=== PATIENT | male | born 1945 | race Caucasian/White ===

== ENCOUNTER 2016-07-08 10:54 | Emergency (ER) | payer OTHER ==
[~2016-07-08] VITALS: Ht 188 cm; Wt 87.7 kg
[~2016-07-08 10:54] MED LIST: ASPCH81X PO; CLS1 PO; COLE1TAB5 PO; CYAN250T PO; EZET10TA63 PO; FURO20TA PO; GEMF600T3 PO; GLC850 PO; GLIP5TAB11 PO; LEVO25TA5 PO; LISI-461 PO; METO50TA16 PO; NTRGSL/4 UT; PANT1TAB48 PO
[2016-07-08 10:58] VITALS: TEMP 36.3; Ht 188 cm; Wt 87.7 kg
[2016-07-08] MEDS ORDERED: HYDR25TA5 PO (11:12)
[2016-07-08] MEDS ORDERED: AZITTAB PO (11:13)
--- NOTE | 2016-07-08 11:54 | EMERGENCY ROOM VISIT NOTE ---
History Report prepared by Amber: Reena Hernandez Under the Supervision of: Dr. You Valderrama M.D. First contact with patient: 11:25 Chief Complaint: HEAD PAIN Stated Complaint: RIGHT SIDE OF HEAD History of Present Illness The patient is a 70 year old male who presents to the Emergency Room with complaints of constant right sided head pain beginning 4 days ago. The patient states that he has had a recent sinus infection and has taken 2 days of Zithromax. He complains of some facial pain. He denies any fever and chills. Review of Systems All systems have been listed, reviewed, and are negative other than those previously mentioned. Please see Additional Medical History Sheet. Past Medical & Surgical Medical Problems: (1) Hypertension (2) Pelvis fracture Family History No pertinent family history stated. Social History Smoking Status: Never Smoker Alcohol Use: none Marital Status: Housing Status: lives with significant other Current/Historical Medications Scheduled Amoxicillin & Pot Clavulanate (Augmentin 500MG), 1 TAB PO BID Aspirin (Aspirin Chewable), 1 TAB PO BID Azithromycin (Zithromax Z-Salvatore), 1 PKT PO UD Colestipol Hcl (Colestid *), 2 GM PO QAM Colestipol Hcl (Colestipol Hcl), 1 GM PO QPM Cyanocobalamin (Vitamin B-12 250 Mcg), 2 TABLETS PO QPM Docusate Sodium (Colace), 100 MG PO BID Ezetimibe (Zetia), 5 MG PO QAM Gemfibrozil (Lopid), 600 MG PO BID Glipizide (Glucotrol), 5 MG PO BID Hydrochlorothiazide (Hydrochlorothiazide), 12.5 MG PO QAM Levothyroxine Sodium (Levothyroxine Sodium), 1 TAB PO QAM Lisinopril (Zestril), 5 MG PO QAM Metformin Hcl (Glucophage *), 850 MG PO BID Metoprolol Tartrate (Lopressor) (Lopressor), 50 MG PO BID Nitroglycerin (Nitrostat), 0.4 MG UT PRN Pantoprazole (Protonix), 40 MG PO QAM Scheduled PRN Furosemide (Lasix), 20 MG PO for swelling Oxycodone/Acetaminophen 5MG/325MG (Percocet 5MG/325MG), 1-2 TABLETS PO Q4H PRN for Pain Allergies Coded Allergies: Atorvastatin (Verified Allergy, Unknown, Hives swelling of legs, 07/08/16 ) Physical Exam Vital Signs Date Time Temp Pulse Resp B/P Pulse Ox O2 Delivery O2 Flow Rate FiO2 07/08/16 14:20 75 20 123/67 94 07/08/16 13:24 70 20 133/73 94 Room Air 07/08/16 10:58 36.3 84 18 151/101 97 Room Air Physical Exam GENERAL: Patient awake, alert, oriented x 3. Patient follows commands. Patient does not appear toxic. Patient is adequately hydrated and well- nourished. SKIN: No erythema, pallor, cyanosis or rash HEENT: Normal head, pupils equal, reactive to light and accommodation. Ears normal. Oral cavity and posterior pharynx appear normal. Neck: Without adenopathy, no neck vein distention. Minimal tenderness over the right maxillary sinus, minimal pain LUNGS: Clear to auscultation. No wheezes, no rales, no rhonchi. HEART: No murmurs. No gallops. No rubs EXTREMITIES: No signs of trauma. No pedal or pretibial edema. No calf or thigh tenderness. No signs of trauma or infection. NEUROLOGIC: Cranial nerves II-XII within normal limits. No gross motor sensory function deficits. Medical Decision & Procedures ER Provider Diagnostic Interpretation: CT results are interpretations by the radiologist and per my review. HEAD CT NONCONTRAST Findings: Moderate mucosal thickening within the paranasal sinuses with multiple fluid levels. There is near-complete opacification of the right sphenoid sinus. There appears be a 1.7 cm polyp within the left nasal cavity on image 1. The mastoid air cells are clear. The calvarium and skull base are intact. The ventricles and sulci are within normal limits. There is no mass, hematoma, midline shift, or acute infarct. Impression: 1. No acute intracranial abnormality. 2. Acute paranasal sinusitis as described above. 3. A 1.7 cm polyp within the left nasal cavity. Direct visualization is recommended. Electronically signed by: Hector Valenzuela M.D. 07/08/2016 12:20 PM Dictated Date/Time: 07/08/2016 12:18 PM Laboratory Results 07/08/16 12:00 Red Blood Count 3.91, Mean Corpuscular Volume 84.1, Mean Corpuscular Hemoglobin 28.6, Mean Corpuscular Hemoglobin Concent 34.0, Mean Platelet Volume 9.4, Neutrophils (%) (Auto) 54.4, Lymphocytes (%) (Auto) 34.9, Monocytes (%) (Auto) 8.6, Eosinophils (%) (Auto) 1.2, Basophils (%) (Auto) 0.3, Neutrophils # (Auto) 3.75, Lymphocytes # (Auto) 2.40, Monocytes # (Auto) 0.59, Eosinophils # (Auto) 0.08, Basophils # (Auto) 0.02 07/08/16 12:00 Test 07/08/16 12:00 White Blood Count 6.88 K/uL (4.8-10.8) Red Blood Count 3.91 M/uL (4.7-6.1) Hemoglobin 11.2 g/dL (14.0-18.0) Hematocrit 32.9 % (42-52) Mean Corpuscular Volume 84.1 fL (80-100) Mean Corpuscular Hemoglobin 28.6 pg (25-34) Mean Corpuscular Hemoglobin Concent 34.0 g/dl (32-36) Platelet Count 257 K/uL (130-400) Mean Platelet Volume 9.4 fL (7.4-10.4) Neutrophils (%) (Auto) 54.4 % Lymphocytes (%) (Auto) 34.9 % Monocytes (%) (Auto) 8.6 % Eosinophils (%) (Auto) 1.2 % Basophils (%) (Auto) 0.3 % Neutrophils # (Auto) 3.75 K/uL (1.4-6.5) Lymphocytes # (Auto) 2.40 K/uL (1.2-3.4) Monocytes # (Auto) 0.59 K/uL (0.11-0.59) Eosinophils # (Auto) 0.08 K/uL (0-0.5) Basophils # (Auto) 0.02 K/uL (0-0.2) RDW Standard Deviation 44.8 fL (36.4-46.3) RDW Coefficient of Variation 14.6 % (11.5-14.5) Immature Granulocyte % (Auto) 0.6 % Immature Granulocyte # (Auto) 0.04 K/uL (0.00-0.02) Anion Gap 8.0 mmol/L (3-11) Est Creatinine Clear Calc Drug Dose 57.9 ml/min Estimated GFR () 59.0 Estimated GFR (Non- 50.9 BUN/Creatinine Ratio 19.9 (10-20) Calcium Level 9.1 mg/dl (8.5-10.1) Laboratory results as stated above per my review. Medications Administered Medications (Trade) Dose Ordered Sig/Blayne Route Start Time Stop Time Status Last Admin Dose Admin Oxycodone/ Acetaminophen (Percocet 5-325mg Tab) 1 tab NOW ONCE PO 07/08/16 12:30 07/08/16 12:31 DC 07/08/16 12:26 1 TAB ED Course 1125: Past medical records reviewed. The patient was evaluated in room C2. A complete history and physical examination was performed. 1230: Oxycodone/Acetaminophen 1 tab PO. 1337: I reevaluated the patient. He will go on Augmentin get pain medicine and he will go home. 1403: Upon reevaluation, the patient appeared to have improvement of his symptoms. I discussed today's findings with the patient. He verbalized agreement of the treatment plan. The patient was discharged home. Medical Decision Differential diagnosis includes sinusitis, migraine/tension/sinus/cluster headache. Multiple labs and CT were obtained. Please see above. The patient is an obvious sinusitis. He also has a nasal polyp which I believe is unrelated to his current problem. The patient has been on azithromycin without benefit. The patient will be switched to Augmentin although I do not have evidence that this is a bacterial infection. The patient was encouraged to use steam. The patient is not a good candidate for pseudoephedrine because of his prior cardiac history. The patient is to follow-up with his family physician in 10- 14 days. The patient was also given a prescription for pain medication. [place] Drug Monitoring Program Search Results: patient reviewed within database, no issues identified Impression Primary Impression: Acute sinusitis Additional Impression: Sinus headache Scribe Attestation The scribe's documentation has been prepared under my direction and personally reviewed by me in its entirety. I confirm that the note above accurately reflects all work, treatment, procedures, and medical decision making performed by me. Departure Information Dispostion Home / Self-Care Prescriptions Docusate Sodium (COLACE) 100 Mg Cap 100 MG PO BID, #20 CAP Prov: You Valderrama M.D. 07/08/16 Oxycodone/Acetaminophen 5MG/325MG (PERCOCET 5MG/325MG) Tab 1-2 TABLETS PO Q4H Y for Pain, #20 TAB Prov: You Valderrama M.D. 07/08/16 Amoxicillin & Pot Clavulanate (AUGMENTIN 500MG) 1 Tab Tab 1 TAB PO BID for 10 Days, #20 TAB Prov: You Valderrama M.D. 07/08/16 Referrals No Doctor, Assigned (PCP) Forms HOME CARE DOCUMENTATION FORM, IMPORTANT VISIT INFORMATION, WORK / SCHOOL INSTRUCTIONS Patient Instructions My [facility] Additional Instructions Stop azithromycin. 1 Augmentin twice a day for 10 days. Start today. 1 Percocet every 4 hours as needed for moderate to severe pain. Do not drive or operate machinery while taking Percocet. 1 Colace twice a day while on Percocet. Drink extra fluids. Follow-up with your family physician within the next 2 weeks. Problem Qualifiers
[2016-07-08 12:09] LABS: BASO % 0.3 %; BASO ABS # 0.02 K/uL (0-0.2); COMPLETE YES; EOS % 1.2 %; HEMATOCRIT 32.9 % (42-52); IG% 0.6 %; LYMPH % 34.9 %; MEAN CELL VOLUME 84.1 fL (80-100); MEAN CORPUSCULAR HEMOGLOBIN 28.6 pg (25-34); MEAN PLATELET VOLUME 9.4 fL (7.4-10.4); MONO % 8.6 %; NEUT % 54.4 %; PLATELET COUNT 257 K/uL (130-400); RED BLOOD COUNT 3.91 M/uL (4.7-6.1); WHITE BLOOD COUNT 6.88 K/uL (4.8-10.8)
--- NOTE | 2016-07-08 12:23 | DIAGNOSTIC IMAGING REPORT ---
HEAD CT NONCONTRAST CT DOSE: 537.48 mGy.cm HISTORY: right sided head pain sinusitis? TECHNIQUE: Multiaxial CT images of the head were performed without the use of intravenous contrast. Automated exposure control was utilized for this study. Comparison: Head CT 09/21/2008. Findings: Moderate mucosal thickening within the paranasal sinuses with multiple fluid levels. There is near-complete opacification of the right sphenoid sinus. There appears be a 1.7 cm polyp within the left nasal cavity on image 1. The mastoid air cells are clear. The calvarium and skull base are intact. The ventricles and sulci are within normal limits. There is no mass, hematoma, midline shift, or acute infarct. Impression: 1. No acute intracranial abnormality. 2. Acute paranasal sinusitis as described above. 3. A 1.7 cm polyp within the left nasal cavity. Direct visualization is recommended. Electronically signed by: Hector Valenzuela M.D. 07/08/2016 12:20 PM Dictated Date/Time: 07/08/2016 12:18 PM
[2016-07-08 12:28] LABS: BUN/CREATININE RATIO 19.9 (10-20); CALCIUM 9.1 mg/dl (8.5-10.1); CREATININE 1.4 mg/dl (0.60-1.40); POTASSIUM 4.4 mmol/L (3.5-5.1)
[2016-07-08] MEDS ORDERED: OXYCODONE/ACETAMINOPHEN 5-325 TAB PO ONE (12:30)
[2016-07-08] MEDS ORDERED: OXYC-57 PO (14:00)
[2016-07-08] MEDS ORDERED: AMOX500T PO (14:00)
[2016-07-08] MEDS ORDERED: DOCU-94 PO (14:05)
[2016-07-08 14:20] VITALS: BP 123/67; PULSE 75; O2SAT 94
== END 2016-07-08 14:21 | disposition home or self-care (01) ==
LOC: C.EDB 10:55 → C.EDC 14:21
DX: J01.90 Acute sinusitis, unspecified (principal); R51 Headache; I10 Essential (primary) hypertension; Z79.84 Long term (current) use of oral hypoglycemic drugs; Z79.899 Other long term (current) drug therapy; Z87.828 Personal history of other (healed) physical injury and trauma

== ENCOUNTER → 2016-10-25 | Day surgery (SDC) | payer OTHER ==
[2016-10-18 09:10] VITALS: Ht 188 cm; Wt 86.4 kg
[~2016-10-25] VITALS: Ht 188 cm; Wt 86.4 kg
[~2016-10-25] MED LIST changes: +EpHEDrine SULFATE 50MG/5ML SYR ONE; +HYDR25TA5 PO; +LIDOCAINE HCL 2% 2 ML VIAL (20MG/ML) ONE; +ONDANSETRON INJ 2 MG/ML 2 ML VIAL IV PRN; +PROPOFOL IV EMULSION 10 MG/ML 20 ML VIAL IV ONE; +SODIUM CHLORIDE 0.9% 500ML 500 ML IV ONE
--- NOTE | 2016-10-25 08:22 | Endo History and Physical ---
History & Physical Date of Service: Oct 25, 2016. Chief Complaint: none Referring Physician: Dr. 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 He presents for endoscopic follow-up today. Past Medical History Diabetes, Angioplasty/Stent, Arthritis, Fractures, Pacemaker, Reflux, High Cholesterol, CABG, Heart Disease, Hypertension, Thrombophlebitis, Thyroid Disease, Valve Replacement Past Surgical History Hx Cardiac Surgery: Yes (MULTIPLE HEART CATHS, STENT X2; BALLOON IN AORTIC VALVE) Hx Internal Defibrillator: Yes (-2013) Hx Pacemaker: No Hx Abdominal Surgery: No Hx of Implantable Prosthesis: No Hx Post-Op Nausea and Vomiting: No Hx Cancer Surgery: Yes (SKIN CANCER REMOVALS) Hx Thoracic Surgery: No Hx Orthopedic: Yes (LT VIVIENNE, RT SHOULDER SURGERY, RT HAND SURGERY, RT COLLAR BONE) Hx Urinary Tract Surgery: No Family History None Social History Smoking Status: Never Smoker Hx Substance Use: No Hx Alcohol Use: No Allergies Coded Allergies: Atorvastatin (Verified Allergy, Unknown, Hives swelling of legs, 10/25/16) Current Medications Reported Home Medications Medications Dose Route/Sig Max Daily Dose Days Date Category Dose Instructions Hydrochlorothiazide 25 Mg Tab 12.5 Mg PO QAM 07/08/16 Reported Protonix (Pantoprazole) 40 Mg Tab 40 Mg PO QAM 01/20/15 Reported Zestril (Lisinopril) 10 Mg Tab 5 Mg PO QAM 01/20/15 Reported Levothyroxine Sodium 25 Mcg Tab 1 Tab PO QAM 12/10/14 Reported Aspirin Chewable (Aspirin) 81 Mg Chew 1 Tab PO BID 12/10/14 Reported Glucotrol (Glipizide) 5 Mg Tab 5 Mg PO BID 06/29/13 Reported Colestipol Hcl 1 Gm Tab 1 Gm PO QPM 06/29/13 Reported Lasix (Furosemide) 20 Mg Tab 0.5 Tab PO QPM 05/28/11 Reported Vitamin B-12 250 Mcg (Cyanocobalamin) 250 Mcg Tab 2 Tablets PO QPM 05/28/11 Reported Nitrostat (Nitroglycerin) 0.4 Mg Tab 0.4 Mg UT PRN 09/18/08 Reported [id number] x3. Glucophage * (Metformin HCl) 850 Mg Tab 850 Mg PO BID 09/18/08 Reported Zetia (Ezetimibe) 10 Mg Tab 5 Mg PO QAM 09/18/08 Reported Colestid * (Colestipol HCl) 1 Gm Tab 2 Gm PO QAM 09/21/08 Reported Lopressor (Metoprolol Tartrate) 50 Mg Tab 50 Mg PO BID 09/21/08 Reported Lopid (Gemfibrozil) 600 Mg Tab 600 Mg PO BID 09/18/08 Reported Vital Signs Weight (Kilograms): 86.36 Height (Feet): 6 Height (Inches): 2 Physical Exam General Appearance: no apparent distress Respiratory/Chest: Auscultation: breath sounds normal Cardiovascular: Heart Auscultation: RRR Abdomen: Inspection & Palpation: soft Assessment and Plan EGD for surveillance of a duodenal carcinoid tumor. We have discussed the risks and benefits to include bleeding, infection, perforation, pain and cardiovascular problems
--- NOTE | 2016-10-25 08:49 | Discharge Instructions ---
Endoscopy Patient Instructions Date / Procedure(s) Performed Oct 25, 2016. EGD Allergy Information Coded Allergies: Atorvastatin (Verified Allergy, Unknown, Hives swelling of legs, 10/25/16) Discharge Date / Findings Oct 25, 2016. Mild gastritis Medication Instructions Stopped Medication(s): ASPIRIN Reported Home Medications Medications Dose Route/Sig Max Daily Dose Days Date Category Dose Instructions Hydrochlorothiazide 25 Mg Tab 12.5 Mg PO QAM 07/08/16 Reported Protonix (Pantoprazole) 40 Mg Tab 40 Mg PO QAM 01/20/15 Reported Zestril (Lisinopril) 10 Mg Tab 5 Mg PO QAM 01/20/15 Reported Levothyroxine Sodium 25 Mcg Tab 1 Tab PO QAM 12/10/14 Reported Aspirin Chewable (Aspirin) 81 Mg Chew 1 Tab PO BID 12/10/14 Reported Glucotrol (Glipizide) 5 Mg Tab 5 Mg PO BID 06/29/13 Reported Colestipol Hcl 1 Gm Tab 1 Gm PO QPM 06/29/13 Reported Lasix (Furosemide) 20 Mg Tab 0.5 Tab PO QPM 05/28/11 Reported Vitamin B-12 250 Mcg (Cyanocobalamin) 250 Mcg Tab 2 Tablets PO QPM 05/28/11 Reported Nitrostat (Nitroglycerin) 0.4 Mg Tab 0.4 Mg UT PRN 09/18/08 Reported [id number] x3. Glucophage * (Metformin HCl) 850 Mg Tab 850 Mg PO BID 09/18/08 Reported Zetia (Ezetimibe) 10 Mg Tab 5 Mg PO QAM 09/18/08 Reported Colestid * (Colestipol HCl) 1 Gm Tab 2 Gm PO QAM 09/21/08 Reported Lopressor (Metoprolol Tartrate) 50 Mg Tab 50 Mg PO BID 09/21/08 Reported Lopid (Gemfibrozil) 600 Mg Tab 600 Mg PO BID 09/18/08 Reported Provider Instructions Activity Restrictions - No exercising or heavy lifting for 24 hours. - Do not drink alcohol the day of the procedure. - Do not drive a car or operate machinery until the day after the procedure. - Do not make any important decisions or sign important papers in 24 hours after the procedure. Following Day: - Return to full activity which may include returning to work/school. Diet Start your diet with liquids and light foods (jello, soup, juice, toast). Then eat your usual diet if not nauseated. Treatment For Common After Affects For mild abdominal pain, bloating, or excessive gas: - Rest - Eat lightly - Lie on right side Follow-Up Information Follow-up with JULIET SHIRLEY as scheduled Await pathology results from today Repeat upper endoscopy in 6 months Discomfort may be related to use of metformin Right upper quadrant ultrasound to screen for evidence of gallstones Anesthesia Information What You Should Know You have had a procedure that required some medicine to reduce anxiety and discomfort. This treatment is called moderate sedation. After receiving the treatment, you may be sleepy, but you will be able to breathe on your own. The effects of the treatment may last for several hours. Follow these instructions along with Activity/Diet recommendations noted above: * Do NOT do anything where dizziness or clumsiness would be dangerous. * Rest quietly at home today, then you can be up and about tomorrow. * Have a responsible person stay with you the rest of today. * You may have had an I.V. today. If so, you may take the dressing off later today. Recommendations Call your doctor if: * Trouble breathing * Continuous vomiting for more than 24 hours * Temperature above 101 degrees * Severe abdominal pain or bloating * Pain not relieved by pain medicine ordered * There is increased drainage or redness from any incision * A large amount of rectal bleeding greater than 2-3 tablespoons. (If you had a polyp/s removed or have hemorrhoids, a small amount of blood - from the rectum is to be expected.) * You have any unanswered questions or concerns. IN THE EVENT OF A SERIOUS EMERGENCY, GO TO THE NEAREST EMERGENCY ROOM Your discharge instructions were prepared by provider Ottoniel Liu. Patient Instructions Signature Page Dakota Alvarez Patient (or Guardian) Signature/Date: I have read and understand the instructions given to me by my caregivers. Caregiver/RN/Doctor Signature/Date: The above-named patient and/or guardian has received patient instructions on this date. + Original Patient Signature Page (only) stays with chart. Please make copy for patient.
--- NOTE | 2016-10-25 08:52 | GI REPORT ---
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 Estimated blood loss: Minimal. Estimated Blood Loss: Estimated blood loss was minimal. Procedure: Pre-Anesthesia Assessment: - Prior to the procedure, a History and Physical was performed, and patient medications, allergies and sensitivities were reviewed. The patient's tolerance of previous anesthesia was reviewed. - The risks and benefits of the procedure and the sedation options and risks were discussed with the patient. All questions were answered and informed consent was obtained. - Patient identification and proposed procedure were verified prior to the procedure by the physician, the nurse and the shuffle board operator. The procedure was verified in the procedure room. - Pre-procedure physical examination revealed no contraindications to sedation. - ASA Grade Assessment: III - A patient with severe systemic disease. - After reviewing the risks and benefits, the patient was deemed in satisfactory condition to undergo the procedure. - The anesthesia plan was to use monitored anesthesia care (MAC). - Immediately prior to administration of medications, the patient was re-assessed for adequacy to receive sedatives. - The heart rate, respiratory rate, oxygen saturations, blood pressure, adequacy of pulmonary ventilation, and response to care were monitored throughout the procedure. - The physical status of the patient was re-assessed after the procedure. After obtaining informed consent, the endoscope was passed under direct vision. Throughout the procedure, the patient's blood pressure, pulse, and oxygen saturations were monitored continuously. The On-site loaner was introduced through the mouth, and advanced to the third part of duodenum. The upper GI endoscopy was accomplished without difficulty. The patient tolerated the procedure well. Findings: The examined esophagus was normal. Diffuse mild inflammation characterized by congestion (edema), erythema and granularity was found in the entire examined stomach. Biopsies were taken with a cold forceps for histology. Estimated blood loss was minimal. The examined duodenum was normal. Impression: - Normal esophagus. - Chronic gastritis. Biopsied. - Normal examined duodenum. Recommendation: - Discharge patient to home (ambulatory). - Advance diet as tolerated today. - Await pathology results. - Repeat the upper endoscopy in 6 months for surveillance. Ottoniel Liu D.O. Ottoniel Liu, 10/25/2016 8:52:14 AM This report has been signed electronically. Note Initiated On: 10/25/2016 8:31 AM I attest to the content of the Intraoperative Record and orders documented therein, exceptions below
[2016-10-25 09:25] VITALS: BP 136/83; PULSE 67; O2SAT 99
--- NOTE | 2016-10-25 09:55 | Anesthesiology Progress Note ---
Anesthesia Post Op Note Date & Time Oct 25, 2016 at 09:55 Vital Signs Pain Intensity: 0 Vital Signs Past 12 Hours Date Time Temp Pulse Resp B/P (MAP) Pulse Ox O2 Delivery O2 Flow Rate FiO2 10/25/16 09:25 67 20 136/83 (100) 99 Room Air 10/25/16 09:10 68 20 135/74 (94) 98 Room Air 10/25/16 08:55 58 20 96/62 (73) 96 Room Air 10/25/16 08:28 36.1 54 16 137/88 (104) 98 Room Air Notes Mental Status: alert / awake / arousable, participated in evaluation Pt Amnestic to Procedure: Yes Nausea / Vomiting: adequately controlled Pain: adequately controlled Airway Patency, RR, SpO2: stable & adequate BP & HR: stable & adequate Hydration State: stable & adequate Anesthetic Complications: no major complications apparent
== END | disposition home or self-care (01) ==
LOC: C.GI 07:52
PROVIDERS: ATTEND Internal Medicine Gastroenterology
DX: K29.50 Unspecified chronic gastritis without bleeding (principal); D3A.010 Benign carcinoid tumor of the duodenum; E11.9 Type 2 diabetes mellitus without complications; I10 Essential (primary) hypertension; K21.9 Gastro-esophageal reflux disease without esophagitis; E78.00 Pure hypercholesterolemia, unspecified; Z95.2 Presence of prosthetic heart valve; Z95.1 Presence of aortocoronary bypass graft; Z95.5 Presence of coronary angioplasty implant and graft; Z79.82 Long term (current) use of aspirin; Z79.899 Other long term (current) drug therapy; Z85.020 Personal history of malignant carcinoid tumor of stomach; Z79.84 Long term (current) use of oral hypoglycemic drugs

== ENCOUNTER → 2017-06-04 | Day surgery (SDC) | payer OTHER ==
[2017-05-25 15:41] VITALS: BMI 24.0
[~2017-06-04] VITALS: Ht 188 cm; Wt 86.4 kg
[~2017-06-04] MED LIST changes: +ATROPINE SULFATE 0.1 MG/ML 5ML SYR IV PRN; -CLS1 PO; +COLE1TAB PO; -EpHEDrine SULFATE 50MG/5ML SYR ONE; +EpHEDrine SULFATE INJ 50 MG/ML AMP IV PRN; +FENTANYL CITRATE INJ 50 MCG/1 ML 2 ML VIAL ONE; -GLC850 PO; +GLIP-197 PO; -GLIP5TAB11 PO; +METF-383 PO; -ONDANSETRON INJ 2 MG/ML 2 ML VIAL IV PRN; +PANT1TAB3 PO; -PANT1TAB48 PO; -SODIUM CHLORIDE 0.9% 500ML 500 ML IV ONE
[2017-06-04 08:04] VITALS: Ht 188 cm; Wt 86.4 kg
[2017-06-04 08:11] VITALS: TEMP 36.6
--- NOTE | 2017-06-04 08:29 | Endo History and Physical ---
History & Physical Date of Service: Jun 04, 2017. Chief Complaint: 6 MONTH FOLLOW UP FOR STOMACH TUMOR Referring Physician: MS History of Present Illness History of a duodenal carcinoid tumor for post EMR follow-up today. Past Medical History Diabetes, Angioplasty/Stent, Arthritis, Fractures, Pacemaker, Reflux, High Cholesterol, CABG, Heart Disease, Hypertension, Thrombophlebitis, Thyroid Disease, Valve Replacement Past Surgical History Hx Cardiac Surgery: Yes (MULTIPLE HEART CATHS, STENT X2; BALLOON IN AORTIC VALVE) Hx Internal Defibrillator: Yes (2-2013) Hx Pacemaker: No Hx Abdominal Surgery: No Hx of Implantable Prosthesis: No Hx Post-Op Nausea and Vomiting: No Hx Cancer Surgery: Yes (SKIN CANCER REMOVALS) Hx Thoracic Surgery: No Hx Orthopedic: Yes (LT VIVIENNE, RT SHOULDER SURGERY, RT HAND SURGERY, RT COLLAR BONE) Hx Urinary Tract Surgery: No Family History None Social History Smoking Status: Never Smoker Hx Substance Use: No Hx Alcohol Use: No Allergies Coded Allergies: Atorvastatin (Verified Allergy, Unknown, Hives swelling of legs, 06/04/17 ) Current Medications Reported Home Medications Medications Dose Route/Sig Max Daily Dose Days Date Category Dose Instructions Glucophage (Metformin Hcl) 850 Mg Tab 850 Mg PO BID 05/25/17 Reported Glipizide Er (Glipizide) 5 Mg Tab 1 Tab PO DIRECTED 05/25/17 Reported TAKES 1 TAB IN AM AND 1 TAB EVERY OTHER EVENING. Colestid (Colestipol Hcl) 1 Gm Tab 2 Gm PO QAM 05/25/17 Reported Hydrochlorothiazide 25 Mg Tab 12.5 Mg PO QAM 07/08/16 Reported Protonix (Pantoprazole) 40 Mg Tab 40 Mg PO QAM 01/20/15 Reported Zestril (Lisinopril) 10 Mg Tab 5 Mg PO QAM 01/20/15 Reported Levothyroxine Sodium 25 Mcg Tab 1 Tab PO QAM 12/10/14 Reported Aspirin Chewable (Aspirin) 81 Mg Chew 1 Tab PO BID 12/10/14 Reported Colestipol Hcl 1 Gm Tab 1 Gm PO QPM 06/29/13 Reported Lasix (Furosemide) 20 Mg Tab 0.5 Tab PO DAILY AFTERNOON 05/28/11 Reported Vitamin B-12 250 Mcg (Cyanocobalamin) 250 Mcg Tab 2 Tablets PO QPM 05/28/11 Reported Nitrostat (Nitroglycerin) 0.4 Mg Tab 0.4 Mg UT PRN 09/18/08 Reported [id number] x3. Zetia (Ezetimibe) 10 Mg Tab 5 Mg PO QAM 09/18/08 Reported Lopressor (Metoprolol Tartrate) 50 Mg Tab 50 Mg PO BID 09/21/08 Reported Lopid (Gemfibrozil) 600 Mg Tab 600 Mg PO BID 09/18/08 Reported Vital Signs Weight (Kilograms): 86.36 Height (Feet): 6 Height (Inches): 2 Date Time Temp Pulse Resp B/P (MAP) Pulse Ox O2 Delivery O2 Flow Rate FiO2 06/04/17 08:11 36.6 62 18 177/87 (117) 95 Room Air Physical Exam General Appearance: no apparent distress Respiratory/Chest: Auscultation: breath sounds normal Abdomen: Inspection & Palpation: soft Assessment and Plan EGD for f/u of a duodenal carncinoid tumor. We have discussed the risks to include bleeding, infection, perforation, pain, and need for follow-up studies.
--- NOTE | 2017-06-04 08:57 | Discharge Instructions ---
Endoscopy Patient Instructions Date / Procedure(s) Performed Jun 04, 2017. EGD Allergy Information Coded Allergies: Atorvastatin (Verified Allergy, Unknown, Hives swelling of legs, 06/04/17 ) Discharge Date / Findings Jun 04, 2017. Mild gastritis No evidence of a recurrent Carcinoid Medication Instructions Stopped Medication(s): GLIPAZIDE METFORMIN Reported Home Medications Medications Dose Route/Sig Max Daily Dose Days Date Category Dose Instructions Glucophage (Metformin Hcl) 850 Mg Tab 850 Mg PO BID 05/25/17 Reported Glipizide Er (Glipizide) 5 Mg Tab 1 Tab PO DIRECTED 05/25/17 Reported TAKES 1 TAB IN AM AND 1 TAB EVERY OTHER EVENING. Colestid (Colestipol Hcl) 1 Gm Tab 2 Gm PO QAM 05/25/17 Reported Hydrochlorothiazide 25 Mg Tab 12.5 Mg PO QAM 07/08/16 Reported Protonix (Pantoprazole) 40 Mg Tab 40 Mg PO QAM 01/20/15 Reported Zestril (Lisinopril) 10 Mg Tab 5 Mg PO QAM 01/20/15 Reported Levothyroxine Sodium 25 Mcg Tab 1 Tab PO QAM 12/10/14 Reported Aspirin Chewable (Aspirin) 81 Mg Chew 1 Tab PO BID 12/10/14 Reported Colestipol Hcl 1 Gm Tab 1 Gm PO QPM 06/29/13 Reported Lasix (Furosemide) 20 Mg Tab 0.5 Tab PO DAILY AFTERNOON 05/28/11 Reported Vitamin B-12 250 Mcg (Cyanocobalamin) 250 Mcg Tab 2 Tablets PO QPM 05/28/11 Reported Nitrostat (Nitroglycerin) 0.4 Mg Tab 0.4 Mg UT PRN 09/18/08 Reported [id number] x3. Zetia (Ezetimibe) 10 Mg Tab 5 Mg PO QAM 09/18/08 Reported Lopressor (Metoprolol Tartrate) 50 Mg Tab 50 Mg PO BID 09/21/08 Reported Lopid (Gemfibrozil) 600 Mg Tab 600 Mg PO BID 09/18/08 Reported Provider Instructions Activity Restrictions - No exercising or heavy lifting for 24 hours. - Do not drink alcohol the day of the procedure. - Do not drive a car or operate machinery until the day after the procedure. - Do not make any important decisions or sign important papers in 24 hours after the procedure. Following Day: - Return to full activity which may include returning to work/school. Diet Start your diet with liquids and light foods (jello, soup, juice, toast). Then eat your usual diet if not nauseated. Treatment For Common After Affects For mild abdominal pain, bloating, or excessive gas: - Rest - Eat lightly - Lie on right side Follow-Up Information Repeat upper endoscopy in 6 months then annually for a total of 5 years after EMR Continue Protonix 40 mg 1 time daily. Anesthesia Information What You Should Know You have had a procedure that required some medicine to reduce anxiety and discomfort. This treatment is called moderate sedation. After receiving the treatment, you may be sleepy, but you will be able to breathe on your own. The effects of the treatment may last for several hours. Follow these instructions along with Activity/Diet recommendations noted above: * Do NOT do anything where dizziness or clumsiness would be dangerous. * Rest quietly at home today, then you can be up and about tomorrow. * Have a responsible person stay with you the rest of today. * You may have had an I.V. today. If so, you may take the dressing off later today. Recommendations Call your doctor if: * Trouble breathing * Continuous vomiting for more than 24 hours * Temperature above 101 degrees * Severe abdominal pain or bloating * Pain not relieved by pain medicine ordered * There is increased drainage or redness from any incision * A large amount of rectal bleeding greater than 2-3 tablespoons. (If you had a polyp/s removed or have hemorrhoids, a small amount of blood - from the rectum is to be expected.) * You have any unanswered questions or concerns. IN THE EVENT OF A SERIOUS EMERGENCY, GO TO THE NEAREST EMERGENCY ROOM Your discharge instructions were prepared by provider Ottoniel Liu. Patient Instructions Signature Page Dakota Alvarez Patient (or Guardian) Signature/Date: I have read and understand the instructions given to me by my caregivers. Caregiver/RN/Doctor Signature/Date: The above-named patient and/or guardian has received patient instructions on this date. + Original Patient Signature Page (only) stays with chart. Please make copy for patient.
--- NOTE | 2017-06-04 09:02 | GI REPORT ---
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 Estimated blood loss: Minimal. Estimated Blood Loss: Estimated blood loss was minimal. Procedure: Pre-Anesthesia Assessment: - Prior to the procedure, a History and Physical was performed, and patient medications, allergies and sensitivities were reviewed. The patient's tolerance of previous anesthesia was reviewed. - The risks and benefits of the procedure and the sedation options and risks were discussed with the patient. All questions were answered and informed consent was obtained. - Patient identification and proposed procedure were verified prior to the procedure by the physician, the nurse and the tower crane operator. The procedure was verified in the procedure room. - Pre-procedure physical examination revealed no contraindications to sedation. - ASA Grade Assessment: IV - A patient with severe systemic disease that is a constant threat to life. - After reviewing the risks and benefits, the patient was deemed in satisfactory condition to undergo the procedure. - The anesthesia plan was to use monitored anesthesia care (MAC). - Immediately prior to administration of medications, the patient was re-assessed for adequacy to receive sedatives. - The heart rate, respiratory rate, oxygen saturations, blood pressure, adequacy of pulmonary ventilation, and response to care were monitored throughout the procedure. - The physical status of the patient was re-assessed after the procedure. After obtaining informed consent, the endoscope was passed under direct vision. Throughout the procedure, the patient's blood pressure, pulse, and oxygen saturations were monitored continuously. The scope was introduced through the mouth, and advanced to the third part of duodenum. The upper GI endoscopy was accomplished without difficulty. The patient tolerated the procedure well. Findings: The examined esophagus was normal. Diffuse mild inflammation characterized by erythema and granularity was found in the entire examined stomach. The examined duodenum was normal. Impression: - Normal esophagus. - Diffuse gastritis (previously biopsied). - Normal examined duodenum. Recommendation: - Discharge patient to home (ambulatory). - Advance diet as tolerated today. - Repeat upper endoscopy in 6 months for surveillance. Ottoniel Liu D.O. Ottoniel Liu, 06/04/2017 9:01:32 AM This report has been signed electronically. Note Initiated On: 06/04/2017 8:37 AM I attest to the content of the Intraoperative Record and orders documented therein, exceptions below
--- NOTE | 2017-06-04 09:05 | Anesthesiology Progress Note ---
Anesthesia Post Op Note Date & Time Jun 04, 2017 at 09:04 Vital Signs Pain Intensity: 0 Vital Signs Past 12 Hours Date Time Temp Pulse Resp B/P (MAP) Pulse Ox O2 Delivery O2 Flow Rate FiO2 06/04/17 08:11 36.6 62 18 177/87 (117) 95 Room Air Notes Mental Status: alert / awake / arousable, participated in evaluation Pt Amnestic to Procedure: Yes Nausea / Vomiting: adequately controlled Pain: adequately controlled Airway Patency, RR, SpO2: stable & adequate BP & HR: stable & adequate Hydration State: stable & adequate Anesthetic Complications: no major complications apparent
[2017-06-04 09:21] VITALS: BP 159/88; PULSE 68; O2SAT 97
== END | disposition home or self-care (01) ==
LOC: C.GI 07:44
PROVIDERS: ATTEND Internal Medicine Gastroenterology
DX: Z08 Encounter for follow-up examination after completed treatment for malignant neoplasm (principal); I10 Essential (primary) hypertension; E11.9 Type 2 diabetes mellitus without complications; E78.00 Pure hypercholesterolemia, unspecified; K21.9 Gastro-esophageal reflux disease without esophagitis; M19.90 Unspecified osteoarthritis, unspecified site; Z95.2 Presence of prosthetic heart valve; Z79.82 Long term (current) use of aspirin; Z79.899 Other long term (current) drug therapy; Z79.84 Long term (current) use of oral hypoglycemic drugs; Z95.5 Presence of coronary angioplasty implant and graft; Z85.060 Personal history of malignant carcinoid tumor of small intestine

== ENCOUNTER 2017-08-05 22:32 | Emergency (ER) | payer OTHER ==
[~2017-08-05] VITALS: Ht 188 cm; Wt 87.1 kg
[~2017-08-05 22:32] MED LIST changes: -ATROPINE SULFATE 0.1 MG/ML 5ML SYR IV PRN; -EpHEDrine SULFATE INJ 50 MG/ML AMP IV PRN; -FENTANYL CITRATE INJ 50 MCG/1 ML 2 ML VIAL ONE; -LIDOCAINE HCL 2% 2 ML VIAL (20MG/ML) ONE; -PROPOFOL IV EMULSION 10 MG/ML 20 ML VIAL IV ONE
[2017-08-05 22:37] VITALS: TEMP 36.8
--- NOTE | 2017-08-05 22:59 | EMERGENCY ROOM VISIT NOTE ---
History Report prepared by Amber: Loreto Bliss Under the Supervision of: Dr. Richard Taylor M.D. 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 Positive headache, sore throat, SOB, weakness, cough with green phlegm. Negative chest pain. He describes his headache like "his head is going to blow off" and that lying down worsens his SOB. The patient has a defibrillator in his chest and received his flu shot this year. 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 A total of ten systems were reviewed and were otherwise negative. Past Medical & Surgical Medical Problems: (1) Diabetes (2) Heart disease (3) Hypertension (4) Pelvis fracture Family History Cancer FHx: gallbladder disease FHx: kidney disease Heart disease High blood pressure Social History Smoking Status: Former Smoker Smokeless Tobacco Use: No Alcohol Use: none Marital Status: Housing Status: lives with significant other Current/Historical Medications Scheduled Amoxicillin (Amoxil), 2,000 MG PO DIRECTED Aspirin (Aspirin Chewable), 1 TAB PO BID Benzonatate (Tessalon Perles), 100 MG PO TID Colestipol Hcl (Colestipol Hcl), 1 GM PO QPM Colestipol Hcl (Colestid), 2 GM PO QAM Cyanocobalamin (Vitamin B-12 250 Mcg), 2,000 MCG PO DAILY Ezetimibe (Zetia), 5 MG PO DAILY Fluorouracil (Topical) (Efudex), 1 APPLN TOP BID Gemfibrozil (Lopid), 600 MG PO BID Glipizide (Glipizide Er), 1 TAB PO DAILY Hydrochlorothiazide (Hydrochlorothiazide), 12.5 MG PO QAM Levothyroxine Sodium (Levothyroxine Sodium), 1 TAB PO QAM Metformin Hcl (Glucophage), 850 MG PO BID Metoprolol Tartrate (Lopressor) (Lopressor), 50 MG PO BID Nitroglycerin (Nitrostat), 0.4 MG UT PRN Pantoprazole (Protonix), 40 MG PO QAM Allergies Coded Allergies: Atorvastatin (Verified Allergy, Unknown, Hives swelling of legs, 08/05/17 ) Physical Exam Vital Signs Date Time Temp Pulse Resp B/P (MAP) Pulse Ox O2 Delivery O2 Flow Rate FiO2 08/06/17 01:05 79 18 132/71 96 08/06/17 00:15 80 18 147/68 97 Room Air 08/06/17 00:00 82 18 138/70 96 Room Air 08/05/17 23:28 84 08/05/17 23:21 98 Room Air 08/05/17 22:37 36.8 95 18 118/72 93 Room Air Physical Exam GENERAL: Awake, alert, well-appearing, NAD HENT: Normocephalic, atraumatic. No maxillary or frontal sinus pain. EYES: Normal conjunctiva. Sclera non-icteric. PERRL. No anisocoria. NECK: Supple. No nuchal rigidity. FROM. RESPIRATORY: CTAB, no rhonchi, wheezing, crackles CARDIAC: RRR, no MRG. Device in the left chest. ABDOMEN: Soft, NTND, BS+. Negative Homans's sign MSK: No chest wall TTP, no LE swelling NEURO: GCS 15, CN 2-12 intact, moves all 4s on command SKIN: No rash or jaundice noted. Medical Decision & Procedures ER Provider Diagnostic Interpretation: Radiology results as stated below per my review and interpretation: CHEST XRAY Laboratory Results 08/05/17 23:15 Red Blood Count 3.45, Mean Corpuscular Volume 85.5, Mean Corpuscular Hemoglobin 29.0, Mean Corpuscular Hemoglobin Concent 33.9, Mean Platelet Volume 9.9, Neutrophils (%) (Auto) 63.0, Lymphocytes (%) (Auto) 21.0, Monocytes (%) (Auto) 12.3, Eosinophils (%) (Auto) 2.7, Basophils (%) (Auto) 0.6, Neutrophils # (Auto ) 4.36, Lymphocytes # (Auto) 1.45, Monocytes # (Auto) 0.85, Eosinophils # (Auto ) 0.19, Basophils # (Auto) 0.04 08/05/17 23:15 Test 08/05/17 23:15 08/05/17 23:20 White Blood Count 6.92 K/uL (4.8-10.8) Red Blood Count 3.45 M/uL (4.7-6.1) Hemoglobin 10.0 g/dL (14.0-18.0) Hematocrit 29.5 % (42-52) Mean Corpuscular Volume 85.5 fL (80-100) Mean Corpuscular Hemoglobin 29.0 pg (25-34) Mean Corpuscular Hemoglobin Concent 33.9 g/dl (32-36) Platelet Count 269 K/uL (130-400) Mean Platelet Volume 9.9 fL (7.4-10.4) Neutrophils (%) (Auto) 63.0 % Lymphocytes (%) (Auto) 21.0 % Monocytes (%) (Auto) 12.3 % Eosinophils (%) (Auto) 2.7 % Basophils (%) (Auto) 0.6 % Neutrophils # (Auto) 4.36 K/uL (1.4-6.5) Lymphocytes # (Auto) 1.45 K/uL (1.2-3.4) Monocytes # (Auto) 0.85 K/uL (0.11-0.59) Eosinophils # (Auto) 0.19 K/uL (0-0.5) Basophils # (Auto) 0.04 K/uL (0-0.2) RDW Standard Deviation 47.9 fL (36.4-46.3) RDW Coefficient of Variation 15.2 % (11.5-14.5) Immature Granulocyte % (Auto) 0.4 % Immature Granulocyte # (Auto) 0.03 K/uL (0.00-0.02) Prothrombin Time 10.0 SECONDS (9.0-12.0) Prothromb Time International Ratio 1.0 (0.9-1.1) Activated Partial Thromboplast Time 28.9 SECONDS (21.0-31.0) Partial Thromboplastin Ratio 1.1 Anion Gap 13.0 mmol/L (3-11) Est Creatinine Clear Calc Drug Dose 50.5 ml/min Estimated GFR () 51.0 Estimated GFR (Non- 44.0 BUN/Creatinine Ratio 14.5 (10-20) Calcium Level 8.8 mg/dl (8.5-10.1) Total Bilirubin 0.3 mg/dl (0.2-1) Aspartate Amino Transf (AST/SGOT) 13 U/L (15-37) Alanine Aminotransferase (ALT/SGPT) 16 U/L (12-78) Alkaline Phosphatase 82 U/L (45-117) Troponin I 0.022 ng/ml (0-0.045) Pro-B-Type Natriuretic Peptide 1307 pg/ml (0-900) Total Protein 7.8 gm/dl (6.4-8.2) Albumin 3.4 gm/dl (3.4-5.0) Globulin 4.4 gm/dl (2.5-4.0) Albumin/Globulin Ratio 0.8 (0.9-2) Urine Color YELLOW Urine Appearance CLEAR (CLEAR) Urine pH 5.5 (4.5-7.5) Urine Specific Hematite 1.022 (1.000-1.030) Urine Protein NEG (NEG) Urine Glucose (UA) NEG (NEG) Urine Ketones NEG (NEG) Urine Occult Blood NEG (NEG) Urine Nitrite NEG (NEG) Urine Bilirubin NEG (NEG) Urine Urobilinogen NEG (NEG) Urine Leukocyte Esterase NEG (NEG) Laboratory results reviewed by me Medications Administered Medications (Trade) Dose Ordered Sig/Blayne Route Start Time Stop Time Status Last Admin Dose Admin Acetaminophen (Tylenol Tab) 1,000 mg NOW STAT PO 08/05/17 23:01 08/05/17 23:03 DC 08/05/17 23:10 1,000 MG Albuterol/ Ipratropium (Duoneb) 3 ml NOW STAT INH 08/05/17 23:01 08/05/17 23:03 DC 08/05/17 23:10 3 ML Menthol (Nice Lissa) 1 lissa NOW STAT LISSA 08/05/17 23:01 08/05/17 23:03 DC 08/05/17 23:10 1 LISSA Benzonatate (Tessalon Perles Cap) 100 mg NOW ONCE PO 08/05/17 23:15 08/05/17 23:16 DC 08/05/17 23:10 100 MG Oxymetazoline HCl (Afrin 0.05% Nasal [place]) 1 sprays NOW ONCE NA 08/05/17 23:15 08/05/17 23:16 DC 08/05/17 23:10 1 SPRAYS Sodium Chloride 250 ml @ 999 mls/hr Q16M STAT IV 08/05/17 23:54 08/06/17 00:09 DC 08/05/17 23:56 999 MLS/HR ECG Per My Interpretation Indication: SOB/dyspnea Rate (beats per minute): 80 Rhythm: normal sinus Findings: LAFB, RBBB, T-wave inversion (Anterior, Lateral), other (wide QRS) Comparison ECG Date: 09/02/16 Change: The rate is different but the TWI and LAFB are old compared to prior ED Course 2250: The patient was evaluated in room C11. A complete history and physical exam was performed. 2300: Ordered Menthol 1 lissa LISSA, Duoneb 3 ml INH, Tylenol Tab 1000 mg PO 2315: Ordered Oxymetazoline HCl 1 sprays NA, Benzoate 100 mg PO 2354: Ordered Sodium Chloride 250 ml @ 999 mls/hr IV 0055: I reevaluated the patient. Discussed results and discharge instructions: He verbalized understanding and agreement. The patient is ready for discharge. 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 Positive headache, sore throat, SOB, weakness, cough with green phlegm. Negative chest pain. Differential diagnosis: Etiologies such as infections, reactive airway disease, pneumonia, pneumothorax , COPD, CHF, cardiac ischemia, pulmonary embolism, musculoskeletal, gastrointestinal, as well as others were entertained. Patient was seen and evaluated the bedside. Patient had been complaining some flulike symptoms ongoing 2-3 days. Patient did have some sore throat shortness of breath and generalized weakness. Patient did have a cough that was productive. Patient denies any chest pains. Of note with regard to this shortness of breath is related after laying down and feeling the urge to cough and having a coughing fit. Patient denies any exertional shortness of breath. Patient denies any hemoptysis or prior history of DVT or PE. Patient has not had any notable unexplained weight gain, fluid retention, lower extremity edema , calf pain, recent prolonged car or plane travel. Patient did have blood work completed, EKG, troponin, chest x-ray, BNP. Patient 's EKG was fairly unchanged from prior. Troponin was 0.02. In the past patient 's troponin is always been detectable but typically not greatly elevated. Patient's BNP is slightly elevated. Patient's chest x-ray by my read does not appear overly congested. I do not notice evidence of overt consolidation, pleural effusion, or pneumothorax. Patient did have a mildly low bicarb this may be related to some dehydration as the patient's creatinine was also mildly changed from prior from 1.2-1.4. The patient was not tachycardic, tachypneic, nor hypoxic. Wells of 0, less likely PE. Less likely ACS given unchanged EKG, troponin WNL and given the patient's history as it sounds more infectious in nature. Patient was feeling mildly improved. I did have the patient complete an ambulatory trial which he passed successfully. He was not hypoxic, tachypneic nor tachycardic. The patient stated that he felt well as he completed it. Patient was given application counselor on over- the-counter type treatments to help with his symptoms. [facility] and to return if he had any worsening symptoms. Patient was given strict follow-up, discharge, and return precautions. All questions were answered. Patient was deemed suitable for outpatient follow-up at this time. Patient agreed with the plan of care and was safely discharged home. Medication Reconcilliation Current Medication List: was personally reviewed by me Blood Pressure Screening Patient's blood pressure: Normal blood pressure Impression Primary Impression: Rhinosinusitis Additional Impressions: Cough SOB (shortness of breath) Anemia Scribe Attestation The scribe's documentation has been prepared under my direction and personally reviewed by me in its entirety. I confirm that the note above accurately reflects all work, treatment, procedures, and medical decision making performed by me. Departure Information Dispostion Home / Self-Care Prescriptions Benzonatate (TESSALON PERLES) 100 Mg Cap 100 MG PO TID for Cough for 7 Days, #21 CAP Prov: Richard Taylor M.D. 08/06/17 Referrals No Doctor, Assigned (PCP) Forms HOME CARE DOCUMENTATION FORM, IMPORTANT VISIT INFORMATION Patient Instructions ED Dyspnea Shortness of Breath, My [facility] Additional Instructions Please return to the emergency department if you have worsening or recurrent symptoms not amenable to at-home treatment. Please call for a follow-up appointment with her primary care physician. Please take your medications as prescribed. If you have other concerns and/or complaints please feel free to also call your primary care physician's office or return the ED for further evaluation, management, and treatment. You may take tylenol 650 mg every 6 hours as needed for pain/fever unless told by your physician to not take it or have liver problems. Take your medications as prescribed. You may consider Afrin or saline nasal sprays. Use the Afrin for no more than 1 days at a time as prolonged use may cause worsening congestion and/or raise your blood pressure. You may also consider Vicks VapoRub, hot showers, or a humidifier. You may also try Zyrtec daily and Benadryl as needed per box instructions. If you were seen between 11pm and 7AM all radiology reads will be re-read by our in house staff. If any major discrepancies are discovered, you will be notified. You have been examined and treated today on an emergency basis only. This is not a substitute for, or an effort to provide, complete comprehensive medical care. It is impossible to recognize and treat all injuries or illnesses in a single emergency department visit. It is therefore important that you follow up closely with [facility], your PCP, and/or your specialist(s). Call as soon as possible for an appointment. Thank you for your time and consideration. I look forward to speaking with you again soon. Please don't hesitate to call us if you have any questions. Problem Qualifiers Additional Impressions: Anemia Anemia type: unspecified type Qualified Codes: D64.9 - Anemia, unspecified
[2017-08-05] MEDS ORDERED: ACETAMINOPHEN 500 MG TAB PO STA (23:01)
[2017-08-05] MEDS ORDERED: ALBUT/IPRATROP 3MG/0.5MG NEB 3 ML VIAL INH STA (23:01)
[2017-08-05] MEDS ORDERED: COUGH DROP (SUGAR FREE) LOZ 24 LOZ/1 BOX LOZ STA (23:01)
[2017-08-05] MEDS ORDERED: OXYMETAZOLINE HCL 0.05% NA SPR 15 ML BTL ONE (23:15)
[2017-08-05] MEDS ORDERED: BENZONATATE 100MG CAP PO ONE (23:15)
[2017-08-05 23:21] VITALS: O2SAT 98; Ht 188 cm; Wt 87.1 kg
[2017-08-05 23:26] LABS: BASO % 0.6 %; BASO ABS # 0.04 K/uL (0-0.2); EOS % 2.7 %; EOS ABS # 0.19 K/uL (0-0.5); HEMATOCRIT 29.5 % (42-52); IG# 0.03 K/uL (0.00-0.02); LYMPH ABS # 1.45 K/uL (1.2-3.4); MEAN CELL VOLUME 85.5 fL (80-100); MEAN CORPUSCULAR HGB CONC 33.9 g/dl (32-36); MEAN PLATELET VOLUME 9.9 fL (7.4-10.4); MONO % 12.3 %; MONO ABS # 0.85 K/uL (0.11-0.59); NEUT ABS # 4.36 K/uL (1.4-6.5); PLATELET COUNT 269 K/uL (130-400); RED CELL DISTRIBUTION WIDTH CV 15.2 % (11.5-14.5); RED CELL DISTRIBUTION WIDTH SD 47.9 fL (36.4-46.3); WHITE BLOOD COUNT 6.92 K/uL (4.8-10.8)
[2017-08-05 23:38] LABS: PTT PATIENT 28.9 SECONDS (21.0-31.0)
[2017-08-05] MEDS ORDERED: AMOX500C3 PO (23:40)
[2017-08-05] MEDS ORDERED: FLUO5CRE TOP (23:43)
[2017-08-05 23:46] LABS: ALBUMIN 3.4 gm/dl (3.4-5.0); CALCIUM 8.8 mg/dl (8.5-10.1); CREATININE 1.56 mg/dl (0.60-1.40); POTASSIUM 4.3 mmol/L (3.5-5.1)
[2017-08-05] MEDS ORDERED: EZET10TA63 PO (23:48)
[2017-08-05 23:51] LABS: TOTAL PROTEIN 7.8 gm/dl (6.4-8.2)
[2017-08-05] MEDS ORDERED: SODIUM CHLORIDE 0.9% 250ML 250 ML IV STA (23:54)
[2017-08-06] MEDS ORDERED: BENZ100C18 PO (00:51)
[2017-08-06 01:05] VITALS: BP 132/71; PULSE 79; O2SAT 96
--- NOTE | 2017-08-06 06:42 | DIAGNOSTIC IMAGING REPORT ---
CHEST ONE VIEW PORTABLE CLINICAL HISTORY: cough, sob COMPARISON STUDY: 06/29/2013 FINDINGS: Postsurgical changes are evident. A coronary artery stent is visualized. There is a left-sided pacer/defibrillator. The heart is at the upper limits of normal in size. There is no failure. There is no lobar consolidation. There are no pleural effusions. There are linear subsegmental atelectatic changes at the left lung base.[ IMPRESSION: Linear subsegmental atelectatic changes at the left lung base. No evidence of failure. No evidence of focal pulmonary consolidation. Electronically signed by: Luis Horn M.D. 08/06/2017 6:40 AM Dictated Date/Time: 08/06/2017 6:39 AM
== END 2017-08-06 01:05 | disposition home or self-care (01) ==
LOC: C.EDB 22:33 → C.EDC 08-06 01:05
DX: J01.80 Other acute sinusitis (principal); R05 Cough; R06.02 Shortness of breath; D64.9 Anemia, unspecified; E11.9 Type 2 diabetes mellitus without complications; I10 Essential (primary) hypertension; I44.4 Left anterior fascicular block; I45.10 Unspecified right bundle-branch block; Z95.810 Presence of automatic (implantable) cardiac defibrillator; Z87.891 Personal history of nicotine dependence; Z79.82 Long term (current) use of aspirin; Z79.84 Long term (current) use of oral hypoglycemic drugs; Z79.899 Other long term (current) drug therapy; Z88.8 Allergy status to other drugs, medicaments and biological substances

== ENCOUNTER 2019-02-17 15:04 | Observation (INO) ==
[2019-02-17] MEDS ORDERED: SODIUM CHLORIDE 0.9% 1000ML 1,000 ML IV SCH (15:30)
[2019-02-17 16:13] LABS: Basophils # (auto) 0.04 K/uL (0-0.2); Basophils % (auto) 0.7 %; Eosinophils # (auto) 0.11 K/uL (0-0.5); Hematocrit (blood only) 33.9 % (42-52); Hemoglobin 11.3 g/dL (14.0-18.0); Immature Granulocytes # (auto) 0.02 K/uL (0.00-0.02); Immature Granulocytes % (auto) 0.4 %; Lymphocytes # (auto) 2.39 K/uL (1.2-3.4); Lymphocytes % (auto) 43.3 %; Mean Corpuscular Hemoglobin 29.7 pg (25-34); Mean Corpuscular Hgb Conc 33.3 g/dL (32-36); Mean Platelet Volume 10.2 fL (7.4-10.4); Monocytes % (auto) 7.2 %; Neutrophils # (auto) 2.56 K/uL (1.4-6.5); Neutrophils % (auto) 46.4 %; Platelet Count 217 K/uL (130-400); RDW Coefficient of Variation 14.6 % (11.5-14.5); RDW Standard Deviation 47.2 fL (36.4-46.3); Red Blood Count 3.81 M/uL (4.7-6.1); White Blood Count 5.52 K/uL (4.8-10.8)
--- NOTE | 2019-02-17 16:13 | XRay Report ---
XR chest 1V portable CLINICAL HISTORY: weakness mental status change COMPARISON STUDY: 08/05/2017 FINDINGS: Chronic platelike atelectasis left base. Lungs otherwise appear clear. Mild cardiomegaly un changed. Pulmonary apices are clear. There is an old healed fracture mid right clavicular shaft. IMPRESSION: Chronic change. No acute process. The above report was generated using voice recognition software. It may contain grammatical, syntax or spelling errors. Electronically signed by: Darwin Lorenzo M.D. 02/17/2019 4:11 PM
[2019-02-17] MEDS ORDERED: DEXTROSE 50% 50 ML SYRINGE IV ONE (16:29)
[2019-02-17 16:30] LABS: Albumin Level 3.9 gm/dl (3.4-5.0); BUN Creatinine Ratio 16.3 (10-20); Calcium 9.4 mg/dl (8.5-10.1); Est GFR (African American) 35.4; Est GFR (Non-African American) 30.5; Magnesium 1.7 mg/dl (1.8-2.4); Potassium 4.7 mmol/L (3.5-5.1)
[2019-02-17 16:41] LABS: Albumin Globulin Ratio 1.1 (0.9-2); Bilirubin,Total 0.3 mg/dl (0.2-1); Globulin 3.6 gm/dl (2.5-4.0); Thyroid Stimulating Hormone 3.53 uIu/ml (0.300-4.500); Total Protein 7.5 gm/dl (6.4-8.2)
[2019-02-17 16:44] LABS: Appearance Urine Clear (Clear); Bacteria Urine Automated Negative (Negative); Bilirubin Urine Negative (Negative); Blood Urine Negative (Negative); Color Urine Yellow; Epithelial Cell Urine Auto >30 /lpf (0-5); Glucose Urine UA Negative (Negative); Ketones Urine Trace (Negative); Leukocyte Esterase Urine Negative (Negative); Nitrite Urine Negative (Negative); Protein Urine Trace (Negative); RBC Urine Automated 0-4 /hpf (0-4); Specific Gravity Urine 1.018 (1.000-1.030); Urobilinogen Urine Negative (Negative)
[2019-02-17] MEDS ORDERED: SODIUM CHLORIDE 0.9% 1000ML 500 ML IV ONE (17:54)
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
[2019-02-17] MEDS ORDERED: NITROGLYCERIN SL 0.4 MG/TAB TAB SL PRN (21:42)
[2019-02-17] MEDS ORDERED: ACETAMINOPHEN 325 MG TAB PO PRN (21:42)
[2019-02-17] MEDS ORDERED: DEXTROSE 50% 50 ML SYRINGE IV PRN (21:42)
[2019-02-17] MEDS ORDERED: PROMETHAZINE HCL 12.5 MG in SODIUM CHLORIDE 0.9% 50 ML IV PRN (21:42)
[2019-02-17] MEDS ORDERED: COLESTIPOL HCL 1 GM TAB PO SCH ×2 (21:42→22:45)
[2019-02-17] MEDS ORDERED: SODIUM CHLORIDE 0.9% 500 ML IV ONE (21:42)
[2019-02-17] MEDS ORDERED: CARBOHYDRATES FOR HYPOGLYCEMIA PO PRN (21:42)
[2019-02-17] MEDS ORDERED: TRAMADOL HCL 50 MG TABLET PO PRN (21:42)
[2019-02-17] MEDS ORDERED: GLUCOSE 40% GEL 15 GM TUBE PO PRN (21:42)
[2019-02-17] MEDS ORDERED: GLUCAGON FOR INJ 1 MG VIAL SQ PRN (21:42)
[2019-02-17] MEDS ORDERED: GLUCOSE 10 TABS/TUBE PO PRN (21:42)
[2019-02-17] MEDS ORDERED: CYANOCOBALAMIN 500 MCG TABLET (VITAMIN B-12) PO SCH (22:00)
[2019-02-17] MEDS ORDERED: METOPROLOL SUCC 50MG EXT REL TAB PO SCH (22:00)
[2019-02-17] MEDS ORDERED: FERROUS SULFATE 325 MG TAB PO SCH (22:00)
[2019-02-17] MEDS: MAGNESIUM SULFATE / D5W 1 GM/100 ML BAG IV SCH ×2 (22:05→23:12)
[2019-02-17] MEDS: INSULIN ASPART 100 UNITS/ML 3 ML PEN SC SCH (22:21)
[2019-02-17] MEDS: ASPIRIN 81 MG ECTAB PO SCH (22:24)
[2019-02-17] MEDS: GEMFIBROZIL 600 MG TAB PO SCH (22:24)
[2019-02-17] MEDS: HEPARIN SOD 5,000 UNIT/0.5 ML VIAL SQ SCH (22:29)
[2019-02-18] MEDS: HEPARIN SOD 5,000 UNIT/0.5 ML VIAL SQ SCH ×2 (05:46→14:17)
[2019-02-18 06:15] LABS: Estimated Average Glucose 160 mg/dl; Hemoglobin A1C 7.2 % (4.5-5.6)
[2019-02-18] MEDS ORDERED: LEVOTHYROXINE SODIUM 25 MCG TABLET PO SCH (06:30)
[2019-02-18] MEDS: ASPIRIN 81 MG ECTAB PO SCH (08:26)
[2019-02-18] MEDS: GEMFIBROZIL 600 MG TAB PO SCH (08:26)
[2019-02-18] MEDS: INSULIN ASPART 100 UNITS/ML 3 ML PEN SC SCH ×2 (08:29→12:28)
[2019-02-18 08:43] LABS: Basophils # (auto) 0.03 K/uL (0-0.2); Basophils % (auto) 0.7 %; Eosinophils % (auto) 2.2 %; Hematocrit (blood only) 34.1 % (42-52); Hemoglobin 11.1 g/dL (14.0-18.0); Immature Granulocytes # (auto) 0.01 K/uL (0.00-0.02); Immature Granulocytes % (auto) 0.2 %; Lymphocytes # (auto) 2.15 K/uL (1.2-3.4); Lymphocytes % (auto) 47.5 %; Mean Corpuscular Hemoglobin 29.3 pg (25-34); Mean Corpuscular Hgb Conc 32.6 g/dL (32-36); Mean Platelet Volume 9.7 fL (7.4-10.4); Monocytes # (auto) 0.42 K/uL (0.11-0.59); Monocytes % (auto) 9.3 %; Neutrophils # (auto) 1.82 K/uL (1.4-6.5); Neutrophils % (auto) 40.1 %; Platelet Count 190 K/uL (130-400); RDW Coefficient of Variation 14.3 % (11.5-14.5); RDW Standard Deviation 47.1 fL (36.4-46.3); Red Blood Count 3.79 M/uL (4.7-6.1); White Blood Count 4.53 K/uL (4.8-10.8)
[2019-02-18] MEDS ORDERED: EZETIMIBE 10 MG TABLET PO SCH (09:00)
[2019-02-18] MEDS ORDERED: METOPROLOL SUCC 50MG EXT REL TAB PO SCH (09:00)
[2019-02-18] MEDS ORDERED: FERROUS SULFATE 325 MG TAB PO SCH (09:00)
[2019-02-18] MEDS ORDERED: PANTOprazole 40 MG TAB PO SCH (09:00)
[2019-02-18] MEDS ORDERED: COLESTIPOL HCL 1 GM TAB PO SCH (09:00)
[2019-02-18 09:20] LABS: BUN Creatinine Ratio 21.9 (10-20); Calcium 9.4 mg/dl (8.5-10.1); Creatinine Clr Calc Pharmacy 56.3 ml/min; Est GFR (African American) 58.8; Est GFR (Non-African American) 50.7; Magnesium 2.2 mg/dl (1.8-2.4); Potassium 4.7 mmol/L (3.5-5.1)
[2019-02-18] MEDS ORDERED: DOXYCYCLINE HYCLATE 100 MG CAP PO SCH (13:00)
[2019-02-18] MEDS ORDERED: DOXYCYCLINE HYCLATE 100 MG CAP PO STA (14:01)
--- NOTE | 2019-02-18 14:13 | Hospitalist Progress Note ---
Date of Service February 18, 2019 Assessment & Plan (1) Dizziness: Acute Kidney Injury Dizziness Likely secondary to Dehydration, hypoglycemic episode Cr: Cr:2.10 >>>1.38 Glipizide discontinued Renal function improved to baseline with IV fluids Denies any dizziness currently hospital monitor--sinus rhythm with no issues [facility] Monitor BGs Tick Bite Given Doxycycline 200mg X1 Lyme screen:pending Advised to follow up with his PCP for results--as may need complete treatment if lyme screen is positive DM II A1C:7.2 Glipizide discontinued secondary to hypoglycemic episodes Metformin held for now Advised to check blood glucose levels regularly Continue insulin therapy while hospitalized Chronic systolic heart failure H/O ischemic cardiomyopathy Last EF: 30 to 35% S/P ICD No signs of CHF exacerbation ICD device due for pulse generator replacement when device switches to CAUSE ANALYST/PRISCA mode as per outpatient defibrillator Advised to follow-up with his radio frequency design engineer for further management of his ICD CAD S/P CABG, stent PVD as per records Denies angina symptoms Continue home medication Cerebellar aneurysm S/P Coil embolization (2017) Follow-up with neurosurgery as outpatient Hypertension Stable Continue home meds H/O Carcinoid lesion S/P surgery DVT Px: Heparin SQ Code Status Full code Disposition: Plan to discharge home today Subjective Patient seen and examined at bedside Renal function back to baseline Reports of having tick exposure Dizziness resolved Denies any chest pain, shortness of breath, nausea, vomiting, abdominal pain hospital monitor--sinus rhythm with no issues Review of Systems Review of Systems: All systems reviewed & are unremarkable except as noted in HPI & below Physical Exam Physical Exam: Physical Exam: Vitals signs as noted above General Appearance:Moderately built and nourished, no apparent distress Head: normocephalic, Atraumatic Eyes: normal inspection, EOMI Neck: supple, Trachea midline Respiratory/Chest: Normal breath sounds, CTA Cardiovascular: S1, S2, No murmur Abdomen/GI:Soft, Non tender, Bowel sounds present Extremities/Musculoskelatal:normal inspection, no edema, Tick bite on left thigh Neurologic/Psych:AAOX3, grossly no focal neurological deficits Skin: normal color, warm Results & Data Vital Signs (Past 12 Hours) Vital Signs Temp Pulse Pulse Resp BP BP Pulse Ox 02/18/19 12:11 36.3 C L 67 18 134/65 95 02/18/19 10:06 36.5 C 61 20 154/78 H 95 02/18/19 07:53 36.3 C L 65 18 163/84 H 168/78 H 96 02/18/19 07:28 62 02/18/19 05:13 36.8 C 62 15 146/77 H 96 Laboratory Results Short CBC 02/17/19 02/18/19 Range/Units 15:57 08:30 WBC 5.52 4.53 L (4.8-10.8) K/uL Hgb 11.3 L 11.1 L (14.0-18.0) g/dL Hct 33.9 L 34.1 L (42-52) % Plt Count 217 190 (130-400) K/uL BMP 02/17/19 02/18/19 15:57 08:30 Sodium 140 138 Potassium 4.7 4.7 Chloride 112 H 111 H Carbon Dioxide 19 L 19 L BUN 34 H 30 H Creatinine 2.10 H 1.38 D Glucose 83 164 H Calcium 9.4 9.4 Liver Function 02/17/19 Range/Units 15:57 Total Bilirubin 0.3 (0.2-1) mg/dl AST 12 L (15-37) U/L ALT 19 (12-78) U/L Alkaline Phosphatase 60 (45-117) U/L Albumin 3.9 (3.4-5.0) gm/dl Urine 02/17/19 Range/Units 16:25 Urine Color Yellow Urine Appearance Clear (Clear) Urine pH 5.0 (4.5-7.5) Ur Specific [place] 1.018 (1.000-1.030) Urine Protein Trace H (Negative) Urine Glucose (UA) Negative (Negative)
--- NOTE | 2019-02-18 14:30 | Discharge Summary ---
Date of Service February 18, 2019 Admission HPI Per Admitting Provider History obtained from patient, family, and records. Medical history significant for chronic systolic heart failure secondary to ischemic cardiomyopathy (EF 30 to 35%, DSE 2018) status post ICD, CAD status post CABG, stent, PVD as per records, cerebellar aneurysm status post coil embolization (2018), hypertension, hyperlipidemia, History duodenal carcinoid lesion status post surgery, DM 2 on oral meds, chronic anemia baseline hemoglobin of 11, past tobacco abuse. Recent confinement June 2013 under orthopedic service for left hip fracture status post surgery. This morning, patient noted lightheadedness and dizziness symptoms. SBP 100s. BSG 70s which is unusual for him. Patient denies chest pain, S OB, headache. Appetite okay as per patient. No recent changes in home medication regimen. Initial BSG at the ER was noted to be 69. Admission Exam Per Admitting Provider Physical Exam Physical Exam: GENERAL: Comfortable, no respiratory distress SKIN: Pallor, warm HEENT: Pale palpebral conjunctivae, no ptosis, dry buccal mucosa NECK : Supple, no tenderness CHEST : CTA, no tenderness HEART : RRR, no obvious murmurs ABDOMEN: Some distention, nontender EXTREMITIES : No LE swelling/tenderness, no other conspicuous deformities noted NEUROLOGIC : Coherent, no facial asymmetry, no other gross focality Principal Diagnosis Acute kidney injury Hypoglycemia Dizziness Tick exposure Discharge Data Allergies Allergy/AdvReac Type Severity Reaction Status Date / Time atorvastatin Allergy Unknown Hives Verified 02/17/19 16:43 swelling of legs Consultations 02/17/19 18:46 ED Decision to Admit Stat Hospital Course (1) Dizziness: Acute Kidney Injury Dizziness Likely secondary to Dehydration, hypoglycemic episode Cr: Cr:2.10 >>>1.38 Glipizide discontinued Renal function improved to baseline with IV fluids Denies any dizziness currently telemetry monitor--sinus rhythm with no issues Advised [facility] Monitor BGs Tick Bite Given Doxycycline 200mg X1 Lyme screen:pending Advised to follow up with his PCP for results--as may need complete treatment if lyme screen is positive DM II A1C:7.2 Glipizide discontinued secondary to hypoglycemic episodes Metformin held for now Advised to check blood glucose levels regularly Continue insulin therapy while hospitalized Chronic systolic heart failure H/O ischemic cardiomyopathy Last EF: 30 to 35% S/P ICD No signs of CHF exacerbation ICD device due for pulse generator replacement when device switches to COAL PULVERIZING OPERATOR/PRISCA mode as per outpatient defibrillator Advised to follow-up with his truck operator for further management of his ICD CAD S/P CABG, stent PVD as per records Denies angina symptoms Continue home medication Cerebellar aneurysm S/P Coil embolization (2018) Follow-up with neurosurgery as outpatient Hypertension Stable Continue home meds H/O Carcinoid lesion S/P surgery DVT Px: Heparin SQ Code Status Full code Disposition: Plan to discharge home today Total Time Total Time Spent Total Time Spent (In Minutes): 25 Total Time Includes: Examination of the Patient, Discharge Planning, Medication Reconciliation, Communication With Other Providers and Other Discharge Plan Discharge Items Patient Disposition: Home - Self-Care Reason For Visit: DIZZINESS,ARF Discharge Diagnosis: Acute kidney injury Hypoglycemia Dizziness Tick exposure Activity: Resume your previous activity Exercise/Sports: Gradually increase as tolerated Non-emergency contact: Primary Care Provider and Cut Roll Machine Offbearer Call non-emergency contact if: you have any medication questions, your symptoms worsen, your pain is not controlled, your pain is worsening, your pain is unusual for you, your pain is concerning for you and you have a fever Follow-up/Referrals: Josseline Allen PA-C [Primary Care Provider] - Diet: Carb Consistent or DM2 and Heart Healthy Addtl Attending Provider Instructions: Follow up with your primary care physician in 1 week as advised Follow up with your Cut Roll Machine Offbearer for management of your ICD device check as advised Your Lyme screen test result is currently pending. Follow-up with your primary care physician for results. If Lyme screen is positive, you will need to complete a course of antibiotic--Doxycycline Your glipizide is discontinued secondary to hypoglycemia episodes. Further management of your diabetes as per your primary care physician. Check your blood glucose levels regularly as advised Seek immediate medical attention if your symptoms reoccur or worsen Pending Studies at Discharge: Yes Studies:: Lyme Screen Stand-Alone Forms: My [employer], Smoking Cessation Medications and DC Order Prescriptions: Continued metformin 850 mg Tablet 850 mg PO BIDM RF: 0 cyanocobalamin (vitamin B-12) [Vitamin B-12] 1,000 mcg Tablet 1,000 mcg PO HS RF: 0 aspirin 81 mg Tablet,Delayed Release (Dr/Ec) 81 mg PO BID RF: 0 levothyroxine 25 mcg Tablet 25 mcg PO QAM RF: 0 gemfibrozil 600 mg Tablet 600 mg PO BID RF: 0 pantoprazole 40 mg Tablet,Delayed Release (Dr/Ec) 40 mg PO QAM RF: 0 ferrous sulfate [iron] 325 mg (65 mg iron) Tablet 325 mg PO BID RF: 0 nitroglycerin 0.4 mg Tablet, Sublingual 0.4 mg sublingual UD PRN (Reason: Chest Pain) RF: 0 lisinopril 5 mg Tablet 5 mg PO QAM RF: 0 hydrochlorothiazide 25 mg Tablet 12.5 mg PO QAM PRN (Reason: Fluid Retention) RF: 0 colestipol 1 gram Tablet 1 - 2 g PO BID RF: 0 ezetimibe [Zetia] 10 mg Tablet 10 mg PO QAM RF: 0 metoprolol succinate 50 mg Capsule,Sprinkle,Er 24hr 50 mg PO BID RF: 0 sildenafil 100 mg Tablet 100 mg PO DAILY PRN (Reason: Sexual Activity) RF: 0 ranitidine HCl 150 mg Tablet 300 mg PO HS RF: 0 omeprazole 20 mg Tablet,Delayed Release (Dr/Ec) 40 mg PO QAM RF: 0 Discontinued glipizide 5 mg Tablet 5 mg PO QDB RF: 0 Discharge Orders: Discharge Order (Routine); Ordered 02/18/19 Ordered By: Cl Mendiola/Other Patient Handouts: Hypoglycemia, Diabetes Type 2 Coping Admission Data Admit Date/Time: 02/17/19 20:44 Attending Provider: Cl Barnes Admit Provider: Cory Terry Primary Care Provider: Josseline Allen Other Providers: Cory Terry Other Interventions: Discharge Summary Assessment (RN) Last Done: 02/18/19 14:34 DC Date/Time DO NOT enter until pt leaves facility: 02/18/19 14:54
[2019-02-18 15:41] LABS: Lyme Ab IgG w/WB Rflx Negative (Negative); Lyme Ab IgM w/WB Rflx Negative (Negative)
[2019-02-18] MEDS ORDERED: CYANOCOBALAMIN 500 MCG TABLET (VITAMIN B-12) PO SCH (21:00)
== END 2019-02-18 14:54 | disposition home or self-care (01) ==
LOC: ED 15:04 → 2N 15:04

== ENCOUNTER 2020-08-22 23:42 | Inpatient (IN) ==
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
[2020-08-23] MEDS ORDERED: NITROGLYCERIN 2% OINTMENT 30GM TUBE EXT STA (00:13)
[2020-08-23] MEDS ORDERED: ASPIRIN CHEW 324 MG PO STA (00:13)
[2020-08-23] MEDS ORDERED: ACETAMINOPHEN 1,000 MG/100 ML VIAL IV STA (00:13)
[2020-08-23] MEDS ORDERED: NITROGLYCERIN SL 0.4 MG/TAB TAB ONE (00:14)
[2020-08-23 00:39] LABS: Hematocrit (blood only) 36.6 % (42-52); Hemoglobin 12.3 g/dL (14.0-18.0); Mean Corpuscular Hemoglobin 30.2 pg (25-34); Mean Corpuscular Hgb Conc 33.6 g/dL (32-36); Mean Corpuscular Volume 89.9 fL (80-100); Mean Platelet Volume 10.5 fL (7.4-10.4); Platelet Count 280 K/uL (130-400); RDW Coefficient of Variation 15.9 % (11.5-14.5); RDW Standard Deviation 52.1 fL (36.4-46.3); Red Blood Count 4.07 M/uL (4.7-6.1); White Blood Count 6.31 K/uL (4.8-10.8)
[2020-08-23 01:10] LABS: Potassium 4.3 mmol/L (3.5-5.1)
[2020-08-23] MEDS ORDERED: Heparin IV Adult Wt-Based Standard *NO* Bolus Protocol ONE (01:10)
[2020-08-23 01:11] LABS: Albumin Globulin Ratio 0.9 (0.9-2); Albumin Level 3.8 gm/dl (3.4-5.0); BUN Creatinine Ratio 22.5 (10-20); Bilirubin,Total 0.3 mg/dl (0.2-1); Calcium 9.3 mg/dl (8.5-10.1); Creatine Kinase MB 2.8 ng/ml (0.5-3.6); Creatinine Clr Calc Pharmacy 50.9 ml/min; Est GFR (African American) 53.3 ml/min; Globulin 4.1 gm/dl (2.5-4.0); Total Protein 7.9 gm/dl (6.4-8.2); Troponin I 0.226 ng/ml (0-0.045)
[2020-08-23 01:23] LABS: Partial Thromboplastin Ratio 0.9; Partial Thromboplastin Time 23.1 Seconds (21.0-31.0)
[2020-08-23 01:24] LABS: ALC (manual) 3.19 K/uL (1.2-3.4); ANC (manual) 2.33 K/uL (1.4-6.5); Basophils # (manual) 0.11 K/uL (0-0.2); Basophils % (manual) 1.8 %; Echinocytes 1+; Eosinophils # (manual) 0.17 K/uL (0-0.5); Eosinophils % (manual) 2.7 %; Large Granular Lymph # (manua 2.35 K/uL; Large Granular Lymph % (manual) 37.2 %; Lymphocytes # (manual) 0.84 K/uL (1.2-3.4); Lymphocytes % (manual) 13.3 %; Neutrophils # (manual) 2.33 K/uL (1.4-6.5); Ovalocytes 1+
[2020-08-23 01:33] LABS: D Dimer 720 ug/L FEU (0-500)
[2020-08-23] MEDS ORDERED: SODIUM CHLORIDE 0.9% 500 ML IV ONE (01:34)
[2020-08-23] MEDS ORDERED: OPTIRAY 350 500ml IV ONE (02:17)
[2020-08-23] MEDS: HEPARIN SODIUM/DEXTROSE 25,000 UNITS/500 ML BAG IV SCH ×2 (02:19→17:13)
[2020-08-23] MEDS ORDERED: MoRPHine SULFATE 2 MG/ML CARP IV PRN (04:46)
[2020-08-23] MEDS ORDERED: SODIUM CHLORIDE 0.9% 1000ML 1,000 ML IV SCH (04:46)
[2020-08-23] MEDS ORDERED: FLUTICASONE PROPIONATE NA SPR 16 GM BTL PRN (04:46)
[2020-08-23] MEDS ORDERED: ONDANSETRON INJ 2 MG/ML 2 ML VIAL IV PRN (04:46)
[2020-08-23] MEDS ORDERED: NITROGLYCERIN SL 0.4 MG/TAB TAB SL PRN (04:46)
[2020-08-23] MEDS ORDERED: INSULIN ASPART 100 UNITS/ML 3 ML PEN SC SCH (06:00)
[2020-08-23] MEDS ORDERED: NITROGLYCERIN 2% OINTMENT 30GM TUBE EXT SCH (06:00)
[2020-08-23] MEDS: LEVOTHYROXINE SODIUM 25 MCG TABLET PO SCH (06:14)
--- NOTE | 2020-08-23 06:51 | History and Physical Report ---
DATE OF ADMISSION: 08/23/2020 CHIEF COMPLAINT: Chest pain. HISTORY OF PRESENT ILLNESS: A 75-year-old male with past medical history significant for CAD status post stent, status post CABG; CHF, status post AICD; history of cerebral aneurysm; history of type 2 diabetes; history of hyperlipidemia, who presents with chest pain. The patient around 11:00 p.m. last night, was watching TV when he noticed left sided chest pain radiating to left arm, at that time feeling sweating. It was not going away, so he came to the ER,. In the ER he was placed on nitro paste. Currently, pain is much improved, resting comfortably and hemodynamically stable. Denies any dizziness. No nausea, no shortness of breath, no cough, no fever, no chills, no headache, no blurred vision, no earache, no runny nose, no sore throat, no abdominal pain, no diarrhea, no constipation. Otherwise, ambulates okay. About a month ago, he had a COVID shot but felt sick after that and he thinks he probably had covid at that time. But today s COVID test is negative.He doesnot want to take second covid shot. ALLERGIES: ATORVASTATIN. PAST MEDICAL HISTORY: As mentioned above. PAST SURGICAL HISTORY: Left total hip replacement, carotid artery catheter placement, colonoscopy, EGD, jugular vein repair, insertion of defibrillator, intracranial aneurysm, embolization, shoulder surgery, vertebral artery catheter placement. MEDICATIONS: The patient is on alogliptin 12.5mg p.o. a.m., aspirin 81 mg p.o. b.i.d., vitamin D 25 mcg p.o. daily, colestipol 2 grams p.o. q.a.m., colestipol 1 g p.o. at bedtime, vitamin B12 500 mg p.o. p.m., empagliflozin 12.5 mg p.o. q.a.m., Zetia 10 mg p.o. a.m., ferrous sulfate 325 mg p.o. b.i.d., Flonase 2 sprays intranasal daily p.r.n., gemfibrozil 600 mg p.o. b.i.d., hydrochlorothiazide 12.5 mg as needed, levothyroxine 25 mcg p.o. a.m., metformin 850mg p.o. b.i.d., metoprolol tartrate 50 mg p.o. b.i.d., nitroglycerin 0.4 mg sublingual p.r.n., omeprazole 20 mg p.o. b.i.d. FAMILY HISTORY: Significant for mother has arthritis and breast cancer. Father has diabetes, hypertension. Aunt has cancer. SOCIAL HISTORY: . Former smoker, smoked cigars. No alcohol use, no drug use. REVIEW OF SYMPTOMS: As per HPI. Rest of review of systems negative. PHYSICAL EXAMINATION: GENERAL: The patient is of moderate build, not in acute distress. VITAL SIGNS: Temperature 36.4, pulse 83, respiratory rate 19, blood pressure 151/82, oxygen 91% on room air. HEENT: Pupils equal, round, and reactive to light. Oral mucosa moist. NECK: Supple. No JVD. No neck masses. CARDIOVASCULAR: S1, S2 heard, regular rate and rhythm, no murmur, no gallop. RESPIRATORY SYSTEM: Normal AP diameter. No accessory muscle use. No wheezing, no crackles. ABDOMEN: Soft, bowel sounds present, nontender. No distention. CENTRAL NERVOUS SYSTEM: Cranial nerves II-XII grossly intact. Nonfocal. EXTREMITIES: No edema, no erythema. LABORATORY DATA: WBC 6.3, hemoglobin 12.3, hematocrit 36.6, platelets 280. APTT 23.1, PTT 1.5. D-dimer 720. Sodium 141, potassium 4.3, chloride 111, bicarbonate 18, BUN 33, creatinine 1.4, serum glucose 200, calcium 9.3, total bilirubin 0.3, AST 12, ALT 16, alkaline phosphatase 76, total creatine kinase 79, CK-MB 2.8. Troponin 10.22, lipase 272. SARS-CoV-2 PCR negative. CTA chest, preliminary report, no PE, interstitial thickening favored to represent edema, subpleural ground-glass opacities, differential of atelectasis, alveolar edema or atypical infection, coronary artery calcification. Chest x-ray, no acute findings. EKG: Normal sinus rhythm, rate of 96, right bundle branch block seen, T-wave inversion more leads I and aVL. ASSESSMENT AND PLAN: This is a 75-year-old male who presents with chest pain. 1. Non-ST elevated myocardial infarction, chest pain and mild elevation of troponin. ekg changes. started on iv heparin and nitro paste, serial CE and echo. npo. cardio consult. close monitor in tele. 2History of coronary artery disease, status post coronary artery bypass graft, history of stent. Continue home metoprolol; home aspirin, Zetia, and gemfibrozil. ALLERGIES TO STATINS. 3. history of diabetes. Hold his home medication. ISS. Monitor the blood sugar. Follow hba1c. 4. Hyperlipidemia. Continue Zetia and gemfibrozil. 5. History of chronic systolic congestive heart failure with ejection fraction 30%-35%, status post automatic implantable cardioverter defibrillator, on beta albaro, hydrochlorothiazide as needed. Monitor for any volume overload. 6. Gastroesophageal reflux disease, on omeprazole. 7. Deep venous thrombosis prophylaxis, on IV heparin. DISPOSITION: Closely monitor in tele floor. Level 1 full code. Expect to discharge home and follow with family doctor. INNA
--- NOTE | 2020-08-23 07:21 | CT Scan Report ---
CT ANGIOGRAM OF THE CHEST CLINICAL HISTORY: Shortness of breath. Possible pulmonary embolism. COMPARISON STUDY: May 2007. Chest x-ray dated 08/23/2020 TECHNIQUE: Following the IV administration of 118 mL of Optiray, CT angiogram of the thorax was perfo rmed from the thoracic inlet to the lung bases utilizing the pulmonary embolus protocol. Images are r eviewed in the axial, sagittal, and coronal planes. IV contrast was administered without complication . MIP imaging was performed. A dose lowering technique was utilized adhering to the principles of AL KAVEH. CT DOSE: 534.22 mGy.cm FINDINGS: There are are tiny upper pole right renal calculi. There are mildly enlarged hilar lymph nodes. Mediastinal lymph nodes are the upper limits of normal i n size. There is no evidence of thoracic aortic aneurysm There were no pulmonary artery filling defects to indicate acute pulmonary embolism. There is a trace right pleural effusion There is pulmonary emphysema. There is interlobular septal edema. There is fluid within the right bharat or fissure. There is dependent atelectasis. There is a mixed solid and groundglass 9 mm subpleural ri ght apical pulmonary nodule. There are subcentimeter right middle lobe pulmonary nodules. An infectio us/inflammatory process is favored over neoplasm. There is a pacer/defibrillator present. There are coronary artery calcifications present. IMPRESSION: 1. No evidence of acute pulmonary embolism 2. Mild hilar adenopathy 3. Trace right pleural effusion and interlobular septal edema 4. Underlying pulmonary emphysema 5. Subcentimeter right middle lobe pulmonary nodules. An infectious/inflammatory process is favored o julio neoplasm 6. 9 mm mixed solid and groundglass right apical pulmonary nodule. 7. Right-sided nephrolithiasis Please refer to below summary of Fleischner criteria recommendations for follow-up of incidental CT n odules (Michelle Celis, Guidelines for management of small pulmonary nodules detected on CT scans: A sta tement from the Fleischner Society, Radiology 237: [phone].) SOLID NODULES Solitary nodule size: <6 mm * low risk patients: no follow-up needed * high risk patients: optional CT at 12 months Solitary nodule size: 6-8 mm * low risk patients: follow-up at 6-12 months, then consider further follow-up at 18-24 months * high risk patients: initial follow-up CT at 6-12 months and then at 18-24 months if no change Solitary nodule size: >8 mm * either low or high risk patients - consider follow-up CT at 3 months, and/or CT-PET, and/or biopsy Multiple nodules size: <6 mm * low risk patients: no routine follow-up * high risk patients: optional CT at 12 months Multiple nodules size: 6-8 mm * low risk patients: follow-up at 3-6 months, then consider further follow-up at 18-24 months * high risk patients: follow-up at 3-6 months, then at 18-24 months if no change Multiple nodules size: >8 mm * low risk patients: follow-up at 3-6 months, then consider further follow-up at 18-24 months * high risk patients: follow-up at 3-6 months, then at 18-24 months if no change Note: newly detected indeterminate nodule in persons 35 years of age or older. * low risk patients: minimal or absent history of smoking and/or other known risk factors * high risk patients: history of smoking or of other known risk factors (e.g. first degree relative with lung cancer, or exposure to asbestos, radon, uranium) * if a nodule up to 8 mm is partly solid or is ground glass further follow-up is required after 24 m onths to exclude possible slow growing adenocarcinoma (CARLOS) SUBSOLID NODULES Solitary pure ground-glass nodule * nodule size <6 mm - no CT follow-up required * nodule size >=6 mm - follow-up CT at 6-12 months, then every 2 years until 5 years Solitary part-solid nodule * nodule size <6 mm - no CT follow-up required * nodule size >=6 mm - follow-up CT at 3-6 months. If unchanged, and solid component remains <6 mm, then annual follow-up for 5 years Multiple subsolid nodules * nodule size <6 mm - follow-up CT at 3-6 months, consider further follow-up at 2 and 4 years if sta ble * nodule size >=6 mm - follow-up CT at 3-6 months, subsequent management based on the most suspiciou s nodule(s) ACT 112: Negative or not required by law. Electronically signed by: Luis Horn M.D. 08/23/2020 7:20 AM
--- NOTE | 2020-08-23 08:12 | XRay Report ---
XR chest 1V portable CLINICAL HISTORY: Atypical chest pain COMPARISON STUDY: 04/19/2018 FINDINGS: The heart is mildly enlarged. There is interlobular septal edema. The heart is mildly enlar ged. There is no lobar consolidation. There is a left subclavian pacer/defibrillator present.[ IMPRESSION: Mild cardiomegaly and mild interlobular septal edema. No evidence of lobar consolidation ACT 112: Negative or not required by law. Electronically signed by: Luis Horn M.D. 08/23/2020 8:10 AM
[2020-08-23] MEDS: gemfibroziL 600 MG TAB PO SCH ×2 (08:34→20:58)
[2020-08-23] MEDS: METOPROLOL TARTRATE 50 MG TAB PO SCH ×2 (08:34→20:58)
[2020-08-23] MEDS: FERROUS SULFATE 325 MG TAB PO SCH ×2 (08:34→17:11)
[2020-08-23] MEDS: PANTOprazole 40 MG TAB PO SCH ×2 (08:34→21:00)
[2020-08-23] MEDS: ASPIRIN 81 MG ECTAB PO SCH ×2 (08:34→20:55)
[2020-08-23] MEDS: EZETIMIBE 10 MG TABLET PO SCH (08:34)
[2020-08-23] MEDS: CHOLECALCIFEROL 1,000 UNITS 25 MCG TAB PO SCH (08:34)
[2020-08-23] MEDS: COLESTIPOL HCL 1 GM TAB PO SCH ×2 (08:35→20:57)
[2020-08-23] MEDS: INSULIN GLARGINE SOLOSTAR 100 UNITS/ML 3 ML PEN SC SCH (08:49)
[2020-08-23 08:56] LABS: Basophils # (auto) 0.04 K/uL (0-0.2); Basophils % (auto) 0.8 %; Eosinophils # (auto) 0.09 K/uL (0-0.5); Eosinophils % (auto) 1.9 %; Hematocrit (blood only) 32.9 % (42-52); Hemoglobin 10.9 g/dL (14.0-18.0); Immature Granulocytes # (auto) 0.02 K/uL (0.00-0.02); Immature Granulocytes % (auto) 0.4 %; Lymphocytes # (auto) 1.91 K/uL (1.2-3.4); Lymphocytes % (auto) 39.8 %; Mean Corpuscular Hemoglobin 28.7 pg (25-34); Mean Corpuscular Hgb Conc 33.1 g/dL (32-36); Mean Corpuscular Volume 86.6 fL (80-100); Mean Platelet Volume 9.8 fL (7.4-10.4); Monocytes # (auto) 0.48 K/uL (0.11-0.59); Neutrophils # (auto) 2.26 K/uL (1.4-6.5); Neutrophils % (auto) 47.1 %; Platelet Count 229 K/uL (130-400); RDW Coefficient of Variation 15.9 % (11.5-14.5); RDW Standard Deviation 50.3 fL (36.4-46.3)
[2020-08-23 09:06] LABS: Partial Thromboplastin Ratio 1.5; Partial Thromboplastin Time 40.2 Seconds (21.0-31.0)
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
[2020-08-23 09:27] LABS: Estimated Average Glucose 166 mg/dl; Hemoglobin A1C 7.4 % (4.5-5.6)
[2020-08-23 09:28] LABS: BUN Creatinine Ratio 24.5 (10-20); Calcium 9.2 mg/dl (8.5-10.1); Est GFR (African American) 71.5 ml/min; Est GFR (Non-African American) 61.7 ml/min; Potassium 3.9 mmol/L (3.5-5.1)
[2020-08-23 09:37] LABS: Troponin I 13.8 ng/ml (0-0.045)
--- NOTE | 2020-08-23 10:12 | Electrocardiogram Report ---
Test Reason : Blood Pressure : / mmHG Vent. Rate : 096 BPM Atrial Rate : 096 BPM P-R Int : 178 ms QRS Dur : 130 ms QT Int : 352 ms P-R-T Axes : 070 -66 098 degrees QTc Int : 444 ms Normal sinus rhythm Left atrial enlargement Left anterior fascicular block Right bundle branch block Left ventricular hypertrophy with repolarization abnormality with secondary ST/T changes Abnormal ECG When compared with ECG of 17-FEB-2019 15:41, Right bundle branch block is now Present Nonspecific T wave abnormality no longer evident in Inferior leads ST changes and T wave inversion more evident in Lateral leads Confirmed by Fermín Sahu ([id number]) on 08/23/2020 10:12:00 AM Referred By: Zeyad Rodriguez Confirmed By:Fermín Sahu
--- NOTE | 2020-08-23 10:19 | Electrocardiogram Report ---
Test Reason : Blood Pressure : / mmHG Vent. Rate : 078 BPM Atrial Rate : 078 BPM P-R Int : 176 ms QRS Dur : 126 ms QT Int : 390 ms P-R-T Axes : 049 -62 083 degrees QTc Int : 444 ms Normal sinus rhythm Possible Left atrial enlargement Left axis deviation Left ventricular hypertrophy with QRS widening and repolarization abnormality Cannot rule out Anterior infarct , age undetermined Abnormal ECG When compared with ECG of 23-AUG-2020 00:00, (unconfirmed) Right bundle branch block is no longer Present Minimal criteria for Anterior infarct are now Present Confirmed by Fermín Sahu ([id number]) on 08/23/2020 10:18:44 AM Referred By: Zeyad Rodriguez Confirmed By:Fermín Sahu
[2020-08-23] MEDS: ACETAMINOPHEN 325 MG TAB PO PRN ×3 (10:28→21:07)
--- NOTE | 2020-08-23 10:34 | Communication Note ---
Date of Service: August 23, 2020 pt admitted earlier today with angina symptoms hx of complex cardiac disease chest pain free now NSTEMI : troponin elevation 13 noted , pt remains symptom free no chest heaviness /SOB or orthopnea on IV heparin gtt appreciate input from cardiology , plan for cardiac cath in AM diet ordered , NPO past midnight ordered to dc IV fluid Lasix 20 mg IV X1 ( crackles noted on lung auscultation ) ordered to check BNP /ECHO done already , report pending Incidental finding lung nodule : noted in CT chest remote hx of smoking > [address] chest in 6 months as per protocol Veronica Dawn MD
--- NOTE | 2020-08-23 10:59 | Communication Note ---
Date of Service: August 23, 2020 I called and updated patient's spouse, by phone and updated her.
[2020-08-23] MEDS ORDERED: FUROSEMIDE 20 MG in SYRINGE 0 ML IV ONE (11:00)
[2020-08-23] MEDS: SPIRONOLACTONE 12.5 MG TAB PO SCH (11:49)
[2020-08-23] MEDS: INSULIN ASPART 100 UNITS/ML 3 ML PEN SC SCH ×3 (11:51→21:14)
[2020-08-23 15:56] LABS: Partial Thromboplastin Time 53.1 Seconds (21.0-31.0)
--- NOTE | 2020-08-23 17:32 | Communication Note ---
Date of Service: August 23, 2020 troponin elevation from 13-> 33 noted on Iv heparin , remains asymptomatic scheduled for cardiac cath in am /NPO past midnight cardiology updated if pt develops angina symptoms or hemodynamic instability ( tachycardia/hypotension /hypoxia ) -CODE HEART alert /emergent cardiac cath needed . Veronica Dawn MD
[2020-08-23] MEDS: CYANOCOBALAMIN 500 MCG TABLET (VITAMIN B-12) PO SCH (21:00)
[2020-08-24 05:34] LABS: Hemoglobin 11.6 g/dL (14.0-18.0); Mean Corpuscular Hemoglobin 29.3 pg (25-34); Mean Corpuscular Hgb Conc 33.1 g/dL (32-36); Mean Corpuscular Volume 88.4 fL (80-100); Mean Platelet Volume 10.1 fL (7.4-10.4); Platelet Count 238 K/uL (130-400); RDW Coefficient of Variation 15.7 % (11.5-14.5); RDW Standard Deviation 50.9 fL (36.4-46.3); Red Blood Count 3.96 M/uL (4.7-6.1); White Blood Count 4.47 K/uL (4.8-10.8)
[2020-08-24 06:09] LABS: BUN Creatinine Ratio 21.7 (10-20); Creatinine Clr Calc Pharmacy 62.3 ml/min; Est GFR (African American) 71.5 ml/min; Est GFR (Non-African American) 61.7 ml/min; Potassium 3.9 mmol/L (3.5-5.1)
[2020-08-24 06:10] LABS: Partial Thromboplastin Ratio 2.9
[2020-08-24 06:24] LABS: Partial Thromboplastin Time 75.2 Seconds (21.0-31.0)
[2020-08-24] MEDS: LEVOTHYROXINE SODIUM 25 MCG TABLET PO SCH ×2 (07:14→08:06)
[2020-08-24] MEDS: INSULIN ASPART 100 UNITS/ML 3 ML PEN SC SCH ×4 (08:01→20:45)
[2020-08-24] MEDS: COLESTIPOL HCL 1 GM TAB PO SCH ×2 (08:06→20:25)
[2020-08-24] MEDS: PANTOprazole 40 MG TAB PO SCH ×2 (08:06→20:24)
[2020-08-24] MEDS: EZETIMIBE 10 MG TABLET PO SCH (08:06)
[2020-08-24] MEDS: gemfibroziL 600 MG TAB PO SCH ×2 (08:07→20:24)
[2020-08-24] MEDS: FERROUS SULFATE 325 MG TAB PO SCH ×2 (08:07→17:37)
[2020-08-24] MEDS: SPIRONOLACTONE 12.5 MG TAB PO SCH (08:07)
[2020-08-24] MEDS: ASPIRIN 81 MG ECTAB PO SCH ×2 (08:07→20:24)
[2020-08-24] MEDS: METOPROLOL TARTRATE 50 MG TAB PO SCH ×2 (08:07→20:25)
[2020-08-24] MEDS: CHOLECALCIFEROL 1,000 UNITS 25 MCG TAB PO SCH (08:07)
[2020-08-24] MEDS: INSULIN GLARGINE SOLOSTAR 100 UNITS/ML 3 ML PEN SC SCH (08:08)
[2020-08-24] MEDS: HEPARIN SODIUM/DEXTROSE 25,000 UNITS/500 ML BAG IV SCH (09:38)
--- NOTE | 2020-08-24 10:29 | Electrocardiogram Report ---
Test Reason : Blood Pressure : / mmHG Vent. Rate : 074 BPM Atrial Rate : 074 BPM P-R Int : 182 ms QRS Dur : 128 ms QT Int : 422 ms P-R-T Axes : 047 -60 076 degrees QTc Int : 468 ms Sinus rhythm with Premature supraventricular complexes Left axis deviation Left ventricular hypertrophy with QRS widening and repolarization abnormality Abnormal ECG When compared with ECG of 23-AUG-2020 06:02, Premature supraventricular complexes are now Present Minimal criteria for Anterior infarct are no longer Present Confirmed by Timbo Davies ([id number]) on 08/24/2020 10:29:02 AM Referred By: Zeyad Rodriguez Confirmed By:Timbo Davies
[2020-08-24] MEDS ORDERED: niCARdipine HCL INJ 2.5 MG/ML 10 ML AMP ONE (10:34)
[2020-08-24] MEDS ORDERED: MIDAZOLAM HCL 1 MG/ML 2ML VIAL ONE ×2 (10:34→12:21)
[2020-08-24] MEDS ORDERED: HEPARIN (PORCINE) 1000 UNIT/ML 10 ML (CATH LAB USE ONLY) ONE ×2 (10:34→11:54)
[2020-08-24] MEDS ORDERED: fentaNYL citrate 100 MCG/2 ML VIAL ONE (10:34)
[2020-08-24] MEDS ORDERED: NITROGLYCERIN/D5W 100MCG/ML 20ML SYR ONE (10:35)
--- NOTE | 2020-08-24 10:44 | Electrocardiogram Report ---
Test Reason : Blood Pressure : / mmHG Vent. Rate : 070 BPM Atrial Rate : 070 BPM P-R Int : 170 ms QRS Dur : 128 ms QT Int : 440 ms P-R-T Axes : 059 -63 091 degrees QTc Int : 475 ms Sinus rhythm with frequent Premature ventricular complexes Left atrial enlargement Left axis deviation Left ventricular hypertrophy with QRS widening and repolarization abnormality Abnormal ECG When compared with ECG of 23-AUG-2020 09:13, (unconfirmed) Premature ventricular complexes are now Present Premature supraventricular complexes are no longer Present Confirmed by Timbo Davies ([id number]) on 08/24/2020 10:43:35 AM Referred By: Zeyad Rodriguez Confirmed By:Timbo Davies
--- NOTE | 2020-08-24 11:26 | Cardiac Catheterization ---
Date of Service August 24, 2020 Cardiac Cath Report Cardiac Cath Report Procedure: 1. Left heart catheterization 2. Coronary angiography 3. Left ventriculogram History: This is a 75-year-old male patient who had coronary artery bypass with a BARBER to diagonal branch in 2003. He had a staged procedure and received stents in the LAD at the time of the BARBER graft. The patient been approximately 10 days later presented with an anterior wall myocardial infarction with thrombosis of the stents in the LAD requiring additional intervention. He had evidence of a large anterior wall myocardial infarction ischemic cardiomyopathy and severe LV dysfunction. He received a primary prevention ICD. He has been doing well but presented over the weekend with chest pain and a non-STEMI. He is now to have a cardiac catheterization. Procedure summary: The patient was brought to the cardiac catheterization lab. Access was obtained using a retrograde Salinger technique from the right femoral artery. Preformed 5 Togolese diagnostic catheters were utilized for the coronary angiograms. A 5 Togolese pigtail catheter was utilized for the left ventriculogram and left heart pressures. Following the procedure the patient underwent coronary intervention. ACC data: Start time 10:50 AM End time 11:18 AM Opening aortic pressure 135/65 Closing aortic pressure 138/64 LV pressure 136/24 Sedation 1 mg intravenous Versed IV fluid 46 cc normal saline Contrast 135 cc Optiray Fluoroscopy time 5 minutes Radiation 1198 mGy DAP 111.64 Saavedra per centimeter squared. Left dominant system AUC score 9 Coronary angiography: Selective injections of the left coronary artery reveal the left main trunk to b e patent. The left circumflex artery is dominant. The left circumflex artery consists of a small first marginal a large second marginal and then several marginal branches that supply the posterior septum. The left circumflex artery has luminal irregularities but is widely patent. There is evidence of stents in the proximal and mid LAD. In the proximal portion of the LAD and ostium of the left main trunk there is a high-grade stenoses. In the mid portion of the LAD but still in the stented segment there is a second high-grade stenoses of the LAD. I believe the ostial or proximal portion of the LAD stenosis is before any of the stents. The remainder the LAD has nonobstructive disease. The LAD extends all the way to the apex of the heart. Selective injections into the nondominant right coronary artery reveals a branch of the artery after the takeoff of the marginal to be subtotaled. This portion of the artery is small and probably clinically insignificant. Injections into the NELSON graft to the diagonal reveal it to be widely patent. With the diagonal branch also to be widely patent. Left ventriculogram: Injections into the left ventricle revealed to be dilated. There is severe hypokinesis of all the myocardial segments with with akinesis of the distal anterior apical and distal inferior myocardium. The estimated left ventricular ejection fraction is between 20 and 30%. The mitral valve is competent. Summary: The patient has an ischemic cardiomyopathy with severe LV dysfunction. The right coronary artery is nondominant and has a small branch artery that has a high-grade stenosis which is most likely clinically insignificant. I believe the index artery is the LAD which has a high-grade stenosis in the proximal or ostial portion of the LAD off the left main trunk. I believe this is before the coronary stents which are long and include the proximal and mid LAD. In the distal portion of the stent there is a second high-grade stenosis with the remainder the LAD having nonobstructive disease. Recommendations: The patient will undergo coronary intervention on the proximal and mid LAD.
[2020-08-24] MEDS ORDERED: TICAGRELOR 90 MG TAB PO ONE (13:14)
--- NOTE | 2020-08-24 13:27 | Post Anesthesia Assessment ---
Date of Service August 24, 2020 Post Sedation Assessment Vital Signs Temp Pulse Pulse Resp BP Pulse Ox 08/24/20 13:20 72 18 159/88 H 95 08/24/20 10:17 69 20 150/98 H 97 08/24/20 08:00 72 08/24/20 07:51 97.7 F 68 18 124/62 96 08/24/20 03:43 97.5 F L 59 L 19 115/65 95 08/23/20 22:59 97.7 F 62 18 118/63 96 08/23/20 22:20 66 08/23/20 19:34 98.4 F 78 18 135/75 93 08/23/20 15:15 98.4 F 75 20 126/70 93 Recovery Score Activity: Moves 4 extremities Respiration: Deep Breath/Cough Circulation: +/-20% PreAnes Value Consciousness: Fully Awake Oxygen Saturation: > 92% On Room Air Post Anesthesia Score: 10 Discharge Sedation Level of Care: Fast Track Phase II Post Sedation Plan On clinical assessment, the patient appears to have tolerated the sedation without complications. Patient is recovering as anticipated. Patient will continue to be monitored by nursing and may be discharged when sedation discharge criteria are met per below protocol. Upon Completions of procedure up to 15 minutes continue every 5 minute vital signs and the P.A.R. score; then discharge to a Phase I or Fast Track to Phase II per the following guidelines: * Discharge Patient to appropriate Phase II area if PAR is 8 or greater or return to pre- procedure baseline. The post - procedure orders will be as directed. * If PAR score is less than 8 or not return to pre-procedure baseline then patient will follow Phase I monitoring till PAR is reached for Phase II. The Phase I may be done in procedure room or may call to secure a Phase I area. * If naloxone or flumazenil are used for reversal, hold in Phase I for continued monitoring from when last reversal dose was given for a minimum of 60 minutes or longer pending the nurse and/or physician discretion of patient condition before discharge to Phase II. Please call the Sedation Physician to re-evaluate and complete post-note for discharge to Phase II area. Do NOT discharge from procedure sedation or Phase 1 until post- sedation evaluation note is complete by procedure /sedation MD Sedation Discharge Instructions to be given to the patient at discharge to home.
--- NOTE | 2020-08-24 13:31 | Cardiac Catheterization ---
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 Cardiac Status Clinical evaluation leading to the procedure CAD Presenation: Non STEMI Anginal Classification: CCS IV Heart Failure: No Cardiogenic Shock within 24 Hours: No Cardiac Arrest within 24 Hours: No Imaging Studies Past 6 Months: Yes Stress Studies Past 6 Months: No Diagnostic Physicians Name: Bruce Romero MD Status: Elective Closure Device Percutaneous Entry Location: Femoral Closure Device: Angio-Seal Recommendations: PCI without planned CABG PCI Indication: PCI for high risk Non-SANNA Lesion Segment Name: ostial LAD Culprit Artery: Yes Chronic Total Occlusion: No IVUS: Yes FFR: No Pre-Procedure RICK Flow: 3 Previously Treated Lesion: No Lesion Complexity: High/C Lesion Length (mm): 15 Thrombus Present: No Bifurcation Lesion: Yes Guidewire Across Lesion: Stenosis Post-Procedure (%): 0 Post-Procedure RICK Flow: 3 Devices(s) Deployed: Yes Yes Lesion #2 Segment Name: ostial circumflex Culprit Artery: No Stenosis Prior to Rx (%): 80 Chronic Total Occlusion: No IVUS: Yes FFR: No Pre-Procedure RICK Flow: 3 Previously Treated Lesion: Yes Lesion Complexity: High/C Lesion Length (mm): 12 Thrombus Present: No Bifurcation Lesion: Yes Guidewire Across Lesion: Yes Stenosis Post-Procedure (%): 0 Post-Procedure RICK Flow: 3 Devices(s) Deployed: Yes Intraprocedure Events Significant Disection: No Perforation: No Cardiac Cath Procedure Full Procedure Date August 24, 2020 Pre-Procedure Diagnosis Pre-Procedure Diagnosis: Positive Stress Test AUC Score AUC Score: 8 Post-Procedure Diagnosis Post-Procedure Diagnosis: Severe CAD and Successful PCI Procedure(s) Performed Procedure(s) Performed: Coronary Angiography, Left Heart Cath, Drug Eluting Stent and IVUS Coupon Clerk Bruce Romero MD Records Technician(s) Bakari Lopez Estimated Blood Loss Estimated Blood Loss: 15 Medication(s) Medication(s): Fentanyl, Heparin, Lidocaine 1%, Nicardipine, Nitroglycerin and Versed Medication(s): Ticagrelor Summary of Findings Indication: NSTEMI Access: 6Fr right common femoral artery Catheters: EBU 3.75 guide Findings: For full details of patient's coronary angiography please see cath report dictated by Dr. Ramirez. Briefly, patient found to have severe ostial LAD and LAD in-stent restenosis. Also noted to have moderate to severe proximal circumflex disease. Decision to proceed with PCI. -- PCI -- Antithrombotic therapy: Heparin, ticagrelor Procedure: Left main cannulated with EBU 3.75 guide BMW wire passed across lesion into distal LAD Mid LAD lesion predilated with 2.5 compliant balloon Calcified ostial LAD lesion dilated with 2.5 and 3.0 NC balloon to high atmospheres Prowater wire placed into distal circumflex IVUS pullback revealed moderate ISR in mid LAD, severe ostial stenosis with circumferential calcium. Left main with minimal disease. Mid LAD ISR stented with 3.5 x 18 mm Xience Ostial LAD stented with 3.0 x 18 mm Xience overlapping proximal aspect of prior stents Stents postdilated with 4.0 NC balloon Noted to have new severe ostial stenosis of circumflex post ostial LAD stent placement Ostium of LAD dilated with 2.5 balloon [place] IVUS revealed severe proximal disease (80% stenosis) as well calcified ostial stenosis with impingement from ostial LAD stent 3.0 x 18 mm Xience drug-eluting stent placed to ostial circumflex Repeat IVUS in LAD stent showed underexpansion ostially Kissing balloon inflation with 3.0 balloon in LAD, circumflex IC vasodilators administered for spasm Post procedure RICK 3 flow, stents well expanded with minimal residual stenosis and no apparent cardiac complications. Arterial Closure: TR band Summary: 1. Successful PCI of ostial LAD, and mid LAD in-stent restenosis with 2 drug- eluting stents (3.0 x 18, 3.5 x 18 mm Xience; postdilated with 4.0 NC). 2. Successful PCI of ostial circumflex with single drug-eluting stent (3.0 x 18 mm Xience). 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 Recommend extended DAPT in the setting of kissing ostial LAD/circumflex stents. Consult cardiac Rehab Hemodynamics Rest Ao:: 139/71/100 Final Ao: 140/74/102 LV: -- Recommendations Recommendations: PCI without planned CABG Specimens Specimens: None Radiation Exposure (mGy) 4962 Contrast (mls) 255 Fluids (cc crystalloids) Fluids (cc crystalloids): 267 Drains Drains: none Anesthesia moderate 11:28-13:08 Procedural Complication(s) None Disposition PCU I attest to the content of the Intraoperative Record and any orders documented therein. Any exceptions are noted below. [facility] Card Cath Procedure Codes Therapeutic Services & Ancillary Proc Procedure 1: Cardiovascular Tx and Anc Procedures: 68759 IV Ultrasound (Coronary or Graft) Procedure 2: Cardiovascular Tx and Anc Procedures: 16566 IV Ultrasound (Coronary or Graft) Moderate Sedation Procedure 1: Sedation/Anesthesia: 85704 Mod Sedation by the same physician; Ea [id number] Minutes Stenting Procedure 1: Cardiovascular Stent Procedures: 91960 Perc transcatheter placement of intracoronary stent(s), with ang Procedure 2: Cardiovascular Stent Procedures: 57358 Ea addl branch of a major coronary artery PG Care Time/CCT Total # of Minutes Spent Total Time Spent with Patient: Total time spent is greater than 50% in coordination of care (as documented) at patient's floor/unit and/or counseling patient:
[2020-08-24] MEDS: SODIUM CHLORIDE 0.9% 1000ML 1,000 ML IV SCH (13:58)
--- NOTE | 2020-08-24 14:59 | Cardiology Progress Note ---
Date of Service August 24, 2020 Assessment & Plan (1) Non-ST elevation NE (NSTEMI): (2) Hypertension: (3) Dyslipidemia: (4) Pulmonary nodules: (1) Non-ST elevation NE (NSTEMI) in the setting of chronic ischemic cardiomyopathy: -Patient presented with symptoms consistent with angina (chest pain, left arm discomfort, diaphoresis) and his second troponin I has trended up to 13.8 ng/ml. -SARS-CoV-2 PCR negative this admission. -EKG with chronic lateral repolarization changes, chronic anterior NE pattern with Q waves in the anterior precordial leads. -Echocardiogram reveals severe hypokinesis to akinesis that spares the lateral wall, LVEF 20- 25%, compared to 30-35% in 2018 -The patient's cardiac history is notable for onset of crescendo angina in March, undergoing cardiac catheterization which demonstrated a complex LAD and diagonal lesion. He was referred for surgical intervention and underwent minimally invasive surgery with BARBER to diagonal with the LAD having been submyocardial and could not be visualized. He subsequently underwent PTCA and stenting of the LAD a day post surgery with initial excellent result however had an acute thrombotic closure on 04/10/2003 prompting medical evacuation to [facility] where he underwent restenting of the LAD for thrombotic occlusion. Pt seen and examined s/p cath. Greatly appreciate input from interventional cardiology. 1. Successful PCI of ostial LAD, and mid LAD in-stent restenosis with 2 drug-eluting stents (3.0 x 18, 3.5 x 18 mm Xience; postdilated with 4.0 NC). 2. Successful PCI of ostial circumflex with single drug-eluting stent (3.0 x 18 mm Xience). will require Brillinta given complex stent placements ideally for 1 year uninterrupted and then transition to Plavix we will ask case management for their aid in obtaining script, [facility], I will also reach out to [facility] pharmacists cont aspirin, metoprolol, zetia and gemfibrizide. Also on Repatha as an outpatient (2) Hypertension: -History of difficult to control hypertension with intolerance of multiple medication therapies. -Hydrochlorothiazide on hold. ideally would add losartan if BP elevates cont with spironolactone (3) Dyslipidemia: -Patient with history of statin intolerance. -He is on Repatha 140 mg subcutaneously every 2 weeks. -Continue prior to hospital Colestipol and ezetimibe. (4) Pulmonary nodules: -9 mm mixed solid/groundglass right apical pulmonary nodule -We will need follow-up CT scan at 3 months. Admission and Anticipated Discharge Date Admission Date: August 23, 2020 Subjective Patient seen and examined with at bedside status post catheterization. Case discussed with Dr. Romero and results reviewed. Patient states he is currently feeling well. Denies any chest pain, shortness of breath, palpitations, lightheadedness, dizziness or syncope. His is voiced concerns in regards to [facility] the [facility] despite a lengthy conversation. Telemetry reviewed: Normal sinus rhythm without arrhythmia. Review of Systems Review of Systems: All systems reviewed & are unremarkable except as noted in HPI & below Physical Exam Physical Exam: General: Awake, alert and oriented x 3. No acute distress. HEENT: Normocephalic, atraumatic. Pupils equal, round and reactive to light and accommodation. Extraocular muscles are intact. Anicteric sclera. Moist mucous membranes. Neck: No JVD. No bruit. Cardiovascular: Regular. Positive S-4. Normal S-1 and S-2. No S-3. No mur murs or rubs. Pulmonary: Clear to auscultation B/L. No rales, rhonchi or wheezing Abdomen: Bowel sounds x 4, soft. No rebound, guarding or tenderness. No organomegaly. Extremities: No clubbing, cyanosis or edema. +2 pedal pulses bilaterally. Skin: Warm and dry. Results & Data ([facility]) Vital Signs (Past 12 Hours) Vital Signs Temp Pulse Pulse Resp BP Pulse Ox 08/24/20 14:39 83 16 144/89 H 95 08/24/20 14:09 79 18 153/93 H 97 08/24/20 13:54 73 16 156/90 H 08/24/20 13:35 74 18 151/95 H 94 08/24/20 13:20 72 18 159/88 H 95 08/24/20 10:17 69 20 150/98 H 97 08/24/20 08:00 72 08/24/20 07:51 36.5 C 68 18 124/62 96 08/24/20 03:43 36.4 C L 59 L 19 115/65 95
--- NOTE | 2020-08-24 16:36 | Electrocardiogram Report ---
Test Reason : Blood Pressure : / mmHG Vent. Rate : 075 BPM Atrial Rate : 075 BPM P-R Int : 168 ms QRS Dur : 126 ms QT Int : 410 ms P-R-T Axes : 051 -63 081 degrees QTc Int : 457 ms Normal sinus rhythm Left atrial enlargement Left axis deviation Left ventricular hypertrophy with QRS widening and repolarization abnormality Abnormal ECG When compared with ECG of 24-AUG-2020 06:25, Premature ventricular complexes are no longer Present Confirmed by Timbo Davies ([id number]) on 08/24/2020 4:36:42 PM Referred By: Zeyad Rodriguez Confirmed By:Timbo Davies
--- NOTE | 2020-08-24 17:04 | Hospitalist Progress Note ---
Date of Service August 24, 2020 Assessment & Plan (1) Non-ST elevation [place] (NSTEMI): History of extensive cardiac disease, presented with anginal symptoms, Is been chest pain-free since admission Troponin elevation noted from point0. 05/08/1931, Was treated with IV heparin overnight Status post cardiac cath, severe coronary artery disease status post multiple stent placement Patient tolerated the procedure well No anginal symptoms pre or post procedure Patient will need to be on dual antiplatelets aspirin and Brilinta for at least 12 months-uninterrupted For Brilinta given to case management for insurance approval, patient receives all his medication via [facility] [place] Continue to monitor in telemetry Appreciate input from cardiology CODE STATUS: Full code Disposition, expected to be discharged home when medically stable Will need close follow-up with cardiology Plan of care discussed with patient's present at bedside, all questions answered (2) Pulmonary nodules: Admission and Anticipated Discharge Date Admission Date: August 23, 2020 Subjective Patient seen after returning from cardiac Administrative Associate Status post multiple PTCA No complaint of chest pain or discomfort no shortness of breath present at bedside, Prescription for Brilinta given to case management to be faxed to the [facility] for insurance approval Patient will need continued PCU /cardiac monitoring post cardiac intervention Review of Systems Review of Systems: All systems reviewed & are unremarkable except as noted in Subjective Physical Exam Physical Exam: Physical exam: General: No acute distress, alert awake oriented x3 HEENT: PERRLA, EOMI, Heart: Regular S1-S2, no carotid bruit, no JVD, no lower extremity edema Lungs: Clear to auscultate, no wheeze or rales Abdomen: Soft nontender, no organomegaly Extremity: No cyanosis, no deformity, normal strength 5 out of 5 with upper and lower Neuro: No focal neurological deficit normal speech, normal visual field, Motor strength : normal both upper and lower extremity, sensation intact Psych: Alert awake oriented x3, normal affect Results & Data Results & Data ([facility]) Vital Signs (Past 12 Hours) Vital Signs Temp Pulse Pulse Resp BP Pulse Ox 08/24/20 16:15 82 08/24/20 16:09 76 18 129/68 08/24/20 15:09 77 18 134/70 96 08/24/20 14:39 83 16 144/89 H 95 08/24/20 14:09 79 18 153/93 H 97 08/24/20 13:54 73 16 156/90 H 08/24/20 13:35 74 18 151/95 H 94 08/24/20 13:20 72 18 159/88 H 95 08/24/20 10:17 69 20 150/98 H 97 08/24/20 08:00 72 08/24/20 07:51 36.5 C 68 18 124/62 96
[2020-08-24] MEDS: CYANOCOBALAMIN 500 MCG TABLET (VITAMIN B-12) PO SCH (20:25)
[2020-08-24] MEDS: TICAGRELOR 90 MG TAB PO SCH (23:30)
[2020-08-25] MEDS: ACETAMINOPHEN 325 MG TAB PO PRN (05:54)
[2020-08-25 06:22] LABS: BUN Creatinine Ratio 20.5 (10-20); Est GFR (African American) 68.6 ml/min; Est GFR (Non-African American) 59.2 ml/min; Potassium 4.1 mmol/L (3.5-5.1)
[2020-08-25] MEDS: SODIUM CHLORIDE 0.9% 1000ML 1,000 ML IV SCH ×2 (07:12→07:57)
[2020-08-25] MEDS: ASPIRIN 81 MG ECTAB PO SCH (07:42)
[2020-08-25] MEDS: gemfibroziL 600 MG TAB PO SCH (07:42)
[2020-08-25] MEDS: TICAGRELOR 90 MG TAB PO SCH (07:42)
[2020-08-25] MEDS: EZETIMIBE 10 MG TABLET PO SCH (07:42)
[2020-08-25] MEDS: COLESTIPOL HCL 1 GM TAB PO SCH (07:42)
[2020-08-25] MEDS: CHOLECALCIFEROL 1,000 UNITS 25 MCG TAB PO SCH (07:43)
[2020-08-25] MEDS: FERROUS SULFATE 325 MG TAB PO SCH (07:43)
[2020-08-25] MEDS: METOPROLOL TARTRATE 50 MG TAB PO SCH (07:43)
[2020-08-25] MEDS: PANTOprazole 40 MG TAB PO SCH (07:43)
[2020-08-25] MEDS: SPIRONOLACTONE 12.5 MG TAB PO SCH (07:43)
[2020-08-25] MEDS: INSULIN ASPART 100 UNITS/ML 3 ML PEN SC SCH ×2 (07:54→11:36)
[2020-08-25] MEDS: INSULIN GLARGINE SOLOSTAR 100 UNITS/ML 3 ML PEN SC SCH (07:54)
--- NOTE | 2020-08-25 08:57 | Electrocardiogram Report ---
Test Reason : Blood Pressure : / mmHG Vent. Rate : 077 BPM Atrial Rate : 077 BPM P-R Int : 164 ms QRS Dur : 126 ms QT Int : 410 ms P-R-T Axes : 049 -64 099 degrees QTc Int : 463 ms Sinus rhythm with frequent , and consecutive Premature ventricular complexes Left atrial enlargement Left anterior fascicular block Left ventricular hypertrophy with QRS widening and repolarization abnormality Abnormal ECG When compared with ECG of 24-AUG-2020 13:59, Premature ventricular complexes are now Present Confirmed by Timbo Davies ([id number]) on 08/25/2020 8:56:25 AM Referred By: Zeyad Rodriguez Confirmed By:Timbo Davies
--- NOTE | 2020-08-25 15:32 | Discharge Summary ---
Date of Service August 25, 2020 Admission HPI Per Admitting Provider A 75-year-old male with past medical history significant for CAD status post stent, status post CABG; CHF, status post AICD; history of cerebral aneurysm; history of type 2 diabetes; history of hyperlipidemia, who presents with chest pain. The patient around 11:00 p.m. last night, was watching TV when he noticed left sided chest pain radiating to left arm, at that time feeling sweating. It was not going away, so he came to the ER,. In the ER he was placed on nitro paste. Currently, pain is much improved, resting comfortably and hemodynamically stable. Denies any dizziness. No nausea, no shortness of breath, no cough, no fever, no chills, no headache, no blurred vision, no earache, no runny nose, no sore throat, no abdominal pain, no diarrhea, no constipation. Otherwise, ambulates okay. About a month ago, he had a COVID shot but felt sick after that and he thinks he probably had covid at that time. But today s COVID test is negative.He doesnot want to take second covid shot. Admission Exam Per Admitting Provider GENERAL: The patient is of moderate build, not in acute distress. VITAL SIGNS: Temperature 36.4, pulse 83, respiratory rate 19, blood pressure 151/82, oxygen 91% on room air. HEENT: Pupils equal, round, and reactive to light. Oral mucosa moist. NECK: Supple. No JVD. No neck masses. CARDIOVASCULAR: S1, S2 heard, regular rate and rhythm, no murmur, no gallop. RESPIRATORY SYSTEM: Normal AP diameter. No accessory muscle use. No wheezing, no crackles. ABDOMEN: Soft, bowel sounds present, nontender. No distention. CENTRAL NERVOUS SYSTEM: Cranial nerves II-XII grossly intact. Nonfocal. EXTREMITIES: No edema, no erythema. Principal Diagnosis NSEMI Discharge Exam General: A&Ox3. HENT: NCAT, MMM, EOMI Eyes: PERRLA Neck: Supple, normal range of motion CVS: normal rate and rhythm Resp: b/l good breath sounds Abdomen: Soft, ND/NT, +BS Extremities: No c/c/e Neuro: face symmetric, no focal deficit Skin: warm and dry, no rashes/lesions/errythema MSK: normal ROM, no joint swelling/erythema Discharge Data Allergies Allergy/AdvReac Type Severity Reaction Status Date / Time atorvastatin Allergy Unknown Hives Verified 08/23/20 00:27 swelling of legs Consultations 08/23/20 01:11 ED Decision to Admit Stat 08/23/20 08:00 Consult Cardiology Routine 08/24/20 13:25 Consult Cardiac Rehabilitation Routine Procedures Performed Operation Date: 08/24/20 11:00 Actual Procedures p Cath, Left w/Cors Vent Grafts - Roberto Ramirez, DO p Drug Eluting Stent SGl Vessel - Wood Romero MD s Drug Eluting Stent each ADDTL Vessel - Wood Romero MD s IVUS Coronary Single Vessel - Wood Romero MD s IVUS Coronary each ADDL Vessel - Wood Romero MD s Cineradiography w/Routine Exam - Wood Romero MD Ordered Studies 08/23/20 01:34 CT angio chest PE protocol Urgent 08/24/20 10:33 CL Cath Imgs for PACS use only Routine 08/24/20 13:25 CL IVUS Coronary Single Vessel Routine Hospital Course (1) Non-ST elevation CO (NSTEMI): (1) Non-ST elevation CO (NSTEMI): (2) Hypertension: (3) Dyslipidemia: (4) Pulmonary nodules: Patient underwent cardiac catheterization. 1. Successful PCI of ostial LAD, and mid LAD in-stent restenosis with 2 drug- eluting stents (3.0 x 18, 3.5 x 18 mm Xience; postdilated with 4.0 NC). 2. Successful PCI of ostial circumflex with single drug-eluting stent (3.0 x 18 mm Xience). On the day of discharge patient was stable. Medically he was doing fine. Denies any chest pain, shortness of breath, palpitations or any dizziness. He was discharged on aspirin and Brilinta for 1 year. Hydrochlorothiazide was stopped at discharge and patient was discharged on spironolactone'' Pulmonary nodules: -9 mm mixed solid/groundglass right apical pulmonary nodule -We will need follow-up CT scan at 3 months. (2) Pulmonary nodules: Total Time Total Time Spent Total Time Spent (In Minutes): 35 Discharge Plan Discharge Items Patient Disposition: Home - Self-Care Reason For Visit: CHEST PAIN Discharge Diagnosis: NSTEMI Activity: Resume your previous activity Non-emergency contact: Primary Care Provider Call non-emergency contact if: your symptoms worsen Follow-up/Referrals: Zeyad Rodriguez MD [Physician] - (Date & Time 09/08/2020 10:45 AM Provider Pacer Clinic [facility] Department Cardiology, [facility] ) Josseline Allen PA-C [Primary Care Provider] - Diet: Heart Healthy Addtl Attending Provider Instructions: Follow-up with your primary care physician and cardiology as an outpatient. You had 9 mm mixed solid/groundglass right apical pulmonary nodule. Please follow-up with CT chest in 3 months. Pending Studies at Discharge: No Stand-Alone Forms: My [employer], Smoking Cessation Medications and DC Order Prescriptions: New spironolactone 25 mg Tablet 12.5 mg PO DAILY Qty: 30 RF: 0 Brilinta 90 mg Tablet 90 mg PO BID Qty: 60 RF: 2 Continued alogliptin 12.5 mg tablet 12.5 mg PO QAM RF: 0 cholecalciferol (vitamin D3) 25 mcg (1,000 unit) capsule 25 mcg PO QAM RF: 0 aspirin 81 mg Tablet,Delayed Release (Dr/Ec) 81 mg PO BID RF: 0 levothyroxine 25 mcg Tablet 25 mcg PO QAM RF: 0 gemfibrozil 600 mg Tablet 600 mg PO BID RF: 0 ferrous sulfate [iron] 325 mg (65 mg iron) Tablet 325 mg PO BID RF: 0 nitroglycerin 0.4 mg Tablet, Sublingual 0.4 mg sublingual UD PRN (Reason: Chest Pain) RF: 0 colestipol 1 gram Tablet 2 g PO QAM RF: 0 ezetimibe [Zetia] 10 mg Tablet 10 mg PO QAM RF: 0 metformin 850 mg Tablet 850 mg PO BID RF: 0 cyanocobalamin (vitamin B-12) [Vitamin B-12] 500 mcg Tablet 500 mcg PO PM RF: 0 fluticasone propionate 50 mcg/actuation [place],Suspension 2 spray INTRANASAL DAILY PRN (Reason: Allergy Symptoms) RF: 0 colestipol 1 gram Tablet 1 g PO HS RF: 0 omeprazole 20 mg Tablet,Delayed Release (Dr/Ec) 20 mg PO BID RF: 0 empagliflozin 25 mg Tablet 12.5 mg PO QAM RF: 0 metoprolol tartrate 50 mg Tablet 50 mg PO BID RF: 0 Discontinued hydrochlorothiazide 25 mg Tablet 12.5 mg PO UD PRN (Reason: Fluid Retention) RF: 0 Discharge Orders: Discharge Order (Routine); Ordered 08/25/20 Ordered By: Laxmi Mendiola/Other Patient Handouts: High Blood Sugar (Hyperglycemia), Managing Type 2 Diabetes, A1C Admission Data Admit Date/Time: 08/23/20 03:16 Attending Provider: Laxmi Myers Admit Provider: Sean Tolliver Primary Care Provider: Josseline Allen Other Providers: Sean Tolliver ; Michael Diaz ; Diogo Del Angel ; Zeyad Rodriguez ; Jake Villanueva ; Roberto Ramirez ; Darwin Oseguera ; Susie Harris ; Marycarmen Shin ; Kathrine Nichole ; Robinson Burris ; [facility] Other Interventions: Discharge Summary Assessment (RN) Last Done: 08/25/20 15:39
--- NOTE | 2020-08-25 15:48 | Cardiology Progress Note ---
Date of Service August 25, 2020 Assessment & Plan (1) Non-ST elevation NJ (NSTEMI): (2) Hypertension: (3) Dyslipidemia: (4) Pulmonary nodules: (1) Non-ST elevation NJ (NSTEMI) in the setting of chronic ischemic cardiomyopathy: -Patient presented with symptoms consistent with angina (chest pain, left arm discomfort, diaphoresis) and his second troponin I has trended up to 13.8 ng/ml. -SARS-CoV-2 PCR negative this admission. -EKG with chronic lateral repolarization changes, chronic anterior NJ pattern with Q waves in the anterior precordial leads. -Echocardiogram reveals severe hypokinesis to akinesis that spares the lateral wall, LVEF 20- 25%, compared to 30-35% in 2018 -The patient's cardiac history is notable for onset of crescendo angina in March, undergoing cardiac catheterization which demonstrated a complex LAD and diagonal lesion. He was referred for surgical intervention and underwent minimally invasive surgery with BARBER to diagonal with the LAD having been submyocardial and could not be visualized. He subsequently underwent PTCA and stenting of the LAD a day post surgery with initial excellent result however had an acute thrombotic closure on 04/10/2003 prompting medical evacuation to [facility] [place] [place] where he underwent restenting of the LAD for thrombotic occlusion. Pt seen and examined s/p cath. Greatly appreciate input from interventional cardiology. 1. Successful PCI of ostial LAD, and mid LAD in-stent restenosis with 2 drug-eluting stents (3.0 x 18, 3.5 x 18 mm Xience; postdilated with 4.0 NC). 2. Successful PCI of ostial circumflex with single drug-eluting stent (3.0 x 18 mm Xience). will require Brillinta given complex stent placements ideally for 1 year uninterrupted and then transition to Plavix we will ask case management for their aid in obtaining script, [facility] I will also reach out to [facility] pharmacists cont aspirin, metoprolol, zetia and gemfibrizide. Also on Repatha as an outpatient Okay to OR home from a cardiac standpoint. We will need cardiac follow-up in 2 weeks. (2) Hypertension: -History of difficult to control hypertension with intolerance of multiple medication therapies. -Hydrochlorothiazide on hold. ideally would add losartan if BP elevates cont with spironolactone (3) Dyslipidemia: -Patient with history of statin intolerance. -He is on Repatha 140 mg subcutaneously every 2 weeks. -Continue prior to hospital Colestipol and ezetimibe. (4) Pulmonary nodules: -9 mm mixed solid/groundglass right apical pulmonary nodule -We will need follow-up CT scan at 3 months. Admission and Anticipated Discharge Date Admission Date: August 23, 2020 Subjective Patient unavailable at the time of rounding. Case discussed with primary team and nursing. No complaints overnight. Telemetry reviewed: Normal sinus rhythm without arrhythmia or significant ectopy . Results & Data ([facility]) Vital Signs (Past 12 Hours) Vital Signs Temp Pulse Pulse Resp BP Pulse Ox 08/25/20 15:43 36.5 C 75 16 129/81 93 08/25/20 15:39 36.5 C 64 18 133/75 96 08/25/20 14:54 77 08/25/20 12:10 36.5 C 64 18 133/75 96 08/25/20 08:01 36.6 C 60 19 127/73 92 08/25/20 08:00 75 08/25/20 04:00 36.6 C 52 L 16 139/76 99
== END 2020-08-25 16:46 | disposition home or self-care (01) | DRG 247 ==
LOC: ED 23:42 → SUATTDRO 08-23 03:16 → 2S 08-23 03:16

== ENCOUNTER 2023-04-06 13:11 | Inpatient (IN) ==
--- NOTE | 2023-04-06 13:22 | ED Triage Note ---
Date of Service April 06, 2023 Provider in Triage Author: Driss Wade History of Present Illness This patient was briefly evaluated while in triage. An abbreviated physical exam was performed. This patient is a 77-year-old Male who presents to the ED for evaluation of elevated BP and chest pain began around 10:30-11am. Pain on right side of chest. At [facility] earlier and sent here. Has a defibrillator and hx of open heart surgery. Physical Exam GENERAL: 77 year old male. In no acute distress. SKIN: No lesions or rashes. HEART: Regular rate and rhythm. LUNGS: Clear to auscultation. ABDOMEN: Bowel sounds normoactive. No guarding or rigidity. No tenderness of palpation. NEURO: Alert and oriented. No deficits. MUSCULOSKELETAL: No deformities to inspection of the extremities. PSYCH: Patient is pleasant and answers all questions appropriately. Initial orders for labs and / or imaging were placed pending further assessment
[2023-04-06] MEDS ORDERED: ASPIRIN CHEW 324 MG PO STA (13:45)
[2023-04-06 13:52] LABS: Basophils # (auto) 0.02 K/uL (0.00-0.20); Basophils % (auto) 0.3 %; Eosinophils # (auto) 0.02 K/uL (0.00-0.50); Eosinophils % (auto) 0.3 %; Hematocrit (blood only) 35.5 % (42.0-52.0); Hemoglobin 12.2 g/dl (14.0-18.0); Immature Granulocytes # (auto) 0.02 K/uL (0.01-0.20); Immature Granulocytes % (auto) 0.3 %; Lymphocytes # (auto) 0.72 K/uL (1.20-3.40); Lymphocytes % (auto) 9.6 %; Mean Corpuscular Hemoglobin 30.7 pg (25.0-34.0); Mean Corpuscular Hgb Conc 34.4 g/dL (32.0-36.0); Mean Corpuscular Volume 89.4 fL (80.0-100.0); Mean Platelet Volume 10.1 fL (9.4-12.4); Monocytes # (auto) 0.64 K/uL (0.11-0.59); Monocytes % (auto) 8.5 %; Neutrophils # (auto) 6.11 K/uL (1.40-6.50); Platelet Count 217 K/uL (130-400); RDW Coefficient of Variation 13.4 % (11.5-14.5); RDW Standard Deviation 43.8 fL (36.4-46.3); Red Blood Count 3.97 M/uL (4.70-6.10); White Blood Count 7.53 K/ul (4.8-10.8)
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
[2023-04-06 14:08] LABS: Albumin Globulin Ratio 1.5 (0.9-2); Albumin Level 4.5 gm/dl (3.4-5.0); BUN Creatinine Ratio 20.5 (10-20); Calcium 9.5 mg/dl (8.6-10.3); Creatinine Clr Calc Pharmacy 58.7 ml/min; Est GFR (African American) 66.3 ml/min; Est GFR (Non-African American) 57.2 ml/min; Potassium 4.6 mmol/L (3.5-5.1); Total Protein 7.5 gm/dl (6.0-8.3)
[2023-04-06 14:16] LABS: INR 0.9 (0.9-1.1); Partial Thromboplastin Ratio 0.8; Partial Thromboplastin Time 22 Seconds (21-31); Prothrombin Time 10.3 Seconds (9.0-12.0)
[2023-04-06 14:17] LABS: Troponin I High Sensitivity 58.4 pg/ml (0-20)
[2023-04-06 14:22] LABS: Thyroid Stimulating Hormone 1.926 uIu/ml (0.300-4.500)
--- NOTE | 2023-04-06 14:45 | XRay Report ---
XR chest 1V portable HISTORY: Weakness. Chest pain COMPARISON: Chest 08/23/2020. FINDINGS: No pneumothorax. No pleural effusions. The cardiac silhouette remains mildly enlarged. Is l eft-sided pacemaker/defibrillator. Old, healed right clavicle fracture again noted. No new focal lung consolidations to suggest a pneumonia. There is mild interstitial thickening suggestive of moderate congestive change. This has improved in the interval. IMPRESSION: Cardiomegaly and mild congestive change. This has improved in the interval. ACT 112: Negative or not required by law. Electronically signed by: Hector Valenzuela M.D. 04/06/2023 2:43 PM
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
[2023-04-06 17:04] LABS: Troponin I High Sensitivity 55.9 pg/ml (0-20)
[2023-04-06 17:07] LABS: Magnesium 1.6 mg/dl (1.7-2.4)
[2023-04-06] MEDS ORDERED: GLUCAGON FOR INJ 1 MG VIAL SQ PRN (17:13)
[2023-04-06] MEDS ORDERED: traMADol HCL 50 MG TABLET PO PRN (17:13)
[2023-04-06] MEDS ORDERED: ACETAMINOPHEN 325 MG TAB PO PRN (17:13)
[2023-04-06] MEDS ORDERED: CARBOHYDRATES FOR HYPOGLYCEMIA PO PRN (17:13)
[2023-04-06] MEDS ORDERED: ONDANSETRON INJ 2 MG/ML 2 ML VIAL IV PRN (17:13)
[2023-04-06] MEDS ORDERED: POLYETHYLENE (MIRALAX) 17 GM PACK PO PRN (17:13)
[2023-04-06] MEDS ORDERED: GLUCOSE 10 TAB/TUBE PO PRN (17:13)
[2023-04-06] MEDS ORDERED: FLUTICASONE PROPIONATE NA SPR 16 GM BTL NAE PRN (17:13)
[2023-04-06] MEDS ORDERED: DEXTROSE 50% 50 ML SYRINGE IV PRN (17:13)
[2023-04-06] MEDS ORDERED: GLUCOSE 40% GEL 15 GM TUBE PO PRN (17:13)
[2023-04-06] MEDS: INSULIN ASPART PER UNIT CHARGE SC SCH ×2 (17:20→20:53)
[2023-04-06] MEDS: MAGNESIUM SULFATE / D5W 1 GM/100 ML BAG IV SCH ×3 (19:17→22:56)
[2023-04-06] MEDS: gemfibroziL 600 MG TAB PO SCH (20:47)
[2023-04-06] MEDS: TICAGRELOR 90 MG TAB PO SCH (20:47)
[2023-04-06] MEDS: PANTOprazole 40 MG TAB PO SCH (20:47)
[2023-04-06] MEDS: FERROUS SULFATE 325 MG TAB PO SCH (20:47)
[2023-04-06] MEDS: METOPROLOL TARTRATE 25 MG TAB PO SCH (20:47)
[2023-04-06] MEDS: ASPIRIN 81 MG ECTAB PO SCH (20:47)
[2023-04-06] MEDS: HEPARIN SOD 5,000 UNIT/0.5 ML VIAL SQ SCH (20:48)
[2023-04-06] MEDS: COLESTIPOL HCL 1 GM TAB PO SCH (20:48)
--- OUTSIDE RECORDS SUMMARY | 2023-04-06 21:39 | External Medical Summary | Summary of Care ---
Author Name Unknown Organization [facility] Address [address] [facility] [place] [address] Phone [phone] Care Team Providers Care Narrow Fabrics Weaver Name Role Phone Nicolas Real Primary Care Provide r Reason for Visit * Reason Onset Date Comments Advice 01/25/2023 Encounter Details Date Type Department Care Team (Late st Contact Info) Description 01/25/2023 Telephone Cardiology, [facility] [address] [place] [address] Zeyad Rodriguez MD [address] [place] [address] Advice Allergies Active Allergy Reactions Criticality Noted Date Comments Atorvastatin Calcium Other (Please comment) 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 documented as of this encounter (statuses as of 02/26/2023) Medications Medication Sig Dispensed Refills Start Date End Date Status NITROGLYCERIN 0.4 MG SL SUBLIndications:Aort ocoronary bypass status,Chronic ischemic heart disease,Mixed dyslipidemia 1 Q 5 min as needed with chest pain up to 3 doses in 15 minutes 25 3 02/02/2006 Active ONETOUCH ULTRA TEST STRPIndications:DM type 2, goal A1c below 7 use as directed QID 1 box 9 01/31/2008 Active ONETOUCH ULTRASOFT LANCETS MISCIndications:DM type 2, goal A1c below 7 use as directed QID 1 box 9 01/31/2008 Active GEMFIBROZIL 600 MG PO TABSIndications:Mixe d dyslipidemia,Chronic ischemic heart disease,Aortocoronar y bypass status take one tablet two times daily 180 3 08/07/2008 Active METOPROLOL TARTRATE 50 MG PO TABS 1 tablet in am and half in afternoon, 75 total MG 0 Active Vitamin B-12 500 MCG Oral Tablet Take 2 Tablets by mouth in the morning. 0 Active METFORMIN HCL 850 MG PO TABS one tab by mouth twice a day 0 11/24/2010 Active COLESTIPOL HCL 1 G PO TABS Take by mouth. 2g in the AM & 1g in the PM 0 Active ZETIA 10 MG PO TABS Take 1 Tablet by mouth in the morning. 0 Active fluorouracil (EFUDEX) 5 % cream Apply topically to affected area 2 times a day. Apply to skin twice daily 40 g 0 07/13/2014 Active levothyroxine (LEVOXYL) 25 MCG Tablet Take 1 Tablet by mouth in the morning. 34 Tab 11 07/13/2014 Active Ferrous Sulfate 325 (65 Fe) MG Oral Tablet Delayed Release Take 1 Tablet by mouth daily. 0 Active Ticagrelor 90 MG Oral Tablet (Brilinta) Take 1 Tab by mouth 2 times a day. 180 Tab 3 11/18/2020 Active Praluent 75 MG/ML Subcutaneous Solution Auto-injector (Alirocumab) Inject 75 mg under the skin every 14 days. 2 mL 11 12/15/2020 Active Omeprazole 20 MG Oral Capsule Delayed Release (PriLOSEC) Take 2 Capsules by mouth in the morning. 0 Active Amoxicillin 500 MG Oral Capsule (Amoxil)Indications: 4 tabs by mouth one hour before dental procedures Take 1 Capsule by mouth. 0 Active Spironolactone 25 MG Oral Tablet Take 0.5 Tablets by mouth in the morning. 0 Active Tamsulosin HCl 0.4 MG Oral Capsule (Flomax) Take 1 Capsule by mouth in the morning. 0 Active Aspirin EC 81 MG Oral Tablet Delayed Release Take 1 Tablet by mouth in the morning. 60 Tablet 11 12/07/2021 Active Ascorbic Acid 500 MG Oral Tablet Take 0.5 Tablets by mouth daily. 0 Active Empagliflozin 25 MG Oral Tablet (Jardiance) Take 1 Tablet by mouth in the morning. 0 Active Fluticasone Propionate 50 MCG/ACT Nasal Suspension (Flonase) Administer 2 Sprays into nostril in the morning. 0 Active Vitamin D (Cholecalciferol) 25 MCG (1000 UT) Oral Capsule Take 1 Capsule by mouth in the morning. 0 Active Carboxymethylcellulo se Sod PF 1 % Ophthalmic Gel Instill into the left eye 4 times a day. 0 Active Alogliptin Benzoate 12.5 MG Oral Tablet Take by mouth daily. 0 Active documented as of this encounter (statuses as of 02/26/2023) Active Problems Problem Noted Date Diagnosed Date AICD at end of battery life 04/02/2019 Overview: Added automatically from request for surgery [id number] Cerebral aneurysm, nonruptured 01/21/2018 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 Increased risk for prostate and male breast cancer. Recommended: (1) Annual PSA / LIONEL. (2) Annual clinical breast exam. Ischemic cardiomyopathy 10/23/2012 Automatic implantable cardioverter-defibrillator in situ 04/14/2009 DYSLIPIDEMIA, GOAL LDL BELOW 70 03/08/2009 Overview: Per Lipid Taxonomy. Type 2 diabetes mellitus wit h hemoglobin A1c goal of less than 7.0% 01/21/2009 Overview: Per Diabetes Taxonomy. ICD-10 update of inactive term ADVANCE DIRECTIVE INFORMATION 11/30/2004 Overview: No, Advance Directive brochure offered , patient declined. Aortocoronary bypass status 07/09/2003 CHR ISCHEMIC HRT DIS NOS 05/05/2003 S/P primary angioplasty with coronary stent 03/27 documented as of this encounter (statuses as of 02/26/2023) Resolved Problems Problem Noted Date Diagnosed Date Resolved Date Type 2 diabetes mellitus wit h hemoglobin A1c goal of less than 7.0% 01/21/2009 Overview: Per Diabetes Taxonomy. ICD-10 update of inactive term Mixed dyslipidemia 9 Overview: Per Lipid Taxonomy. documented as of this encounter (statuses as of 02/26/2023) Immunizations Name Administration Dates Next Due COVID-19 mRNA, LNP-s, No Pre serve, 2-Dose Series (Glownet) 07/07/2020 Pneumococcal Polysaccharide PPV23 (Pneumovax) Seasonal Influenza Virus Vac cine, Unspecified Formulation 02/02/2006 Seasonal Influenza, Split, IIV3, With Preserve, Inj 12/24/2009,12/08/2008 documented as of this encounter Social History Tobacco Use Types Packs/Day Years Used Date Smoking Tobacco: Former Cigars Smokeless Tobacco: Never Comments:RARE CIGAR Alcohol Use Standard Drinks/Week Comments No 0 (1 standard drink = 0.6 oz pur e alcohol) Sex and Gender Information Value Date Recorded Sex Assigned at Not on file Gender Identity Not on file Sexual Orientation Not on file Job Start Date Occupation Industry Not on file Not on file Not on file documented as of this encounter Miscellaneous Notes * Telephone Encounter - Aleah Marrero OSA - 01/25/2023 1:51 PM EDT Spoke with Pt/. Both became extremely upset and became verbally abusive and accusing me of lying about not having an appointment with Dr. Rodriguez Pt's stated "he refuses to see anyone but Dr. Rodriguez so don't even try to pull that because we will not show up". Both the Pt and his demandedto know why Pt's March appointment was cancelled. Upon trying to explain, they both would interrupt saying this is unacceptable and that the patient should be able to see Dr. Rodriguez anytime he needsto. Pt/ would not stop yelling over each other,so I disconnected the call. * Telephone Encounter - Kathie Shaffer OSA - 01/25/2023 1:17 PM EDT Pt spouse Ros returned our call to reschedule 04/09/23 appt w/Dr Rodriguez due to schedule templates. There are no open appts. Pt will not see a PA or SECURITY SALES CONSULTANT. Only Dr Rodriguez. Pt is a and [facility]date. Please advise pt at your earliest convenience. Thank you documented in this encounter Plan of Treatment Upcoming Encounters Date Type Department Care Team (Late st Contact Info) Description 04/02/2023 2:30 PM EST Office Visit Gastroenterology, [facility] [address] [facility] [place] [address] Beti Garrison CRNP [address] [facility] [place] [address] 11/06/2023 12:00 PM EDT Appointment Vascular Lab [facility] [address] [place] [address] 11/06/2023 12:30 PM EDT Office Visit Vascular Surg [facility] [address] [place] [address] Austen Hazel MD [address], [place] [address] 11/13/2023 10:00 AM EDT Cardiac Studies Cardiology, [facility] [address] [facility] [place] [address] [facility] [address] [facility] [place] [address] Scheduled Procedures Name Priority Associated Diagnoses Date/Ti me COLONOSCOPY FLEXIBLE PROXIMAL DIAGNOSTIC Recall History of colon polyps ESOPHAGOGASTRODUODENOSCOPY ( EGD), FLEXIBLE, TRANSORAL, DIAGNOSTIC Recall Hx of malignant carcinoid tumor Health Maintenance Due Date Last Done Comments Depression Screening 1957 Hepatitis C Screening 1963 DTaP,Tdap,and Td Vaccines (1 - Tdap) 09/16/1996 09/15/1996 Hepatitis B (1 of 3 - Risk 3-dose series) 2006 Diabetic Foot Exam 08/26/2010 08/26/2009, 1 (Course Completed) Albumin/Creatinine Ratio 09/15/2020 020, 08/07/2017, 03/22/2016, Additional history exists COVID-19 Vaccine (2 - season) 2022 07/07/2020 Influenza Vaccine (FLU shot) (#1) 2022 02/14/2019, 02/08/2018, 02/06/2017, Additional history exists HbA1c 04/25/2023 10/23/2022, 0807/2021, 09/16/2019, Additional history exists Diabetic Eye Exam 08/02/2023 08/01/2022, , 02/08/2008 (Done elsewhere), Additional history exists TSH 10/24/2023 10/23/2022, 12/24, 09/09/2020 GFR 11/10/2023 11/09/2022, 09/25, 02/07/2022, Additional history exists COLONOSCOPY-EVERY 5 YRS AGES 18-100 03/29/2027 03/29/2022, 03/29/2022, 09/13/2017, Additional history exists Pneumococcal Vaccine: 65+ Years Completed 05/17/2017, 06/13/2016, 09/01/2005, Additional history exists Zoster Vaccines Completed 12/02/2018, 06/10/2018 GARDASIL-HPV IMMUNIZATION SERIES Aged Out No longer eligible based on patient's age to complete this topic MENINGOCOCCAL (MENACTRA/MENVEO) Aged Out No longer eligible based on patient's age to complete this topic documented as of this encounter Medical Devices Implanted Type Area Measurement Supervisor Device Identifier Shelf Expiration Date Model / Serial / Lot Visia Af Mri-05/23/2019 Implanted:2019 (Quantity not on file) Pacemaker Chest [employer] : CARDIAC SURGERY 11/14/2024 [id number] / / . Microvention Terumo, [id number], Endovascular Embolization Coil, Hydrosoft 3d, [id number] Implanted:Qty: 1 on 02/19/2018 by Lenny Davies MD at OR [facility] Right: Head [employer] 01/23/2022 [id number] / [id number] / [id number] Description:Right Superior C erebellar Artery Aneurysm documented as of this encounter Advance Directives Latest Code Status on File Code Status Date Activated Date Inactivated Comments Full Code 03/29/2022 9:49 AM 03/29/2022 2:45 PM This or wilbert reflects the patients wishes and were consensually agreed upon. Question Answer Comments Discussion of Advance Directives occurred with: Not Discussed due to patient's condition Code Status History Code Status Date Activated Date Inactivated Comments Full Code 03/29/2022 8:50 AM 03/29/2022 9:48 AM This or wilbert reflects the patients wishes and were consensually agreed upon. Question Answer Comments Discussion of Advance Directives occurred with: Not Discussed due to patient's condition Full Code 02/19/2018 3:49 PM 02/20/2018 4:19 PM Thi s order reflects the patients wishes and were consensually agreed upon. Full Code 02/19/2018 6:26 AM 02/19/2018 3:49 PM Thi s order reflects the patients wishes and were consensually agreed upon. Full Code 04/05/2009 2:09 PM 04/06/2009 1:40 PM This order reflects the patients wishes and were consensually agreed upon. Question Answer Comments Discussion of Advance Directives occurred with: Not Discussed Does the patient have a Living Will? No Does the patient have Health Care Power of Blister Rust Eradicator? No Care Teams Narrow Fabrics Weaver Relationship Specialty Start Date End Date Nicolas Real CRNP [address] [place] [address] PCP - General Nurse Practitioner 01/13/21 documented as of this encounter
--- OUTSIDE RECORDS SUMMARY | 2023-04-06 21:39 | External Medical Summary | Summary of Care ---
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 documented as of this encounter (statuses as of 02/02/2023) Medications Medication Sig Dispensed Refills Start Date [...] as of this encounter (statuses as of 02/02/2023) Active Problems Problem Noted Date Diagnosed Date AICD at end of battery life 04/02/2019 Overview: Added automatically from request for surgery [id number] Cerebral aneurysm, nonruptured 01/21/2018 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 ICD-10 update of inactive term Mixed dyslipidemia 9 Overview: Per Lipid Taxonomy. documented as of this encounter (statuses as of 02/02/2023) Immunizations Name Administration Dates Next Due COVID-19 mRNA, LNP-s, No Pre serve, 2-Dose Series (Pfizer) 07/07/2020 Pneumococcal Polysaccharide PPV23 (Pneumovax) Seasonal Influenza [...] on file documented as of this encounter Plan of Treatment Upcoming Encounters Date Type Department Care Team (Late st Contact Info) Description 04/02/2023 2:30 PM EST Office Visit Gastroenterology, [facility] [address] [place] [address] Beti Garrison CRNP [address] [place] [address] 11/06/2023 12:00 PM EDT Appointment Vascular Lab [facility] [address] [place] [address] 11/06/2023 12:30 PM EDT Office Visit Vascular Surg [facility] [address] [place] [address] Austen Hazel MD [address] [place] [address] 11/13/2023 10:00 AM EDT Cardiac Studies Cardiology, [facility] [address] [facility] [place] [address] [place] [address] [facility] [place] [address] Scheduled Procedures Name Priority Associated Diagnoses Date/Ti me COLONOSCOPY FLEXIBLE PROXIMAL DIAGNOSTIC Recall History of colon polyps ESOPHAGOGASTRODUODENOSCOPY ( EGD), FLEXIBLE, TRANSORAL, DIAGNOSTIC Recall Hx of malignant carcinoid tumor Health Maintenance Due Date Last Done Comments Depression Screening 1957 Hepatitis C Screening 1964 DTaP,Tdap,and Td Vaccines (1 - Tdap) 09/16/1996 09/15/1996 Pneumococcal Vaccine: 65+ Years (2 - PCV) 08/01/2006 08/01/2005 Hepatitis B (1 of 3 - Risk 3-dose series) 2006 Diabetic Foot Exam 08/26/2010 08/26/2009, 1 (Course Completed) Albumin/Creatinine Ratio 09/15/2020 020, 08/07/2017, 03/22/2016, Additional history exists COVID-19 Vaccine (2 - 2022- season) 2022 07/07/2020 Influenza Vaccine (FLU shot) (#1) 2022 02/14/2019, 02/08/2018, 02/06/2017, Additional history exists HbA1c 04/25/2023 10/23/2022, 0807/2021, 09/16/2019, Additional history exists Diabetic Eye Exam 08/02/2023 08/01/2022, , 02/08/2008 (Done elsewhere), Additional history exists TSH 10/24/2023 10/23/2022, 12/24, 09/09/2020 GFR 11/10/2023 11/09/2022, 09/25, 02/07/2022, Additional history exists COLONOSCOPY-EVERY 5 YRS AGES 18-100 03/29/2027 03/29/2022, 03/29/2022, 09/13/2017, Additional history exists Zoster Vaccines Completed 12/02/2018, 06/10/2018 GARDASIL-HPV IMMUNIZATION SERIES Aged Out No longer eligible based on patient's age to complete this topic MENINGOCOCCAL (MENACTRA/MENVEO) Aged Out No longer eligible based on patient's age to complete this topic documented as of this encounter Medical Devices Implanted Type Area Cork Wirer Device Identifier Shelf Expiration Date Model / Serial / Lot Visia Af Mri-05/23/2019 Implanted:2019 (Quantity not on file) Pacemaker Chest [employer] : CARDIAC SURGERY 11/14/2024 [id number] / / . Microvention Terumo, [id number], Endovascular Embolization Coil, Hydrosoft 3d, [id number] Implanted:Qty: 1 on 02/19/2018 by Lenny Davies MD at OR [facility] Right: Head [employer] 01/23/2022 [id number] / [id number] / [id number] Description:Right Superior C erebellar Artery Aneurysm documented as of this encounter Procedures Procedure Name Priority Date/Time Associated Diagnosis Comments CARDIOLOGY SCANNED RESULT 02/02/2023 documented in this encounter Results * CARDIOLOGY SCANNED RESULT (02/02/2023) 02/02/2023 Zeyad Rodriguez MD OTHER documented in this encounter Advance Directives Latest Code Status [...] the patient have Health Care Power of Director Of Front Office? No Care Teams Chemical Processor Relationship Specialty Start Date End Date Nciolas Real CRNP [address] [place] [address] PCP - General Nurse Practitioner 01/13/21 documented as of this encounter
--- OUTSIDE RECORDS SUMMARY | 2023-04-06 21:39 | External Medical Summary | Summary of Care ---
Author Name Unknown Organization [facility] Address [address] [place] [address] Phone [phone] Care Team Providers Care Porcelain Waxer Name Role Phone Nicolas Real Primary Care Provide r Reason for Visit * Reason Onset Date Comments Appointment 10/30/2022 Encounter Details Date Type Department Care Team Description 10/30/2022 Telephone Hepatology, [facility] [address] [facility] [place] [address] Specified, [facility] [address] [place] [address] Appointment Allergies Active Allergy Reactions Severity Noted Date Comments Atorvastatin Calcium Other (Please comment) 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 Increased risk for prostate and male breast cancer. Recommended: (1) Annual PSA / LIONEL. (2) Annual clinical breast exam. Ischemic cardiomyopathy 10/23/2012 Automatic implantable cardioverter-defib rillator in situ 04/14/2009 DYSLIPIDEMIA, GOAL LDL BELOW 70 03/08/20 Overview: Per Lipid Taxonomy. Type 2 diabetes mellitus with hemoglobin A1c goal of less than 7.0% 01/21/2009 Overview: Per Diabetes Taxonomy. ICD-10 update of inactive term ADVANCE DIRECTIVE INFORMATION 11/30/2004 Overview: No, Advance Directive brochure offered , patient declined. Aortocoronary bypass status 07/09/2003 CHR ISCHEMIC HRT DIS NOS 05/05/2003 S/P primary angioplasty with coronary st ent 04/21/2003 documented as of this encounter (statuses as of 11/29/2022) Resolved Problems Problem Noted Date Resolved Date Type 2 diabetes mellitus wit h hemoglobin A1c goal of less than 7.0% 01/21/2009 Overview: Per Diabetes Taxonomy. ICD-10 update of inactive term Mixed dyslipidemia 03/08/2009 Overview: Per Lipid Taxonomy. documented as of this encounter (statuses as of 11/29/2022) Immunizations Name Administration Dates Next Due COVID-19 mRNA, LNP-s, No Pre serve, 2-Dose Series (Robodrom) 07/07/2020 Diptheria/Tetanus (Adult) 09/15/1996 Pneumococcal Polysaccharide PPV23 (Pneumovax) Seasonal Influenza Virus Vac cine, Unspecified Formulation 02/02/2006 Seasonal Influenza, Split, IIV3, With Preserve, Inj 12/24/2009,12/08/2008 documented as of this encounter Social History Tobacco Use Types Packs/Day Years Used Date Smoking Tobacco: Former Cigars Smokeless Tobacco: Never Comments:RARE CIGAR Alcohol Use Standard Drinks/Week Comments No 0 (1 standard drink = 0.6 oz pur e alcohol) Sex Assigned at Date Recorded Not on file Job Start Date Occupation Industry Not on file Not on file Not on file documented as of this encounter Miscellaneous Notes * Telephone Encounter - RADHA Manuel - 11/29/2022 2:09 PM EDT LMOM for pt to call back to schedule * Telephone Encounter - RADHA Manuel - 11/09/2022 12:56 PM EDT Letter sent * Telephone Encounter - RADHA Manuel - 11/06/2022 1:43 PM EDT LMOM for pt to call back to schedule * Telephone Encounter - RADHA Chong - 10/31/2022 7:55 AM EDT Records scanned. * Telephone Encounter - Leslie King - 10/30/2022 4:30 PM EDT Referral received from the [facility] to get patient scheduled with our Hepatology department, Referring provider: Farhan Valenzuela DX: Liver Disease Records were placed into scans on 10/30/22 LMOM 10/30/22 documented in this encounter Plan of Treatment Upcoming Encounters Date Type Specialty Care Team Description 04/02/2023 Office Visit Gastroenterology Beti Garrison CRNP [address] [place] [address] 04/09/2023 Office Visit Cardiology Zeyad Rodriguez MD [address] [place] [address] 11/06/2023 Appointment Radiology 11/06/2023 Office Visit Vascular Surgery Austen Hazel MD [address] [place] [facility] [place] [address] 11/13/2023 Cardiac Studies Cardiology [facility] [address] [place] [place] [address] Scheduled Procedures Name Priority Associated Diagnoses Date/Ti me COLONOSCOPY FLEXIBLE PROXIMAL DIAGNOSTIC Recall History of colon polyps ESOPHAGOGASTRODUODENOSCOPY ( EGD), FLEXIBLE, TRANSORAL, DIAGNOSTIC Recall Hx of malignant carcinoid tumor Health Maintenance Due Date Last Done Comments Depression Screening, Annual for Pts 12 and Over 1957 Hepatitis C Screening 1963 DTaP,Tdap,and Td Vaccines (1 - Tdap) 09/16/1996 09/15/1996 Pneumococcal Vaccine: 65+ Years (2 - PCV) 08/01/2006 08/01/2005 DIABETES-EYE EXAM 02/07/2009 02/08/2008 (Do ne elsewhere), 12/03/2006 (Course Completed) Diabetic Foot Exam 08/26/2010 08/26/2009, 1 (Course Completed) COVID-19 Vaccine (2 - Pfizer series) 09/01/2020 07/07/2020 Albumin/Creatinine Ratio 09/15/2020 020, 08/07/2017, 03/22/2016, Additional history exists Influenza Vaccine (FLU shot) (#1) 2022 02/14/2019, 02/08/2018, 02/06/2017, Additional history exists HbA1c 04/25/2023 10/23/2022, 0807/2021, 09/16/2019, Additional history exists TSH 10/24/2023 10/23/2022, 12/24, 09/09/2020 GFR 11/10/2023 11/09/2022, 09/25, 02/07/2022, Additional history exists COLONOSCOPY-EVERY 5 YRS AGES 18-100 03/29/2027 03/29/2022, 03/29/2022, 09/13/2017, Additional history exists Zoster Vaccines Completed 12/02/2018, 06/10/2018 GARDASIL-HPV IMMUNIZATION SERIES Aged Out No longer eligible based on patient's age to complete this topic Hepatitis B Aged Out No longer eligi ble based on patient's age to complete this topic MENINGOCOCCAL (MENACTRA/MENVEO) Aged Out No longer eligible based on patient's age to complete this topic documented as of this encounter Medical Devices Implanted Type Area Manager Country Device Identifier Shelf Expiration Date Model / Serial / Lot Visia Af Mri-05/23/2019 Implanted:2019 (Quantity not on file) Pacemaker Chest [employer] : CARDIAC SURGERY 11/14/2024 [id number] / / . Microvention Terumo, [id number], Endovascular Embolization Coil, Hydrosoft 3d, [id number] Implanted:Qty: 1 on 02/19/2018 by Lenny Davies MD at OR [facility] Right: Head [employer] 01/23/2022 [id number] / [id number] / [id number] Description:Right Superior C erebellar Artery Aneurysm documented [...] 03/29/2022 8:50 AM 03/29/2022 9:48 AM This o rder reflects the patients wishes and were consensually [...] the patient have Health Care Power of Seasonal Driver? No Care Teams Porcelain Waxer Relationship Specialty Start Date End Date Nicolas Real CRNP [address] [facility] [place] [address] PCP - General Nurse Practitioner 01/13/21 documented as of this encounter
--- OUTSIDE RECORDS SUMMARY | 2023-04-06 21:39 | External Medical Summary | Summary of Care ---
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 ICD-10 update of inactive term Mixed dyslipidemia 9 Overview: Per Lipid Taxonomy. documented as of this encounter (statuses as of 04/03/2023) Immunizations Name Administration Dates Next Due COVID-19 [...] encounter Miscellaneous Notes * Telephone Encounter - Tre Boyle RT - 04/03/2023 12:25 PM EST This patient was done 11/14/22 for his prior MRI and his states he cannot be done for a f/u until 1 yr which will be October. I am not able to schedule out that far in advance due to needing the schedules for STAFF involved with a pacer/defib MRI. states [facility] not [facility] f[facility] until 1 yr. We will call her to schedule in October 16 Routing to provider for their knowledge. Any questions, please call documented in this encounter Plan of Treatment Upcoming Encounters Date Type Department Care Team (Late st Contact Info) Description 05/03/2023 2:30 PM EST Office Visit Cardiology, [facility] [address] [place] [address] Zeyad Rodriguez MD [address] [facility] [place] [address] 11/06/2023 12:00 PM EDT Appointment Vascular Lab [address] [address] 11/06/2023 12:30 PM EDT Office Visit Vascular Surg [place] [address] [place] [address] Austen Hazel MD [facility] [place] [address] 11/13/2023 10:00 AM EDT Cardiac Studies Cardiology, [facility] [address] [place] [address] [place], [facility] [address] [place] [address] Scheduled Procedures Name Priority Associated Diagnoses Date/Ti [...] 08/07/2017, 03/22/2016, Additional history exists COVID-19 Vaccine ( - 2022- season) 2022 07/07/2020 Influenza Vaccine [...] this encounter Medical Devices Implanted Type Area Loom Changer Device Identifier Shelf Expiration Date Model / Serial / Lot Visia Af Mri-05/23/2019 Implanted:2019 (Quantity not on file) Pacemaker Chest [employer] : CARDIAC SURGERY 11/14/2024 [id number] / / . Microvention Terumo, [id number], Endovascular Embolization Coil, Hydrosoft 3d, [id number] Implanted:Qty: 1 on 02/19/2018 [place]enny Davies [place] [facility] [place]: Head [employer] 01/23/2022 [id number] / [id number] / [id number] Description:Right Superior C erebellar Artery Aneurysm documented [...] the patient have Health Care Power of Student Career Development Specialist? No Care Teams Liability Analyst Relationship Specialty Start Date End Date Nicolas Real CRNP [address] [place] [address] PCP - General Nurse Practitioner 01/13/21 documented as of this encounter
--- OUTSIDE RECORDS SUMMARY | 2023-04-06 21:39 | External Medical Summary | Summary of Care ---
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 documented as of this encounter (statuses as of 01/29/2023) Medications Medication Sig Dispensed Refills Start Date [...] as of this encounter (statuses as of 01/29/2023) Active Problems Problem Noted Date Diagnosed Date 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 ICD-10 update of inactive term Mixed dyslipidemia Overview: Per Lipid Taxonomy. documented as of this encounter (statuses as of 01/29/2023) Immunizations Name Administration Dates Next Due COVID-19 [...] 04/02/2023 2:30 PM EST Office Visit Gastroenterology, [facility] [address] [facility] [place] [address] Beti Garrison CRNP [address] [facility] [place] [address] 11/06/2023 12:00 PM EDT Appointment Vascular Lab [place] [address] [place] [address] 11/06/2023 12:30 PM EDT Office Visit Vascular Surg [facility] [address] [place] [address] Austen Hazel MD [address] [place] [address] 11/13/2023 10:00 AM EDT Cardiac Studies Cardiology, [facility] [address] [facility] [place] [address] [facility] [address] [facility] [place] [address] Scheduled Procedures Name Priority Associated Diagnoses Date/Ti [...] this encounter Medical Devices Implanted Type Area Pmo Lead Device Identifier Shelf Expiration Date Model / Serial / Lot Visia Af Mri-05/23/2019 Implanted:2019 (Quantity not on file) Pacemaker Chest [employer] : CARDIAC SURGERY 11/14/2024 [id number] / / . Microvention Terumo, [id number], Endovascular Embolization Coil, Hydrosoft 3d, [id number] Implanted:Qty: 1 on 02/19/2018 by Lenny Davies MD at [place] [facility] [place] Right: Head [employer] 01/23/2022 [id number] / [id number] / [id number] Description:Right Superior C erebellar Artery Aneurysm documented [...] the patient have Health Care Power of Appliance Adjuster? No Care Teams Heel Attacher Relationship Specialty Start Date End Date Nicolas Real CRNP [address] [place] [address] PCP - General Nurse Practitioner 01/13/21 documented as of this encounter
--- OUTSIDE RECORDS SUMMARY | 2023-04-06 21:39 | External Medical Summary | Summary of Care ---
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 ICD-10 update of inactive term Mixed dyslipidemia 03/08/2009 Overview: Per Lipid Taxonomy. documented as of this encounter (statuses as of 12/14/2022) Immunizations Name Administration Dates Next Due COVID-19 [...] encounter Miscellaneous Notes * Telephone Encounter - FERN Grewal - 12/14/2022 10:12 AM EDT Please let patient know I have reviewed his lab work completed at the [facility]. Nothing of concern was noted with the additional labs and his Hemoglobin remains stable at 11.6. Please continue with our plan of routine lab monitoring through the [facility] and he can return to hematology as needed. Thank you. documented in this encounter Plan of Treatment Upcoming Encounters Date Type Specialty Care Team Description 04/02/2023 Office Visit Gastroenterology Beti Garrison CRNP [address] [place] [address] 04/09/2023 Office Visit Cardiology Zeyad Rodriguez MD [address] [place] [address] 11/06/2023 Appointment Radiology 11/06/2023 Office Visit Vascular Surgery Austen Hazel MD [address] [place] [address] 11/13/2023 Cardiac Studies Cardiology [facility] [address] [place] [address] Scheduled Procedures Name Priority Associated Diagnoses Date/Ti [...] 02/06/2017, Additional history exists HbA1c 04/25/2023 10/23/2022, 10/25, 09/16/2019, Additional history exists TSH 10/24/2023 10/23/2022, [...] encounter Medical Devices Implanted Type Area Manager Programs Device Identifier Shelf Expiration Date Model / Serial / Lot Visia Af Mri-05/23/2019 Implanted:2019 (Quantity not on file) Pacemaker Chest [employer] : CARDIAC SURGERY 11/14/2024 [id number] / / . [employer]vention Terumo, [id number], Endovascular Embolization Coil, Hydrosoft 3d, [id number] Implanted:Qty: 1 on 02/19/2018 by Lenny Davies MD [place] [facility] [place]: Head [employer] 01/23/2022 [id number] / [id number] / [id number] Description:Right Superior C erebellar Artery Aneurysm documented [...] the patient have Health Care Power of Elementary School Director? No Care Teams Paint Preparer Relationship Specialty Start Date End Date Nicolas Real CRNP [address] [place] [address] PCP - General Nurse Practitioner 01/13/21 documented as of this encounter
--- OUTSIDE RECORDS SUMMARY | 2023-04-06 21:39 | External Medical Summary | Summary of Care ---
Author Name Unknown Organization [facility] Address [address] [place] [address] Phone [phone] Care Team Providers Care Treatment Coordinator Name Role Phone Nicolas Real Primary Care Provide r Reason for Visit * Reason Comments Follow Up 9 month follow up * Evaluate & Treat - Unlimited Visits (Within 30 days (routine)) - Authorized Specialty Diagnoses / Procedures Referred By Kemal erazo Referred To Contact Gastroenterology Diagnoses Dysphagia Nicolas Real CRNP [address] [place] [address] [facility] [address] [facility] [address] Referral ID Status Reason Start Date Expiration Date Visits Requested Visits Authorized [id number] Authorized Specialty Services Required 04/02/2023 09/29/[phone] Encounter Details Date Type Department Care Team (Late st Contact Info) Description 04/02/2023 2:30 PM EST Office Visit Gastroenterology, [facility] [address] [place] [address] Beti Garrison CRNP [address] [place] [address] Focal nodular hyperplasia of liver*; Liver lesion Allergies Active Allergy Reactions Criticality Noted Date Comments Atorvastatin Calcium Other (Please comment) 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 documented as of this encounter (statuses as of 04/02/2023) Medications Medication Sig Dispensed Refills Start Date [...] as of this encounter (statuses as of 04/02/2023) Active Problems Problem Noted Date Diagnosed Date AICD at end of battery life 04/02/2019 Overview: Added automatically from request for surgery [id number] Cerebral aneurysm, nonruptured 01/21/2018 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 ICD-10 update of inactive term Mixed dyslipidemia Overview: Per Lipid Taxonomy. documented as of this encounter (statuses as of 04/02/2023) Immunizations Name Administration Dates Next Due COVID-19 mRNA, LNP-s, No Pre serve, 2-Dose Series (Pfizer) 07/07/2020 Pneumococcal Polysaccharide PPV23 (Pneumovax) Seasonal Influenza Virus Vac cine, Unspecified Formulation 02/02/2006 Seasonal Influenza, Split, IIV3, With Preserve, Inj 12/24/2009,12/08/2008 documented as of this encounter Social History Tobacco Use Types Packs/Day Years Used Date Smoking Tobacco: Former Cigars Smokeless Tobacco: Never Tobacco Cessation:Counseling Given: Not Answered Comments:RARE CIGAR Alcohol Use Standard Drinks/Week Comments No 0 (1 standard drink = 0.6 oz pur e alcohol) Sex and Gender Information Value Date Recorded Sex Assigned at Not on file Gender Identity Not on file Sexual Orientation Not on file Job Start Date Occupation Industry Not on file Not on file Not on file documented as of this encounter Last Filed Vital Signs Vital Sign Reading Time Taken Comments Blood Pressure 142/78 04/02/2023 2:35 PM EST Pulse 76 04/02/2023 2:35 PM EST Temperature 36.7 C (98.1 F) 04/02/2023 2:35 PM ES T Respiratory Rate - - Oxygen Saturation 98% 04/02/2023 2:35 PM EST Inhaled Oxygen Concentration - - Weight 80 kg (176 lb 4.8 oz) 04/02/2023 2:35 PM EST Height 188.6 cm (6' 2.25") 04/02/2023 2:35 PM ES T Body Mass Index 22.48 04/02/2023 2:35 PM EST documented in this encounter Progress Notes * Beti Garrison CRNP - 04/02/2023 2:30 PM EST DATE OF SERVICE: 04/02/2023 REFERRING PHYSICIAN: FERN Gregg CC: follow up Office Visit 04/02/2023 : Feeling well. No abd pain. No nausea, vomiting. He sometimes get nighttime discomfort after PO intake. Some reflux/regurgitation can occur. Is on PPI BID. No dysphagia. Bowelsare moving well. No diarrhea/constipation. No black or bloody stools. No fever, chills, CP, SOB. MRI liver 2022: No change in 2 small arterial phase hyperenhancing lesions in the right hepatic lobe since 01/10/2022 favoring benign etiology. Differential diagnosis includes FNH and adenoma. A follow-up MRI with Eovist contrast could be obtained in 1 year. MRI Liver 2021: 1. 0.5 x 0.8 cm lesion in segment 5 of the liver is most likely focal nodular hyperplasia. No additional lesions are seen on MRI. Comparison with previous outside imaging is recommended. CTAP 2021: . Bilateral nephrolithiasis. No ureteral stones. No hydronephrosis.The bladder is not well visualized due to the metallic artifact from the left hip prosthesis. However, there is no definite bladder wall thickening.Mild bilateral perinephric edema. This is likely chronic. A superimposed infection would be difficult to exclude by imaging. Therefore, recommend follow-up urinalysis for further evaluation.Scattered ill-defined hypodense lesions within the liver measuring up to 2 cm. These were not clearly present on the 2020 chest CTA. Therefore, follow-up nonemergent contrast-enhancedliver MRI is recommended to exclude the possibility of metastatic disease.No bowel wall thickening or obstruction.. Normal appendix. Additional findings as described above. Colon 2022: The examined portion of the ileum was normal. - Mild diverticulosis in the sigmoid colon and in the descending colon. - Internal hemorrhoids. - The examination was otherwise normal. - No specimens collected. EGD 2022: Normal esophagus. - Z-line regular, 44 cm from the incisors. - Normal stomach. - Normal examined duodenum. - No specimens collected EGD 2020: No endoscopic esophageal abnormality to explain patient's dysphagia. Esophagus dilated to54 Fr today. - Z-line regular, 44 cm from the incisors. - Gastritis. Biopsied. - Normal examined duodenum Colonoscopy 2018: The examined portion of the ileum was normal. - One 6 mm polyp in the transverse colon, removed with a cold snare. Resected and retrieved. - Mild diverticulosis in the sigmoid colon. - Internal hemorrhoids. - The examination was otherwise normal EUS 2016: duodenal bulb lesion Family history of GI malignancy: liver cancer and pancreatic cancer Family history of liver disease: two brothers had liver cancers but they are unsure about specificsif this originated in liver or elsewhere 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 Calculus of kidney Cerebral aneurysm Chronic ischemic heart disease 04/02/2003 [place] with one vessel CABG 04/02/2003, Chronic kidney disease Closed fracture of pelvis (HCC) Fractured Pelvis Closed ill-defined fractures of upper limb Fractured Arm Corns and callosities Diabetes mellitus (HCC) DIABETES, UNCOMPLICATED, TYPE II Encounter for ophthalmic examination and evaluation 08/24/2009 vision Fracture of clavicle, closed Fractured Clavicle GERD (gastroesophageal reflux disease) Hyperlipidemia Hypertension Hypothyroidism Ingrowing nail Iron deficiency anemia Male erectile dysfunction, unspecified Mixed dyslipidemia Occlusion and stenosis of right carotid artery Olecranon bursitis of left elbow Personal history of colonic polyps Presbyopia Presence of intraocular lens S/P primary angioplasty with coronary stent 04/21/2003 Sjogren syndrome with keratoconjunctivitis (HCC) Tinnitus, unspecified ear bilateral Urinary retention due to benign prostatic hyperplasia Family History Problem Relation Age of Onset Cancer Mother BREAST Arthritis Mother Diabetes Father Hypertension Father Cancer Aunt (Unspecified) Past Surgical History: Procedure Laterality Date ANESTHESIA, TOTAL HIP REPLACEMENT Left 2013 CAROTID (INTERNAL) ARTERY CATHETHER PLACEMENT Bilateral 01/04/2018 CATHETER PLACEMENT INTERNAL CAROTID ARTERY performed by Lenny Davies MD at [facility] CAROTID (INTERNAL) ARTERY CATHETHER PLACEMENT Right 02/19/2018 CATHETER PLACEMENT INTERNAL CAROTID ARTERY performed by Lenny Davies MD at [facility] CAROTID (INTERNAL) ARTERY CATHETHER PLACEMENT Bilateral 10/23/2018 CATHETER PLACEMENT INTERNAL CAROTID ARTERY performed by Lenny Davies MD at [facility] COLONOSCOPY 09/17/2000 [facility] told normal COLONOSCOPY, DIAGNOSTIC (RECTUM) 12/10/2014 normal, repeat 3 yrs/[facility] COLONOSCOPY, DIAGNOSTIC (RECTUM) 09/13/2017 adenomatous polyp, diverticulosis, repeat 5 yrs/[facility] COLONOSCOPY, DIAGNOSTIC (RECTUM) N/A 03/29/2022 mild diverticulosis sigmoid and descending colon/internal hemorrhoids/recall 5 years/COLONOSCOPY FLEXIBLE PROXIMAL DIAGNOSTIC performed by Ottoniel Liu DO at [facility] CORONARY ARTERY BYPASS, SINGLE 04/02/2002 BARBER to mid LAD Dr Booker [facility] CXR 2 VIEWS AP/PA & LATERAL 04/21/2002 normal EGD, FLEXIBLE, DIAGNOSTIC 12/10/2014 inflammatory changes on bx, repeat 3 mo/[facility] EGD, FLEXIBLE, DIAGNOSTIC 03/05/2015 normal tissue on bx, repeat 3 mo/[facility] EGD, FLEXIBLE, DIAGNOSTIC 09/03/2015 carcinoid tumor, repeat 3 mo/[facility] EGD, FLEXIBLE, DIAGNOSTIC 12/14/2015 gastritis, repeat 6 mo/[facility] EGD, FLEXIBLE, DIAGNOSTIC 10/25/2016 mild inflammatory changes, repeat 6 mo/[facility] EGD, FLEXIBLE, DIAGNOSTIC 06/04/2017 gastritis, repeat 6 mo/[facility] EGD, FLEXIBLE, DIAGNOSTIC 09/13/2017 normal, repeat 1 yr/[facility] EGD, FLEXIBLE, DIAGNOSTIC 12/10/2018 gastritis/[facility] EGD, FLEXIBLE, DIAGNOSTIC 03/09/2021 gastritis, repeat 2 yrs / [facility] EGD, FLEXIBLE, DIAGNOSTIC N/A 03/29/2022 normal/recall 2 years/ESOPHAGOGASTRODUODENOSCOPY (EGD), FLEXIBLE, TRANSORAL, DIAGNOSTIC performed by Ottoniel Liu DO at [facility] EGD, W/ENDOSCOPIC US 09/03/2015 subepithelial duodenal lesion/[facility] HAND/FINGER SURGERY NEC INFORMATION 1961 JUGULAR VEIN REPAIR INSERT/REPLACE DEFIBRILLATOR W/TRANSVERSE LEAD(S) 04/05/2009 NON-THOR ICD LEADS AND GENERATOR IMPLANT performed by VIRIDIANA BARCLAY IV at [facility] REMOVE AND REPLACE PULSE GENERATOR SINGLE LEAD Left 05/23/2019 REMOVE AND REPLACE INTERNAL CARDIAC DEFIBRILLATOR, SINGLE LEAD performed by Viridiana Barclay IV, MD at [facility] REVISION OF CIRCULATION TO HEAD Right 02/19/2018 INTRACRANIAL ANEURYSM INTRA ARTERIAL EMBOLIZATION OR BALLOON CATHETER performed by Lenny Davies MD at [facility] SHOULDER SURGERY PROCEDURE NEC 1984 SHOULDER FRACTURE STRESS ECHO (EXERCISE) 07/14/2005 stable, no new ischemia STRESS ECHO (EXERCISE) 07/30/2006 anteroseptal akinetic, inferior and apical wall hypokensis STRESS ECHO (EXERCISE) 12/15/2008 unchanged from previous, EF 35-40% VERTEBRAL ARTERY CATHETER PLACEMENT Bilateral 01/04/2018 CATHETER PLACEMENT VERTEBRAL ARTERY, performed by Lenny Davies MD at [facility] VERTEBRAL ARTERY CATHETER PLACEMENT Right 02/19/2018 CATHETER PLACEMENT VERTEBRAL ARTERY, performed by Lenny Davies MD at [facility] VERTEBRAL ARTERY CATHETER PLACEMENT Bilateral 10/23/2018 CATHETER PLACEMENT VERTEBRAL ARTERY, performed by Lenny Davies MD at [facility] Social History Tobacco Use Smoking status: Former Types: Cigars Smokeless tobacco: Never Tobacco comments: RARE CIGAR Vaping Use Vaping Use: Never used Substance Use Topics Alcohol use: No Drug use: No Review of patient's allergies indicates: Allergen Reactions Lipitor [Atorvastatin Calcium] Other (Please comment) vasculitis Current Outpatient Medications Medication Sig Dispense Refill ONETOUCH ULTRA TEST STRP use as directed QID 1 box 9 ONETOUCH ULTRASOFT LANCETS MISC use as directed QID 1 box 9 GEMFIBROZIL 600 MG PO TABS take one tablet two times daily 180 3 METOPROLOL TARTRATE 50 MG PO TABS 1.5 Tablets. 1/2 tablet in am and half in afternoon, 75 total MG Vitamin B-12 500 MCG Oral Tablet Take 2 Tablets by mouth in the morning. METFORMIN HCL 850 MG PO TABS one tab by mouth twice a day COLESTIPOL HCL 1 G PO TABS Take by mouth. 2g in the AM & 1g in the PM ZETIA 10 MG PO TABS Take 1 Tablet by mouth in the morning. fluorouracil (EFUDEX) 5 % cream Apply topically to affected area 2 times a day. Apply to skin twicedaily 40 g 0 levothyroxine (LEVOXYL) 25 MCG Tablet Take 1 Tablet by mouth in the morning. 34 Tab 11 Ferrous Sulfate 325 (65 Fe) MG Oral Tablet Delayed Release Take 1 Tablet by mouth daily. Ticagrelor 90 MG Oral Tablet (Brilinta) Take 1 Tab by mouth 2 times a day. 180 Tab 3 Praluent 75 MG/ML Subcutaneous Solution Auto-injector (Alirocumab) Inject 75 mg under the skin every 14 days. 2 mL 11 Omeprazole 20 MG Oral Capsule Delayed Release (PriLOSEC) Take 2 Capsules by mouth in the morning. Spironolactone 25 MG Oral Tablet Take 0.5 Tablets by mouth in the morning. Tamsulosin HCl 0.4 MG Oral Capsule (Flomax) Take 1 Capsule by mouth in the morning. Aspirin EC 81 MG Oral Tablet Delayed Release Take 1 Tablet by mouth in the morning. 60 Tablet 11 Ascorbic Acid 500 MG Oral Tablet Take 0.5 Tablets by mouth daily. Empagliflozin 25 MG Oral Tablet (Jardiance) Take 1 Tablet by mouth in the morning. Fluticasone Propionate 50 MCG/ACT Nasal Suspension (Flonase) Administer 2 Sprays into nostril in the morning. Vitamin D (Cholecalciferol) 25 MCG (1000 UT) Oral Capsule Take 1 Capsule by mouth in the morning. Carboxymethylcellulose Sod PF 1 % Ophthalmic Gel Instill into the left eye 4 times a day. Alogliptin Benzoate 12.5 MG Oral Tablet Take by mouth daily. NITROGLYCERIN 0.4 MG SL SUBL 1 Q 5 min as needed with chest pain up to 3 doses in 15 minutes 25 3 Amoxicillin 500 MG Oral Capsule (Amoxil) Take 1 Capsule by mouth. No current facility-administered medications for this visit. REVIEW OF SYSTEMS: All other findings negative except as noted in HPI. EXAM: BP 142/78 (BP Site: Left Arm, BP Position: Sitting, BP Cuff Size: Regular) | Pulse 76 | Temp 36.7 C (98.1 F) (Tympanic) | Ht 1.886 m (6' 2.25") | Wt 80 kg (176 lb 4.8 oz) | SpO2 98% | BMI 22.48 kg/m | BSA 2.05 m GENERAL: Well developed and well nourished in no acute distress. SKIN: No rashes, ulcers, jaundice or spider angiomata. HEENT: Normocephalic, sclera clear, pharynx normal. NECK: Supple, no lymphadenopathy. LUNGS: Clear to auscultation bilaterally, no respiratory distress or accessory muscles used. HEART: Regular rate & rhythm, no murmurs and no gallops. ABDOMEN: Normal bowel sounds, soft and nontender, no masses or hepatosplenomegaly. EXTREMITIES: No palmar erythema, no ankle edema, no skin discoloration, no clubbing, no cyanosis. NEURO: No lateralizing findings. Sensory/Motor grossly normal. DIAGNOSTIC TEST: not indicated ASSESSMENT AND PLAN: 77 year old male with history of BRCA gene carrier, CAD s/p cardiac stenting, s/p pacer/defib, T2DM, dyslipidemia, duodenal carcinoid s/p endoscopic mucosal resection several years ago abnormal imaging, scattered ill- defined hypodense lesions within the liver measuring up to [address] in October, , recommending contrast-enhanced liver MR as these lesions were not present on scan the year previous. To the best of my knowledge, this was not arranged yet. 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, will plan for 6 month follow up to ensure stability - Continue Omeprazole twice daily - Start Pepcid 20 mg Hs - Offered prescription - They want to discuss this with [facility] first - Repeat MRI - EGD 2024 - Colonoscopy 2027 - ED for emergencies - Please call with any questions or concerns RETURN TO CLINIC: yearly I spent a total of 30 minutes on the date of service in review of patient's record, and previously obtained information in person and appropriate medical visit, discussion and education of plan, withpatient and/or caregiver, placing orders for tests/referral/procedures as medically necessary and documentation of pertinent clinical information in patient's medical records for their visit today. FERN Dove 04/02/2023 2:45 PM documented in this encounter Nursing Notes * Preet Minor CMA - 04/02/2023 2:36 PM EST Chief Complaint Patient presents with Follow Up 9 month follow up Dakota Alvarez is a 77 year old male who presents today for a 9 month follow up. He has no symptoms at this time. documented in this encounter Plan of Treatment Upcoming Encounters Date Type Department Care Team (Late st Contact Info) Description 05/03/2023 2:30 PM EST Office Visit Cardiology, [facility] [address] [address] Zeyad Rodriguez MD [address] [address] 11/06/2023 12:00 PM EDT Appointment Vascular Lab [facility] [address] [place] [address] 11/06/2023 12:30 PM EDT Office Visit Vascular Surg [facility] [address] [place] [address] Austen Hazel MD [address] [place] [address] 11/13/2023 10:00 AM EDT Cardiac Studies Cardiology, [facility] [address] [facility] [address] [place] [address] [place] [address] [facility] [place] [address] Scheduled Procedures Name Priority Associated Diagnoses Date/Ti [...] Additional history exists COVID-19 Vaccine ( - season) 2022 07/07/2020 Influenza Vaccine (FLU shot) (#1) 2022 02/14/2019, 02/08/2018, 02/06/2017, Additional history exists HbA1c 04/25/2023 10/23/2022, 08/2 07/2021, 09/16/2019, Additional history exists Diabetic Eye Exam [...] this encounter Medical Devices Implanted Type Area Imaging Administrator Device Identifier Shelf Expiration Date Model / Serial / Lot Visia Af Mri-05/23/2019 Implanted:2019 (Quantity not on file) Pacemaker Chest [employer] : CARDIAC SURGERY 11/14/2024 [id number] / / . Microvention Terumo, [id number], Endovascular Embolization Coil, Hydrosoft 3d, [id number] Implanted:Qty: 1 on 02/19/2018 by Lenny Davies MD at [facility] Right: [employer] 01/23/2022 [id number] / [id number] / [id number] Description:Right Superior C erebellar Artery Aneurysm documented as of this encounter Visit Diagnoses Diagnosis Focal nodular hyperplasia of liver- Primary Other specified disorders of liver Liver lesion Other specified disorders of liver documented in this encounter Advance Directives Latest [...] the patient have Health Care Power of Assembler Trim? No Care Teams Treatment Coordinator Relationship Specialty Start Date End Date Nicolas Rael CRNP [address] [place] [address] PCP - General Nurse Practitioner 01/13/21 documented as of this encounter
--- OUTSIDE RECORDS SUMMARY | 2023-04-06 21:39 | External Medical Summary | Summary of Care ---
Author Name Unknown Organization [facility] Address [address] [place] [address] Phone [phone] Care Team Providers Care Computer Forensics Analyst Name Role Phone Nicolas Real Primary Care Provide r Reason for Visit * Reason Comments Consultation Anemia * Evaluate & Treat - Unlimited Visits (Within 10 days (routine)) - Authorized Specialty Diagnoses / Procedures Referred By Kemal t Referred To Contact Hematology/Oncology / Hematology Oncology Diagnoses Anemia Nicolas Real CRNP [address] [place] [address] Referral ID Status Reason Start Date Expiration Date Visits Requested Visits Authorized [id number] Authorized Specialty Services Required 11/03/2022 11/14/[phone] Encounter Details Date Type Department Care Team Description 11/20/2022 Office Visit Hematology/Oncology [facility] [address] [place] [address] Leonora Joseph CRNP [address] [facility] [address] Normocytic anemia*; Stage 3 chronic kidney disease, unspecified whether stage 3a or 3b CKD (HCC) Allergies Active Allergy Reactions Severity Noted Date [...] Overview: Added automatically from request for surgery [id number] Cerebral aneurysm, nonruptured 8 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 Increased risk for prostate and male breast cancer. Recommended: (1) Annual PSA / LIONEL. (2) Annual clinical breast exam. Ischemic cardiomyopathy 10/23/2012 Automatic implantable cardioverter-defib rillator in situ 04/14/2009 DYSLIPIDEMIA, GOAL LDL BELOW 70 03/08/20 09 Overview: Per Lipid Taxonomy. Type 2 diabetes [...] Sign Reading Time Taken Comments Blood Pressure 148/77 11/20/2022 10:01 AM EDT Pulse 66 11/20/2022 10:01 AM EDT Temperature 36.9 C (98.5 F) 11/20/2022 1 0:01 AM EDT Respiratory Rate 16 11/20/2022 10:0 1 AM EDT Oxygen Saturation 96% 11/20/2022 10: 01 AM EDT Inhaled Oxygen Concentration - - Weight 79.3 kg (174 lb 12.8 oz) 023 10:01 AM EDT Height - - Body Mass Index 22.29 03/29/2022 8:15 AM EST documented in this encounter Progress Notes * FERN Grewal - 11/20/2022 10:11 AM EDT Hematology/Oncology Outpatient Clinic note [facility] [address] [place] [address] Name: Dakota Alvarez Date: 11/20/2022 REFERRED BY: FERN Gregg CHIEF COMPLAINT: Dakota Alvarez is a 77 year old male here today for new consultation for anemia. 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 Currently taking vitamin B12 1,000 mcg daily, ferrous sulfate one tablet daily with vitamin c. Patient with a mild normocytic anemia for at least the last five years. Baseline Hgb 11-12 range. No abnormalities in other cell lines. Chart review reveals normal iron studies, vitamin b12 and folic acid in October. Follows with GI. Has been undergoing serial abdominal MRIs d/t lesions in the liver suspected to be of benign etiology. Next due in one year. Next EGD due in 2024 for carcinoid follow up, next colonoscopy 2027. Patient has been noticing more dizziness lately. Hot days are worse. Been going on about six months. Comes and goes. Becoming more regular. Has appointment with cardiology as blood pressure has been fluctuating a lot recently. Denies SOB or CP. Does feel more tired and less stamina but this is not new and attributed this to his age. Denies drenching night sweats or unexplained weight loss. Did lose a lot of weight when he started Jardiance but this has now stabilized. Denies any changes in bowel habits. Denies blood in his stool or urine. Denies abdominal pain or bloating. Appetite is not what it used to be. Denies nausea or vomiting. Patient is a nonsmoker. Denies drinking alcohol. Sister from breast cancer. Brother with liver cancer who passed. Brother with pancreatic cancer who passed. Denies any family history of blood disorders. Patient's past medical history, social history, and family history were reviewed and updated. 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 Calculus of kidney Cerebral aneurysm Chronic ischemic heart disease 04/02/2003 [place] with one vessel CABG 04/02/2003, Chronic kidney [...] Diabetes Father Hypertension Father Cancer Aunt (Unspecified) Social History Socioeconomic History Marital status: Spouse name: ROS Number of children: 3 Years of education: 12 Highest education level: Not on file Occupational History 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: [employer] Employer: [employer] Tobacco Use Smoking status: Former Types: Cigars Smokeless tobacco: Never Tobacco comments: RARE CIGAR Vaping Use Vaping Use: Never used Substance and Sexual Activity Alcohol use: No Drug use: No Sexual activity: Yes Partners: Female Other Topics Concern Service Yes Blood Transfusions Yes Comment: 196 POST INJURY Caffeine Concern No Occupational Exposure Not Asked Hobby Hazards No Sleep Concern No Stress Concern No Weight Concern No Special Diet Yes Comment: WATCHING SUGAR Back Care No Exercise Yes Bike Helmet Not Asked Comment: DOES NOT RIDE Seat Belt Yes Self-Exams Yes Social History Narrative Born in [facility] life long resident Social Determinants of Health Financial Resource Strain: Not on file Food Insecurity: Not on file Transportation Needs: Not on file Physical Activity: Not on file Stress: Not on file Social Connections: Not on file Intimate Partner Violence: Not on file Housing Stability: Not on file Review of patient's allergies indicates: Allergen Reactions Lipitor [Atorvastatin Calcium] Other (Please comment) vasculitis Current Outpatient Medications Medication Sig Dispense Refill NITROGLYCERIN 0.4 MG SL SUBL 1 Q 5 min as needed with chest pain up to 3 doses in 15 minutes 25 3 ONETOUCH ULTRA TEST STRP use as directed QID 1 box 9 ONETOUCH ULTRASOFT LANCETS MISC use as directed QID 1 box 9 GEMFIBROZIL 600 MG PO TABS take one tablet two times daily 180 3 METOPROLOL TARTRATE 50 MG PO TABS 1 [...] 2 Capsules by mouth in the morning. Amoxicillin 500 MG Oral Capsule (Amoxil) Take 1 Capsule by mouth. Spironolactone 25 MG Oral Tablet Take 0.5 [...] MG Oral Tablet Take by mouth daily. No current facility-administered medications for this visit. REVIEW OF SYSTEMS: SEE HPI - otherwise negative OBJECTIVE: Filed Vitals: 11/20/22 1001 BP: 148/77 Pulse: 66 Resp: 16 Temp: 36.9 C (98.5 F) TempSrc: Tympanic SpO2: 96% Weight: 79.3 kg (174 lb 12.8 oz) Wt Readings from Last 5 Encounters: 11/20/22 79.3 kg (174 lb 12.8 oz) 10/25/22 79.2 kg (174 lb 11.2 oz) 06/22/22 80.6 kg (177 lb 9.6 oz) 05/09/22 81 kg (178 lb 9.6 oz) 04/26/22 81 kg (178 lb 9.6 oz) PHYSICAL EXAM: Constitutional: no acute distress Neuro: alert, oriented to person, place, and time, gait normal HEENT: normal: normocephalic, atraumatic; no oral or pharyngeal erythema or exudate; neck with no masses or tenderness; no cervical/supraclavicular lymphadenopathy CV: normal rate and rhythm, no murmur, gallops or rub Chest: normal respiratory effort, lungs clear to auscultation and percussion Abdomen: normal: soft, bowel sounds normal, no masses, tenderness or organomegaly Extremities: no clubbing, cyanosis, or edema Skin: warm, dry, intact LABS per [facility]: 10/26/22: WBC 5 Hgb 11.8 Hct 36.1 MCV 92.6 Platelets 216 TSAT 21% Folate 10.8 Vitamin B12 655 Ferritin 206.6 10/23/22: BUN 32 Creatinine 1.6 TSH 2.34 IMPRESSION: Normocytic anemia, CKD stage III: 77 y/o male with past medical history of CAD, 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 Currently taking vitamin B12 1,000 mcg daily, ferrous sulfate one tablet daily with vitamin c. Patient with a mild normocytic anemia for at least the last five years. Baseline Hgb 11-12 range. No abnormalities in other cell lines. Chart review reveals normal iron studies, vitamin b12 and folicacid in October. Follows with GI. Has been undergoing serial abdominal MRIs d/t lesions in the liversuspected to be of benign etiology. Next due in one year. Next EGD due in 2024 for carcinoid follow up, next colonoscopy 2027. Complains today of increasing dizziness, fatigue, poor stamina. Has also experienced weight loss but attributed this to new diabetic medication. Patient is a nonsmoker. Denies drinking alcohol. Sister from breast cancer. Brother with liver cancer who passed. Brother with pancreatic cancer who passed. Denies any family history of blood disorders. PLAN: With electron gun inspector stability, lack of additional cytopenias and mild nature of anemia; this is most likely an anemia of CKD. Patient provided with written orders to complete a cbc/diff, retic panel, ldh, SPEP, serum flc, andimmunoglobulin quant to complete evaluation at his earliest convenience. Believe clinical complaints more likely medication related and not related to anemia. If above work up unremarkable would recommend just continued lab monitoring for stability. Patient prefers to have this completed through routine visits at the [place] which is reasonable. Ok for patient to continue supplements as currently taking. RTC PRN FERN De Leon documented in this encounter Nursing Notes * Alice Shaffer CMA - 11/20/2022 10:05 AM EDT Patient identifed by name and birthdate Do you have any concerns about pain management for today's visit? No Living Will or Advance Directive for Health Care as noted on the problem list. [facility] is a way you can talk to your provider on line through e-mail. Would you like to sign up? I can activate it for you? NO Filed Vitals: 11/20/22 1001 BP: 148/77 Pulse: 66 Resp: 16 Temp: 36.9 C (98.5 F) TempSrc: Tympanic SpO2: 96% Weight: 79.3 kg (174 lb 12.8 oz) Patient was instructed to not get up on the exam table/exam chair until directed and assisted by their provider; patient is to remain seated in the chair/ wheelchair/ exam table/ exam chair for fall prevention and safety reasons. Patient is aware to have assistance to step down off exam table/exam chair with personnel. Patient voiced full comprehension of instructions. documented in this encounter Plan of Treatment Upcoming Encounters Date Type Specialty Care Team Description 04/02/2023 Office Visit Gastroenterology Beti Garrison CRNP [address] [place] [address] 04/09/2023 Office Visit Cardiology Zeyad Rodriguez MD [address] [place] [address] 11/06/2023 Appointment Radiology 11/06/2023 Office Visit Vascular Surgery Austen Hazel MD [address], [place] [id number] 11/13/2023 [facility]iac [facility] [address] [place] [address] Scheduled Orders Name Type Priority Associated Diagnoses Orde r Schedule CBC WITH WBC DIFFERENTIAL Lab Routine Normocytic anemia Stage 3 chronic kidney disease, unspecified whether stage 3a or 3b CKD (HCC) Expected: 11/20/2022 (Approximate), Expires: 02/20/2023 RETICULOCYTE PANEL Lab Routine Normocytic anemia Stage 3 chronic kidney disease, unspecified whether stage 3a or 3b CKD (HCC) Expected: 11/20/2022 (Approximate), Expires: 02/20/2023 LD Lab Routine Normocytic anemia Stage 3 chronic kidney disease, unspecified whether stage 3a or 3b CKD (HCC) Expected: 11/20/2022 (Approximate), Expires: 02/20/2023 SERUM PROTEIN ELECTROPHORESIS REFLEX PROFILE Lab Routine Normocytic anemia Stage 3 chronic kidney disease, unspecified whether stage 3a or 3b CKD (HCC) Expected: 11/20/2022 (Approximate), Expires: 02/20/2023 SERUM FREE LIGHT CHAINS Lab Routine Normocytic anemia Stage 3 chronic kidney disease, unspecified whether stage 3a or 3b CKD (HCC) Expected: 11/20/2022 (Approximate), Expires: 02/20/2023 IMMUNOGLOBULIN QUANTITATIVE Lab Routine Normocytic anemia Stage 3 chronic kidney disease, unspecified whether stage 3a or 3b CKD (HCC) Expected: 11/20/2022 (Approximate), Expires: 02/20/2023 Scheduled Procedures Name Priority Associated Diagnoses Date/Ti [...] this encounter Medical Devices Implanted Type Area Resident In Diagnostic Radiology Device Identifier Shelf Expiration Date Model / Serial / Lot Visia Af Mri-05/23/2019 Implanted:2019 (Quantity not on file) Pacemaker Chest [employer] : CARDIAC SURGERY 11/14/2024 [id number] / / . Microvention Terumo, [id number], Endovascular Embolization Coil, Hydrosoft 3d, [id number] Implanted:Qty: 1 on 02/19/2018 by Lenny Davies MD at [place] [facility] Right: Head [employer] 01/23/2022 [id number] / [id number] / [id number] Description:Right Superior C erebellar Artery Aneurysm documented as of this encounter Visit Diagnoses Diagnosis Normocytic anemia- Primary Anemia, unspecified Stage 3 chronic kidney disease, unspecified whether stage 3a or 3b CKD (HCC) documented in this encounter Advance Directives Latest [...] the patient have Health Care Power of Securities Sales Associate? No Care Teams Computer Forensics Analyst Relationship Specialty Start Date End Date Nicolas Real CRNP [address] [place] [address] PCP - General Nurse Practitioner 01/13/21 documented as of this encounter
--- OUTSIDE RECORDS SUMMARY | 2023-04-06 21:39 | External Medical Summary | Summary of Care ---
Author Name Unknown Organization [facility] Address [address] [place] [address] Phone [phone] Care Team Providers Care Weigher And Charger Name Role Phone Nicolas Real Primary Care Provide r Encounter Details Date Type Department Care Team Description 12/14/2022 Telephone Hematology/Oncology [facility] [address] [place] [facility] [address] Leonora Joseph CRNP [address] [facility] [place] [address] Allergies Active Allergy Reactions Severity Noted [...] Overview: Added automatically from request for surgery [id number] Cerebral aneurysm, nonruptured 8 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 Reviewed [employer] message, they verbalized understanding. * Telephone Encounter - FERN Grewal - 12/14/2022 10:12 AM EDT Please let patient know I have reviewed his lab work completed at the [place]. Nothing of concern was noted with the additional labs and his Hemoglobin remains stable at 11.6. Please continue with our plan of routine lab monitoring through the [facility] and he can return to hematology as needed. Thank you. documented in this encounter Plan of Treatment Upcoming Encounters Date Type Specialty Care Team Description 04/02/2023 Office Visit Gastroenterology Beti Garrison CRNP [address] [place] [address] 04/09/2023 Office Visit Cardiology Zeyad Rodriguez MD [address] [place] [address] 11/06/2023 Appointment Radiology 11/06/2023 Office Visit Vascular Surgery Austen Hazel MD [address] [place] [address] 11/13/2023 Cardiac Studies Cardiology [facility] [address] [place] [address] Scheduled Procedures Name Priority Associated Diagnoses Date/Ti [...] this encounter Medical Devices Implanted Type Area Sustainability Consultant Device Identifier Shelf Expiration Date Model / Serial / Lot Visia Af Mri-05/23/2019 Implanted:2019 (Quantity not on file) Pacemaker Chest [employer] : CARDIAC SURGERY 11/14/2024 [id number] / / . Microvention Terumo, [id number], Endovascular Embolization Coil, Hydrosoft 3d, [id number] Implanted:Qty: 1 on 02/19/2018 [place] [facility]: Head [employer] 01/23/2022 [id number] / [id number] / [id number] Description:Right Superior C erebellar Artery Aneurysm documented [...] the patient have Health Care Power of Leak Gang Supervisor? No Care Teams Weigher And Charger Relationship Specialty Start Date End Date Nicolas Real CRNP [address] [place] [address] PCP - General Nurse Practitioner 01/13/21 documented as of this encounter
--- OUTSIDE RECORDS SUMMARY | 2023-04-06 21:39 | External Medical Summary | Summary of Care ---
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 [...] encounter Miscellaneous Notes * Telephone Encounter - Beti Garrison CRNP - 04/03/2023 1:58 PM EST Noted Please schedule when able FERN Dove 04/03/2023 1:59 PM * Telephone Encounter - Tre Boyle RT [...] 05/03/2023 2:30 PM EST Office Visit Cardiology, [facility] [address] [place] [address] Zeyad Rodriguez MD [address] [place] [address] 11/06/2023 12:00 PM EDT Appointment Vascular Lab [facility] [address] [place] [address] 11/06/2023 12:30 PM EDT Office Visit Vascular Surg [facility] [address] [place] [address] Austen Hazel MD [address] [place] [address] 11/13/2023 10:00 AM EDT Cardiac Studies Cardiology, [facility] [address] [place] [address] [facility] [address] [facility] [address] Scheduled Procedures Name Priority Associated Diagnoses Date/Ti [...] 02/06/2017, Additional history exists HbA1c 04/25/2023 10/23/2022, 08/07/2021, 09/16/2019, Additional history exists Diabetic Eye Exam [...] this encounter Medical Devices Implanted Type Area Artillery Specialist Device Identifier Shelf Expiration Date Model / Serial / Lot Visia Af Mri-05/23/2019 Implanted:2019 (Quantity not on file) Pacemaker Chest [employer] : CARDIAC SURGERY 11/14/2024 [id number] / / . Microvention Terumo, [id number], Endovascular Embolization Coil, Hydrosoft 3d, [id number] Implanted:Qty: 1 on 02/19/2018 by Lenny Davies MD at OR [facility] Right: Head [employer] 01/23/2022 [id number] / [id number] / [id number] Description:Right Superior C erebellar Artery Aneurysm documented [...] the patient have Health Care Power of Global Risk Management Director? No Care Teams Small Stock Facer Relationship Specialty Start Date End Date Nicolas Real CRNP [address] [place] [address] PCP - General Nurse Practitioner 01/13/21 documented as of this encounter
--- OUTSIDE RECORDS SUMMARY | 2023-04-06 21:40 | External Medical Summary | Summary of Care ---
Author Name Unknown Organization [facility] Address [address] [facility] [place] [address] Phone [phone] Care Team Providers Care Corporate Compliance Manager Name Role Phone Nicolas Real Primary Care Provide r Encounter Details Date Type Department Care Team Description 11/14/2022 Result Scan Unspecified Department Zeyad Rodriguez MD [address] [place] [address] <No scans attached> Allergies Active Allergy Reactions Severity Noted Date Comments Atorvastatin Calcium Other (Please comment) 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 documented as of this encounter (statuses as of 11/14/2022) Medications Medication Sig Dispensed Refills Start Date [...] as of this encounter (statuses as of 11/14/2022) Active Problems Problem Noted Date AICD at end of battery life 04/02/2019 Overview: Added automatically from request for surgery [id number] Cerebral aneurysm, nonruptured 8 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 ICD-10 update of inactive term Mixed dyslipidemia 03/08/2009 Overview: Per Lipid Taxonomy. documented as of this encounter (statuses as of 11/14/2022) Immunizations Name Administration Dates Next Due COVID-19 [...] Encounters Date Type Specialty Care Team Description 04/09/2023 Office Visit Cardiology Zeyad Rodriguez MD [address] [place] [address] 11/06/2023 Appointment Radiology 11/06/2023 Office Visit Vascular Surgery Austen Hazel MD [address], [place] [address] 11/13/2023 Cardiac Studies Cardiology [facility] [address] [place] [address] Scheduled Procedures Name Priority Associated Diagnoses Date/Ti [...] 02/08/2008 (Do ne elsewhere), 12/03/2006 (Course Completed) DIABETES-FOOT EXAM 08/26/2010 08/26/2009, 1 (Course Completed) COVID-19 Vaccine [...] this encounter Medical Devices Implanted Type Area Oenologist Device Identifier Shelf Expiration Date Model / Serial / Lot Visia Af Mri-05/23/2019 Implanted:2019 (Quantity not on file) Pacemaker Chest [employer] : CARDIAC SURGERY 11/14/2024 [id number] / / . Microvention Terumo, [id number], Endovascular Embolization Coil, Hydrosoft 3d, [id number] Implanted:Qty: 1 on 02/19/2018 by Lenny Davies MD at [facility] Right: Head [employer] 01/23/2022 [id number] / [id number] / [id number] Description:Right Superior C erebellar Artery Aneurysm documented as of this encounter Procedures Procedure Name Priority Date/Time Associated Diagnosis Comments CARDIOLOGY SCANNED RESULT 11/14/2022 documented in this encounter Results * CARDIOLOGY SCANNED RESULT (11/14/2022) 11/14/2022 Zeyad Rodriguez MD OTHER documented in this [...] the patient have Health Care Power of Epic Professional? No Care Teams Corporate Compliance Manager Relationship Specialty Start Date End Date Nicolas Real CRNP [address] [place] [address] PCP - General Nurse Practitioner 01/13/21 documented as of this encounter
--- OUTSIDE RECORDS SUMMARY | 2023-04-06 21:40 | External Medical Summary | Summary of Care ---
Author Name Unknown Organization [facility] Address [address] [facility] [place] [address] Phone [phone] Care Team Providers Care Certified Ethical Hacker Name Role Phone Nicolas Real Primary Care Provide r Reason for Visit * Reason Onset Date Comments Test Results Imaging Study 11/15/2022 Encounter Details Date Type Department Care Team Description 11/15/2022 Telephone Gastroenterology, [facility] [address] [address] Beti Garrison CRNP [address] [place] [address] Test Results Imaging Study Allergies Active Allergy Reactions Severity Noted Date Comments Atorvastatin Calcium Other (Please comment) 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 ICD-10 update of inactive term Mixed dyslipidemia 03/08/2009 Overview: Per Lipid Taxonomy. documented as of this encounter (statuses as of 11/15/2022) Immunizations Name Administration Dates Next Due COVID-19 [...] encounter Miscellaneous Notes * Telephone Encounter - Staci Joseph RN - 11/15/2022 1:35 PM EDT Called pt and read message to him. Pt verbalized understanding. * Telephone Encounter - Staci Joseph RN - 11/15/2022 1:35 PM EDT ----- Message from FERN Haley sent at 11/15/2022 1:09 PM EDT ----- Beti's pt. Pls call and inform him that MRI showed no change in 2 R hepatic lobe lesions since 01/10/2022 thus likely benign lesion (focal nodular hyperplasia vs adenoma). Radiologist recommend repeat MRI in 1 year's time. Will send Beti a message to review and order future MRI if she is agreeable FERN Minaya documented in this encounter Plan of Treatment Upcoming Encounters Date Type Specialty Care Team Description 11/20/2022 Office Visit Hematology Oncology Leonora Joseph CRNP [address] [place] [address] 04/09/2023 Office Visit Cardiology Zeyad Rodriguez MD [address] [place] [address] 11/06/2023 Appointment Radiology 11/06/2023 Office Visit Vascular Surgery Austen Hazel MD [address] [facility] [place] [address] 11/13/2023 Cardiac Studies Cardiology [facility] [address] [place] [address] Scheduled Procedures Name Priority Associated Diagnoses Date/Ti [...] this encounter Medical Devices Implanted Type Area Gis Manager Device Identifier Shelf Expiration Date Model / Serial / Lot Visia Af Mri-05/23/2019 Implanted:2019 (Quantity not on file) Pacemaker Chest [employer] : CARDIAC SURGERY 11/14/2024 [id number] / / . Microvention Terumo, [id number], Endovascular Embolization Coil, Hydrosoft 3d, [id number] Implanted:Qty: 1 on 02/19/2018 by Lenny Davies MD at OR [facility] Right: Head [employer] 01/23/2022 [id number] / [id number] / [id number] Description:Right Superior C erebellar Artery Aneurysm documented [...] the patient have Health Care Power of Intelligence Specialist? No Care Teams Certified Ethical Hacker Relationship Specialty Start Date End Date Nicolas Real CRNP [address] [place] [address] PCP - General Nurse Practitioner 01/13/21 documented as of this encounter
--- OUTSIDE RECORDS SUMMARY | 2023-04-06 21:40 | External Medical Summary | Summary of Care ---
Author Name Unknown Organization [facility] Address [address] [place] [address] Phone [phone] Care Team Providers Care Aspnet Developer Name Role Phone Nicolas Real Primary Care Provide r Reason for Referral * Precert (Within 10 days (routine)) - Closed Specialty Diagnoses / Procedures Referred By Kemal reazo Referred To Contact Radiology Diagnoses Focal nodular hyperplasia of liver Procedures MRI LIVER W WO CONTRAST Beti Garrison CRNP [address] [place] [address] Referral ID Status Reason Start Date Expiration Date V isits Requested Visits Authorized [id number] Closed Precert 10/26/2022 11/14/[phone] Reason for Visit * Precert (Within 10 days (routine)) - Closed Specialty Diagnoses / Procedures Referred By Kemal erazo Referred To Contact Radiology Diagnoses Focal nodular hyperplasia of liver Procedures MRI LIVER W WO CONTRAST Beti Garrison CRNP [address] [place] [address] Referral ID Status Reason Start Date Expiration Date V isits Requested Visits Authorized [id number] Closed Precert 10/26/2022 11/14/[phone] Encounter Details Date Type Department Care Team Description 11/14/2022 Hospital Encounter Radiology, [address] [place] [address] Arrived Allergies Active Allergy Reactions Severity Noted Date [...] Tablet Take by mouth daily. 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 Pt has an implanted pacemaker/defib implanted on 05/23/19. Confirmed device is MRI compatible and MRI clearance form signed by Dr. Shin. Pt prepped for procedure. Crash cart in suite. [employer] rep Anjel Varma contacted. Device changed to MRi safe mode. Pt monitored during procedure. Implanted device returned baseline by Malcolm No. * Result Encounter Note - FERN Haley - 11/14/2022 10:15 AM EDT Beti's pt. Pls call and inform him [...] Visit Hematology Oncology Leonora Joseph CRNP [address] [facility] [place] [address] 04/09/2023 Office Visit Cardiology Zeyad Rodriguez MD [address] [place] [address] 11/06/2023 Appointment Radiology 11/06/2023 Office Visit Vascular Surgery Austen Hazle MD [address] [place], [place] [id number] 11/13/2023 Cardiac Studies Cardiology [place] [address] [place] [address] Scheduled Procedures Name Priority Associated Diagnoses Date/Ti [...] this encounter Medical Devices Implanted Type Area Oven Stripper Device Identifier Shelf Expiration Date Model / Serial / Lot Visia Af Mri-05/23/2019 Implanted:2019 (Quantity not on file) Pacemaker Chest [employer] : CARDIAC SURGERY 11/14/2024 [id number] / / . Microvention Terumo, [id number], Endovascular Embolization Coil, Hydrosoft 3d, [id number] Implanted:Qty: 1 on 02/19/2018 by Lenny Davies MD at OR [facility] [place] Right: Head [employer] 01/23/2022 [id number] / [id number] / [id number] Description:Right Superior C erebellar Artery Aneurysm documented as of this encounter Procedures Procedure Name Priority Date/Time Associated Diagnosis Comments MRI LIVER W WO CONTRAST Routine 11/14/2022 10:52 AM EDT Focal nodular hyperplasia of liver documented in this encounter Results * MRI LIVER W WO CONTRAST (11/14/2022 10:52 AM EDT) Anatomical Region Laterality Modality Abdomen Magnetic Resonan ce 11/14/2022 3:54 PM EDT Narrative 11/14/2022 3:52 PM EDT EXAM: MRI ABDOMEN WITHOUT AND WITH CONTRAST HISTORY: re-asses suspected FNH, screen for stability COMPARISON: MRI abdomen 01/10/2022 TECHNIQUE: Multiplanar multisequence MRI of the abdomen without and with intravenous contrast was performed and reviewed. CONTRAST: Gadavist intravenously. FINDINGS: LOWER CHEST: Unremarkable. LIVER: The liver is normal in size, morphology, and signal intensity. There is no significant change in 2 mildly T1 hypointense, T2 isointense lesions in the right hepatic lobe which demonstrate arterial phase hyperenhancement and enhances similar to the surrounding liver on the more delayed phases. These lesions measure 1.1 cm on image 21 series 13 and a 7 mm lesion on image 58 series 13. BILIARY TREE: No intrahepatic or extrahepatic bile duct dilation. No bile duct filling defect. GALLBLADDER: Unremarkable. PANCREAS: The pancreas is normal in size and signal intensity. There is no main pancreatic duct dilation. SPLEEN: Normal in size without focal lesion. ADRENAL GLANDS: Normal. KIDNEYS: Innumerable small bilateral cysts compatible with polycystic kidney disease BOWEL: The included bowel is normal in caliber. PERITONEUM: No free fluid. LYMPH NODES: There are no enlarged or suspicious abdominal lymph nodes. VESSELS: The abdominal aorta and the origins of the major branches are patent and normal in caliber. The portal venous system is patent. The inferior vena cava, hepatic veins, and renal veins are patent. ABDOMINAL WALL/SOFT TISSUES: Unremarkable. BONES: Unremarkable. IMPRESSION: 1. No change in 2 small arterial phase hyperenhancing lesions in the right hepatic lobe since 01/10/2022 favoring benign etiology. Differential diagnosis includes FNH and adenoma. A follow-up MRI with Eovist contrast could be obtained in 1 year. Procedure Note Nicolas Sanders MD - 11/14/2022 EXAM: MRI ABDOMEN WITHOUT AND WITH CONTRAST HISTORY: re-asses suspected FNH, screen for stability COMPARISON: MRI abdomen 01/10/2022 TECHNIQUE: Multiplanar multisequence MRI of the abdomen without and with intravenouscontrast was performed and reviewed. CONTRAST: Gadavist intravenously. FINDINGS: LOWER CHEST: Unremarkable. LIVER: The liver is normal in size, morphology, and signal intensity.There is no significant change in 2 mildly T1 hypointense, T2 isointenselesions in the right hepatic lobe which demonstrate arterial phasehyperenhancement and enhances similar to the surrounding liver on the moredelayed phases. These lesions measure 1.1 cm on image 21 series 13 and a7 mm lesion on image 58 series 13. BILIARY TREE: No intrahepatic or extrahepatic bile duct dilation. No bileduct filling defect. GALLBLADDER: Unremarkable. PANCREAS: The pancreas is normal in size and signal intensity. There isno main pancreatic duct dilation. SPLEEN: Normal in size without focal lesion. ADRENAL GLANDS: Normal. KIDNEYS: Innumerable small bilateral cysts compatible with polycystickidney disease BOWEL: The included bowel is normal in caliber. PERITONEUM: No free fluid. LYMPH NODES: There are no enlarged or suspicious abdominal lymph nodes. VESSELS: The abdominal aorta and the origins of the major branches arepatent and normal in caliber. The portal venous system is patent. Theinferior vena cava, hepatic veins, and renal veins are patent. ABDOMINAL WALL/SOFT TISSUES: Unremarkable. BONES: Unremarkable. IMPRESSION: 1. No change in 2 small arterial phase hyperenhancing lesions in theright hepatic lobe since 01/10/2022 favoring benign etiology.Differential diagnosis includes FNH and adenoma. A follow-up MRI withEovist contrast could be obtained in 1 year. Beti SH[facility]LEY RAD MRI- MRA documented in this encounter Visit Diagnoses Diagnosis Focal nodular hyperplasia of liver Other specified disorders of liver documented in this encounter Administered Medications Inactive Administered Medications - up to 3 most recent administrations Medication Order MAR Action Action Date Dose Rate Site gadobutrol (Gadavist) inj 2 mL 2 mL, Intravenous, ONCE, On Sun11/14/22 at 1015, For 1 dose, Radiology Medication Routing (Non-IR) Given 11/14/2022 10:53 AM EDT 7.5 mL sodium chloride 0.9 % flush/inj 10 mL 10 mL, IV Push, ONCE, On Sun11/14/22 at 1015, For 1 dose, Do not flush if lock, PICC, or central line not in place; IV infusing or unable to flush., Radiology Medication Routing (Non-IR) Given 11/14/2022 10:09 AM EDT 10 mL documented in this encounter Advance Directives Latest [...] the patient have Health Care Power of Project Builder? No Care Teams Aspnet Developer Relationship Specialty Start Date End Date Nicolas Real CRNP [address] [place] [address] PCP - General Nurse Practitioner 01/13/21 documented as of this encounter
--- OUTSIDE RECORDS SUMMARY | 2023-04-06 21:40 | External Medical Summary | Summary of Care ---
Author Name Unknown Organization [facility] Address [address] [place] [address] Phone [phone] Care Team Providers Care Director Of Search Engine Marketing Name Role Phone Nicolas Real Primary Care Provide r Reason for Visit * Reason Comments Defibrillator Clinic * Evaluate & Treat - Unlimited Visits (Within 10 days (routine)) - Authorized Specialty Diagnoses / Procedures Referred By Contact Referred To Contact Cardiovascular Medicine / Cardiology Diagnoses Presence of cardiac pacemaker Nicolas Real CRNP [address] [place] [address] Referral ID Status Reason Start Date Expiration Date Visits Requested Visits Authorized [id number] Authorized Specialty Services Required 10/04/2022 04/01/[phone] Encounter Details Date Type Department Care Team Description 11/10/2022 Cardiac Studies Cardiology, [facility] [address] [place] [address] [place] [address] [place] [address] Ischemic cardiomyopathy*; ICD (implantable cardioverter-defibril lator), single, in situ Allergies Active Allergy Reactions Severity Noted Date Comments Atorvastatin Calcium Other (Please comment) 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 ICD-10 update of inactive term Mixed dyslipidemia 03/08/2009 Overview: Per Lipid Taxonomy. documented as of this encounter (statuses as of 11/10/2022) Immunizations Name Administration Dates Next Due COVID-19 [...] on file documented as of this encounter Progress Notes * Laura Blackburn RN - 11/10/2022 5:55 PM EDT Patient and implanted device were evaluated today in the [facility]. Providers please see scanned report in the Scans tab. Laura Blackburn RN Routine remote is planned for 01/24/2023 and in-office follow up is scheduled for 11/13/2023 and asneeded documented in this encounter Nursing Notes * Leonora Lind RN - 11/10/2022 10:18 AM EDT Patient and implanted device were evaluated today in the [facility]. Providers please see scanned report in the Scans tab. ICD reprogramming B>AX performed as per Med[employer] advisory. Tech: Willian Dean; [employer] Leonora Lind RN documented in this encounter Plan of Treatment Upcoming Encounters Date Type Specialty Care Team Description 11/14/2022 Appointment Radiology 11/14/2022 Appointment Radiology 11/14/2022 Office Visit Hematology Oncology Leonora Joseph CRNP [address] [facility] [place] [address] 04/09/2023 Office Visit Cardiology Zeyad Rodriguez MD [address] [place] [address] 11/06/2023 Appointment Radiology 11/06/2023 Office Visit Vascular Surgery Austen Hazel MD [address] [place], [place] [address] 11/13/2023 Cardiac Studies Cardiology [facility], [facility] [address] [place] [address] Scheduled Orders Name Type Priority Associated Diagnoses Orde r Schedule SINGLE-LEAD DEFIBRILLATOR + REPROGRAM Procedures Routine Ischemic cardiomyopathy ICD (implantable cardioverter-defibril lator), single, in situ Ordered: 11/10/2022 Scheduled Procedures Name Priority Associated Diagnoses Date/Ti [...] 04/25/2023 10/23/2022, 10/25, 09/16/2019, Additional history exists GFR 10/24/2023 10/23/2022, 01/24, 11/17/2021, Additional history exists TSH 10/24/2023 10/23/2022, 12/24, 09/09/2020 COLONOSCOPY-EVERY 5 YRS AGES 18-100 03/29/2027 03/29/2022, [...] this encounter Medical Devices Implanted Type Area Telephone Sales Representative Device Identifier Shelf Expiration Date Model / Serial / Lot Microvention Terumo, [id number], Endovascular Embolization Coil, Hydrosoft 3d, [id number] Implanted:Qty: 1 on 02/19/2018 by Lenny Davies MD at OR [facility] Right: Head [employer] 01/23/2022 [id number] / [id number] / [id number] Description:Right Superior C erebellar Artery Aneurysm documented as of this encounter Visit Diagnoses Diagnosis Ischemic cardiomyopathy- Primary Other specified forms of chronic ischemic heart disease ICD (implantable cardioverter-defibrillator), single, in situ documented in this encounter Advance Directives Latest [...] the patient have Health Care Power of Chief Investigator? No Care Teams Director Of Search Engine Marketing Relationship Specialty Start Date End Date Nicolas Real CRNP [address] [place] [address] PCP - General Nurse Practitioner 01/13/21 documented as of this encounter
--- OUTSIDE RECORDS SUMMARY | 2023-04-06 21:40 | External Medical Summary | Summary of Care ---
Author Name Unknown Organization [facility] Address [address] [facility] [place] [address] Phone [phone] Care Team Providers Care Brand Marketing Specialist Name Role Phone Nicolas Real Primary Care Provide r Reason for Visit * Reason Onset Date Comments Other 11/14/2022 Encounter Details Date Type Department Care Team Description 11/14/2022 Telephone Gastroenterology, [facility] [address] [place] [address] Beti Garrison CRNP [address] [place] [address] Other Allergies Active Allergy Reactions Severity Noted Date Comments Atorvastatin Calcium Other (Please comment) 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 ICD-10 update of inactive term Mixed dyslipidemia 03/08/2009 Overview: Per Lipid Taxonomy. documented as of this encounter (statuses as of 11/16/2022) Immunizations Name Administration Dates Next Due COVID-19 mRNA, LNP-s, No Pre serve, 2-Dose Series (yourdelivery) 07/07/2020 Diptheria/Tetanus (Adult) 09/15/1996 Pneumococcal Polysaccharide PPV23 [...] encounter Miscellaneous Notes * Telephone Encounter - Edith Damon RN - 11/14/2022 2:43 PM EDT MRI looks completed. Radiology FYI. * Telephone Encounter - Edith Damon RN - 11/14/2022 2:43 PM EDT ----- Message from FERN Flores sent at 11/14/2022 10:51 AM EDT ----- This was ordered as pre mri, does this need to get to their department? FERN Dove 11/14/2022 10:51 AM documented in this encounter Plan of Treatment Upcoming Encounters Date Type Specialty Care Team Description 11/20/2022 Office Visit Hematology Oncology Leonora Joseph CRNP [address] [place] [address] 04/02/2023 Office Visit Gastroenterology Beti Garrison CRNP [address] [facility] [place] [address] 04/09/2023 Office Visit Cardiology Zeyad Rodriguez MD [address] [place] [address] 11/06/2023 Appointment Radiology 11/06/2023 Office Visit Vascular Surgery Austen Hazel MD [address] [place] [facility] [place] [address] 11/13/2023 Cardiac Studies Cardiology [facility] [address] [place] [address] Scheduled Procedures Name Priority Associated Diagnoses Date/Ti [...] this encounter Medical Devices Implanted Type Area Labor Mediator Device Identifier Shelf Expiration Date Model / Serial / Lot Visia Af Mri-05/23/2019 Implanted:2019 (Quantity not on file) Pacemaker Chest [employer] : CARDIAC SURGERY 11/14/2024 [id number] / / . [employer]vention Terumo, [id number], Endovascular Embolization Coil, Hydrosoft 3d, [id number] Implanted:Qty: 1 on 02/19/2018 by Lenny Davies MD at [place] [facility] [place] Right: Head [employer] 01/23/2022 [id number] / [id number] / [id number] Description:Right Superior C erebellar Artery Aneurysm documented [...] have Health Care Power of Director Of Assessment? No Care Teams Brand Marketing Specialist Relationship Specialty Start Date End Date Nicolas Real CRNP [address] [place] [address] PCP - General Nurse Practitioner 01/13/21 documented as of this encounter
--- OUTSIDE RECORDS SUMMARY | 2023-04-06 21:40 | External Medical Summary | Summary of Care ---
Author Name Unknown Organization [facility] Address [address] [facility] [place] [address] Phone [phone] Care Team Providers Care Ground Intelligence Officer Name Role Phone Nicolas Real Primary Care Provide r Encounter Details Date Type Department Care Team Description 11/14/2022 Orders Only Cardiology, [facility] [address] [place] [id number] Zeyad Rodriguez MD [address] [place] [address] Allergies Active Allergy Reactions Severity Noted Date [...] Overview: Added automatically from request for surgery [id number] Cerebral aneurysm, nonruptured 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 [place] [id number] 04/09/2023 Office Visit Cardiology Zeyad Rodriguez MD [address] [facility] [place] [address] 11/06/2023 Appointment Radiology 11/06/2023 Office Visit Vascular Surgery Austen Hazel MD [address] [place] [address] 11/13/2023 Cardiac Studies Cardiology Ferny Jones [facility] [place] [address] Scheduled Procedures Name Priority Associated Diagnoses Date/Ti [...] this encounter Medical Devices Implanted Type Area Film Library Clerk Device Identifier Shelf Expiration Date Model / Serial / Lot Visia Af Mri-05/23/2019 Implanted:2019 (Quantity not on file) Pacemaker Chest MEDTRONIC : CARDIAC SURGERY 11/14/2024 [id number] / / . Microvention Terumo, [id number], Endovascular Embolization Coil, Hydrosoft 3d, [id number] Implanted:Qty: 1 on 02/19/2018 by Lenny Davies MD at [facility] Right: Head [employer] 01/23/2022 [id number] / [id number] / [id number] Description:Right Superior C erebellar Artery Aneurysm documented as of this encounter Procedures Procedure Name Priority Date/Time Associated Diagnosis Comments CHEMISTRY-OUTSIDE Routine 11/09/2022 documented in this encounter Results * (ABNORMAL) CHEMISTRY-OUTSIDE (11/09/2022) Not all results display below - see scan for full detail OUTSIDE LAB (SEE SCANNED REPORT) Comment:SEE SCAN - CHEM CREATININE-OUTSID E LAB 1.4 0.6 - 1.5 MG/DL OUTSIDE LAB (SEE SCANNED REPORT) EGFR-OUTSIDE LAB 52.4 ML/MIN OUT SIDE LAB (SEE SCANNED REPORT) POTASSIUM-OUTSIDE LAB 4.4 3.6 - 5.1 MMOL/L OUTSIDE LAB (SEE SCANNED REPORT) GLUCOSE-OUTSIDE LAB 142(A) 70 - 99 MG/DL OUTSIDE LAB (SEE SCANNED REPORT) HOURS FASTING OUTSID E LAB (SEE SCANNED REPORT) TRIGLYCERIDES-OUT SIDE LAB OUTSIDE LAB (SEE SCANNED REPORT) CHOLESTEROL-OUTSI DE LAB OUTSIDE LAB (SEE SCANNED REPORT) HDL-OUTSIDE LAB OUTS SYLVIA LAB (SEE SCANNED REPORT) CHOL/HDL RATIO-OUTSIDE LAB OUTSIDE LA B (SEE SCANNED REPORT) LDL (CALCULATED)-OUTS SYLVIA LAB OUTSIDE LAB (SEE SCANNED REPORT) LDL (DIRECT MEASURE)-OUTSIDE LAB OUTSIDE LAB (SEE SCANNED REPORT) HEMOGLOBIN, K2R-YZZKTDR LAB OUTSIDE LAB (SEE SCANNED REPORT) PHOSPHORUS-OUTSID E LAB OUTSIDE LAB (SEE SCANNED REPORT) PTH-OUTSIDE LAB OUTS SYLVIA LAB (SEE SCANNED REPORT) MICROALBUMIN RATIO-OUTSIDE LAB OUTSIDE LA B (SEE SCANNED REPORT) PROTEIN, UA-OUTSIDE LAB OUTSIDE LAB (SEE SCANNED REPORT) HEMOGLOBIN-OUTSID E LAB OUTSIDE LAB (SEE SCANNED REPORT) 11/09/2022 History Per Patient LABORATORY OUTSIDE LAB (SEE SCANNED REPORT) documented in this encounter Advance Directives Latest [...] the patient have Health Care Power of Sales Account Executive? No Care Teams Ground Intelligence Officer Relationship Specialty Start Date End Date Nicolas Real CRNP [address] [place] [address] PCP - General Nurse Practitioner 01/13/21 documented as of this encounter
--- OUTSIDE RECORDS SUMMARY | 2023-04-06 21:40 | External Medical Summary | Summary of Care ---
Author Name Unknown Organization [facility] [address] [facility] [address] Phone [phone] Care Team Providers Care Gas Plant Operator Name Role Phone Nicolas Real Primary Care Provide r Reason for Referral * Precert (Within 10 days (routine)) - Pending Review Specialty Diagnoses / Procedures Referred By Contac t Referred To Contact Radiology Diagnoses Focal nodular hyperplasia of liver Procedures MRI LIVER W WO CONTRAST Beti Garrison CRNP [address] [place] [address] Referral ID Status Reason Start Date Expiration Date V isits Requested Visits Authorized [id number] Pending Review 11/25/2023 999 999 Reason for Visit * Reason Onset Date Comments Test Results Imaging Study 11/15/2022 Encounter Details Date Type Department Care Team Description 11/15/2022 Telephone Gastroenterology, [facility] [address] [address] Beti Garrison CRNP [address] [place] [address] Test Results Imaging Study Allergies Active Allergy Reactions Severity Noted Date Comments Atorvastatin Calcium Other (Please comment) 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 ICD-10 update of inactive term Mixed dyslipidemia 03/08/2009 Overview: Per Lipid Taxonomy. documented as of this encounter (statuses as of 11/24/2022) Immunizations Name Administration Dates Next Due COVID-19 [...] as of this encounter Miscellaneous Notes * Addendum Note - FERN Flores - 11/24/2022 10:25 AM EDT Addended by: BETI GARRISON on: 11/24/2022 10:25 AM Modules accepted: Orders * Telephone Encounter - FERN Flores - 11/24/2022 10:25 AM EDT Ordered 1 year recall FERN Dove 11/24/2022 10:25 AM * Telephone Encounter - Staci Joseph RN [...] Beti Garrison CRNP [address] [place] [address] 04/09/2023 Office Visit Cardiology Zeyad Rodriguez MD [address] [place] [address] 11/06/2023 Appointment Radiology 11/06/2023 Office Visit Vascular Surgery Austen Hazel MD [address] [place] [address] 11/13/2023 Cardiac Studies Cardiology Ferny Jones [facility] [address] [place] [address] Scheduled Orders Name Type Priority Associated Diagnoses Orde r Schedule MRI LIVER W WO CONTRAST Medical Imaging Routine Focal nodular hyperplasia of liver Expected: 11/25/2023, Expires: 12/25/2023 Scheduled Procedures Name Priority Associated Diagnoses Date/Ti [...] 10/23/2022, 08/2 07/2021, 09/16/2019, Additional history exists TSH 10/24/2023 10/23/2022, 12/24, 09/09/2020 GFR 11/10/2023 11/09/2022, 0703/2022, 02/07/2022, Additional history exists COLONOSCOPY-EVERY 5 YRS [...] encounter Medical Devices Implanted Type Area Loom Mechanic Device Identifier Shelf Expiration Date Model / Serial / Lot Visia Af Mri-05/23/2019 Implanted:2019 (Quantity not on file) Pacemaker Chest MEDTRONIC : CARDIAC SURGERY 11/14/2024 [id number] / / . Microvention Terumo, [id number], Endovascular Embolization Coil, Hydrosoft 3d, [id number] Implanted:Qty: 1 on 02/19/2018 by Lenny Davies MD at [place] [facility] Right: Head [employer] 01/23/2022 [id number] / [id number] / [id number] Description:Right Superior C erebellar Artery Aneurysm documented as of this encounter Visit Diagnoses Diagnosis Focal nodular hyperplasia of liver- Primary Other specified disorders of liver documented in [...] the patient have Health Care Power of Hunting Sales Associate? No Care Teams Gas Plant Operator Relationship Specialty Start Date End Date Nicolas Real CRNP [address] [facility] [place] [address] PCP - General Nurse Practitioner 01/13/21 documented as of this encounter
--- OUTSIDE RECORDS SUMMARY | 2023-04-06 21:40 | External Medical Summary | Summary of Care ---
Author Name Unknown Organization [facility] Address [address] [place] [address] Phone [phone] Care Team Providers Care Financial Recruiter Name Role Phone Nicolas Real Primary Care Provide r Reason for Visit * Reason Onset Date Comments Appointment 10/30/2022 Encounter Details Date Type Department Care Team Description 10/30/2022 Telephone Hepatology, [facility] [address] 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 ICD-10 update of inactive term Mixed dyslipidemia 03/08/2009 Overview: Per Lipid Taxonomy. documented as of this encounter (statuses as of 11/09/2022) Immunizations Name Administration Dates Next Due COVID-19 mRNA, LNP-s, No Pre serve, 2-Dose Series (Havkraft) 07/07/2020 Diptheria/Tetanus (Adult) 09/15/1996 Pneumococcal Polysaccharide PPV23 [...] back to schedule * Telephone Encounter - ARDHA hCong - 10/31/2022 7:55 AM EDT Records scanned. * Telephone Encounter - Leslie King - 10/30/2022 4:30 PM EDT [facility] with [facility], Referring provider: Farhan Valenzuela DX: Liver Disease Records were placed into scans on 10/30/22 LMOM 10/30/22 documented in this encounter Plan of Treatment Upcoming Encounters Date Type Specialty Care Team Description 11/10/2022 Cardiac Studies Cardiology Ferny Jones [address] [place] [address] 11/14/2022 Appointment Radiology 11/14/2022 Appointment Radiology 11/14/2022 Office Visit Hematology Oncology Leonora Joseph CRNP [address] [facility] [place] [address] 04/09/2023 Office Visit Cardiology Zeyad Rodriguez MD [address] [place] [address] 11/06/2023 Appointment Radiology 11/06/2023 Office Visit Vascular Surgery Austen Hazel MD [address] [place], [place] [phone] Scheduled Procedures Name Priority Associated Diagnoses Date/Ti [...] 10/23/2022, 08/2 07/2021, 09/16/2019, Additional history exists GFR 10/24/2023 10/23/2022, [...] this encounter Medical Devices Implanted Type Area It Infrastructure Manager Device Identifier Shelf Expiration Date Model / Serial / Lot Microvention Terumo, [id number], Endovascular Embolization Coil, Hydrosoft 3d, [id number] Implanted:Qty: 1 on 02/19/2018 by Lenny Davies MD at OR [facility] Right: Head [employer] 01/23/2022 [id number] / [id number] / [id number] Description:Right Superior C erebellar Artery Aneurysm documented [...] the patient have Health Care Power of Ambulatory Technologist? No Care Teams Financial Recruiter Relationship Specialty Start Date End Date Nicolas Real CRNP [address] [place] [address] PCP - General Nurse Practitioner 01/13/21 documented as of this encounter
--- OUTSIDE RECORDS SUMMARY | 2023-04-06 21:40 | External Medical Summary | Summary of Care ---
Author Name Unknown Organization [facility] Address [address] [place] [address] Phone [phone] Care Team Providers Care Meteorological Engineer Name Role Phone Nicolas Real Primary Care Provide r Reason for Visit * Reason Onset Date Comments No Show 11/14/2022 Encounter Details Date Type Department Care Team Description 11/14/2022 Telephone Hematology/Oncology, [facility] [address] [place] [address] Leonora Joseph CRNP [address] [place] [address] No Show Allergies Active Allergy Reactions Severity Noted Date [...] Overview: Added automatically from request for surgery [id number] Cerebral aneurysm, nonruptured 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 * Telephone Encounter - Shital Hidalgo LPN - 11/14/2022 1:47 PM EDT Pt did not show for Anemia appointment today with FERN. Scheduling: Can you please reach out to see if patient would like to reschedule? Thank you. documented in this encounter Plan of Treatment Upcoming Encounters Date Type Specialty Care Team Description 11/20/2022 Office Visit Hematology Oncology Leonora Joseph CRNP [address] [facility] [place] [address] 04/09/2023 Office Visit Cardiology Zeyad Rodriguez MD [address] [place] [address] 11/06/2023 Appointment Radiology 11/06/2023 Office Visit Vascular Surgery Austen Hazel MD [address] [facility] [place] [address] 11/13/2023 [facility] [address] [place] [address] Scheduled Procedures Name Priority Associated Diagnoses Date/Ti [...] 10/24/2023 10/23/2022, 12/24, 09/09/2020 GFR 11/10/2023 11/09/2022, 07/03/2022, 02/07/2022, Additional history exists COLONOSCOPY-EVERY 5 YRS [...] this encounter Medical Devices Implanted Type Area Solar Design Engineer Device Identifier Shelf Expiration Date Model / Serial / Lot Rita Af Mri-05/23/2019 Implanted:2019 (Quantity not on file) Pacemaker Chest MEDTRON[employer] : CARDIAC SURGERY 11/14/2024 [id number] / / . Microvention Terumo, [id number], Endovascular Embolization Coil, Hydrosoft 3d, [id number] Implanted:Qty: 1 on 02/19/2018 by Lenny Davies MD at [place] [facility] Right: Head [employer] 01/23/2022 [id number] / [id number] / [id number] Description:Right Superior C erebellar Artery Aneurysm documented [...] the patient have Health Care Power of Aoc Plans Intelligence Officer Chief? No Care Teams Meteorological Engineer Relationship Specialty Start Date End Date Nicolas Real CRNP [address] [place] [address] PCP - General Nurse Practitioner 01/13/21 documented as of this encounter
--- OUTSIDE RECORDS SUMMARY | 2023-04-06 21:40 | External Medical Summary | Summary of Care ---
Author Name Unknown Organization [facility] Address [address] [facility] [place] [address] Phone [phone] Care Team Providers Care Co Founder And Chief Strategy Officer Name Role Phone Nicolas Real Primary Care Provide r Encounter Details Date Type Department Care Team Description 11/14/2022 Hospital Encounter Radiology, [facility] [address] [place] [address] Arrived Allergies Active Allergy Reactions Severity Noted [...] Overview: Added automatically from request for surgery [id number] Cerebral aneurysm, nonruptured 8 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 [...] mRNA, LNP-s, No Pre serve, 2-Dose Series (Satispay) 07/07/2020 Pneumococcal Polysaccharide PPV23 (Pneumovax) Seasonal Influenza [...] Visit Hematology Oncology Leonora Joseph CRNP [address] [facility] [place] [address] 04/09/2023 Office Visit Cardiology Zeyad Rodriguez MD [address] [place] [address] 11/06/2023 Appointment Radiology 11/06/2023 Office Visit Vascular Surgery Austen Hazel MD [address] [place] [facility] [place] [address] 11/13/2023 Cardiac Studies Cardiology [facility] [place] [address] [place] [address] Scheduled Procedures Name Priority Associated Diagnoses Date/Ti [...] this encounter Medical Devices Implanted Type Area Food Service Order Clerk Device Identifier Shelf Expiration Date Model / Serial / Lot Visia Af Mri-05/23/2019 Implanted:2019 (Quantity not on file) Pacemaker Chest [employer] : CARDIAC SURGERY 11/14/2024 [id number] / / . Microvention Terumo, [id number], Endovascular Embolization Coil, Hydrosoft 3d, [id number] Implanted:Qty: 1 on 02/19/2018 by Lenny Davies MD at OR [facility] [place] Right: Head [email or web address] 01/23/2022 [id number] / [id number] / [id number] Description:Right Superior C erebellar Artery Aneurysm documented as of this encounter Procedures Procedure Name Priority Date/Time Associated Diagnosis Comments XR CHEST 2 VIEWS Routine 11/14/2022 9:15 AM EDT Focal nodular hyperplasia of liver documented in this encounter Results * XR CHEST 2 VIEWS (11/14/2022 9:15 AM EDT) Anatomical Region Laterality Modality Chest Digital Radiogra phy 11/14/2022 9:42 AM EDT Impressions 11/14/2022 9:40 AM EDT IMPRESSION: 1. No focal consolidation. 2. AICD, coronary artery stent, and surgical clips in the left paramediastinal region as described above. Narrative 11/14/2022 9:40 AM EDT EXAM: EXAM: XR CHEST 2 VIEWS DATE TIME: 11/14/2022 - 11/14/2022 9:15 am HISTORY: 77 y/o M MRI TECHNIQUE: Two views of the chest COMPARISON: Chest radiograph 01/10/2022. FINDINGS: Left chest wall single lead AICD with lead terminating over the right ventricle. No focal consolidation, pleural effusion, or pneumothorax. Cardiac silhouette is normal in size. Coronary artery stent. Surgical clips overlie the left paramediastinal region. Atherosclerotic changes of the aortic arch. Mild degenerative changes of the spine. Procedure Note Todd Maya MD - 11/14/2022 EXAM: EXAM: XR CHEST 2 VIEWS DATE TIME: 11/14/2022 - 11/14/2022 9:15 am HISTORY: 77 y/o M MRI TECHNIQUE: Two views of the chest COMPARISON: Chest radiograph 01/10/2022. FINDINGS: Left chest wall single lead AICD with lead terminating over the rightventricle. No focal consolidation, pleural effusion, or pneumothorax. Cardiac silhouette is normal in size. Coronary artery stent. Surgicalclips overlie the left paramediastinal region. Atherosclerotic changes of the aortic arch. Mild degenerative changes of the spine. IMPRESSION IMPRESSION: 1. No focal consolidation. 2. AICD, coronary artery stent, and surgical clips in the leftparamediastinal region as described above. Beti SHIRLEY RADIOLOG Y (RAD GENERAL) documented in this encounter Advance Directives Latest [...] the patient have Health Care Power of Small Boat Engineer? No Care Teams Co Founder And Chief Strategy Officer Relationship Specialty Start Date End Date Nicolas Real CRNP [address] [place] [address] PCP - General Nurse Practitioner 01/13/21 documented as of this encounter
--- OUTSIDE RECORDS SUMMARY | 2023-04-06 21:40 | External Medical Summary | Summary of Care ---
Author Name Unknown Organization [facility] Address [address] [facility] [place] [address] Phone [phone] Care Team Providers Care Insurance Account Assistant Name Role Phone Nicolas Real Primary Care Provide r Reason for Visit * Reason Onset Date Comments Other 11/14/2022 Encounter Details Date Type Department Care Team Description 11/14/2022 Telephone Gastroenterology, [facility] [address] [place] [address] Beti Garrison CRNP [address] [place] [address] Other Allergies Active Allergy Reactions Severity Noted [...] Overview: Added automatically from request for surgery [id number] Cerebral aneurysm, nonruptured 8 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 [...] mRNA, LNP-s, No Pre serve, 2-Dose Series (Rapidlea) 07/07/2020 Pneumococcal Polysaccharide PPV23 (Pneumovax) Seasonal Influenza [...] Zeyad Rodriguez MD [address] [place] [address] 11/06/2023 Appointment Radiology 11/06/2023 Office Visit Vascular Surgery Austen Hazel MD [address] [facility] [place] [address] 11/13/2023 Cardiac Studies Cardiology Ferny Jones [facility] [address] [place] [address] Scheduled Procedures Name Priority Associated Diagnoses Date/Ti [...] 04/25/2023 10/23/2022, 08/07/2021, 09/16/2019, Additional history exists TSH 10/24/2023 10/23/2022, [...] this encounter Medical Devices Implanted Type Area Glass Etcher Device Identifier Shelf Expiration Date Model / Serial / Lot Visia Af Mri-05/23/2019 Implanted:2019 (Quantity not on file) Pacemaker Chest [employer] : CARDIAC SURGERY 11/14/2024 [id number] / / . Microvention Terumo, [id number], Endovascular Embolization Coil, Hydrosoft 3d, [id number] Implanted:Qty: 1 on 02/19/2018 by Lenny Davies MD at [facility] Right: Head [employer] 01/23/2022 [id number] / [id number] / [id number] Description:Right Superior C erebellar Artery Aneurysm documented [...] the patient have Health Care Power of Metal Bench Patternmaker? No Care Teams Insurance Account Assistant Relationship Specialty Start Date End Date Nicolas Real CRNP [address] [place] [address] PCP - General Nurse Practitioner 01/13/21 documented as of this encounter
--- OUTSIDE RECORDS SUMMARY | 2023-04-06 21:40 | External Medical Summary | Summary of Care ---
Author Name Unknown Organization [facility] Address [address] [facility] [place] [address] Phone [phone] Care Team Providers Care Cook Helper Dessert Name Role Phone Nicolas Real Primary Care Provide r Reason for Visit * Reason Onset Date Comments Test Results 11/10/2022 Encounter Details Date Type Department Care Team Description 11/10/2022 Telephone Cardiology, [facility] [address] [place] [address] Kathrine Nichole CRNP [address] [place] [address] Test Results Allergies Active Allergy Reactions Severity Noted Date [...] Overview: Added automatically from request for surgery [id number] Cerebral aneurysm, nonruptured 8 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 Patient had lab work done 11/09/22. Sent a fax to obtain most recent labs. ----- Message from FERN Peters sent at 11/08/2022 12:58 PM EDT ----- Scanned blood work reviewed in coverage of Dr. Rodriguez- Looks like patient had decline in renal function and elevation in potassium on blood work dated 10/23. I am having a hard time telling if any medication adjustments were made from these results? If sois a newer BMP available for review. Recommend repeat BMP if not. Continuity documented in this encounter Plan of Treatment Upcoming Encounters Date Type Specialty Care Team Description 11/14/2022 Appointment Radiology 11/14/2022 Appointment Radiology 11/14/2022 Office Visit Hematology Oncology Leonora Joseph CRNP [address] [place] [address] 04/09/2023 Office Visit Cardiology Zeyad Rodriguez MD [address] [place] [address] 11/06/2023 Appointment Radiology 11/06/2023 Office Visit Vascular Surgery Austen Hazel MD [address] [facility] [place], [place] [address] 11/13/2023 Cardiac Studies Cardiology [facility] [address] [facility] [place] [address] Scheduled Procedures Name Priority Associated Diagnoses Date/Ti [...] 04/25/2023 10/23/2022, 0807/2021, 09/16/2019, Additional history exists GFR 10/24/2023 10/23/2022, [...] this encounter Medical Devices Implanted Type Area Ampoule Washing Machine Operator Device Identifier Shelf Expiration Date Model / Serial / Lot Microvention Terumo, [id number], Endovascular Embolization Coil, Hydrosoft 3d, [id number] Implanted:Qty: 1 on 02/19/2018 by Lenny Davies MD at OR [facility] [place] Right: Head [employer] 01/23/2022 [id number] / [id number] / [id number] Description:Right Superior C erebellar Artery Aneurysm documented [...] the patient have Health Care Power of Rn Procedures? No Care Teams Cook Helper Dessert Relationship Specialty Start Date End Date Nicolas Real CRNP [address] [address] PCP - General Nurse Practitioner 01/13/21 documented as of this encounter
--- OUTSIDE RECORDS SUMMARY | 2023-04-06 21:40 | External Medical Summary | Summary of Care ---
Author Name Unknown Organization [facility] Address [address] [place] [address] Phone [phone] Care Team Providers Care Cover Seamer Name Role Phone Nicolas Real Primary Care Provide r Reason for Visit * Precert (Within 10 days (routine)) - Authorized Specialty Diagnoses / Procedures Referred By Contac t Referred To Contact Radiology Diagnoses Focal nodular hyperplasia of liver Procedures MRI LIVER W WO CONTRAST Beti Garrison CRNP [address] [place] [address] Referral ID Status Reason Start Date Expiration Date V isits Requested Visits Authorized [id number] Authorized Precert 10/26/2022 11/14/[phone] Encounter Details Date Type Department Care Team Description 11/01/2022 Hospital Encounter Radiology, [address] [id number] Canceled (Patient Cancel-Schedule Preference) Allergies Active Allergy Reactions Severity Noted Date Comments Atorvastatin Calcium Other (Please comment) 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 documented as of this encounter (statuses as of 11/08/2022) Medications Medication Sig Dispensed Refills Start Date End Date Status NITROGLYCERIN 0.4 MG SL SUBLIndications:Aort ocoronary bypass status,Chronic ischemic heart disease,Mixed dyslipidemia 1 Q 5 min as needed with chest pain up to 3 doses in 15 minutes 25 3 02/02/2006 Active [facility] [employer] ULTRA TEST STRPIndications:DM type 2, goal A1c [...] as of this encounter (statuses as of 11/08/2022) Active Problems Problem Noted Date AICD at end of battery life 04/02/2019 Overview: Added automatically from request for surgery [id number] Cerebral aneurysm, nonruptured 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 ICD-10 update of inactive term Mixed dyslipidemia 03/08/2009 Overview: Per Lipid Taxonomy. documented as of this encounter (statuses as of 11/08/2022) Immunizations Name Administration Dates Next Due COVID-19 [...] Description 11/10/2022 Cardiac Studies [facility]iology [facility] [address] [place] [address] 11/14/2022 Appointment Radiology 11/14/2022 Appointment Radiology 11/14/2022 Office Visit Hematology Oncology Leonora Joseph CRNP [address] [place] [address] 04/09/2023 Office Visit Cardiology Zeyad Rodriguez [facility] [address] [facility] [place] [address] 11/06/2023 Appointment Radiology 11/06/2023 Office Visit Vascular Surgery Austen Hazel MD [address] [place], [place] [phone] Scheduled Procedures Name Priority Associated Diagnoses Date/Ti [...] this encounter Medical Devices Implanted Type Area Janitor Cleaner Device Identifier Shelf Expiration Date Model / Serial / Lot Microvention Terumo, [id number], Endovascular Embolization Coil, Hydrosoft 3d, [id number] Implanted:Qty: 1 on 02/19/2018 by Lenny Davies MD at OR [facility] [place] Right: Head [employer] 01/23/2022 [id number] / [id number] / [id number] Description:Right Superior C erebellar Artery Aneurysm documented [...] the patient have Health Care Power of Machine Inker? No Care Teams Cover Seamer Relationship Specialty Start Date End Date Nicolas Real CRNP [address] [place] [address] PCP - General Nurse Practitioner 01/13/21 documented as of this encounter
--- OUTSIDE RECORDS SUMMARY | 2023-04-06 21:40 | External Medical Summary | Summary of Care ---
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 PTS PACING DEVICE WAS PLACED INTO MRI MODE BY CARDIAC NURSE AND [employer] REP REMOTELY. PT WAS SCANNED. DEVICE WAS PLACED BACK INTO NORMAL PACING MODE BY CARDIAC NURSE AND [employer] REP. NO ADVERSE EVENTS OCCURRED. documented in this encounter Plan of Treatment Upcoming Encounters Date Type Specialty Care Team Description 11/14/2022 Office Visit Hematology Oncology Leonora Joseph CRNP [address] [place] [address] 04/09/2023 Office Visit Cardiology [facility] [address] [facility] [id number] 11/06/2023 Appointment Radiology 11/06/2023 Office Visit Vascular Surgery Austen Hazel MD [address] [place], [place] [phone] 11/13/2023 Cardiac Studies Cardiology [place] [address] [facility] [place] [address] Scheduled Procedures Name Priority Associated Diagnoses Date/Ti [...] this encounter Medical Devices Implanted Type Area Filling Carrier Device Identifier Shelf Expiration Date Model / Serial / Lot Visia Af Mri-05/23/2019 Implanted:2019 (Quantity not on file) Pacemaker Chest [employer] : CARDIAC SURGERY 11/14/2024 [id number] / / . Microvention Terumo, [id number], Endovascular Embolization Coil, Hydrosoft 3d, [id number] Implanted:Qty: 1 on 02/19/2018 by Lenny Davies MD at [place] [facility] [place] Right: Head [employer] 01/23/2022 [id number] / [id number] / [id number] Description:Right Superior C erebellar Artery Aneurysm documented [...] the patient have Health Care Power of Lithographic Printing Machinist? No Care Teams Product Management Specialist Relationship Specialty Start Date End Date Nicolas Real CRNP [address] [place] [address] PCP - General Nurse Practitioner 01/13/21 documented as of this encounter
--- OUTSIDE RECORDS SUMMARY | 2023-04-06 21:41 | External Medical Summary | Summary of Care ---
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 ICD-10 update of inactive term Mixed dyslipidemia 03/08/2009 Overview: Per Lipid Taxonomy. documented as of this encounter (statuses as of 10/28/2022) Immunizations Name Administration Dates Next Due COVID-19 mRNA, LNP-s, No Pre serve, 2-Dose Series ([employer]) 07/07/2020 Pneumococcal Polysaccharide PPV23 (Pneumovax) Seasonal Influenza [...] encounter Miscellaneous Notes * Telephone Encounter - CONNER Landaverde - 10/28/2022 11:25 AM EDT Name: Dakota Alvarez Left message for pt to call back for mri questionnaire. CONNER Landaverde documented in this encounter Plan of Treatment Upcoming Encounters Date Type Specialty Care Team Description 11/01/2022 Appointment Radiology 11/10/2022 Cardiac Studies [facility] [address] [place] [address] 04/09/2023 Office Visit Cardiology Zeyad Rodriguez MD [address] [place] [address] 11/06/2023 Appointment Radiology 11/06/2023 Office Visit Vascular Surgery Austen Hazel MD [address] [place], [place] [phone] Scheduled Procedures Name Priority Associated Diagnoses Date/Ti [...] 09/15/2020 020, 08/07/2017, 03/22/2016, Additional history exists TSH 01/10/2022 01/10/2021, 09/09/2020 HbA1c 05/20/2022 11/17/2021, 08/25, 08/07/2017, Additional history exists Influenza Vaccine (FLU shot) (#1) 2022 02/14/2019, 02/08/2018, 02/06/2017, Additional history exists GFR 02/07/2023 02/07/2022, 10/25, 01/10/2021, Additional history exists COLONOSCOPY-EVERY 5 YRS AGES [...] encounter Medical Devices Implanted Type Area Manager Of Software Development Device Identifier Shelf Expiration Date Model / Serial / Lot Microvention Terumo, [id number], Endovascular Embolization Coil, Hydrosoft 3d, [id number] Implanted:Qty: 1 on 02/19/2018 by Lenny Davies MD at OR [facility] [place] Right: Head [employer] 01/23/2022 [id number] / [id number] / [id number] Description:Right Superior C erebellar Artery Aneurysm documented [...] the patient have Health Care Power of Composition Instructor? No Care Teams Support Services Rep Relationship Specialty Start Date End Date Nicolas Real CRNP [address] [place] [address] PCP - General Nurse Practitioner 01/13/21 documented as of this encounter
--- OUTSIDE RECORDS SUMMARY | 2023-04-06 21:41 | External Medical Summary | Summary of Care ---
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 ICD-10 update of inactive term Mixed dyslipidemia 03/08/2009 Overview: Per Lipid Taxonomy. documented as of this encounter (statuses as of 10/31/2022) Immunizations Name Administration Dates Next Due COVID-19 mRNA, LNP-s, No Pre serve, 2-Dose Series ([employer]) 07/07/2020 Pneumococcal Polysaccharide PPV23 (Pneumovax) Seasonal Influenza [...] Miscellaneous Notes * Telephone Encounter - FERN Flores - 10/31/2022 9:46 AM EDT I was asked to place a Chest XR by radiology pre MRI give his pacemaker one cleared by cardiology for MRI FERN Dove 10/31/2022 9:47 AM documented in this encounter Plan of Treatment Upcoming Encounters Date Type Specialty Care Team Description 11/01/2022 Hospital Encounter Radiology Cancel ed (Patient Cancel-Schedule Preference) 11/10/2022 Cardiac Studies Cardiology [facility] [address] [place] [address] 11/14/2022 Appointment Radiology 11/14/2022 Appointment Radiology 04/09/2023 Office Visit Cardiology Zeyad Rodriguez MD [address] [place] [address] 11/06/2023 Appointment Radiology 11/06/2023 Office Visit Vascular Surgery Austen Hazel MD [address] [place], [place] [phone] Scheduled Orders Name Type Priority Associated Diagnoses Orde r Schedule XR CHEST 1 VIEW Medical Imaging Routine Focal nodular hyperplasia of liver Ordered: 10/31/2022 Scheduled Procedures Name Priority Associated Diagnoses Date/Ti [...] this encounter Medical Devices Implanted Type Area Fuel Technician Device Identifier Shelf Expiration Date Model / Serial / Lot Microvention Terumo, [id number], Endovascular Embolization Coil, Hydrosoft 3d, [id number] Implanted:Qty: 1 on 02/19/2018 by Lenny Davies MD at OR [facility] [place] Right: Head [employer] 01/23/2022 [id number] / [id number] / [id number] Description:Right Superior C erebellar Artery Aneurysm documented [...] the patient have Health Care Power of Client Service Consultant? No Care Teams Slot Key Person Relationship Specialty Start Date End Date Nicolas Real CRNP [address] [place] [address] PCP - General Nurse Practitioner 01/13/21 documented as of this encounter
--- OUTSIDE RECORDS SUMMARY | 2023-04-06 21:41 | External Medical Summary | Summary of Care ---
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 ICD-10 update of inactive term Mixed dyslipidemia 03/08/2009 Overview: Per Lipid Taxonomy. documented as of this encounter (statuses as of 11/03/2022) Immunizations Name Administration Dates Next Due COVID-19 mRNA, LNP-s, No Pre serve, 2-Dose Series ([employer]) 07/07/2020 Pneumococcal Polysaccharide PPV23 (Pneumovax) Seasonal Influenza [...] Description 11/10/2022 Cardiac Studies Cardiology [facility] [address] [place] [address] 11/14/2022 Appointment Radiology 11/14/2022 Appointment Radiology 04/09/2023 Office Visit Cardiology Zeyad Rodriguez MD [address] [place] [address] 11/06/2023 Appointment Radiology 11/06/2023 Office Visit Vascular Surgery Austen Hazel MD [address] [place] [address] Scheduled Procedures Name Priority Associated Diagnoses Date/Ti [...] this encounter Medical Devices Implanted Type Area Brothel Keeper Device Identifier Shelf Expiration Date Model / Serial / Lot Microvention Terumo, [id number], Endovascular Embolization Coil, Hydrosoft 3d, [id number] Implanted:Qty: 1 on 02/19/2018 by Lenny Davies MD at OR [facility] [place] Right: Head [employer] 01/23/2022 [id number] / [id number] / [id number] Description:Right Superior C erebellar Artery Aneurysm documented [...] the patient have Health Care Power of Telephone Surveyor? No Care Teams Network Controller Relationship Specialty Start Date End Date Nicolas Real CRNP [address] [place] [address] PCP - General Nurse Practitioner 01/13/21 documented as of this encounter
--- OUTSIDE RECORDS SUMMARY | 2023-04-06 21:41 | External Medical Summary | Summary of Care ---
Author Name Unknown Organization [facility] Address [address] [place] [address] Phone [phone] Care Team Providers Care Satellite Project Site Monitor Name Role Phone Nicolas Real Primary Care Provide r Reason for Referral * Evaluate & Treat - Unlimited Visits (Within 10 days (routine)) - Pending Review Specialty Diagnoses / Procedures Referred By Kemal t Referred To Contact Hematology/Oncology / Hematology Oncology Diagnoses Anemia Nicolas Real CRNP [address] [place] [address] Referral ID Status Reason Start Date Expiration Date Visits Requested Visits Authorized [id number] Pending Review Specialty Services Required 11/03/[phone] Question Answer Referral Priority Within 10 days (routine) Reason for Referral Anemia Comments Notes scanned into Epic 11/03/22 CRB Encounter Details Date Type Department Care Team Description 11/03/2022 Orders Only Access Center, [facility] [address] [facility] *DO NOT REMOVE THIS DEPARTMENT* [place] [address] Request, External Referral Anemia* Allergies Active Allergy Reactions Severity Noted Date [...] Overview: Added automatically from request for surgery [id number] Cerebral aneurysm, nonruptured 8 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 [...] Description 11/10/2022 Cardiac Studies Cardiology [facility] [address] [place] [address] 11/14/2022 Appointment Radiology 11/14/2022 Appointment Radiology 11/14/2022 Office Visit Hematology Oncology Leonora Joseph CRNP [address] [facility] [place] [phone] 04/09/2023 Office Visit Cardiology Zeyad Rodriguez MD [address] [place] [address] 11/06/2023 Appointment Radiology 11/06/2023 Office Visit Vascular Surgery Austen Hazel MD [address] [place] [address] Scheduled Procedures Name Priority Associated Diagnoses Date/Ti me COLONOSCOPY FLEXIBLE PROXIMAL DIAGNOSTIC Recall History of colon polyps ESOPHAGOGASTRODUODENOSCOPY ( EGD), FLEXIBLE, TRANSORAL, DIAGNOSTIC Recall Hx of malignant carcinoid tumor Scheduled Referrals Name Type Priority Associated Diagnoses Orde r Schedule HEMATOLOGY/ONCOLOGY REFERRAL OP Referral Within 10 days (routine) Anemia Ordered: 11/03/2022 Health Maintenance Due Date Last Done Comments [...] this encounter Medical Devices Implanted Type Area Radio Adjuster Device Identifier Shelf Expiration Date Model / Serial / Lot Microvention Terumo, [id number], Endovascular Embolization Coil, Hydrosoft 3d, [id number] Implanted:Qty: 1 on 02/19/2018 by Lenny Davies MD at OR [facility] [place] Right: Head [employer] 01/23/2022 [id number] / [id number] / [id number] 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 No Care Teams Satellite Project Site Monitor Relationship Specialty Start Date End Date Nicolas Real CRNP [address] [place] [address] PCP - General Nurse Practitioner 01/13/21 documented as of this encounter
--- OUTSIDE RECORDS SUMMARY | 2023-04-06 21:41 | External Medical Summary | Summary of Care ---
Author Name Unknown Organization [facility] Address [address] [facility] [place] [address] Phone [phone] Care Team Providers Care Sales Floor Team Leader Name Role Phone Nicolas Real Primary Care Provide r Encounter Details Date Type Department Care Team Description 10/30/2022 Telephone Cardiology Adam Larios [address] [place] [address] [facility] [address] [facility] [place] [address] Allergies Active Allergy Reactions Severity Noted Date Comments Atorvastatin Calcium Other (Please comment) 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 ICD-10 update of inactive term Mixed dyslipidemia 03/08/2009 Overview: Per Lipid Taxonomy. documented as of this encounter (statuses as of 10/30/2022) Immunizations Name Administration Dates Next Due COVID-19 mRNA, LNP-s, No Pre serve, 2-Dose Series ([employer]) 07/07/2020 Pneumococcal Polysaccharide PPV23 (Pneumovax) Seasonal Influenza [...] encounter Miscellaneous Notes * Telephone Encounter - Maylin Randall RPh - 10/30/2022 4:20 PM EDT Patient had lab work completed 10/23/22 at the [place] LDL 46 TG 122 Total Chol 105 HDL 36 Will scan into chart. LDL remains well controlled Maylin Randall Pharm D Clinical Pharmacist Cardiology 10/30/2022,4:21 PM documented in this encounter Plan of Treatment Upcoming Encounters Date Type Specialty Care Team Description 11/01/2022 Hospital Encounter Radiology Cancel ed (Patient Cancel-Schedule Preference) 11/10/2022 Cardiac Studies Cardiology [facility] [address] [facility] [place] [address] 11/14/2022 Appointment Radiology 11/14/2022 Appointment Radiology 04/09/2023 Office Visit Cardiology Zeyad Rodriguez MD [address] [address] 11/06/2023 Appointment Radiology 11/06/2023 Office Visit Vascular Surgery Austen Hazel MD [address] [place], [place] [phone] Scheduled Procedures Name Priority Associated Diagnoses Date/Ti [...] this encounter Medical Devices Implanted Type Area Plastic Worker Device Identifier Shelf Expiration Date Model / Serial / Lot Microvention Terumo, [id number], Endovascular Embolization Coil, Hydrosoft 3d, [id number] Implanted:Qty: 1 on 02/19/2018 by Lenny Davies MD at OR [facility] Right: Head [employer] 01/23/2022 [id number] / [id number] / [id number] Description:Right Superior C erebellar Artery Aneurysm documented [...] the patient have Health Care Power of Air Intelligence Officer? No Care Teams Sales Floor Team Leader Relationship Specialty Start Date End Date Nicolas Real CRNP [address] [place] [address] PCP - General Nurse Practitioner 01/13/21 documented as of this encounter
--- OUTSIDE RECORDS SUMMARY | 2023-04-06 21:41 | External Medical Summary | Summary of Care ---
Author Name Unknown Organization [facility] Address [address] [place] [address] Phone [phone] Care Team Providers Care Bobbin Stripper Name Role Phone Nicolas Real Primary Care Provide r Reason for Visit * Reason Onset Date Comments Appointment 10/30/2022 Encounter Details Date Type Department Care Team Description 10/30/2022 Telephone Hepatology, 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 * Telephone Encounter - Leslie King - 10/30/2022 4:30 PM EDT Referral received from the [place] to get patient scheduled with our Hepatology department, Referring provider: Farhan Valenzuela DX: Liver Disease Records were placed into scans on 10/30/22 LMOM 10/30/22 documented in this encounter Plan of Treatment Upcoming Encounters Date Type Specialty Care Team Description 11/01/2022 Hospital Encounter Radiology Cancel ed (Patient Cancel-Schedule Preference) 11/10/2022 Cardiac Studies Cardiology [facility] [address] [place] [address] 11/14/2022 Appointment Radiology 11/14/2022 Appointment Radiology 04/09/2023 Office Visit Cardiology Zeyad Rodriguez MD [address] [place] [address] 11/06/2023 Appointment Radiology 11/06/2023 Office Visit Vascular Surgery Austen Hazel MD [address] [place] [address] Scheduled Procedures Name Priority Associated Diagnoses Date/Ti [...] this encounter Medical Devices Implanted Type Area Medical Health Researcher Device Identifier Shelf Expiration Date Model / Serial / Lot Microvention Terumo, [id number], Endovascular Embolization Coil, Hydrosoft 3d, [id number] Implanted:Qty: 1 on 02/19/2018 by Lenny Davies MD [place] [facility] [place] Right: Head [employer] 01/23/2022 [id number] / [id number] / [id number] Description:Right Superior C erebellar Artery Aneurysm documented [...] the patient have Health Care Power of Biomedical Engineer? No Care Teams Bobbin Stripper Relationship Specialty Start Date End Date Nicolas Real CRNP [address] [place] [address] PCP - General Nurse Practitioner 01/13/21 documented as of this encounter
--- OUTSIDE RECORDS SUMMARY | 2023-04-06 21:41 | External Medical Summary | Summary of Care ---
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 ICD-10 update of inactive term Mixed dyslipidemia 03/08/2009 Overview: Per Lipid Taxonomy. documented as of this encounter (statuses as of 11/01/2022) Immunizations Name Administration Dates Next Due COVID-19 [...] Description 11/10/2022 Cardiac Studies Cardiology Ferny [facility] [address] [place] [address] 11/14/2022 Appointment Radiology 11/14/2022 Appointment Radiology 04/09/2023 Office Visit Cardiology Zeyad Rodriguez MD [address] [place] [address] 11/06/2023 Appointment Radiology 11/06/2023 Office Visit Vascular Surgery Austen Hazel MD [address] [place] [address] Scheduled Procedures Name Priority Associated [...] 08/07/2017, 03/22/2016, Additional history exists TSH 01/10/2022 10/23/2022, 12/24, 09/09/2020 HbA1c 05/20/2022 10/23/2022, 10/25, 09/16/2019, Additional history exists Influenza Vaccine (FLU shot) (#1) 2022 02/14/2019, 02/08/2018, 02/06/2017, Additional history exists GFR 02/07/2023 10/23/2022, 01/24, 11/17/2021, Additional history exists COLONOSCOPY-EVERY 5 YRS AGES [...] this encounter Medical Devices Implanted Type Area Administrative Services Director Device Identifier Shelf Expiration Date Model / Serial / Lot Microvention Terumo, [id number], Endovascular Embolization Coil, Hydrosoft 3d, [id number] Implanted:Qty: 1 on 02/19/2018 by Lenny Davies MD at [place] [facility] [place] Right: Head [employer] 01/23/2022 [id number] / [id number] / [id number] Description:Right Superior C erebellar Artery Aneurysm documented as of this encounter Procedures Procedure Name Priority Date/Time Associated Diagnosis Comments CHEMISTRY-OUTSIDE Routine 10/26/2022 CHEMISTRY-OUTSIDE Routine 10/23/2022 TSH Routine 10/23/2022 documented in this encounter Results * (ABNORMAL) CHEMISTRY-OUTSIDE (10/26/2022) Not all results display below - see scan for full detail OUTSIDE LAB (SEE SCANNED REPORT) Comment:[facility]-CBC,IRON,TRANSFERRIN,TIBC,SAT,FOLATE,B12,FERRITIN CREATININE-OUTSID E LAB OUTSIDE LAB (SEE SCANNED REPORT) EGFR-OUTSIDE LAB OUT SIDE LAB (SEE SCANNED REPORT) POTASSIUM-OUTSIDE LAB OUTSIDE LAB (SEE SCANNED REPORT) GLUCOSE-OUTSIDE LAB OUTSIDE LAB (SEE SCANNED REPORT) HOURS FASTING [...] LAB OUTSIDE LAB (SEE SCANNED REPORT) HEMOGLOBIN, [id number] LAB OUTSIDE LAB (SEE SCANNED REPORT) PHOSPHORUS-OUTSID E LAB OUTSIDE LAB (SEE SCANNED REPORT) PTH-OUTSIDE LAB OUTS SYLVIA LAB (SEE SCANNED REPORT) MICROALBUMIN RATIO-OUTSIDE LAB OUTSIDE LA B (SEE SCANNED REPORT) PROTEIN, UA-OUTSIDE LAB OUTSIDE LAB (SEE SCANNED REPORT) HEMOGLOBIN-OUTSID E LAB 11.8(A) 12.4 - 17.3 G/DL OUTSIDE LAB (SEE SCANNED REPORT) 10/26/2022 History Per Patient LABORATORY OUTSIDE LAB (SEE SCANNED REPORT) * TSH (10/23/2022) [facility] TSH - OUTSIDE LAB 2.34 0.45 - 5.33 UIU/ML OUTSIDE LAB (SEE SCANNED REPORT) Blood Venous blood specimen / Unknown 10/23/2022 History Per Patient LAB BLOOD ORDERABLES OUTSIDE LAB (SEE SCANNED REPORT) * (ABNORMAL) CHEMISTRY-OUTSIDE (10/23/2022) [facility] Not all results display below - see scan for full detail OUTSIDE LAB (SEE SCANNED REPORT) Comment:[facility]-URINALYSIS,CMP,LIPID,GLY HB,EAG,VITD,ANION GAP CREATININE-OUTSID E LAB 1.6(A) 0.6 - 1.5 MG/DL OUTSIDE LAB (SEE SCANNED REPORT) EGFR-OUTSIDE LAB 44.9 ML/MIN OUT SIDE LAB (SEE SCANNED REPORT) POTASSIUM-OUTSIDE LAB 5.2(A) 3.6 - 5.1 MMOL OUTSIDE LAB (SEE SCANNED REPORT) GLUCOSE-OUTSIDE LAB 127(A) 70 - 99 MG/DL OUTSIDE LAB (SEE SCANNED REPORT) HOURS FASTING OUTSID E LAB (SEE SCANNED REPORT) TRIGLYCERIDES-OUT SIDE LAB 122 150 MG/DL OUTSIDE LAB (SEE SCANNED REPORT) CHOLESTEROL-OUTSI DE LAB 106 200 MG/DL OUTSIDE LAB (SEE SCANNED REPORT) HDL-OUTSIDE LAB 35.8(A) 40 - 60 MG/DL OUTSIDE LAB (SEE SCANNED REPORT) CHOL/HDL RATIO-OUTSIDE LAB OUTSIDE LA B (SEE SCANNED REPORT) LDL (CALCULATED)-OUTS SYLVIA LAB 46 5 - 100 MG/DL OUTSIDE LAB (SEE SCANNED REPORT) LDL (DIRECT MEASURE)-OUTSIDE LAB OUTSIDE LAB (SEE SCANNED REPORT) HEMOGLOBIN, [id number] LAB 8.0(A) 4.3 - 6.2 % OUTSIDE LAB (SEE SCANNED REPORT) PHOSPHORUS-OUTSID E LAB OUTSIDE LAB (SEE SCANNED REPORT) PTH-OUTSIDE LAB OUTS SYLVIA LAB (SEE SCANNED REPORT) MICROALBUMIN RATIO-OUTSIDE LAB OUTSIDE LA B (SEE SCANNED REPORT) PROTEIN, UA-OUTSIDE LAB OUTSIDE LAB (SEE SCANNED REPORT) HEMOGLOBIN-OUTSID E LAB OUTSIDE LAB (SEE SCANNED REPORT) 10/23/2022 History Per Patient LABORATORY OUTSIDE LAB (SEE [...] the patient have Health Care Power of Engineering Vice President? No Care Teams Automotive Worker Foreman Relationship Specialty Start Date End Date Nicolas Real CRNP [address] [place] [address] PCP - General Nurse Practitioner 01/13/21 documented as of this encounter
--- OUTSIDE RECORDS SUMMARY | 2023-04-06 21:41 | External Medical Summary | Summary of Care ---
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 [...] encounter Miscellaneous Notes * Telephone Encounter - RT Jody - 10/30/2022 2:43 PM EDT Ready for mri Arrival for cxr 9:15 with mri 10:15 11-14 Has aneurysm repair on file Auth # new sent to rehabilitation aide/scheduler [place] [id number] documented in this encounter Plan of Treatment Upcoming Encounters Date Type Specialty Care Team Description 11/01/2022 Hospital Encounter Radiology Cancel ed (Patient Cancel-Schedule Preference) 11/10/2022 Cardiac Studies [facility] [address] [place] [address] 11/14/2022 Appointment Radiology 11/14/2022 Appointment Radiology 04/09/2023 Office Visit Cardiology Zeyad Rodriguez MD [address] [place] [address] 11/06/2023 Appointment Radiology 11/06/2023 Office Visit Vascular Surgery Austen Hazel MD [address] [place], [place] [id number] Scheduled Procedures Name Priority Associated Diagnoses Date/Ti [...] this encounter Medical Devices Implanted Type Area Security Dispatcher Device Identifier Shelf Expiration Date Model / Serial / Lot Microvention Terumo, [id number], Endovascular Embolization Coil, Hydrosoft 3d, [id number] Implanted:Qty: 1 on 02/19/2018 by Lenny Davies MD at [facility] Right: Head [employer] 01/23/2022 [id number] / [id number] / [id number] Description:Right Superior C erebellar Artery Aneurysm documented [...] the patient have Health Care Power of Labor Standards Director? No Care Teams Bibliographic Services Specialist Relationship Specialty Start Date End Date Nicolas Real CRNP [address] [place] [address] PCP - General Nurse Practitioner 01/13/21 documented as of this encounter
--- OUTSIDE RECORDS SUMMARY | 2023-04-06 21:41 | External Medical Summary | Summary of Care ---
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 [...] Telephone Encounter - RT Jody - 10/30/2022 12:52 PM EDT Patient concerned upset that Pacemaker MRI cannot be scanned at original given appt due to staff needed for cardiology and radiologist I will be calling her again today to set up new date and get the info for [facility] auth documented in this encounter Plan of Treatment Upcoming Encounters Date Type Specialty Care Team Description 11/01/2022 Hospital Encounter Radiology Cancel ed (Patient Cancel-Schedule Preference) 11/10/2022 Cardiac Studies Cardiology [facility] [address] [place] [address] 04/09/2023 Office Visit Cardiology Zeyad Rodriguez MD [address] [place] [address] 11/06/2023 Appointment Radiology 11/06/2023 Office Visit Vascular Surgery Austen Hazel MD [address] [place] [address] Scheduled Procedures Name Priority Associated [...] this encounter Medical Devices Implanted Type Area Helicopter Pilot Instructor Device Identifier Shelf Expiration Date Model / Serial / Lot Microvention Terumo, [id number], Endovascular Embolization Coil, Hydrosoft 3d, [id number] Implanted:Qty: 1 on 02/19/2018 by Lenny Davies MD at [place] [facility] [place] Right: Head [employer] 01/23/2022 [id number] / [id number] / [id number] Description:Right Superior C erebellar Artery Aneurysm documented [...] the patient have Health Care Power of Molecular Physicist? No Care Teams Advertising Sales Assistant Relationship Specialty Start Date End Date Nicolas Real CRNP [address] [place] [address] PCP - General Nurse Practitioner 01/13/21 documented as of this encounter
--- OUTSIDE RECORDS SUMMARY | 2023-04-06 21:41 | External Medical Summary | Summary of Care ---
Author Name Unknown Organization [facility] Address [address] [facility] [place] [address] Phone [phone] Care Team Providers Care Carbonating Stone Cleaner Name Role Phone Nicolas Real Primary Care Provide r Reason for Visit * Reason Onset Date Comments NEW PATIENT 11/03/2022 ADRIAN KAN Encounter Details Date Type Department Care Team Description 11/03/2022 Telephone Hematology/Oncology 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 Called and spoke to patient and he is scheduled with Leonora for 11/14/22. Records scanned into patients chart. documented in this encounter Plan of Treatment Upcoming Encounters Date Type Specialty Care Team Description 11/10/2022 Cardiac Studies Cardiology [facility] [address] [place] [address] 11/14/2022 Appointment Radiology 11/14/2022 Appointment Radiology 11/14/2022 Office Visit Hematology Oncology Leonora Joseph CRNP [address] [facility] [place] [id number] 04/09/2023 Office Visit Cardiology Zeyad Rodriguez MD [address] [place] [address] 11/06/2023 Appointment Radiology 11/06/2023 Office Visit Vascular Surgery Austen Hazel MD [address] [place] [address] Scheduled Procedures Name Priority Associated [...] this encounter Medical Devices Implanted Type Area Bottle Machine Operator Device Identifier Shelf Expiration Date Model / Serial / Lot Microvention Terumo, [id number], Endovascular Embolization Coil, Hydrosoft 3d, [id number] Implanted:Qty: 1 on 02/19/2018 by Lenny Davies MD [place] [facility] [place]: Head [employer] 01/23/2022 [id number] / [id number] / [id number] Description:Right Superior C erebellar Artery Aneurysm documented [...] the patient have Health Care Power of Counter Attendant? No Care Teams Carbonating Stone Cleaner Relationship Specialty Start Date End Date Nicolas Real CRNP [address] [place] [address] PCP - General Nurse Practitioner 01/13/21 documented as of this encounter
--- OUTSIDE RECORDS SUMMARY | 2023-04-06 21:41 | External Medical Summary | Summary of Care ---
Author Name Unknown Organization [facility] Address [address] [place] [address] Phone [phone] Care Team Providers Care Engineering Specialist Technician Name Role Phone Nicolas Real Primary Care Provide r Reason for Visit * Reason Onset Date Comments Appointment 10/30/2022 Encounter Details Date Type Department Care Team Description 10/30/2022 Telephone Hepatology, [facility] [address] 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 [...] mRNA, LNP-s, No Pre serve, 2-Dose Series ([employer]) 07/07/2020 Pneumococcal Polysaccharide PPV23 (Pneumovax) Seasonal Influenza [...] encounter Miscellaneous Notes * Telephone Encounter - Leslie King - 10/30/2022 4:30 PM EDT Referral received from the [place] to get patient scheduled with our Hepatology department, Referring provider: Farhan Valenzuela DX: Liver Disease Records were placed into scans on 10/30/22 LMOM 10/30/22 documented in this encounter Plan of Treatment Upcoming Encounters Date Type Specialty Care Team Description 11/01/2022 Hospital Encounter Radiology Cancel ed (Patient Cancel-Schedule Preference) 11/10/2022 Cardiac [facility] [address] [place] [address] 11/14/2022 Appointment Radiology 11/14/2022 Appointment Radiology 04/09/2023 Office Visit Cardiology Zeyad Rodriguez MD [address] [place] [address] 11/06/2023 Appointment Radiology 11/06/2023 Office Visit Vascular Surgery Austen Hazel MD [address] [place] [facility] [place] [address] Scheduled Procedures Name Priority Associated Diagnoses [...] this encounter Medical Devices Implanted Type Area Balance Staff Staker Device Identifier Shelf Expiration Date Model / Serial / Lot Microvention Terumo, [id number], Endovascular Embolization Coil, Hydrosoft 3d, [id number] Implanted:Qty: 1 on 02/19/2018 by Lenny Davies MD at [place] [facility] [place] Right: Head [employer] 01/23/2022 [id number] / [id number] / [id number] Description:Right Superior C erebellar Artery Aneurysm documented [...] the patient have Health Care Power of Digester Cook? No Care Teams Engineering Specialist Technician Relationship Specialty Start Date End Date Nicolas Real CRNP [address] [place] [address] PCP - General Nurse Practitioner 01/13/21 documented as of this encounter
--- OUTSIDE RECORDS SUMMARY | 2023-04-06 21:41 | External Medical Summary | Summary of Care ---
Author Name Unknown Organization [facility] Address [address] [place] [address] Phone [phone] Care Team Providers Care Finance And Administration Manager Name Role Phone Nicolas Real Primary Care Provide r Reason for Visit * Reason Onset Date Comments Appointment 10/30/2022 Encounter Details Date Type Department Care Team Description 10/30/2022 Telephone Hepatology, [facility] [address] [facility] [place] [address] Specified, [place] No Resource [address] [place] [address] Appointment Allergies Active Allergy Reactions Severity Noted Date Comments Atorvastatin Calcium Other (Please comment) 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 ICD-10 update of inactive term Mixed dyslipidemia 03/08/2009 Overview: Per Lipid Taxonomy. documented as of this encounter (statuses as of 11/06/2022) Immunizations Name Administration Dates Next Due COVID-19 mRNA, LNP-s, No Pre serve, 2-Dose Series ([employer]) 07/07/2020 Diptheria/Tetanus (Adult) 09/15/1996 Pneumococcal Polysaccharide PPV23 [...] Description 11/10/2022 Cardiac Studies Cardiology Ferny Jones [address] [place] [address] 11/14/2022 Appointment Radiology 11/14/2022 Appointment Radiology 11/14/2022 Office Visit Hematology Oncology Leonora Joseph CRNP [address] [place] [address] [place] [address] 04/09/2023 Office Visit Cardiology Zeyad Rodriguez MD [address] [place] [address] 11/06/2023 Appointment Radiology 11/06/2023 Office Visit Vascular Surgery Austen Hazel MD [address] [facility] [place] [address] Scheduled Procedures Name Priority Associated Diagnoses [...] this encounter Medical Devices Implanted Type Area Wellness Consultant Device Identifier Shelf Expiration Date Model / Serial / Lot [employer]vention Terumo, [id number], Endovascular Embolization Coil, Hydrosoft 3d, [id number] Implanted:Qty: 1 on 02/19/2018 by Lenny Davies MD at [facility] Right: Head [employer] 01/23/2022 [id number] / [id number] / [id number] Description:Right Superior C erebellar Artery Aneurysm documented [...] the patient have Health Care Power of Cost Report Clerk? No Care Teams Finance And Administration Manager Relationship Specialty Start Date End Date Nicolas Real CRNP [address] [facility] [place] [address] PCP - General Nurse Practitioner 01/13/21 documented as of this encounter
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
--- OUTSIDE RECORDS SUMMARY | 2023-04-06 21:42 | External Medical Summary | Summary of Care ---
Author Name Unknown Organization [facility] Address [address] [place] [address] Phone [phone] Care Team Providers Care Demi Chef Name Role Phone Nicolas Real Primary Care Provide r Encounter Details Date Type Department Care Team Description 10/25/2022 Hospital Encounter Vascular Lab [place] [address] [place] [address] Arrived Allergies Active Allergy Reactions Severity Noted Date Comments Atorvastatin Calcium Other (Please comment) 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 documented as of this encounter (statuses as of 10/26/2022) Medications Medication Sig Dispensed Refills Start Date [...] as of this encounter (statuses as of 10/26/2022) Active Problems Problem Noted Date AICD at end of battery life 04/02/2019 Overview: Added automatically from request for surgery [id number] Cerebral aneurysm, nonruptured 8 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 ICD-10 update of inactive term Mixed dyslipidemia 03/08/2009 Overview: Per Lipid Taxonomy. documented as of this encounter (statuses as of 10/26/2022) Immunizations Name Administration Dates Next Due COVID-19 mRNA, LNP-s, No Pre serve, 2-Dose Series (SocialDefender) 07/07/2020 Pneumococcal Polysaccharide PPV23 (Pneumovax) Seasonal Influenza [...] Radiology 11/10/2022 Cardiac Studies Cardiology [facility] [address] [place] [address] 04/09/2023 Office Visit Cardiology Zeyad Rodriguez MD [address] [place] [address] 11/06/2023 Appointment Radiology 11/06/2023 Office Visit Vascular Surgery Austen Hazel MD [address] [place] [address] Scheduled Procedures Name Priority Associated [...] this encounter Medical Devices Implanted Type Area Cylinder Press Operator Helper Device Identifier Shelf Expiration Date Model / Serial / Lot Microvention Terumo, [id number], Endovascular Embolization Coil, Hydrosoft 3d, [id number] Implanted:Qty: 1 on 02/19/2018 by Lenny Davies MD at [place] [facility] Right: Head [employer] 01/23/2022 [id number] / [id number] / [id number] Description:Right Superior C erebellar Artery Aneurysm documented as of this encounter Procedures Procedure Name Priority Date/Time Associated Diagnosis Comments [facility] DUPLEX CAROTID BILAT Routine 10/25/2022 12:40 PM EDT Asymptomatic bilateral carotid artery stenosis documented in this encounter Results * VASC DUPLEX CAROTID BILAT (10/25/2022 12:40 PM EDT) Anatomical Region Laterality Modality Neck, Vascular Ultrasound Narrative 10/25/2022 12:43 PM EDT VASCULAR LAB RESULTS DATE OF EXAM: 10/25/22 PRESENTING CONDITIONS: TEDDY ~70% stenosis and LICA occlusion PHYSICIAN REPORT Carotid Artery Duplex Examination Immediately before proceeding with the vascular lab procedure reported below, the identity of the patient, the correct exam and the correct procedural site were verified. Saavedra scale and color flow Doppler imaging was performed for evaluation of the right carotid artery. Duplex examination of the right carotid artery identifies atherosclerotic plaque at the carotid bifurcation. The plaque is echogenic and appears to have an irregular surface. Color Doppler imaging was performed for evaluation of the right carotid bifurcation. Spectral analysis of the right internal carotid artery demonstrates peak systolic velocities of 265 cm/sec. Maximum end diastolic velocities are 61 cm/sec.. Peak right common carotid velocity is 67 cm/sec. The right internal carotid to common carotid ratio is 3.9. The right external carotid artery has a peak velocity of 95 centimeters per second. Saavedra scale and color flow Doppler imaging was performed for the evaluation of the left carotid artery. Duplex ultrasound was performed of the left carotid bifurcation demonstrating extensive plaque with no detectable Doppler flow in the left internal carotid artery. . The left external carotid artery has a peak velocity of 212 centimeters per second. The right vertebral artery demonstrates antegrade flow. The left vertebral artery demonstrates antegrade flow. Impression: Right carotid artery duplex examination indicates evidence of 50-69% stenosis of the internal carotid artery. Left carotid artery duplex examination indicates evidence of an occlusion of the internal carotid artery. Jose [facility] documented in this encounter Advance Directives Latest [...] the patient have Health Care Power of Airport Operations Supervisor? No Care Teams Demi Chef Relationship Specialty Start Date End Date Nicolas Real CRNP [address] [place] [address] PCP - General Nurse Practitioner 01/13/21 documented as of this encounter
--- OUTSIDE RECORDS SUMMARY | 2023-04-06 21:42 | External Medical Summary | Summary of Care ---
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 ICD-10 update of inactive term Mixed dyslipidemia 03/08/2009 Overview: Per Lipid Taxonomy. documented as of this encounter (statuses as of 10/24/2022) Immunizations Name Administration Dates Next Due COVID-19 [...] Encounters Date Type Specialty Care Team Description 10/25/2022 Appointment Radiology 10/25/2022 Office Visit Vascular Surgery Austen Hazel MD [address] [place] [address] 11/01/2022 Appointment Radiology 11/10/2022 Cardiac Studies Cardiology [facility] [address] [place] [address] 04/09/2023 Office Visit Cardiology Zeyad Rodriguez MD [address] [place] [id number] Scheduled Procedures Name Priority Associated Diagnoses Date/Ti [...] Model / Serial / Lot Microvention Terumo, [id number], Endovascular Embolization Coil, Hydrosoft 3d, [id number] Implanted:Qty: 1 on 02/19/2018 by Lenny Davies MD at [place] [facility] [place] Right: Head [employer] 01/23/2022 [id number] / [id number] / [id number] Description:Right Superior C erebellar Artery Aneurysm documented as of this encounter Procedures Procedure Name Priority Date/Time Associated Diagnosis Comments CARDIOLOGY SCANNED RESULT 10/24/2022 documented in this encounter Results * CARDIOLOGY SCANNED RESULT (10/24/2022) 10/24/2022 Zeyad Rodriguez MD OTHER documented in this [...] the patient have Health Care Power of Cigarette Making Examiner? No Care Teams School Social Worker Relationship Specialty Start Date End Date Nicolas Real CRNP [address] [place] [address] PCP - General Nurse Practitioner 01/13/21 documented as of this encounter
[2023-04-07] MEDS: MAGNESIUM SULFATE / D5W 1 GM/100 ML BAG IV SCH (00:52)
[2023-04-07] MEDS: LEVOTHYROXINE SODIUM 25 MCG TABLET PO SCH (05:55)
[2023-04-07] MEDS: HEPARIN SOD 5,000 UNIT/0.5 ML VIAL SQ SCH ×3 (05:55→20:17)
[2023-04-07 08:03] LABS: Hematocrit (blood only) 33.2 % (42.0-52.0); Hemoglobin 11.3 g/dl (14.0-18.0); Mean Corpuscular Hemoglobin 30.5 pg (25.0-34.0); Mean Corpuscular Volume 89.5 fL (80.0-100.0); Mean Platelet Volume 10.8 fL (9.4-12.4); Platelet Count 201 K/uL (130-400); RDW Coefficient of Variation 13.6 % (11.5-14.5); RDW Standard Deviation 44.5 fL (36.4-46.3); Red Blood Count 3.71 M/uL (4.70-6.10); White Blood Count 6.74 K/ul (4.8-10.8)
[2023-04-07 08:12] LABS: Estimated Average Glucose 163 mg/dl; Hemoglobin A1C 7.3 % (4.5-5.6)
[2023-04-07 08:14] LABS: BUN Creatinine Ratio 18.6 (10-20); Calcium 9.2 mg/dl (8.6-10.3); Est GFR (Non-African American) 53.5 ml/min; Potassium 4.5 mmol/L (3.5-5.1)
[2023-04-07] MEDS: TICAGRELOR 90 MG TAB PO SCH ×2 (08:22→20:17)
[2023-04-07] MEDS: INSULIN ASPART PER UNIT CHARGE SC SCH ×5 (08:22→20:28)
[2023-04-07] MEDS: FERROUS SULFATE 325 MG TAB PO SCH ×2 (08:23→20:16)
[2023-04-07] MEDS: COLESTIPOL HCL 1 GM TAB PO SCH ×2 (08:23→20:16)
[2023-04-07] MEDS: PANTOprazole 40 MG TAB PO SCH ×2 (08:23→20:16)
[2023-04-07] MEDS: EZETIMIBE 10 MG TAB PO SCH (08:23)
[2023-04-07] MEDS: CHOLECALCIFEROL 1,000 UNITS 25 MCG TAB PO SCH (08:23)
[2023-04-07] MEDS: gemfibroziL 600 MG TAB PO SCH ×2 (08:23→20:16)
[2023-04-07] MEDS: METOPROLOL TARTRATE 25 MG TAB PO SCH (08:23)
[2023-04-07] MEDS: ASPIRIN 81 MG ECTAB PO SCH ×2 (08:23→20:16)
[2023-04-07 09:06] LABS: Magnesium 2.8 mg/dl (1.7-2.4)
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
[2023-04-07] MEDS ORDERED: METOPROLOL TARTRATE 25 MG TAB PO STA (14:09)
[2023-04-07] MEDS ORDERED: FUROSEMIDE 40 MG/4 ML VIAL IV ONE (14:10)
--- NOTE | 2023-04-07 15:14 | Hospitalist Progress Note ---
Date of Service April 07, 2023 Assessment & Plan (1) Acute on chronic heart failure with reduced ejection fraction and diastolic dysfunction: Plan 77-year-old male with PMH of CAD (remote h/o CABG, STEMI in 07/2020 with resultant multivessel coronary stenting), ischemic cardiomyopathy with severe LV dysfunction, history of AICD placement, prior intolerance of JORDON and ARB type 2 diabetes, carotid artery disease following with vascular service, dyslipidemia with statin intolerance on a PCSK9 inhibitor presented w/ chest pain. He is being managed for the following: Atypical chest pain rule out ACS Acute on chronic heart failure with reduced ejection fraction and diastolic dysfunction Elevated troponin level Patient presented with epigastric pain radiating to chest wall reports improvement in the ED after aspirin. Patient has complex CAD history, history of STEMI in 07/2020 with resultant multivessel coronary stenting. Admitting troponin in 50s, flat trend. Admitting EKG appears similar to previous, with known LAFB, LVH, no acute ST changes Last echo in our system is from August 2020 with diffuse wall motion abnormalities and EF: 20-25% Echo this admission with EF of 20 to 25%, severely reduced LV systolic function, diffuse wall motion abnormality. Mild to moderate MR. Discussed with cardio, plan for nuclear stress test on Sunday. Continue DAPT [Brilinta, aspirin], Jardiance, gemfibrozil/Zetia. Metoprolol changed to succinate to comply w/ GDMT for CHF. Patient is intolerant of statin, receives alirocumab every 2 weeks [last dose 03/29]. Non-sustained ventricular tachycardia: 10 beats of Vtach seen on ED monitor around 1623 on 04/06- asymptomatic at the time In setting of known ischemic cardiomyopathy with AICD Pacer interrogation, monitor replete electrolytes. Cardiology on board Monitor on tele Other chronic medical conditions: Continue with/resume home meds as and when able Ischemic cardiomyopathy/ AICD at end of battery life: Echo as above. Continue home meds. Hypertension: Continue home cardiac medications. T2DM: A1c 7.3 this admission. Sliding scale insulin while inpatient. 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 HLD: Intolerant to statin, continue other home regimens. See above. DVT prophylaxis: Subcutaneous heparin CODE STATUS: Full code Admission and Anticipated Discharge Date Admission Date: April 06, 2023 Subjective Patient was seen and examined at bedside. Patient was sitting up in bed, family members at bedside, on room air, resting comfortably, not in any acute distress. Patient reports no further chest pain while in the hospital, reports moving around okay, reports eating okay and moving bowels okay. Patient reports blood streaked mucus during throat clearing/?cough in the morning, patient advised to continue to monitor for any recurrence or increase in the blood. Physical Exam Physical Exam: GENERAL: Alert and oriented x3. NAD, on RA. HEENT: No pallor, no icterus. Pupils equal, round and reactive to light. Oral mucosa moist. NECK: No JVD, no neck masses. HEART: S1 and S2 heard. Regular rate and rhythm. + murmur, no gallop. RESPIRATORY SYSTEM: Normal AP diameter. No accessory muscle use. No wheezing, basal crackles. ABDOMEN: Soft, bowel sounds present, nontender, no distention. CENTRAL NERVOUS SYSTEM: No facial droop. Speech is clear. Obeys simple commands. Moves extremities. EXTREMITIES: no edema, no erythema seen. Results & Data Results & Data Vital Signs (Past 12 Hours) Vital Signs Temp Pulse Pulse Resp BP Pulse Ox O2 Del Method 04/07/23 11:45 36.6 C 68 17 129/73 96 Room Air 04/07/23 08:02 36.8 C 74 18 142/77 H 95 Room Air 04/07/23 08:00 Room Air 04/07/23 07:12 68 04/07/23 03:54 36.8 C 67 16 117/67 97 Room Air
[2023-04-07] MEDS: METOPROLOL SUCC 50MG EXT REL TAB PO SCH (20:17)
[2023-04-08] MEDS: LEVOTHYROXINE SODIUM 25 MCG TABLET PO SCH (05:39)
[2023-04-08] MEDS: HEPARIN SOD 5,000 UNIT/0.5 ML VIAL SQ SCH ×3 (05:39→20:03)
[2023-04-08 07:24] LABS: Hematocrit (blood only) 38.4 % (42.0-52.0); Hemoglobin 12.9 g/dl (14.0-18.0); Mean Corpuscular Hemoglobin 29.7 pg (25.0-34.0); Mean Corpuscular Hgb Conc 33.6 g/dL (32.0-36.0); Mean Corpuscular Volume 88.5 fL (80.0-100.0); Mean Platelet Volume 10.5 fL (9.4-12.4); Platelet Count 180 K/uL (130-400); RDW Coefficient of Variation 13.3 % (11.5-14.5); RDW Standard Deviation 43.3 fL (36.4-46.3); Red Blood Count 4.34 M/uL (4.70-6.10); White Blood Count 4.24 K/ul (4.8-10.8)
[2023-04-08 07:49] LABS: BUN Creatinine Ratio 20.8 (10-20); Creatinine Clr Calc Pharmacy 39.8 ml/min; Est GFR (African American) 45.1 ml/min; Est GFR (Non-African American) 38.9 ml/min; Magnesium 2.3 mg/dl (1.7-2.4); Phosphorus 3.4 mg/dl (2.5-4.9)
[2023-04-08 08:17] LABS: Calcium 9.3 mg/dl (8.6-10.3)
[2023-04-08] MEDS: EMPAGLIFLOZIN 25 MG TAB PO SCH (08:19)
[2023-04-08] MEDS: ASPIRIN 81 MG ECTAB PO SCH ×2 (08:19→20:02)
[2023-04-08] MEDS: METOPROLOL SUCC 50MG EXT REL TAB PO SCH ×2 (08:19→20:02)
[2023-04-08] MEDS: INSULIN ASPART PER UNIT CHARGE SC SCH ×4 (08:19→20:04)
[2023-04-08] MEDS: PANTOprazole 40 MG TAB PO SCH ×2 (08:19→20:06)
[2023-04-08] MEDS: FERROUS SULFATE 325 MG TAB PO SCH ×2 (08:20→20:03)
[2023-04-08] MEDS: COLESTIPOL HCL 1 GM TAB PO SCH ×2 (08:21→20:03)
[2023-04-08] MEDS: EZETIMIBE 10 MG TAB PO SCH (08:21)
[2023-04-08] MEDS: gemfibroziL 600 MG TAB PO SCH ×2 (08:21→20:03)
[2023-04-08] MEDS: CHOLECALCIFEROL 1,000 UNITS 25 MCG TAB PO SCH (08:22)
[2023-04-08] MEDS: TICAGRELOR 90 MG TAB PO SCH ×2 (09:33→20:03)
--- NOTE | 2023-04-08 12:31 | Electrocardiogram Report ---
Test Reason : Blood Pressure : / mmHG Vent. Rate : 097 BPM Atrial Rate : 097 BPM P-R Int : 180 ms QRS Dur : 118 ms QT Int : 340 ms P-R-T Axes : 044 -58 095 degrees QTc Int : 431 ms Normal sinus rhythm Possible Left atrial enlargement Left anterior fascicular block Left ventricular hypertrophy with QRS widening and repolarization abnormality ( R in aVL , [place] pr oduct ) Abnormal ECG When compared with ECG of 25-AUG-2020 07:12, Premature ventricular complexes are no longer Present Confirmed by Zen Gandhi ([id number]) on 04/08/2023 12:30:48 PM Referred By: REFERRED SELF Confirmed By:Zen Gandhi
--- NOTE | 2023-04-08 14:56 | Hospitalist Progress Note ---
Date of Service April 08, 2023 Assessment & Plan (1) Acute on chronic heart failure with reduced ejection fraction and diastolic dysfunction: Plan 77-year-old male with PMH of CAD (remote h/o CABG, STEMI in 07/2020 with resultant multivessel coronary stenting), ischemic cardiomyopathy with severe LV dysfunction, history of AICD placement, prior intolerance of JORDON and ARB type 2 diabetes, carotid artery disease following with vascular service, dyslipidemia with statin intolerance on a PCSK9 inhibitor presented w/ chest pain. He is being managed for the following: Atypical chest pain rule out ACS Acute on chronic heart failure with reduced ejection fraction and diastolic dysfunction Elevated troponin level Patient presented with epigastric pain radiating to chest wall reports improvement in the ED after aspirin. Patient has complex CAD history, history of STEMI in 07/2020 with resultant multivessel coronary stenting. Admitting troponin in 50s, flat trend. Admitting EKG appears similar to previous, with known LAFB, LVH, no acute ST changes Last echo in our system is from August 2020 with diffuse wall motion abnormalities and EF: 20-25% Echo this admission with EF of 20 to 25%, severely reduced LV systolic function, diffuse wall motion abnormality. Mild to moderate MR. N.p.o. midnight, plan for nuclear stress test on Sunday. Continue DAPT [Brilinta, aspirin], Jardiance, gemfibrozil/Zetia. Metoprolol c hanged to succinate to comply w/ GDMT for CHF. Patient is intolerant of statin, receives alirocumab every 2 weeks [last dose 03/29]. Non-sustained ventricular tachycardia: 10 beats of Vtach seen on ED monitor around 1623 on 04/06- asymptomatic at the time In setting of known ischemic cardiomyopathy with AICD Pacer interrogation, monitor replete electrolytes. Cardiology on board Monitor on tele Other chronic medical conditions: Continue with/resume home meds as and when able Ischemic cardiomyopathy/ AICD at end of battery life: Echo as above. Continue home meds. Hypertension: Continue home cardiac medications. T2DM: A1c 7.3 this admission. Sliding scale insulin while inpatient. 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 HLD: Intolerant to statin, continue other home regimens. See above. DVT prophylaxis: Subcutaneous heparin CODE STATUS: Full code Admission and Anticipated Discharge Date Admission Date: April 07, 2023 Subjective Patient was seen and examined at bedside. Patient was sitting up in bed, family members at bedside, on room air, resting comfortably, not in any acute distress. Patient reports no further chest pain while in the hospital, reports moving around okay, reports eating okay and moving bowels okay. Patient to be n.p.o. midnight for stress test tomorrow. Physical Exam Physical Exam: GENERAL: Alert and oriented x3. NAD, on RA. HEENT: No pallor, no icterus. Pupils equal, round and reactive to light. Oral mucosa moist. NECK: No JVD, no neck masses. HEART: S1 and S2 heard. Regular rate and rhythm. + murmur, no gallop. RESPIRATORY SYSTEM: Normal AP diameter. No accessory muscle use. No wheezing, basal crackles. ABDOMEN: Soft, bowel sounds present, nontender, no distention. CENTRAL NERVOUS SYSTEM: No facial droop. Speech is clear. Obeys simple c ommands. Moves extremities. EXTREMITIES: no edema, no erythema seen. Results & Data Results & Data Vital Signs (Past 12 Hours) Vital Signs Temp Pulse Pulse Resp BP Pulse Ox O2 Del Method 04/08/23 11:58 36.8 C 59 L 17 117/68 96 Room Air 04/08/23 08:00 64 04/08/23 08:00 Room Air 04/08/23 07:20 36.4 C L 66 18 104/61 93 Room Air 04/08/23 03:40 36.3 C L 66 18 108/65 98 Room Air
--- NOTE | 2023-04-08 15:32 | Cardiology Progress Note ---
Date of Service April 08, 2023 Assessment & Plan (1) Chest pain: (2) Acute on chronic heart failure with reduced ejection fraction and diastolic dysfunction: (3) Elevated troponin I level: (4) Non-sustained ventricular tachycardia: Plan 77-year-old male with complex cardiovascular history noted above presented to the ER with epigastric discomfort and atypical chest pain. Mildly elevated troponin which are flat. X-ray evidence of mild pulmonary vascular congestion and rales at right base on examination suggesting mild decompensated heart failure. Diuresed 2.5 L with clinical improvement, however, mild elevation of serum creatinine. Hold additional diuretic therapy today. Repeat basic metabolic panel in AM. Consider addition of low-dose loop diuretic therapy 3 days/week upon discharge. Continue Jardiance, low-dose aspirin, spironolactone, Brilinta, gemfibrozil, and Zetia as ordered. Metoprolol tartrate (75mg/day) discontinued in favor of evidence-based heart failure therapy Toprol-XL 50 mg twice daily. Lexiscan nuclear stress test in AM. N.p.o. except medications after midnight. No caffeine for 24 hours prior to Lexiscan administration. Admission and Anticipated Discharge Date Admission Date: April 07, 2023 Subjective Patient seen and examined at the bedside. Feeling better today. Fluid balance -2.5 L. Denies chest pain or shortness of breath. Telemetry reveals sinus rhythm in the 60s to 70s. No recurrent nonsustained ventricular tachycardia. Review of ICD interrogation demonstrates occasional episodes of nonsustained VT. No therapies delivered. Patient denies orthopnea, PND, or edema. Review of Systems Review of Systems: All systems reviewed & are unremarkable except as noted in Subjective Physical Exam Constitutional: well nourished; no acute distress Respiratory: no respiratory distress, no labored breathing and no retractions Auscultation: + rales (Scant rales at the right base); no rhonchi and no wheezes Cardiovascular: Rate/Rhythm: regular rate and regular rhythm Heart Sounds: normal S1, normal S2 and + murmur (1/6 midsystolic murmur heard at the left sternal border.) Vessels: + JVD and radial pulses present; no carotid bruit Extremities: no edema Gastrointestinal (Abdomen): Inspection/Auscultation: normal bowel sounds; abdomen not distended Percussion/Palpation: abdomen soft; abdomen nontender, no guarding and abdomen not rigid Neurologic: CN's II-XI intact bilaterally and moves all extremities; no focal motor deficits Psychiatric: A+Ox3, euthymic affect Results & Data Vital Signs (Past 12 Hours) Vital Signs Temp Pulse Pulse Resp BP Pulse Ox O2 Del Method 04/08/23 11:58 36.8 C 59 L 17 117/68 96 Room Air 04/08/23 08:00 64 04/08/23 08:00 Room Air 04/08/23 07:20 36.4 C L 66 18 104/61 93 Room Air 04/08/23 03:40 36.3 C L 66 18 108/65 98 Room Air Laboratory Results CBC 04/08/23 Range/Units 06:36 WBC 4.24 L (4.8-10.8) K/ul RBC 4.34 L (4.70-6.10) M/uL Hgb 12.9 L (14.0-18.0) g/dl Hct 38.4 L (42.0-52.0) % Plt Count 180 (130-400) K/uL Comprehensive Metabolic Panel 04/08/23 Range/Units 06:36 Sodium 135 L (136-145) mmol/L Potassium 4.0 (3.5-5.1) mmol/L Chloride 101 (98-107) mmol/L Carbon Dioxide 22 (21-32) mmol/L BUN 35 H (6-23) mg/dl Creatinine 1.68 H D (0.6-1.4) mg/dl Glucose 148 H (70-99(Fasting)) mg/dl Calcium 9.3 (8.6-10.3) mg/dl Intake and Output 04/08/23 04/08/23 04/08/23 06:59 14:59 22:59 Intake Total 200 / 1522 560 / 560 Output Total 700 / 3600 501 / 501 Balance -500 / -2077 59 / 59 Intake: Oral 200 / 1522 560 / 560 Output: Urine 700 / 3600 500 / 500 # Bowel Movements 1 / Other: # Unmeasured Voids 2 Weight 75.2 kg Weight Measurement Method Standing Scale (1) Chest pain Chest pain type: unspecified Qualified Code(s): R07.9 - Chest pain, unspecified
[2023-04-09] MEDS: LEVOTHYROXINE SODIUM 25 MCG TABLET PO SCH (05:35)
[2023-04-09] MEDS: HEPARIN SOD 5,000 UNIT/0.5 ML VIAL SQ SCH ×3 (05:35→20:06)
[2023-04-09 07:41] LABS: Hematocrit (blood only) 38.6 % (42.0-52.0); Hemoglobin 12.8 g/dl (14.0-18.0); Mean Corpuscular Hemoglobin 29.8 pg (25.0-34.0); Mean Corpuscular Hgb Conc 33.2 g/dL (32.0-36.0); Mean Corpuscular Volume 89.8 fL (80.0-100.0); Mean Platelet Volume 10.3 fL (9.4-12.4); Platelet Count 211 K/uL (130-400); RDW Coefficient of Variation 13.4 % (11.5-14.5); RDW Standard Deviation 44.1 fL (36.4-46.3)
[2023-04-09 07:57] LABS: BUN Creatinine Ratio 23.9 (10-20); Calcium 9.5 mg/dl (8.6-10.3); Creatinine Clr Calc Pharmacy 33.1 ml/min; Est GFR (African American) 36.3 ml/min; Est GFR (Non-African American) 31.3 ml/min; Magnesium 2.5 mg/dl (1.7-2.4); Potassium 4.3 mmol/L (3.5-5.1)
[2023-04-09] MEDS: INSULIN ASPART PER UNIT CHARGE SC SCH ×4 (08:13→20:03)
[2023-04-09] MEDS: FERROUS SULFATE 325 MG TAB PO SCH ×2 (09:20→20:06)
[2023-04-09] MEDS: EMPAGLIFLOZIN 25 MG TAB PO SCH (09:21)
[2023-04-09] MEDS: ASPIRIN 81 MG ECTAB PO SCH ×2 (09:21→20:05)
[2023-04-09] MEDS: METOPROLOL SUCC 50MG EXT REL TAB PO SCH ×2 (09:21→20:06)
[2023-04-09] MEDS: EZETIMIBE 10 MG TAB PO SCH (09:21)
[2023-04-09] MEDS: gemfibroziL 600 MG TAB PO SCH ×2 (09:21→20:05)
[2023-04-09] MEDS: CHOLECALCIFEROL 1,000 UNITS 25 MCG TAB PO SCH (09:21)
[2023-04-09] MEDS: COLESTIPOL HCL 1 GM TAB PO SCH ×2 (09:22→20:05)
[2023-04-09] MEDS: PANTOprazole 40 MG TAB PO SCH ×2 (09:22→20:05)
[2023-04-09] MEDS: TICAGRELOR 90 MG TAB PO SCH ×2 (10:10→20:06)
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
--- NOTE | 2023-04-09 16:29 | Cardiology Progress Note ---
Date of Service April 09, 2023 Assessment & Plan (1) Chest pain: (2) Acute on chronic heart failure with reduced ejection fraction and diastolic dysfunction: (3) Elevated troponin I level: (4) Non-sustained ventricular tachycardia: Plan 77-year-old male with complex cardiovascular history noted above presented to the ER with epigastric discomfort and atypical chest pain. Mildly elevated troponin which are flat. X-ray evidence of mild pulmonary vascular congestion. Diuresed 2.5 L with clinical improvement, however, creatinine continues to trend upward. Hold additional diuretic therapy today. Repeat basic metabolic panel in AM. Continue Jardiance, low-dose aspirin, Brilinta, gemfibrozil, and Zetia as ordered. Metoprolol tartrate (75mg/day) discontinued in favor of evidence-based heart failure therapy Toprol-XL 50 mg twice daily. Lexiscan nuclear stress test will be performed as outpatient. Will arrange upon discharge. Admission and Anticipated Discharge Date Admission Date: April 07, 2023 Subjective Patient seen examined the bedside. Feeling well over the past 24 hours. No recurrent chest discomfort. Telemetry feels sinus rhythm. Tolerating titration of metoprolol to 50 mg twice daily. No recurrent ventricular tachycardia. Unfortunately, nuclear stress test cannot be performed today. The nuclear lab is currently closed for renovation. Elevated creatinine noted. Review of Systems Review of Systems: All systems reviewed & are unremarkable except as noted in Subjective Physical Exam Constitutional: well nourished; no acute distress Respiratory: no respiratory distress, no labored breathing and no retractions Auscultation: + rales (Scant rales at the right base); no rhonchi and no wheezes Cardiovascular: Rate/Rhythm: regular rate and regular rhythm Heart Sounds: normal S1, normal S2 and + murmur (1/6 midsystolic murmur heard at the left sternal border.) Vessels: radial pulses present; no JVD and no carotid bruit Extremities: no edema Gastrointestinal (Abdomen): Inspection/Auscultation: normal bowel sounds; abdomen not distended Percussion/Palpation: abdomen soft; abdomen nontender, no guarding and abdomen not rigid Neurologic: CN's II-XI intact bilaterally and moves all extremities; no focal motor deficits Psychiatric: A+Ox3, euthymic affect Results & Data Vital Signs (Past 12 Hours) Vital Signs Temp Pulse Pulse Resp BP Pulse Ox O2 Del Method 04/09/23 11:31 36.3 C L 75 18 102/68 96 Room Air 04/09/23 08:00 63 04/09/23 07:07 36.4 C L 66 18 119/65 97 Room Air Diagnostic Findings CBC 04/09/23 Range/Units 06:35 WBC 5.20 (4.8-10.8) K/ul RBC 4.30 L (4.70-6.10) M/uL Hgb 12.8 L (14.0-18.0) g/dl Hct 38.6 L (42.0-52.0) % Plt Count 211 (130-400) K/uL Comprehensive Metabolic Panel 04/09/23 Range/Units 06:35 Sodium 137 (136-145) mmol/L Potassium 4.3 (3.5-5.1) mmol/L Chloride 103 (98-107) mmol/L Carbon Dioxide 23 (21-32) mmol/L BUN 48 H (6-23) mg/dl Creatinine 2.01 H D (0.6-1.4) mg/dl Glucose 143 H (70-99(Fasting)) mg/dl Calcium 9.5 (8.6-10.3) mg/dl Intake and Output 04/09/23 04/09/23 04/09/23 06:59 14:59 22:59 Intake Total 750 / 750 Output Total 2000 300 / 300 Balance -500 / -1341 450 / 450 Intake: Oral 750 / 750 Output: Urine 500 / 1999 300 / 300 Other: Weight 74.9 kg Weight Measurement Method Standing Scale (1) Chest pain Chest pain type: unspecified Qualified Code(s): R07.9 - Chest pain, unspecified
--- NOTE | 2023-04-09 17:27 | Hospitalist Progress Note ---
Date of Service April 09, 2023 Assessment & Plan (1) Acute on chronic heart failure with reduced ejection fraction and diastolic dysfunction: Plan 77-year-old male with PMH of CAD (remote h/o CABG, STEMI in 07/2020 with resultant multivessel coronary stenting), ischemic cardiomyopathy with severe LV dysfunction, history of AICD placement, prior intolerance of JORDON and ARB type 2 diabetes, carotid artery disease following with vascular service, dyslipidemia with statin intolerance on a PCSK9 inhibitor presented w/ chest pain. He is being managed for the following: Atypical chest pain rule out ACS Acute on chronic heart failure with reduced ejection fraction and diastolic dysfunction Elevated troponin level Patient presented with epigastric pain radiating to chest wall reports improvement in the ED after aspirin. Patient has complex CAD history, history of STEMI in 07/2020 with resultant multivessel coronary stenting. Admitting troponin in 50s, flat trend. Admitting EKG appears similar to previous, with known LAFB, LVH, no acute ST changes Last echo in our system is from August 2020 with diffuse wall motion abnormalities and EF: 20-25% Echo this admission with EF of 20 to 25%, severely reduced LV systolic function, diffuse wall motion abnormality. Mild to moderate MR. Plan for nuclear stress test as OP. Continue DAPT [Brilinta, aspirin], Jardiance, gemfibrozil/Zetia. Metoprolol changed to succinate form to comply w/ GDMT for CHF. Patient is intolerant of statin, receives alirocumab every 2 weeks [last dose 03/29]. BILLY over CKD: Cr uptrended to 2.01, baseline around 1.3 to 1.5. given poor EF, nephro consulted, appreciate recs. BMP in AM. Non-sustained ventricular tachycardia: 10 beats of Vtach seen on ED monitor around 1623 on 04/06- asymptomatic at the time In setting of known ischemic cardiomyopathy with AICD Pacer interrogation, monitor replete electrolytes. Cardiology on board Monitor on tele Other chronic medical conditions: Continue with/resume home meds as and when able Ischemic cardiomyopathy/ AICD at end of battery life: Echo as above. Continue home meds. Hypertension: Continue home cardiac medications. T2DM: A1c 7.3 this admission. Sliding scale insulin while inpatient. 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 HLD: Intolerant to statin, continue other home regimens. See above. DVT prophylaxis: Subcutaneous heparin CODE STATUS: Full code Admission and Anticipated Discharge Date Admission Date: April 07, 2023 Subjective Patient was seen and examined at bedside. Patient was sitting up in chair, family members at bedside, on room air, resting comfortably, not in any acute distress. Patient reports no further chest pain while in the hospital, reports moving around okay, reports eating okay and moving bowels okay. stress test scheduled was cancelled today, plan for Outpatient stress test. Physical Exam Physical Exam: GENERAL: Alert and oriented x3. NAD, on RA. HEENT: No pallor, no icterus. Pupils equal, round and reactive to light. Oral mucosa moist. NECK: No JVD, no neck masses. HEART: S1 and S2 heard. Regular rate and rhythm. + murmur, no gallop. RESPIRATORY SYSTEM: Normal AP diameter. No accessory muscle use. No wheezing, basal crackles. ABDOMEN: Soft, bowel sounds present, nontender, no distention. CENTRAL NERVOUS SYSTEM: No facial droop. Speech is clear. Obeys simple commands. Moves extremities. EXTREMITIES: no edema, no erythema seen. Results & Data Results & Data Vital Signs (Past 12 Hours) Vital Signs Temp Pulse Pulse Resp BP Pulse Ox O2 Del Method 04/09/23 16:10 36.4 C L 60 18 123/65 97 Room Air 04/09/23 11:31 36.3 C L 75 18 102/68 96 Room Air 04/09/23 08:00 63 04/09/23 07:07 36.4 C L 66 18 119/65 97 Room Air
[2023-04-10] MEDS: HEPARIN SOD 5,000 UNIT/0.5 ML VIAL SQ SCH ×2 (05:59→13:52)
[2023-04-10] MEDS: LEVOTHYROXINE SODIUM 25 MCG TABLET PO SCH (05:59)
[2023-04-10 06:36] LABS: Hematocrit (blood only) 37.4 % (42.0-52.0); Hemoglobin 12.3 g/dl (14.0-18.0); Mean Corpuscular Hemoglobin 29.7 pg (25.0-34.0); Mean Corpuscular Hgb Conc 32.9 g/dL (32.0-36.0); Mean Corpuscular Volume 90.3 fL (80.0-100.0); Mean Platelet Volume 10.4 fL (9.4-12.4); Platelet Count 203 K/uL (130-400); RDW Coefficient of Variation 13.2 % (11.5-14.5); RDW Standard Deviation 43.6 fL (36.4-46.3); Red Blood Count 4.14 M/uL (4.70-6.10); White Blood Count 4.04 K/ul (4.8-10.8)
[2023-04-10 07:00] LABS: BUN Creatinine Ratio 30.4 (10-20); Calcium 9.3 mg/dl (8.6-10.3); Creatinine Clr Calc Pharmacy 37.1 ml/min; Est GFR (African American) 41.2 ml/min; Est GFR (Non-African American) 35.5 ml/min; Magnesium 2.3 mg/dl (1.7-2.4); Potassium 4.3 mmol/L (3.5-5.1)
[2023-04-10] MEDS: INSULIN ASPART PER UNIT CHARGE SC SCH ×2 (07:59→11:50)
[2023-04-10] MEDS: gemfibroziL 600 MG TAB PO SCH (08:00)
[2023-04-10] MEDS: CHOLECALCIFEROL 1,000 UNITS 25 MCG TAB PO SCH (08:00)
[2023-04-10] MEDS: PANTOprazole 40 MG TAB PO SCH (08:00)
[2023-04-10] MEDS: COLESTIPOL HCL 1 GM TAB PO SCH (08:00)
[2023-04-10] MEDS: EZETIMIBE 10 MG TAB PO SCH (08:00)
[2023-04-10] MEDS: FERROUS SULFATE 325 MG TAB PO SCH (08:00)
[2023-04-10] MEDS: ASPIRIN 81 MG ECTAB PO SCH (08:00)
[2023-04-10] MEDS: TICAGRELOR 90 MG TAB PO SCH (08:00)
[2023-04-10] MEDS: METOPROLOL SUCC 50MG EXT REL TAB PO SCH (08:01)
--- NOTE | 2023-04-10 11:00 | Nephrology Progress Note ---
Date of Service April 10, 2023 Assessment & Plan (1) BILLY (acute kidney injury): Plan: Patient with acute kidney injury likely hemodynamically mediated in the setting of diuresis and also sudden drop in his blood pressure from systolic of 160s to the 110s. baseline creatinine in [employer] [employer] appears to be 1.2-1.3. Patient appears euvolemic now. Electrolytes are stable and no indication for dialysis. He is making urine. -Continue holding Lasix today; does not take as OP; had one dose 04/07 40 mg IV > 2.5L UOP >jardiance was also held today; had doses on 04/08 and 04/09 which may contribute to renal issues -He will likely need some Lasix on discharge given severe cardiomyopath -He will need renal follow-up outpatient NEPHRO D/C RECS -hospital d/c appt w/ Dr Jarrett in [place] or [facility] in 1-2 wks -hold metformin and stop gemfibrozil at d/c pending f/u labs >>if cardiology feels gemfibrozil cannto be stopped would at least lower dose to once daily but prefer to hold and resume if we must depending on baseline renal function -cont to hold jardiance at hospital d/c given his BILLY and relative hypotension -recommend daily STANDING weight and bring log to cardiology nephro pcp appts -<2 gm daily sodium diet and 1.8L fluid limit at hospital d/c -recommend lasix 10 mg q Mon, Thurs >>will look to reintroduce jardiance after hospital d/c Care coordinated w/ Dr Cunningham (2) Acute on chronic heart failure with reduced ejection fraction and diastolic dysfunction: Plan: Patient admitted with chest pain and CHF. He improved with IV diuresis and control of his blood pressure. Patient is euvolemic now. Continue low-salt diet and consider starting a diuretic on discharge probably Lasix 20 mg daily Admission and Anticipated Discharge Date Admission Date: April 07, 2023 Subjective feeling well. up to toilet multiple times w/o chest pain; eating well; no epigastric discomfort or edema. Review of Systems 2 Review of Systems: All systems reviewed & are unremarkable except as noted in Subjective Physical Exam 2 Constitutional: well developed, well nourished and cooperative (on RA, maneuvers readily for exam); no acute distress Eyes: EOM intact bilaterally ENMT: Ears: no external ear abnormality Nose: no external nose abnormality Mouth: + dry oral mucous membranes Neck: no nuchal rigidity Respiratory: normal respiratory effort Auscultation: + diminished lung sounds Cardiovascular: RRR, no murmur, no edema Gastrointestinal (Abdomen): Inspection/Auscultation: normal bowel sounds P ercussion/Palpation: abdomen soft; abdomen nontender Musculoskeletal: Extremities: strength 5/5 throughout Skin: no rashes, warm and dry Neurologic: banks, fluent speech, no tremor Psychiatric: Orientation: alert and oriented x 3 Results & Data Vital Signs (Past 12 Hours) Vital Signs Temp Pulse Pulse Resp BP BP Pulse Ox 04/10/23 08:00 75 04/10/23 07:02 36.5 C 61 18 108/68 95 04/10/23 03:57 36.4 C L 64 17 127/69 96 04/09/23 23:34 36.4 C L 66 18 103/67 95 04/09/23 23:02 62 O2 Del Method 04/10/23 08:00 04/10/23 07:02 Room Air 04/10/23 03:57 Room Air 04/09/23 23:34 Room Air 04/09/23 23:02 Laboratory Results 04/10/23 05:53 04/10/23 05:53
--- NOTE | 2023-04-10 12:16 | Cardiology Progress Note ---
Date of Service April 10, 2023 Assessment & Plan (1) Chest pain: (2) Acute on chronic heart failure with reduced ejection fraction and diastolic dysfunction: (3) Elevated troponin I level: (4) Non-sustained ventricular tachycardia: Plan 77-year-old male with complex cardiovascular history noted above presented to the ER with epigastric discomfort and atypical chest pain. Mildly elevated troponin which are flat. X-ray evidence of mild pulmonary vascular congestion. Diuresed 2.5 L with clinical improvement. Creatinine trending upward to 2.0, however, improved today. Recommend repeat BMP post discharge. Continue Jardiance, low-dose aspirin, Brilinta, gemfibrozil, and Zetia as ordered. Metoprolol tartrate (75mg/day) discontinued in favor of evidence-based heart failure therapy Toprol-XL 50 mg twice daily. No recurrent ventricular tachycardia with titration of beta-albaro. Recommend continuing metoprolol succinate 50 mg twice daily at discharge. Lexiscan nuclear stress test will be performed as outpatient. No further inpatient cardiac testing or intervention recommended at this time. Cardiology will sign off. Please call with additional concerns/questions. Admission and Anticipated Discharge Date Admission Date: April 07, 2023 Subjective Patient seen examined the bedside. Feeling well today. Serum creatinine trend ing downward. Denies chest pain or shortness of breath. No recurrent ventricular tachycardia overnight. Anxious for discharge. Review of Systems Review of Systems: All systems reviewed & are unremarkable except as noted in Subjective Physical Exam Constitutional: well nourished; no acute distress Respiratory: no respiratory distress, no labored breathing and no retractions Auscultation: + rales (Scant rales at the right base); no rhonchi and no wheezes Cardiovascular: Rate/Rhythm: regular rate and regular rhythm Heart Sounds: normal S1, normal S2 and + murmur (1/6 midsystolic murmur heard at the left sternal border.) Vessels: radial pulses present; no JVD and no carotid bruit Extremities: no edema Gastrointestinal (Abdomen): Inspection/Auscultation: normal bowel sounds; abdomen not distended Percussion/Palpation: abdomen soft; abdomen nontender, no guarding and abdomen not rigid Neurologic: CN's II-XI intact bilaterally and moves all extremities; no focal motor deficits Psychiatric: A+Ox3, euthymic affect Results & Data Vital Signs (Past 12 Hours) Vital Signs Temp Pulse Pulse Resp BP BP Pulse Ox 04/10/23 11:04 36.6 C 57 L 18 118/68 96 04/10/23 08:00 75 04/10/23 07:02 36.5 C 61 18 108/68 95 04/10/23 03:57 36.4 C L 64 17 127/69 96 O2 Del Method 04/10/23 11:04 Room Air 04/10/23 08:00 04/10/23 07:02 Room Air 04/10/23 03:57 Room Air (1) Chest pain Chest pain type: unspecified Qualified Code(s): R07.9 - Chest pain, unspecified
--- NOTE | 2023-04-10 13:41 | Discharge Summary ---
Date of Service April 10, 2023 Admission HPI Per Admitting Provider This is a 77-year-old male with PMH of CAD (remote h/o CABG, STEMI in 07/2020 with resultant multivessel coronary stenting), ischemic cardiomyopathy with severe LV dysfunction, history of AICD placement, prior intolerance of JORDON and ARB type 2 diabetes, carotid artery disease following with vascular service, dyslipidemia with statin intolerance on a PCSK9 inhibitor and other medical problems listed below who presents with chest pain. Was seen at the [facility] earlier today with upper abdominal and lower chest discomfort that he developed today. Was sent to the ED for further evaluation. Patient woke up in his normal state of health and took his medications. Around 1030/1045, developed sudden discomfort in lower chest/epigastric area with radiation up central chest wall as well as the right side. States he shivering and cold with pain not fully subsiding for over an hour. Also associated headache at base of head/neck that feels similar to his presentation with prior HI in 2020. Denies any associated shortness of breath, diaphoresis. No lightheadedness. Follows with Dr. Rodriguez for cardiac care and is on Brilinta and aspirin 81 mg twice daily as well as metoprolol tartrate 25 mg p.o. twice daily. Receives alirocumab injections every 2 weeks (last received on 03/29). Last echo in our system is from August 2020 with diffuse wall motion abnormalities and EF: 20-25%. Also has remote history of carcinoid tumor of the duodenum and had an EGD in 2020 for work up of dysphagia revealing gastritis. Denies any difficulty swallowing or changes to appetite associated with today's lower chest pain. No F/C, lightheadedness, SOB, N/V, dysuria, diarrhea or constipation. Admission Exam Per Admitting Provider General Appearance: WD/WN, vitals as above, NAD, elderly chronically ill appearing gentleman Head: normocephalic, atraumatic Eyes: normal inspection, PERRL, conjunctivae normal, anicteric sclerae ENT: external ear and nose normal, oropharynx normal Neck: normal visual inspection, trachea midline, no thyromegaly Respiratory: normal respiratory effort, lungs clear to auscultation, no wheeze, rales, rhonchi. No accessory muscle use Cardiovascular: tachycardic rate, rhythm, no murmur, normal peripheral pulses, trace BLE edema. Vessels: no JVD Chest: normal inspection of chest, non-tender to palpation Abdomen/GI: normal bowel sounds, soft, nontender, no hepatosplenomegaly Extremities/Musculoskeletal: no cyanosis or clubbing, extremities motor strength 5/5 Neurologic: PERRL, EOMI, accommodation nl, no face palsy, no dysarthria, CN's II-XI intact bilaterally and moves all extremities Psychiatric: A+Ox3, euthymic affect Skin: no rashes, normal color, warm/dry Principal Diagnosis Atypical chest pain rule out ACS Acute kidney injury over CKD Nonsustained ventricular tachycardia Discharge Exam GENERAL: Alert and oriented x3. NAD, on RA. HEENT: No pallor, no icterus. Pupils equal, round and reactive to light. Oral mucosa moist. NECK: No JVD, no neck masses. HEART: S1 and S2 heard. Regular rate and rhythm. + murmur, no gallop. RESPIRATORY SYSTEM: Normal AP diameter. No accessory muscle use. No wheezing, basal crackles. ABDOMEN: Soft, bowel sounds present, nontender, no distention. CENTRAL NERVOUS SYSTEM: No facial droop. Speech is clear. Obeys simple commands. Moves extremities. EXTREMITIES: no edema, no erythema seen. Discharge Data Allergies Allergy/AdvReac Type Severity Reaction Status Date / Time atorvastatin Allergy Unknown Hives Verified 03/09/21 08:05 swelling of legs [id number] Reductase AdvReac Intermediate hives and Verified 03/09/21 08:05 Inhibitor swelling of legs Consultations 04/06/23 14:39 ED Decision to Admit Stat 04/06/23 15:44 Consult Cardiology Routine 04/09/23 09:06 Consult Nephrology Routine Hospital Course (1) Acute on chronic heart failure with reduced ejection fraction and diastolic dysfunction: Plan 77-year-old male with PMH of CAD (remote h/o CABG, STEMI in 07/2020 with resultant multivessel coronary stenting), ischemic cardiomyopathy with severe LV dysfunction, history of AICD placement, prior intolerance of JORDON and ARB type 2 diabetes, carotid artery disease following with vascular service, dyslipidemia with statin intolerance on a PCSK9 inhibitor presented w/ chest pain. He was managed for the following: Atypical chest pain rule out ACS Acute on chronic heart failure with reduced ejection fraction and diastolic dysfunction Elevated troponin level Patient presented with epigastric pain radiating to chest wall reports improvement in the ED after aspirin. Patient has complex CAD history, history of STEMI in 07/2020 with resultant multivessel coronary stenting. Admitting troponin in 50s, flat trend. Admitting EKG appears similar to previous, with known LAFB, LVH, no acute ST changes Last echo in our system is from August 2020 with diffuse wall motion abnormalities and EF: 20-25% Echo this admission with EF of 20 to 25%, severely reduced LV systolic function, diffuse wall motion abnormality. Mild to moderate MR. Plan for nuclear stress test as OP. Continue DAPT [Brilinta, aspirin], Zetia. Metoprolol changed to succinate form to comply w/ GDMT for CHF. Patient is intolerant of statin, receives alirocumab every 2 weeks [last dose 03/29]. Gemfibrozil and jardiance being held upon dc, pt aware. pt to f/u w/ PCP office w/in a week time for BMP and possibly resuming them. BILLY over CKD: Cr uptrended to 2.01, baseline around 1.3 to 1.5. given poor EF, nephro consulted, appreciate recs. Downtrending Cr. Pt to have BMP done in 2-3 days, f/u PCP in a week, nephro in a week. Non-sustained ventricular tachycardia: 10 beats of Vtach seen on ED monitor around 1623 on 04/06- asymptomatic at the [facility] In setting of known ischemic cardiomyopathy with AICD Pacer interrogation, monitor replete electrolytes. Cardiology on board, appreciate recommendation. Other chronic medical conditions: Continue with/resume home meds as and when able Ischemic cardiomyopathy/ AICD at end of battery life: Echo as above. Continue home meds. Hypertension: Continue home cardiac medications. T2DM: A1c 7.3 this admission. Sliding scale insulin while inpatient. 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 HLD: Intolerant to statin, continue other home regimens. See above. DVT prophylaxis: Subcutaneous heparin CODE STATUS: Full code Patient is being discharged to home with family support with following instruction at the point of discharge: Follow-up with your primary care physician within a week time and likely you will need labs CBC/CMP/magnesium/phosphorus. Follow-up with cardiology in 1 to 2 weeks time upon discharge, you will need outpatient Lexiscan nuclear stress test. You will need repeat BMP preferably in 2 to 3 days time, and hence likely you will be restarted on your medications that are being held today. You will need to be evaluated by PCP office preferably within a week time. Follow-up with nephrology in 1 to 2 weeks time upon discharge. Your diabetic medications metformin and Jardiance will be held on discharge. Continue with alogliptin. Continue with dietary discretion. As discussed at the bedside monitor your fingerstick glucose up to 3 times a day, maintain a log, if it is consistently above 250, coordinate care with your diabetic clinic. Also your gemfibrozil will be held upon discharge until further evaluation by either PCP or nephrology or cardiology after your BMP in 2 to 3 days time of discharge. You are discharged on Lasix 10 mg on Mondays and . Maintain low-sodium diet [less than 2 g daily], fluid restriction of 1.8 L a day. Take your medications as prescribed. Please make sure that you are able to get your medications today by calling your pharmacy before you leave the hospital so that your treatment continuity is not broken. Home Health Attestation I certify that this patient is under my care and that I, or a physicians fleet administrative assistant working with me, had a face to-face encounter that meets the home health [id number] encounter requirements with this patient. The encounter with the patient was in whole, or in part, for the following medical condition, which is the primary reason for home health care (list medical condition): I certify that, based on my findings, the following services are medically necessary home health services: My clinical findings support the need for the above services because: Further, I certify that my clinical findings support that this patient is homebound (i.e. absences from home require considerable and taxing effort and are for medical reasons or faith services or infrequently or of short duration when for other reasons) because: Certification for Home Health Services: Based on the above findings, I certify that this patient is confined to the home and needs intermittent halfway care, physical therapy and/or speech therapy or continues to need occupational therapy. The patient is under my care, and I have initiated the establishment of the plan of care. This patient will be followed by a physician who will periodically review the plan of care. Total Time Total Time Spent Total Time Spent (In Minutes): 45 Discharge Plan Discharge Items Patient Disposition: Home - Self-Care Reason For Visit: CP, EPIGASTRIC PAIN Discharge Diagnosis: Atypical chest pain rule out ACS Acute kidney injury over CKD Nonsustained ventricular tachycardia Activity: Resume your previous activity Non-emergency contact: Primary Care Provider Call non-emergency contact if: you have any medication questions, your symptoms worsen and your temperature is above 101.5 Follow-up/Referrals: PCP,NO [Primary Care Provider] - Diet: Carb Consistent or DM2, Heart Healthy and Low Sodium (2gm) Addtl Attending Provider Instructions: Follow-up with your primary care physician within a week time and likely you will need labs CBC/CMP/magnesium/phosphorus. Follow-up with cardiology in 1 to 2 weeks time upon discharge, you will need outpatient Lexiscan nuclear stress test. You will need repeat BMP preferably in 2 to 3 days time, and hence likely you will be restarted on your medications that are being held today. You will need to be evaluated by PCP office preferably within a week time. Follow-up with nephrology in 1 to 2 weeks time upon discharge. Your diabetic medications metformin and Jardiance will be held on discharge. Continue with alogliptin. Continue with dietary discretion. As discussed at the bedside monitor your fingerstick glucose up to 3 times a day, maintain a log, if it is consistently above 250, coordinate care with your diabetic clinic. Also your gemfibrozil will be held upon discharge until further evaluation by either PCP or nephrology or cardiology after your BMP in 2 to 3 days time of discharge. You are discharged on Lasix 10 mg on Mondays and . Maintain low-sodium diet [less than 2 g daily], fluid restriction of 1.8 L a day. Take your medications as prescribed. Please make sure that you are able to get your medications today by calling your pharmacy before you leave the hospital so that your treatment continuity is not broken. Pending Studies at Discharge: No Stand-Alone Forms: My [employer], Smoking Cessation Medications and DC Order Prescriptions: New metoprolol succinate 50 mg Tablet Extended Release 24 Hr 50 mg PO BID Qty: 60 0RF furosemide 20 mg tablet 10 mg PO UD Qty: 10 0RF Rx Instructions: Take 10 mg Lasix every Sunday and . Continued alogliptin [Nesina] 12.5 mg tablet 12.5 mg PO QAM cholecalciferol (vitamin D3) 25 mcg (1,000 unit) capsule 25 mcg PO QAM aspirin 81 mg Tablet,Delayed Release (Dr/Ec) 81 mg PO BID levothyroxine 25 mcg Tablet 25 mcg PO QAM ferrous sulfate [iron] 325 mg (65 mg iron) Tablet 325 mg PO BID nitroglycerin 0.4 mg Tablet, Sublingual 0.4 mg sublingual UD PRN (Reason: Chest Pain) colestipol 1 gram Tablet 2 g PO QAM ezetimibe [Zetia] 10 mg Tablet 10 mg PO QAM cyanocobalamin (vitamin B-12) [Vitamin B-12] 500 mcg Tablet 1,000 mcg PO BID fluticasone propionate 50 mcg/actuation [place],Suspension 2 spray INTRANASAL DAILY PRN (Reason: Allergy Symptoms) colestipol 1 gram Tablet 1 g PO HS omeprazole 20 mg Tablet,Delayed Release (Dr/Ec) 20 mg PO BID Brilinta 90 mg Tablet 90 mg PO BID Qty: 60 2RF alirocumab 75 mg/mL Pen Injector 75 mg SUBCUT Q14D Rx Instructions: last had on 03/29 tramadol 50 mg tablet 50 mg PO BID PRN (Reason: pain) Qty: 11 0RF Held gemfibrozil 600 mg Tablet 600 mg PO BID Hold Instructions: Resume on 04/17/23. Resume once BMP done and you are evaluated by PCP within a week time. metformin 850 mg Tablet 850 mg PO BID Hold Instructions: Resume on 04/17/23. Resume once BMP done and you are evaluated by PCP within a week time. empagliflozin 25 mg Tablet 12.5 mg PO QAM Hold Instructions: Resume on 04/17/23. Resume once BMP done and you are evaluated by PCP within a week time. Discontinued metoprolol tartrate 50 mg Tablet 25 mg PO BID Discharge Orders: Discharge Order (Routine); Ordered 04/10/23 Ordered By: Sylvie Mendiola/Other Patient Handouts: Managing Type 2 Diabetes Admission Data Admit Date/Time: 04/07/23 15:10 Attending Provider: Sylvie Cunningham Admit Provider: Sylvie Cunningham Primary Care Provider: PCP,NO Other Providers: Geneva Ballard; Diogo Del Angel; Alea Jarrett
== END 2023-04-10 15:36 | disposition home or self-care (01) | DRG 291 ==
LOC: EDINP 13:11 → ED 13:11 → SUATTDRO 15:39 → 2S 16:40

== ENCOUNTER 2025-02-12 05:13 | Inpatient (IN) ==
[2025-02-12 05:54] LABS: Hematocrit (blood only) 29.8 % (42.0-52.0); Hemoglobin 10.2 g/dL (14.0-18.0); Immature Granulocytes # (auto) 0.02 K/uL (0.01-0.20); Immature Granulocytes % (auto) 0.7 %; Mean Corpuscular Hemoglobin 30.4 pg (25.0-34.0); Mean Corpuscular Volume 88.7 fL (80.0-100.0); Platelet Count 181 K/uL (130-400); RDW Standard Deviation 47.3 fL (36.4-46.3); Red Blood Count 3.36 M/uL (4.70-6.10); White Blood Count 2.92 K/ul (4.8-10.8)
--- NOTE | 2025-02-12 06:06 | Emergency Department Note ---
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 Respiratory Problems Stated Complaint: CAN'T BREATHE ED Provider: Julio Montalvo Discharge Problem: V-tach, Shortness of breath, Elevated troponin, Chills Condition: Fair Discharge Instructions Interventions: ED Discharge Assessment Last Done: 02/12/25 10:11 Forms Stand Alone Forms: My [facility] Prescriptions Prescriptions: No Action alogliptin [Nesina] 12.5 mg tablet 12.5 mg PO QAM cholecalciferol (vitamin D3) 25 mcg (1,000 unit) capsule 25 mcg PO QAM aspirin 81 mg Tablet,Delayed Release (Dr/Ec) 81 mg PO BID levothyroxine 25 mcg Tablet 25 mcg PO QAM gemfibrozil 600 mg Tablet 600 mg PO BID Hold Instructions: Resume on 04/17/23. Resume once BMP done and you are evaluated by PCP within a week time. ferrous sulfate [iron] 325 mg (65 mg iron) Tablet 325 mg PO BID nitroglycerin 0.4 mg Tablet, Sublingual 0.4 mg sublingual UD PRN (Reason: Chest Pain) colestipol 1 gram Tablet 2 g PO QAM ezetimibe [Zetia] 10 mg Tablet 10 mg PO QAM metformin 850 mg Tablet 850 mg PO BID Hold Instructions: Resume on 04/17/23. Resume once BMP done and you are evaluated by PCP within a week time. cyanocobalamin (vitamin B-12) [Vitamin B-12] 500 mcg Tablet 1,000 mcg PO BID fluticasone propionate 50 mcg/actuation [place],Suspension 2 spray INTRANASAL DAILY PRN (Reason: Allergy Symptoms) colestipol 1 gram Tablet 1 g PO HS omeprazole 20 mg Tablet,Delayed Release (Dr/Ec) 20 mg PO BID empagliflozin 25 mg Tablet 12.5 mg PO QAM Hold Instructions: Resume on 04/17/23. Resume once BMP done and you are evaluated by PCP within a week time. Brilinta 90 mg Tablet 90 mg PO BID Qty: 60 2RF alirocumab 75 mg/mL Pen Injector 75 mg SUBCUT Q14D Rx Instructions: last had on 03/29 tramadol 50 mg tablet 50 mg PO BID PRN (Reason: pain) Qty: 11 0RF metoprolol succinate 50 mg Tablet Extended Release 24 Hr 50 mg PO BID Qty: 60 0RF furosemide 20 mg tablet 10 mg PO UD Qty: 10 0RF Rx Instructions: Take 10 mg Lasix every Sunday and . Referrals Referrals: PCP,NO [Primary Care Provider] -
[2025-02-12 06:13] LABS: Alanine Aminotransferase 42.0 U/L (7-52); Albumin Globulin Ratio 1.2 (0.9-2); Albumin Level 3.8 gm/dl (3.4-5.0); Alkaline Phosphatase 99.0 U/L (34-104); Anion Gap 14.0 (3-11); Bilirubin,Total 1.3 mg/dl (0.2-1.0); Blood Urea Nitrogen 25.0 mg/dl (6-23); Calcium 9.5 mg/dl (8.6-10.3); Carbon Dioxide 14.0 mmol/L (21-32); Chloride 104.0 mmol/L (98-107); Creatinine Clr Calc Pharmacy 59.3 ml/min; Globulin 3.1 gm/dl (2.5-4.0); Glucose 220.0 mg/dl (70-99(Fasting)); Potassium 3.8 mmol/L (3.5-5.1); Sodium 132.0 mmol/L (136-145); Total Protein 6.9 gm/dl (6.0-8.3)
[2025-02-12] MEDS: SODIUM CHLORIDE 0.9% 500 ML IV ONE (06:19)
[2025-02-12 06:29] LABS: INR 1.1 (0.9-1.1); Partial Thromboplastin Time 25 Seconds (21-31); Prothrombin Time 11.3 Seconds (9.0-12.0)
[2025-02-12 06:33] LABS: Influenza A virus by PCR Negative (Neg); Influenza B virus by PCR Negative (Neg); SARS CoV2 RNA(COVID-19) Ceph NEGATIVE (Negative)
--- NOTE | 2025-02-12 06:33 | XRay Report ---
EXAM: XR chest 1V not portable CLINICAL HISTORY: Chest pain, nonspecific TECHNIQUE: Radiograph of chest was acquired. COMPARISON: 08/22/2020 FINDINGS: Cardiomegaly Prominent peripheral and perihilar bronchovascular markings in bilateral lung villavicencio are likely of congestive etiology, clinical correlation is recommended. Left costophrenic angle is not covered in current study. Rest of the cardiomediastinal silhouette is within normal limits. No acute osseous abnormality. Implantable cardioverter defibrillator noted in situ. IMPRESSION: Cardiomegaly Prominent peripheral and perihilar bronchovascular markings in bilateral lung villavicencio are likely of congestive etiology, clinical correlation is recommended. Implantable cardioverter defibrillator noted in situ. All the findings are stable, no new findings Electronically signed by Evan Ulrich 02-12-2025 06:33 AM
[2025-02-12] MEDS: OPTIRAY 320 125ml IV ONE (07:35)
[2025-02-12] MEDS: ASPIRIN CHEW 324 MG PO STA (07:52)
[2025-02-12 08:49] LABS: Base Excess VBG -7.5 mEq/L; HCO3 VBG 16 mmol/L; Oxygen Saturation VBG 88.2 %; PCO2 VBG 25 mmHg (38-50); PO2 VBG 54 mmHg; pH VBG 7.41 (7.36-7.41)
--- NOTE | 2025-02-12 08:59 | CT Scan Report ---
EXAM: CT angio chest PE protocol CLINICAL HISTORY: PE TECHNIQUE: Contiguous 3.[address] angiographic images of the chest were acquired with the administration of intravenous contrast. Coronal and sagittal reconstructions were obtained. 112ml optiray 320 was administered for post-contrast images. One of these 3D techniques was utilized: Maximum Intensity Pixel (MIP), 3D Reconstructed Images, Volume Rendered Images, Surface Shaded Rendering. One of the following dose reduction techniques were utilized for this exam: Automated exposure control, adjustment of the mA and/or kV according to patient size, and use of iterative reconstruction. COMPARISON: CT 12-13-2020, CTA 08-23-2020 and CR 04/06/2023. FINDINGS: Aorta: The thoracic aorta is normal in caliber. No evidence of aneurysm, dissection, or significant atherosclerotic changes. Aortic arch and descending thoracic aorta are unremarkable. Pulmonary Arteries: Prominent diameter of the main pulmonary artery (30 mm). No evidence of pulmonary embolism. No stenosis or filling defects. Superior Vena Cava (SVC) and Inferior Vena Cava (IVC): Normal opacification and caliber. No evidence of thrombus or obstruction. Coronary Arteries: Coronary arteries are well-opacified. No significant stenosis or atherosclerotic changes. Mediastinum: No mediastinal mass or lymphadenopathy. Normal appearance of the thymus. Heart: Cardiomegaly. No pericardial effusion. Still seen applied pacemaker. Lungs: Progression of the previously noted basal aelectasis now seen as interstitial thickening, involving both lower lobes Newly seen right minimal pleural effusion/thickening No left pleural effusion or thickening. Bones: No fractures or lytic/sclerotic lesions of the visualized bony structures. Normal alignment and bone density. Soft Tissues: Normal appearance of the visualized soft tissues. No abnormal masses or fluid collections. Upper abdominal cuts show newly developed right hepatic lobe segment VIII hypodense focal lesions 2.6 x 2.7 cm IMPRESSION: 1. No evidence of pulmonary embolism. 2. Progression of the previously noted interstitial thickening, involving both lower lobes, can be related to interstitial pulmonary edema versus interstitial lung disease, clinical correlation and follow up. 3. Cardiomegaly (stable). 4. A prominent main pulmonary artery, could be due to pulmonary hypertension. 5. Newly seen right minimal pleural effusion/thickening. 6. Upper abdominal cuts show newly developed right hepatic lobe segment VIII hypodense focal lesions 2.6 x 2.7 cm, a dedicated study is recommended. Electronically signed by Arik Hale 02-12-2025 08:59 AM
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
[2025-02-12] MEDS ORDERED: CARBOHYDRATES FOR HYPOGLYCEMIA PO PRN (09:18)
[2025-02-12] MEDS ORDERED: DEXTROSE 50% 50 ML SYRINGE IV PRN (09:18)
[2025-02-12] MEDS ORDERED: GLUCOSE 10 TAB/TUBE PO PRN (09:18)
[2025-02-12] MEDS ORDERED: GLUCOSE 40% GEL 15 GM TUBE PO PRN (09:18)
[2025-02-12] MEDS ORDERED: GLUCAGON FOR INJ 1 MG VIAL SQ PRN (09:18)
--- NOTE | 2025-02-12 10:09 | XCELERA ---
[id number]
[2025-02-12 10:32] LABS: Cholesterol 121.0 mg/dl (0-200); HDL Cholesterol 36.0 mg/dl; Triglycerides 173.0 mg/dl (0-150)
[2025-02-12] MEDS ORDERED: POLYETHYLENE (MIRALAX) 17 GM PACK PO PRN (10:40)
[2025-02-12] MEDS ORDERED: ONDANSETRON INJ 2 MG/ML 2 ML VIAL IV PRN (10:40)
[2025-02-12 10:48] LABS: Thyroid Stimulating Hormone 0.893 uIu/ml (0.300-4.500)
[2025-02-12 11:24] LABS: Hemoglobin A1C 7.2 % (4.5-5.6)
[2025-02-12] MEDS: HEPARIN SOD 5,000 UNIT/0.5 ML VIAL SQ SCH (11:41)
[2025-02-12] MEDS: INSULIN ASPART PER UNIT CHARGE SC SCH (12:48)
[2025-02-12 13:25] LABS: Appearance Urine Clear (Clear); Bacteria Urine Automated None Seen (None Seen); Cast Urine Automated 0-2 /lpf (0-2); Epithelial Cell Urine Auto 0-2 /hpf (0-2); Glucose Urine UA 3+ (Negative); RBC Urine Automated 0-2 /hpf (0-2); WBC Urine Automated 0-5 /hpf (0-5)
[2025-02-12] MEDS: HEPARIN 25000 UNIT/500 ML D5W 25,000 UNITS/500 ML BAG IV SCH (14:37)
[2025-02-12] MEDS: Heparin IV Adult Wt-Based Low-Dose w/ INITIAL Bolus Protocol IV STA (14:40)
[2025-02-12] MEDS: HEPARIN SOD (PORCINE) 1000 UNIT/ML IV ONE (14:40)
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
[2025-02-12 15:09] LABS: Magnesium 1.8 mg/dl (1.7-2.4)
[2025-02-12] MEDS: POTASSIUM CHLORIDE 20 MEQ/15 ML UDC PO STA (16:31)
[2025-02-12] MEDS: SODIUM CHLORIDE 0.9% 500 ML IV SCH (16:31)
[2025-02-12] MEDS: ACETAMINOPHEN 325 MG TAB PO PRN (17:26)
[2025-02-12] MEDS: OPTIRAY 320 100ml IV ONE (20:28)
--- NOTE | 2025-02-12 20:56 | CT Scan Report ---
Exam(s): CT ABDOMEN + PELVIS With Contrast IV Amt: 90 ml optiray 320 EXAM: CT Abdomen and Pelvis With Intravenous Contrast CLINICAL HISTORY: Reason for exam: radiation therapy. TECHNIQUE: Axial computed tomography images of the abdomen and pelvis with intravenous contrast. CTDI is 22 mGy and DLP is 1074 mGy-cm. Automated exposure control was utilized for the study. A dose lowering technique was utilized adhering to the principles of ALARA. CONTRAST: Patient received 90 ml optiray 320 of IV contrast COMPARISON: 10/28/2021 mixed field fibrotic changes in both lung bases, slightly worse than previous. FINDINGS: Lung bases: Unremarkable. No mass. No consolidation. ABDOMEN: Liver: Complex 4.5 cm gas collection in the right liver lobe. Gallbladder and bile ducts: Trace amount of gas within an otherwise unremarkable gallbladder. No gallstones or surrounding inflammation. No biliary duct dilation or choledocholithiasis. Pancreas: Unremarkable. No mass. No ductal dilation. Spleen: Unremarkable. No splenomegaly. Adrenals: Unremarkable. No mass. Kidneys and ureters: Mild left renal atrophy. There are numerous small cysts throughout both kidneys. No follow-up is required. No hydronephrosis. Stomach and bowel: Unremarkable. No obstruction. No mucosal thickening. PELVIS: Appendix: The appendix is normal. Bowel loops are nondilated. No acute inflammatory changes are seen involving the bowel. Bladder: The urinary bladder is partially distended with contrast but unremarkable. Reproductive: Unremarkable as visualized. ABDOMEN and PELVIS: Intraperitoneal space: Unremarkable. No free air. No significant fluid collection. Bones/joints: Metal artifact from left hip arthroplasty. No hip or pelvic fracture is seen. Mild degenerative changes in the spine. No acute fracture or subluxation. Soft tissues: Unremarkable. Vasculature: The abdominal aorta is severely calcified. No aneurysm or dissection. There is moderate stenosis of the origin of both common iliac arteries. Lymph nodes: Unremarkable. No enlarged lymph nodes. IMPRESSION: 1. Complex 4.5 cm gas collection in the right liver lobe. Consider abscess and/or necrosis. Correlate with prior local regional tumor treatment. The other previously seen faint liver lesions are no longer visible. 2. The appendix is normal. Bowel loops are nondilated. No acute inflammatory changes are seen involving the bowel. No other acute process is seen within the abdomen or pelvis. Electronically signed by: Efrem Ragland MD 02/12/25 20:56 PM
[2025-02-12 21:06] LABS: ANTI-Xa, UFH(UnfractionatedHep 0.42 IU/ml (0.3-0.7)
[2025-02-12] MEDS ORDERED: VANCOMYCIN CONSULT ACTIVE PRN (21:35)
[2025-02-12] MEDS: CYANOCOBALAMIN (B-12) 500 MCG TABLET PO SCH (21:44)
[2025-02-12] MEDS: ASPIRIN 81 MG ECTAB PO SCH (21:44)
[2025-02-12] MEDS: COLESTIPOL HCL 1 GM TAB PO SCH (21:45)
[2025-02-12] MEDS ORDERED: PIPERACILLIN/TAZOBACTAM 4.5 GM/100 ML BAG IV SCH (21:45)
[2025-02-12] MEDS: METOPROLOL SUCC 50MG EXT REL TAB PO SCH (21:46)
--- NOTE | 2025-02-12 22:00 | Electrocardiogram Report ---
Test Reason : Blood Pressure : */* mmHG Vent. Rate : 109 BPM Atrial Rate : 109 BPM P-R Int : 202 ms QRS Dur : 114 ms QT Int : 316 ms P-R-T Axes : 69 -59 110 degrees QTcB Int : 425 ms Sinus tachycardia with occasional Premature ventricular complexes Possible Left atrial enlargement Left axis deviation Left ventricular hypertrophy with repolarization abnormality ( R in aVL , Praful product ) Abnormal ECG When compared with ECG of 06-Apr-2023 13:27, Premature ventricular complexes are now Present Confirmed by Manny Evans ([id number]) on 02/12/2025 10:00:01 PM Referred By: REFERRED SELF Confirmed By: Manny Evans
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
[2025-02-12] MEDS: ACETAMINOPHEN 1,000 MG/100 ML VIAL IV STA (22:33)
[2025-02-12] MEDS: TICAGRELOR 90 MG TAB PO SCH (22:33)
[2025-02-12] MEDS: VALSARTAN/SACUBITRIL 26/24MG TAB PO SCH (22:33)
[2025-02-12] MEDS: PIPERACILLIN/TAZOBACTAM 4.5 GM/100 ML BAG IV ONE (22:38)
[2025-02-12] MEDS: VANCOMYCIN HCL 1,750 MG in SODIUM CHLORIDE 0.9% 500 ML IV ONE (22:49)
[2025-02-13] MEDS: HYDROmorphone INJ 0.5 MG/0.5 ML SYR IV STA (00:32)
[2025-02-13] MEDS: LEVOTHYROXINE SODIUM 25 MCG TABLET PO SCH (05:57)
[2025-02-13] MEDS: PIPERACILLIN/TAZOBACTAM 4.5 GM/100 ML BAG IV SCH ×2 (05:58→18:01)
[2025-02-13] MEDS: VANCOMYCIN HCL 1,250 MG in SODIUM CHLORIDE 0.9% 250 ML IV SCH (05:58)
[2025-02-13] MEDS ORDERED: VANCOMYCIN HCL 1,250 MG in SODIUM CHLORIDE 0.9% 250 ML IV SCH (06:00)
[2025-02-13 06:09] LABS: Hematocrit (blood only) 27.5 % (42.0-52.0); Hemoglobin 9.2 g/dL (14.0-18.0); Mean Corpuscular Hemoglobin 29.9 pg (25.0-34.0); Mean Corpuscular Volume 89.3 fL (80.0-100.0); Platelet Count 153 K/uL (130-400); RDW Standard Deviation 47.5 fL (36.4-46.3); Red Blood Count 3.08 M/uL (4.70-6.10); White Blood Count 7.61 K/ul (4.8-10.8)
[2025-02-13 06:27] LABS: ANTI-Xa, UFH(UnfractionatedHep 0.56 IU/ml (0.3-0.7)
[2025-02-13 06:28] LABS: Anion Gap 15.0 (3-11); Blood Urea Nitrogen 36.0 mg/dl (6-23); Calcium 8.7 mg/dl (8.6-10.3); Carbon Dioxide 11.0 mmol/L (21-32); Chloride 101.0 mmol/L (98-107); Creatinine Clr Calc Pharmacy 32.3 ml/min; Glucose 307.0 mg/dl (70-99(Fasting)); Magnesium 1.7 mg/dl (1.7-2.4); Potassium 4.9 mmol/L (3.5-5.1); Sodium 127.0 mmol/L (136-145)
[2025-02-13] MEDS: CHOLECALCIFEROL 25 MCG (1000 UNITS) TAB PO SCH (07:44)
[2025-02-13] MEDS: EZETIMIBE 10 MG TAB PO SCH (07:44)
--- NOTE | 2025-02-13 08:57 | Pharmacy Report ---
Pharmacy PK ABX Note - Date of Service February 13, 2025 - Assessment and Plan Assessment 79 year old M receiving vancomycin/zosyn for concerns for abnormal CT scan of abdomen/pelvis with potential necrosis and/or abscess of the liver. PMHx significant for hepatocellular carcinoma. Surgery consulted - recommending continuation of broad spectrum antibiotics and to monitor. Potential for having IR look at scans to see if anything is drainable if condition worsens. Not candidate for invasive procedures d/t cardiovascular status. Plan Vancomycin * Loading dose: 1750 mg x 1 * Started on vancomycin 1250 mg iv q 24 hours - Scr trending upward this AM / will place vancomycin dosing on hold and order a random vancomycin level tomorrow AM to assist with further dosing. Estimated t1/2 ~24 hours, anticipate level to remain therapeutic until tomorrow. * Of note, Scr elevation likely in relation to contrast received - will monitor Pharmacy will continue to follow and will adjust dose/frequency as necessary. Thank you. Pharmacy has transitioned to AUC monitoring for vancomycin. AUC/GAGE is the preferred PK/PD target and is associated with decreased risk of nephrotoxicity compared to traditional trough targets.
[2025-02-13] MEDS ORDERED: EMPAGLIFLOZIN 25 MG TAB PO SCH (09:00)
[2025-02-13 09:24] LABS: Base Excess VBG -13.6 mEq/L; HCO3 VBG 12 mmol/L; Oxygen Saturation VBG 72.7 %; PCO2 VBG 25 mmHg (38-50); PO2 VBG 47 mmHg; pH VBG 7.27 (7.36-7.41)
--- NOTE | 2025-02-13 10:09 | Surgery Progress Note ---
Date of Service February 13, 2025 Assessment & Plan (1) Hepatocellular carcinoma: (2) Liver abscess: (3) Diabetes mellitus, type 2: (4) Acute on chronic heart failure with reduced ejection fraction and diastolic dysfunction: Plan avss no leukocytosis Abdomen soft, nondistended, tender in RUQ No acute surgical intervention recommended and patient is not a surgical candidate given his cardiac history along with his nonoperative hepatocellular carcinoma. Continue IV abx If abdominal pain increases, becomes febrile, or wbc increases , would require repeat imaging to assess need for IR drainage continue medical management Surgery service will follow along peripherally, call with questions/concerns Discussed with Dr. Leone who agrees with above. Admission and Anticipated Discharge Date Admission Date: February 12, 2025 Subjective feeling better than last night but still having some abdominal and right flank/back pain. No n,v no fevers or chills Bowel movement this morning no chest pain or shortness of breath Physical Exam Constitutional: WD/WN, vitals as above cooperative and comfortable; no acute distress and not ill appearing Respiratory: normal respiratory effort; no respiratory distress, no labored breathing and no retractions Cardiovascular: Rate/Rhythm: regular rate and regular rhythm Gastrointestinal (Abdomen): Inspection/Auscultation: abdomen normal to inspection; abdomen not distended Percussion/Palpation: + abdomen tender (RUQ) and abdomen soft; no guarding and abdomen not rigid Skin: no rashes, warm and dry Psychiatric: Orientation: alert and oriented x 3 Results & Data Vital Signs (Past 12 Hours) Vital Signs Temp Pulse Resp BP Pulse Ox O2 Del Method 02/13/25 08:00 36.7 C 72 18 128/75 97 Room Air 02/13/25 03:41 36.3 C L 66 18 109/64 97 Room Air 02/12/25 23:16 36.8 C 84 18 102/61 94 Room Air Laboratory Results 02/13/25 02/13/25 02/13/25 Range/Units 09:14 05:28 05:28 WBC 7.61 (4.8-10.8) K/ul RBC 3.08 L (4.70-6.10) M/uL Hgb 9.2 L (14.0-18.0) g/dL Hct 27.5 L (42.0-52.0) % MCV 89.3 (80.0-100.0) fL MCH 29.9 (25.0-34.0) pg MCHC 33.5 (32.0-36.0) g/dL RDW Std Deviation 47.5 H (36.4-46.3) fL RDW Coeff of Leila 14.5 (11.5-14.5) % Plt Count 153 (130-400) K/uL MPV 11.1 (9.4-12.4) fL ESR (0-20) mm/hr Heparin Anti-Xa, Unfract 0.56 0.56 (0.3-0.7) IU/ml VBG pH 7.27 L (7.36-7.41) VBG pCO2 25 L (38-50) mmHg VBG pO2 47 mmHg VBG HCO3 12 mmol/L VBG O2 Saturation 72.7 % VBG Base Excess -13.6 mEq/L Sodium 127 L (136-145) mmol/L Potassium 4.9 D (3.5-5.1) mmol/L Chloride 101 (98-107) mmol/L Carbon Dioxide 11 L (21-32) mmol/L Anion Gap 15 H (3-11) BUN 36 H (6-23) mg/dl Creatinine 2.18 H D (0.6-1.4) mg/dl Est Cr Clr Drug Dosing 32.3 ml/min eGFR 30.24 BUN/Creatinine Ratio 16.5 (10-20) Glucose 307 H* (70-99(Fasting)) mg/dl POC Glucose (70-99) mg/dl Estimat Average Glucose mg/dl Hemoglobin A1c (4.5-5.6) % Osmolality 292 (280-300) mOsm/kg Lactate 1.4 (0.4-2.0) mmol/L Calcium 8.7 (8.6-10.3) mg/dl Phosphorus 3.9 (2.5-4.9) mg/dl Magnesium 1.7 (1.7-2.4) mg/dl Troponin I High Sens 3927.1 H* (0-20) pg/ml C-Reactive Protein (0-0.5) mg/dl Triglycerides (0-150) mg/dl Cholesterol (0-200) mg/dl LDL Cholesterol, Calc mg/dl VLDL Cholesterol, Calc (0-30) mg/dl HDL Cholesterol mg/dl Cholesterol/HDL Ratio (0-5) Procalcitonin (0-0.5) ng/ml TSH (0.300-4.500) uIu/ml Urine Color Urine Appearance (Clear) Urine pH (4.5-7.5) Ur Specific [place] (1.000-1.030) Urine Protein (Negative) Urine Glucose (UA) (Negative) Urine Ketones (Negative) Urine Blood (Negative) Urine Nitrite (Negative) Urine Bilirubin (Negative) Urine Urobilinogen (Negative) Ur Leukocyte Esterase (Negative) Urine WBC (Auto) (0-5) /hpf Urine RBC (Auto) (0-2) /hpf U Hyaline Cast (Auto) (0-2) /lpf U Epithel Cells (Auto) (0-2) /hpf Urine Bacteria (Auto) (None Seen) Urine Comment 02/12/25 02/12/25 02/12/25 Range/Units 22:23 20:14 20:11 WBC (4.8-10.8) K/ul RBC (4.70-6.10) M/uL Hgb (14.0-18.0) g/dL Hct (42.0-52.0) % MCV (80.0-100.0) fL MCH (25.0-34.0) pg MCHC (32.0-36.0) g/dL RDW Std Deviation (36.4-46.3) fL RDW Coeff of Leila (11.5-14.5) % Plt Count (130-400) K/uL MPV (9.4-12.4) fL ESR (0-20) mm/hr Heparin Anti-Xa, Unfract 0.42 (0.3-0.7) IU/ml VBG pH (7.36-7.41) VBG pCO2 (38-50) mmHg VBG pO2 mmHg VBG HCO3 mmol/L VBG O2 Saturation % VBG Base Excess mEq/L Sodium (136-145) mmol/L Potassium (3.5-5.1) mmol/L Chloride (98-107) mmol/L Carbon Dioxide (21-32) mmol/L Anion Gap (3-11) BUN (6-23) mg/dl Creatinine (0.6-1.4) mg/dl Est Cr Clr Drug Dosing ml/min eGFR BUN/Creatinine Ratio (10-20) Glucose (70-99(Fasting)) mg/dl POC Glucose 200 H (70-99) mg/dl Estimat Average Glucose mg/dl Hemoglobin A1c (4.5-5.6) % Osmolality (280-300) mOsm/kg Lactate (0.4-2.0) mmol/L Calcium (8.6-10.3) mg/dl Phosphorus (2.5-4.9) mg/dl Magnesium (1.7-2.4) mg/dl Troponin I High Sens 4622.2 H* 4265.1 H* (0-20) pg/ml C-Reactive Protein (0-0.5) mg/dl Triglycerides (0-150) mg/dl Cholesterol (0-200) mg/dl LDL Cholesterol, Calc mg/dl VLDL Cholesterol, Calc (0-30) mg/dl HDL Cholesterol mg/dl Cholesterol/HDL Ratio (0-5) Procalcitonin (0-0.5) ng/ml TSH (0.300-4.500) uIu/ml Urine Color Urine Appearance (Clear) Urine pH (4.5-7.5) Ur Specific [place] (1.000-1.030) Urine Protein (Negative) Urine Glucose (UA) (Negative) Urine Ketones (Negative) Urine Blood (Negative) Urine Nitrite (Negative) Urine Bilirubin (Negative) Urine Urobilinogen (Negative) Ur Leukocyte Esterase (Negative) Urine WBC (Auto) (0-5) /hpf Urine RBC (Auto) (0-2) /hpf U Hyaline Cast (Auto) (0-2) /lpf U Epithel Cells (Auto) (0-2) /hpf Urine Bacteria (Auto) (None Seen) Urine Comment 02/12/25 02/12/25 02/12/25 Range/Units 16:09 12:55 12:25 WBC (4.8-10.8) K/ul RBC (4.70-6.10) M/uL Hgb (14.0-18.0) g/dL Hct (42.0-52.0) % MCV (80.0-100.0) fL MCH (25.0-34.0) pg MCHC (32.0-36.0) g/dL RDW Std Deviation (36.4-46.3) fL RDW Coeff of Leila (11.5-14.5) % Plt Count (130-400) K/uL MPV (9.4-12.4) fL ESR 84 H (0-20) mm/hr Heparin Anti-Xa, Unfract (0.3-0.7) IU/ml VBG pH (7.36-7.41) VBG pCO2 (38-50) mmHg VBG pO2 mmHg VBG HCO3 mmol/L VBG O2 Saturation % VBG Base Excess mEq/L Sodium (136-145) mmol/L Potassium (3.5-5.1) mmol/L Chloride (98-107) mmol/L Carbon Dioxide (21-32) mmol/L Anion Gap (3-11) BUN (6-23) mg/dl Creatinine (0.6-1.4) mg/dl Est Cr Clr Drug Dosing ml/min eGFR BUN/Creatinine Ratio (10-20) Glucose (70-99(Fasting)) mg/dl POC Glucose 156 H (70-99) mg/dl Estimat Average Glucose mg/dl Hemoglobin A1c (4.5-5.6) % Osmolality (280-300) mOsm/kg Lactate (0.4-2.0) mmol/L Calcium (8.6-10.3) mg/dl Phosphorus (2.5-4.9) mg/dl Magnesium (1.7-2.4) mg/dl Troponin I High Sens (0-20) pg/ml C-Reactive Protein (0-0.5) mg/dl Triglycerides (0-150) mg/dl Cholesterol (0-200) mg/dl LDL Cholesterol, Calc mg/dl VLDL Cholesterol, Calc (0-30) mg/dl HDL Cholesterol mg/dl Cholesterol/HDL Ratio (0-5) Procalcitonin (0-0.5) ng/ml TSH (0.300-4.500) uIu/ml Urine Color Yellow Urine Appearance Clear (Clear) Urine pH 5.5 (4.5-7.5) Ur Specific [place] > 1.045 H (1.000-1.030) Urine Protein 1+ H (Negative) Urine Glucose (UA) 3+ H (Negative) Urine Ketones Trace H (Negative) Urine Blood Negative (Negative) Urine Nitrite Negative (Negative) Urine Bilirubin Negative (Negative) Urine Urobilinogen Negative (Negative) Ur Leukocyte Esterase Negative (Negative) Urine WBC (Auto) 0-5 (0-5) /hpf Urine RBC (Auto) 0-2 (0-2) /hpf U Hyaline Cast (Auto) 0-2 (0-2) /lpf U Epithel Cells (Auto) 0-2 (0-2) /hpf Urine Bacteria (Auto) None Seen (None Seen) Urine Comment 02/12/25 02/12/25 02/12/25 Range/Units 12:14 10:28 10:01 WBC (4.8-10.8) K/ul RBC (4.70-6.10) M/uL Hgb (14.0-18.0) g/dL Hct (42.0-52.0) % MCV (80.0-100.0) fL MCH (25.0-34.0) pg MCHC (32.0-36.0) g/dL RDW Std Deviation (36.4-46.3) fL RDW Coeff of Leila (11.5-14.5) % Plt Count (130-400) K/uL MPV (9.4-12.4) fL ESR (0-20) mm/hr Heparin Anti-Xa, Unfract (0.3-0.7) IU/ml VBG pH (7.36-7.41) VBG pCO2 (38-50) mmHg VBG pO2 mmHg VBG HCO3 mmol/L VBG O2 Saturation % VBG Base Excess mEq/L Sodium (136-145) mmol/L Potassium (3.5-5.1) mmol/L Chloride (98-107) mmol/L Carbon Dioxide (21-32) mmol/L Anion Gap (3-11) BUN (6-23) mg/dl Creatinine (0.6-1.4) mg/dl Est Cr Clr Drug Dosing ml/min eGFR BUN/Creatinine Ratio (10-20) Glucose (70-99(Fasting)) mg/dl POC Glucose 150 H (70-99) mg/dl Estimat Average Glucose mg/dl Hemoglobin A1c (4.5-5.6) % Osmolality (280-300) mOsm/kg Lactate 1.0 (0.4-2.0) mmol/L Calcium (8.6-10.3) mg/dl Phosphorus (2.5-4.9) mg/dl Magnesium 1.8 (1.7-2.4) mg/dl Troponin I High Sens 3731.7 H* D (0-20) pg/ml C-Reactive Protein 29.79 H (0-0.5) mg/dl Triglycerides (0-150) mg/dl Cholesterol (0-200) mg/dl LDL Cholesterol, Calc mg/dl VLDL Cholesterol, Calc (0-30) mg/dl HDL Cholesterol mg/dl Cholesterol/HDL Ratio (0-5) Procalcitonin (0-0.5) ng/ml TSH (0.300-4.500) uIu/ml Urine Color Urine Appearance (Clear) Urine pH (4.5-7.5) Ur Specific [place] (1.000-1.030) Urine Protein (Negative) Urine Glucose (UA) (Negative) Urine Ketones (Negative) Urine Blood (Negative) Urine Nitrite (Negative) Urine Bilirubin (Negative) Urine Urobilinogen (Negative) Ur Leukocyte Esterase (Negative) Urine WBC (Auto) (0-5) /hpf Urine RBC (Auto) (0-2) /hpf U Hyaline Cast (Auto) (0-2) /lpf U Epithel Cells (Auto) (0-2) /hpf Urine Bacteria (Auto) (None Seen) Urine Comment 02/12/25 Range/Units 09:58 WBC (4.8-10.8) K/ul RBC (4.70-6.10) M/uL Hgb (14.0-18.0) g/dL Hct (42.0-52.0) % MCV (80.0-100.0) fL MCH (25.0-34.0) pg MCHC (32.0-36.0) g/dL RDW Std Deviation (36.4-46.3) fL RDW Coeff of Leila (11.5-14.5) % Plt Count (130-400) K/uL MPV (9.4-12.4) fL ESR (0-20) mm/hr Heparin Anti-Xa, Unfract (0.3-0.7) IU/ml VBG pH (7.36-7.41) VBG pCO2 (38-50) mmHg VBG pO2 mmHg VBG HCO3 mmol/L VBG O2 Saturation % VBG Base Excess mEq/L Sodium (136-145) mmol/L Potassium (3.5-5.1) mmol/L Chloride (98-107) mmol/L Carbon Dioxide (21-32) mmol/L Anion Gap (3-11) BUN (6-23) mg/dl Creatinine (0.6-1.4) mg/dl Est Cr Clr Drug Dosing ml/min eGFR BUN/Creatinine Ratio (10-20) Glucose (70-99(Fasting)) mg/dl POC Glucose (70-99) mg/dl Estimat Average Glucose 160 mg/dl Hemoglobin A1c 7.2 H (4.5-5.6) % Osmolality (280-300) mOsm/kg Lactate (0.4-2.0) mmol/L Calcium (8.6-10.3) mg/dl Phosphorus (2.5-4.9) mg/dl Magnesium (1.7-2.4) mg/dl Troponin I High Sens 2127.9 H* D (0-20) pg/ml C-Reactive Protein (0-0.5) mg/dl Triglycerides 173 H (0-150) mg/dl Cholesterol 121 (0-200) mg/dl LDL Cholesterol, Calc 50 mg/dl VLDL Cholesterol, Calc 35 H (0-30) mg/dl HDL Cholesterol 36 mg/dl Cholesterol/HDL Ratio 3.4 (0-5) Procalcitonin 16.50 H (0-0.5) ng/ml TSH 0.893 (0.300-4.500) uIu/ml Urine Color Urine Appearance (Clear) Urine pH (4.5-7.5) Ur Specific [place] (1.000-1.030) Urine Protein (Negative) Urine Glucose (UA) (Negative) Urine Ketones (Negative) Urine Blood (Negative) Urine Nitrite (Negative) Urine Bilirubin (Negative) Urine Urobilinogen (Negative) Ur Leukocyte Esterase (Negative) Urine WBC (Auto) (0-5) /hpf Urine RBC (Auto) (0-2) /hpf U Hyaline Cast (Auto) (0-2) /lpf U Epithel Cells (Auto) (0-2) /hpf Urine Bacteria (Auto) (None Seen) Urine Comment
[2025-02-13] MEDS ORDERED: PHARMACY GLYCEMIC MGMT CONSULT PRN (11:17)
[2025-02-13] MEDS ORDERED: STAT IV Infusion **Titration per Protocol STA (11:17)
[2025-02-13] MEDS ORDERED: PENDING D5 1/2NS+20mEq KCL IVF SCH (11:30)
[2025-02-13 11:49] LABS: Anion Gap 14.0 (3-11); Blood Urea Nitrogen 38.0 mg/dl (6-23); Calcium 8.5 mg/dl (8.6-10.3); Carbon Dioxide 14.0 mmol/L (21-32); Chloride 100.0 mmol/L (98-107); Creatine Kinase 77.0 U/L (30-223); Creatinine Clr Calc Pharmacy 27.5 ml/min; Glucose 270.0 mg/dl (70-99(Fasting)); Iron 13.0 mcg/dl (35-175); Magnesium 1.9 mg/dl (1.7-2.4); Potassium 4.6 mmol/L (3.5-5.1); Sodium 128.0 mmol/L (136-145); Total Iron Binding Cap Calc 311.0 mcg/dl (250-450); Transferrin 222.0 mg/dl (200-360); Transferrin (FE) Percent Satur 4.0 % (20-50)
[2025-02-13] MEDS: COLESTIPOL HCL 1 GM TAB PO SCH (12:07)
[2025-02-13] MEDS: INSULIN REGULAR 250 UNITS in SODIUM CHLORIDE 0.9% 247.5 ML IV SCH (12:08)
[2025-02-13] MEDS: INSULIN ASPART PER UNIT CHARGE SC SCH (12:08)
[2025-02-13 12:09] LABS: Ferritin 1438.8 ng/ml (8-388)
[2025-02-13] MEDS: DKA GOAL RANGE 150-250 mg/dl ONE (12:09)
--- NOTE | 2025-02-13 13:08 | Pharmacy Report ---
Pharmacy Glycemic Short Note 2 - Date of Service February 13, 2025 - Glycemic Short BSG Results (Last 24 hours): 02/12/25 02/12/25 02/13/25 16:09 20:14 05:28 Glucose 307 H* POC Glucose 156 H 200 H 02/13/25 02/13/25 02/13/25 11:12 11:33 13:01 Glucose 270 H POC Glucose 277 H 276 H OUTPATIENT ANTIDIABETIC REGIMEN: * jardiance 12.5 mg QAM, alogliptan 12.5 mg QAM, metformin 850 mg bid ASSESSMENT: * 79 year old admitted with chills over last 2 weeks/nausea. CT of abdomen/pelvis with potential necrosis and/or abscess of the liver. PMHx significant for hepatocellular carcinoma. Pharmacy consulted for glycemic management due to concerns for DKA developing. Discussed with provider and opted for lower initial starting rate for IV insulin infusion d/t lower initial blood sugars/BILLY and wanting to minimize fluids rate d/t poor EF. Would recommend continuation of insulin infusion until DKA labs resolve. PLAN FOR INPATIENT GLYCEMIC CONTROL: * Hold outpatient oral diabetes medications * Insulin infusion per DKA protocol - 150-250 goal range * Bolus insulin * per insulin infusion
[2025-02-13] MEDS: D5W AND 1/2NSS + 20MEQ KCL 20 MEQ/1,000 ML BAG IV SCH (14:13)
--- NOTE | 2025-02-13 14:42 | Hospitalist Progress Note ---
Date of Service February 13, 2025 Assessment & Plan (1) Sustained ventricular tachycardia: (2) Diabetes mellitus, type 2: (3) CAD (coronary artery disease): (4) Hepatocellular carcinoma: (5) Non-ST elevation UT (NSTEMI): (6) Hypothyroidism: (7) Hyperlipidemia: Plan 79 yo male with pmhx HFrEF (EF 25%), CAD s/p stent, sustained vtach s/p pacemaker, hypothyroidism, carcinoid tumor of duodenum, hepatocellular carcinoma (s/p radiation, not surgical candidate), Sjogrens, DM type 2, CKD stage 3a who presents for cold and chills, now found to have NSTEMI in setting of prolonged vtach. #Sustained Ventricular Tachycardia s/p Medrtonic Pacemaker w/ ICD #CAD s/p Stent (hx of stent thrombosis) #NSTEMI #Compensated HFrEF (EF 15%) -patient with worsening of EF and elevated troponin to 3700 -ICD detected 7 minute vtach episode on pacemaker interrogation -patient without chest pain -echo with EF 15% Plan: -cardiology consult, appreciate recs -continue aspirin, brelinta, metoprolol succinate -hold empagliflozin given concern for euglycemic DKA -given potassium to keep goal K of 4, check Mg #Euglycemic DKA -as evidenced by AGMA with secondary NAGMA, low bicarb, ketones on UA -lactic acid negative, salicylates negative, ketones in urine not high enough for starvation ketoacidosis Plan: -hold empagliflozin -start insulin drip, D5NSS at 80cc/hr (very slow given EF 15%) -DKA protocol ordered -check iron, repeat urine, salicylates to finish metabolic workup #Liver Abscess/Necrosis #Hepatocellular Carcinoma #Hx of Carcinoid Tumor -patient not surgical candidate -s/p radiotherapy treatment Plan: -infectious disease consult, appreciate recs -will discuss if drainable target with IR -f/u with radiation oncology and med onc outpatient (Dr. Victoria) #Hypothyroidism -continue levothyroxine #DM Type 2 -SSI -a1c 7.2 #GERD -continue omeprazole I spent a total of 60 minutes in direct patient care, including [id number] time with the patient and/or family, reviewing medical records, ordering and reviewing diagnostic tests, and coordinating care with other healthcare providers. This time includes: history taking, physical examination, medical decision making, counseling, ECG interpretation, imaging interpretation, lab interpretation, orders, and education, excluding time spent in the performance of separately billed services. Admission and Anticipated Discharge Date Admission Date: February 12, 2025 Subjective Patient seen and examined at bedside. Long discussion regarding current medical conditions with patient, including newly discovered liver abscess/infection, euglycemic DKA, EF of 15%, 7 minute run of SVT/vtach. Patient feeling a bit more SOB today but otherwise feels about the same. Patient and family appreciate of update. Review of Systems Review of Systems: -negative unless listed above Physical Exam Physical Exam: Gen: A&O 3 NAD HEENT: NCAT, EOMI, not icteric. External ears normal. No rhinorrhea. Moist mucous membranes. Neck: Supple, full range of motion, no observable masses, No meningeal sign. Lungs: No Respiratory distress. CV: RRR, no edema. Abdomen: Soft, nondistended, No rebound tenderness. MSK: No joint swelling, no redness. No pitting edema Skin: No rashes, petechiae, lesions. Normal color per patient. Neuro: Normal Gait, Grossly intact. Psych: Appropriate for situation. Results & Data Results & Data Vital Signs (Past 12 Hours) Vital Signs Temp Pulse Resp BP Pulse Ox O2 Del Method 02/13/25 11:20 37.1 C 81 18 118/74 97 Room Air 02/13/25 08:00 36.7 C 72 18 128/75 97 Room Air 02/13/25 03:41 36.3 C L 66 18 109/64 97 Room Air Laboratory Results -personally reviewed, increase in WBC, pH of 7.26 noted, Na of 128 downtrending, bicarb of 11 improved to 14, creatinine of 2.56 increasing Medications Administered Acetaminophen (Acetaminophen 325 Mg Tab) 650 mg PO Q4H PRN PRN Reason: pain/fever Stop: 03/14/25 10:39 Last Admin: 02/13/25 12:52 Dose: 650 mg Documented By: Admin: 02/13/25 07:50 Dose: 650 mg Documented By: Admin: 02/12/25 17:26 Dose: 650 mg Documented By: CAM Aspirin (Aspirin 81 Mg Ectab) 81 mg PO BID AYAAN Stop: 03/14/25 20:59 Last Admin: 02/13/25 07:45 Dose: 81 mg Documented By: Admin: 02/12/25 21:44 Dose: 81 mg Documented By: PATRICE Colestipol HCl (Colestipol Hcl 1 Gm Tab) 2 gm PO QAM AYAAN Stop: 03/15/25 08:59 Last Admin: 02/13/25 12:07 Dose: 2 gm Documented By: JOSIAH Colestipol HCl (Colestipol Hcl 1 Gm Tab) 1 gm PO HS AYAAN Stop: 03/14/25 20:59 Last Admin: 02/12/25 21:45 Dose: 1 gm Documented By: GTMichelle Cyanocobalamin (Cyanocobalamin (B-12) 500 Mcg Tablet) 1,000 mcg PO BID AYAAN Stop: 03/14/25 20:59 Last Admin: 02/13/25 07:44 Dose: 1,000 mcg Documented By: Admin: 02/12/25 21:44 Dose: 1,000 mcg Documented By: PATRICE Ezetimibe (Ezetimibe 10 Mg Tab) 10 mg PO QAM AYAAN Stop: 03/15/25 08:59 Last Admin: 02/13/25 07:44 Dose: 10 mg Documented By: JOSIAH Gemfibrozil (Gemfibrozil 600 Mg Tab) 600 mg PO BID AYAAN Stop: 03/14/25 20:59 Last Admin: 02/13/25 07:47 Dose: 600 mg Documented By: Admin: 02/12/25 21:46 Dose: 600 mg Documented By: PATRICE Insulin Human Regular 250 (units/ Sodium Chloride) 250 mls @ 3.2 mls/hr IV .Q24H AYAAN; Protocol Stop: 03/15/25 11:44 Last Titration: 02/13/25 14:11 Dose: 3.2 units/hr, 3.2 mls/hr Documented By: JOSIAH Co-signed By: AM Admin: 02/13/25 12:08 Dose: 4 units/hr, 4 mls/hr Documented By: JOSIAH Co-signed By: Potassium Chloride/Dextrose/Sod Cl (D5w And 1/2nss + 20meq Kcl) 20 meq in 1,000 mls @ 80 mls/hr IV .[id number] AYAAN Stop: 02/16/25 11:59 Last Admin: 02/13/25 14:13 Dose: 80 mls/hr Documented By: JOSIAH Insulin Aspart (Insulin Aspart Per Unit Charge) 0 units SC ACHS AYAAN Stop: 03/15/25 11:29 Last Admin: 02/13/25 12:08 Dose: Not Given Documented By: JOSIAH Levothyroxine Sodium (Levothyroxine Sodium 25 Mcg Tablet) 25 mcg PO DAILYBB AYAAN Stop: 03/15/25 06:29 Last Admin: 02/13/25 05:57 Dose: 25 mcg Documented By: PATRICE Metoprolol Succinate (Metoprolol Succ 50mg Ext Rel Tab) 50 mg PO BID AYAAN Stop: 03/14/25 20:59 Last Admin: 02/13/25 07:45 Dose: 50 mg Documented By: Admin: 02/12/25 21:46 Dose: 50 mg Documented By: PATRICE Pantoprazole Sodium (Pantoprazole 40 Mg Tab) 40 mg PO BID AYAAN Stop: 03/14/25 20:59 Last Admin: 02/13/25 07:45 Dose: 40 mg Documented By: Admin: 02/12/25 21:46 Dose: 40 mg Documented By: PATRICE Ticagrelor (Ticagrelor 90 Mg Tab) 90 mg PO BID AYAAN Stop: 03/14/25 20:59 Last Admin: 02/13/25 07:43 Dose: 90 mg Documented By: Admin: 02/12/25 22:33 Dose: 90 mg Documented By: PATRICE Vitamin D (Cholecalciferol 25 Mcg (1000 Units) Tab) 25 mcg PO QAM AYAAN Stop: 03/15/25 08:59 Last Admin: 02/13/25 07:44 Dose: 25 mcg Documented By: JOSIAH
--- NOTE | 2025-02-13 15:06 | Cardiology Progress Note ---
Date of Service February 13, 2025 Assessment & Plan (1) Elevated troponin I level: (2) V-tach: (3) Ischemic cardiomyopathy: Plan Assessment: 72 year old male with history of CAD, prior [place] s/p PCI, ICM with AICD presented to the ER with chills, generalized malaise. Resp. Bio-fire negative. s/p Viral Syndrome Severe ICM with LVEF of about 15-20% Abnormal Troponin - likely due to demand ischemia due to viral syndrome as well as high rate events with severe underlying ICM although obstructive CAD cannot be definitively ruled out HFrEF Hepatocellular CA s/p recent RT; not a surgical candidate Liver abscess/necrosis S/P ICD CAD s/p PCI with ARUN Hypothyroidism DM CKD ABX as indicated Patient states that he had symptoms of chills, loose stools and malaise with subsequent symptoms of weakness and worsening BARRAZA over the about 4 to 5 days PTP Patient apparently also had multiple episodes of high rate events on Sunday between 5 and 6 am the longest being about 6-7 min - asymptomatic with no ICD discharge. Patient has h/o SVT. Device interrogation not conclusive with po ssibility of SVT vs VT. Device parameters adjusted to better detect arrhythmias. in view of absence of CP, multiple co-morbidities including HCC (non-operable) and severe unchanged LV systolic dysfunction, no new ischemic EKG changes, recommend maximizing medical management and risk factor modification with unclear/questionable benefit of invasive cardiac work up. ECHO - similar LVEF and WMA as prior ECHO. Avoid IVF boluses due to severe LV systolic dysfunction - unless hemodynamically unstable and indicated May use gentle IVF if indicated DC IV Heparin DVT prophylaxis - defer to hospitalist continue DAPT continue lipid lowering agents continue and uptitrate metoprolol as tolerated keeping systolic BP between 100- 160 mmHg and HR below 80 BPM correct and f/u electrolytes f/u renal function GDMT for HFrEF as tolerated keeping systolic BP between 100-140 mmHg-> limited due to renal insufficiency and low BP avoid hypovolemia keep patient euvolemic strict I&Os medical management from cardiac standpoint Admission and Anticipated Discharge Date Admission Date: February 12, 2025 Subjective Patient on exam is sitting in bed in NAD; no c/o cp, sob, palpitations, dizziness, LOC, cough, fever, nausea, vomiting; abdominal pain is better being treated for newly discovered liver abscess/infection Review of Systems Review of Systems: as per hpi Physical Exam Constitutional: well developed and + frail appearing Neck: normal visual inspection and trachea midline Respiratory: normal respiratory effort, lungs clear to auscultation Cardiovascular: Rate/Rhythm: regular rate and regular rhythm Heart Sounds: normal S1 and normal S2 Vessels: dorsalis pedis pulses present; no JVD Extremities: no edema Skin: no rashes, warm and dry Results & Data Vital Signs (Past 12 Hours) Vital Signs Temp Pulse Resp BP Pulse Ox O2 Del Method 02/13/25 11:20 37.1 C 81 18 118/74 97 Room Air 02/13/25 08:00 36.7 C 72 18 128/75 97 Room Air 02/13/25 03:41 36.3 C L 66 18 109/64 97 Room Air Laboratory Results Laboratory Results WBC 7.61 K/ul (4.8-10.8) 02/13/25 05:28 RBC 3.08 M/uL (4.70-6.10) L 02/13/25 05:28 Hgb 9.2 g/dL (14.0-18.0) L 02/13/25 05:28 Hct 27.5 % (42.0-52.0) L 02/13/25 05:28 MCV 89.3 fL (80.0-100.0) 02/13/25 05:28 MCH 29.9 pg (25.0-34.0) 02/13/25 05:28 MCHC 33.5 g/dL (32.0-36.0) 02/13/25 05:28 RDW Std Deviation 47.5 fL (36.4-46.3) H 02/13/25 05:28 RDW Coeff of Leila 14.5 % (11.5-14.5) 02/13/25 05:28 Plt Count 153 K/uL (130-400) 02/13/25 05:28 MPV 11.1 fL (9.4-12.4) 02/13/25 05:28 Immature Gran % (Auto) 0.7 % 02/12/25 05:31 Neut % (Auto) 87.0 % 02/12/25 05:31 Lymph % (Auto) 3.8 % 02/12/25 05:31 [place] % (Auto) 8.2 % 02/12/25 05:31 Eos % (Auto) 0.3 % 02/12/25 05:31 Baso % (Auto) 0.0 % 02/12/25 05:31 Neut # (Auto) 2.54 K/uL (1.40-6.50) 02/12/25 05:31 Lymph # (Auto) 0.11 K/uL (1.20-3.40) L 02/12/25 05:31 Norton # (Auto) 0.24 K/uL (0.11-0.59) 02/12/25 05:31 Eos # (Auto) 0.01 K/uL (0.00-0.50) 02/12/25 05:31 Baso # (Auto) 0.00 K/uL (0.00-0.20) 02/12/25 05:31 Immature Gran # (Auto) 0.02 K/uL (0.01-0.20) 02/12/25 05:31 ESR 84 mm/hr (0-20) H 02/12/25 12:25 PT 11.3 Seconds (9.0-12.0) 02/12/25 05:31 INR 1.1 (0.9-1.1) 02/12/25 05:31 APTT 25 Seconds (21-31) 02/12/25 05:31 PTT Ratio 0.9 02/12/25 05:31 D-Dimer 3000 ug/L FEU (0-500) H* 02/12/25 05:31 Heparin Anti-Xa, Unfract 0.56 IU/ml (0.3-0.7) 02/13/25 05:28 Heparin Anti-Xa, Unfract 0.56 IU/ml (0.3-0.7) 02/13/25 05:28 VBG pH 7.26 (7.36-7.41) L 02/13/25 12:23 VBG pCO2 25 mmHg (38-50) L 02/13/25 09:14 VBG pO2 47 mmHg 02/13/25 09:14 VBG HCO3 12 mmol/L 02/13/25 09:14 VBG O2 Saturation 72.7 % 02/13/25 09:14 VBG Base Excess -13.6 mEq/L 02/13/25 09:14 Sodium 128 mmol/L (136-145) L 02/13/25 11:12 Potassium 4.6 mmol/L (3.5-5.1) 02/13/25 11:12 Chloride 100 mmol/L (98-107) 02/13/25 11:12 Carbon Dioxide 14 mmol/L (21-32) L 02/13/25 11:12 Anion Gap 14 (3-11) H 02/13/25 11:12 BUN 38 mg/dl (6-23) H 02/13/25 11:12 Creatinine 2.56 mg/dl (0.6-1.4) H D 02/13/25 11:12 Est Cr Clr Drug Dosing 27.5 ml/min 02/13/25 11:12 eGFR 24.94 02/13/25 11:12 BUN/Creatinine Ratio 14.8 (10-20) 02/13/25 11:12 Glucose 270 mg/dl (70-99(Fasting)) H 02/13/25 11:12 POC Glucose 209 mg/dl (70-99) H 02/13/25 14:07 Estimat Average Glucose 160 mg/dl 02/12/25 09:58 Hemoglobin A1c 7.2 % (4.5-5.6) H 02/12/25 09:58 Osmolality 292 mOsm/kg (280-300) 02/13/25 09:14 Lactate 1.4 mmol/L (0.4-2.0) 02/13/25 09:14 Calcium 8.5 mg/dl (8.6-10.3) L 02/13/25 11:12 Phosphorus 3.8 mg/dl (2.5-4.9) 02/13/25 11:12 Magnesium 1.9 mg/dl (1.7-2.4) 02/13/25 11:12 Iron 13 mcg/dl (35-175) L 02/13/25 11:12 TIBC 311 mcg/dl (250-450) 02/13/25 11:12 Transferrin 222 mg/dl (200-360) 02/13/25 11:12 Transferrin % Sat 4 % (20-50) L 02/13/25 11:12 Ferritin 1438.8 ng/ml (8-388) H 02/13/25 11:12 Total Bilirubin 1.3 mg/dl (0.2-1.0) H 02/12/25 05:31 AST 34 U/L (13-39) 02/12/25 05:31 ALT 42 U/L (7-52) 02/12/25 05:31 Alkaline Phosphatase 99 U/L (34-104) 02/12/25 05:31 Total Creatine Kinase 77 U/L (30-223) 02/13/25 11:12 Troponin I High Sens 3604.4 pg/ml (0-20) H* 02/13/25 11:12 C-Reactive Protein 29.79 mg/dl (0-0.5) H 02/12/25 12:14 B-Natriuretic Peptide 855 pg/ml (0-100) H 02/12/25 05:31 Total Protein 6.9 gm/dl (6.0-8.3) 02/12/25 05:31 Albumin 3.8 gm/dl (3.4-5.0) 02/12/25 05:31 Globulin 3.1 gm/dl (2.5-4.0) 02/12/25 05:31 Albumin/Globulin Ratio 1.2 (0.9-2) 02/12/25 05:31 Triglycerides 173 mg/dl (0-150) H 02/12/25 09:58 Cholesterol 121 mg/dl (0-200) 02/12/25 09:58 LDL Cholesterol, Calc 50 mg/dl 02/12/25 09:58 VLDL Cholesterol, Calc 35 mg/dl (0-30) H 02/12/25 09:58 HDL Cholesterol 36 mg/dl 02/12/25 09:58 Cholesterol/HDL Ratio 3.4 (0-5) 02/12/25 09:58 Procalcitonin 16.50 ng/ml (0-0.5) H 02/12/25 09:58 TSH 0.893 uIu/ml (0.300-4.500) 02/12/25 09:58 Urine Color Yellow 02/12/25 12:55 Urine Appearance Clear (Clear) 02/12/25 12:55 Urine pH 5.5 (4.5-7.5) 02/12/25 12:55 Ur Specific [place] > 1.045 (1.000-1.030) H 02/12/25 12:55 Urine Protein 1+ (Negative) H 02/12/25 12:55 Urine Glucose (UA) 3+ (Negative) H 02/12/25 12:55 Urine Ketones Trace (Negative) H 02/12/25 12:55 Urine Blood Negative (Negative) 02/12/25 12:55 Urine Nitrite Negative (Negative) 02/12/25 12:55 Urine Bilirubin Negative (Negative) 02/12/25 12:55 Urine Urobilinogen Negative (Negative) 02/12/25 12:55 Ur Leukocyte Esterase Negative (Negative) 02/12/25 12:55 Urine WBC (Auto) 0-5 /hpf (0-5) 02/12/25 12:55 Urine RBC (Auto) 0-2 /hpf (0-2) 02/12/25 12:55 U Hyaline Cast (Auto) 0-2 /lpf (0-2) 02/12/25 12:55 U Epithel Cells (Auto) 0-2 /hpf (0-2) 02/12/25 12:55 Urine Bacteria (Auto) None Seen (None Seen) 02/12/25 12:55 Urine Comment 02/12/25 12:55 Salicylates < 3.0 mg/dl (3.0-30) L 02/13/25 12:23 SARS-CoV-2 (PCR) NEGATIVE (Negative) 02/12/25 05:32 Influenza Type A (PCR) Negative (Neg) 02/12/25 05:32 Influenza Type B (PCR) Negative (Neg) 02/12/25 05:32 RSV (RT-PCR) Negative (Neg) 02/12/25 05:32 Impressions Chest X-Ray 02/12/25 05:38 EXAM: XR chest 1V not portable CLINICAL HISTORY: Chest pain, nonspecific TECHNIQUE: Radiograph of chest was acquired. COMPARISON: 08/22/2020 FINDINGS: Cardiomegaly Prominent peripheral and perihilar bronchovascular markings in bilateral lung villavicencio are likely of congestive etiology, clinical correlation is recommended. Left costophrenic angle is not covered in current study. Rest of the cardiomediastinal silhouette is within normal limits. No acute osseous abnormality. Implantable cardioverter defibrillator noted in situ. IMPRESSION: Cardiomegaly Prominent peripheral and perihilar bronchovascular markings in bilateral lung villavicencio are likely of congestive etiology, clinical correlation is recommended. Implantable cardioverter defibrillator noted in situ. All the findings are stable, no new findings Electronically signed by Evan Ulrich 02-12-2025 06:33 AM Chest CTA 02/12/25 07:16 EXAM: CT angio chest PE protocol CLINICAL HISTORY: PE TECHNIQUE: Contiguous 3.[address] angiographic images of the chest were acquired with the administration of intravenous contrast. Coronal and sagittal reconstructions were obtained. 112ml optiray 320 was administered for post-contrast images. One of these 3D techniques was utilized: Maximum Intensity Pixel (MIP), 3D Reconstructed Images, Volume Rendered Images, Surface Shaded Rendering. One of the following dose reduction techniques were utilized for this exam: Automated exposure control, adjustment of the mA and/or kV according to patient size, and use of iterative reconstruction. COMPARISON: CT 12-13-2020, CTA 08-23-2020 and CR 04/06/2023. FINDINGS: Aorta: The thoracic aorta is normal in caliber. No evidence of aneurysm, dissection, or significant atherosclerotic changes. Aortic arch and descending thoracic aorta are unremarkable. Pulmonary Arteries: Prominent diameter of the main pulmonary artery (30 mm). No evidence of pulmonary embolism. No stenosis or filling defects. Superior Vena Cava (SVC) and Inferior Vena Cava (IVC): Normal opacification and caliber. No evidence of thrombus or obstruction. Coronary Arteries: Coronary arteries are well-opacified. No significant stenosis or atherosclerotic changes. Mediastinum: No mediastinal mass or lymphadenopathy. Normal appearance of the thymus. Heart: Cardiomegaly. No pericardial effusion. Still seen applied pacemaker. Lungs: Progression of the previously noted basal aelectasis now seen as interstitial thickening, involving both lower lobes Newly seen right minimal pleural effusion/thickening No left pleural effusion or thickening. Bones: No fractures or lytic/sclerotic lesions of the visualized bony structures. Normal alignment and bone density. Soft Tissues: Normal appearance of the visualized soft tissues. No abnormal masses or fluid collections. Upper abdominal cuts show newly developed right hepatic lobe segment VIII hypodense focal lesions 2.6 x 2.7 cm IMPRESSION: 1. No evidence of pulmonary embolism. 2. Progression of the previously noted interstitial thickening, involving both lower lobes, can be related to interstitial pulmonary edema versus interstitial lung disease, clinical correlation and follow up. 3. Cardiomegaly (stable). 4. A prominent main pulmonary artery, could be due to pulmonary hypertension. 5. Newly seen right minimal pleural effusion/thickening. 6. Upper abdominal cuts show newly developed right hepatic lobe segment VIII hypodense focal lesions 2.6 x 2.7 cm, a dedicated study is recommended. Electronically signed by Arik Hale 02-12-2025 08:59 AM Abdomen/Pelvis CT 02/12/25 15:50 Exam(s): CT ABDOMEN + PELVIS With Contrast IV Amt: 90 ml optiray 320 EXAM: CT Abdomen and Pelvis With Intravenous Contrast CLINICAL HISTORY: Reason for exam: radiation therapy. TECHNIQUE: Axial computed tomography images of the abdomen and pelvis with intravenous contrast. CTDI is 22 mGy and DLP is 1074 mGy-cm. Automated exposure control was utilized for the study. A dose lowering technique was utilized adhering to the principles of ALARA. CONTRAST: Patient received 90 ml optiray 320 of IV contrast COMPARISON: 10/28/2021 mixed field fibrotic changes in both lung bases, slightly worse than previous. FINDINGS: Lung bases: Unremarkable. No mass. No consolidation. ABDOMEN: Liver: Complex 4.5 cm gas collection in the right liver lobe. Gallbladder and bile ducts: Trace amount of gas within an otherwise unremarkable gallbladder. No gallstones or surrounding inflammation. No biliary duct dilation or choledocholithiasis. Pancreas: Unremarkable. No mass. No ductal dilation. Spleen: Unremarkable. No splenomegaly. Adrenals: Unremarkable. No mass. Kidneys and ureters: Mild left renal atrophy. There are numerous small cysts throughout both kidneys. No follow-up is required. No hydronephrosis. Stomach and bowel: Unremarkable. No obstruction. No mucosal thickening. PELVIS: Appendix: The appendix is normal. Bowel loops are nondilated. No acute inflammatory changes are seen involving the bowel. Bladder: The urinary bladder is partially distended with contrast but unremarkable. Reproductive: Unremarkable as visualized. ABDOMEN and PELVIS: Intraperitoneal space: Unremarkable. No free air. No significant fluid collection. Bones/joints: Metal artifact from left hip arthroplasty. No hip or pelvic fracture is seen. Mild degenerative changes in the spine. No acute fracture or subluxation. Soft tissues: Unremarkable. Vasculature: The abdominal aorta is severely calcified. No aneurysm or dissection. There is moderate stenosis of the origin of both common iliac arteries. Lymph nodes: Unremarkable. No enlarged lymph nodes. IMPRESSION: 1. Complex 4.5 cm gas collection in the right liver lobe. Consider abscess and/or necrosis. Correlate with prior local regional tumor treatment. The other previously seen faint liver lesions are no longer visible. 2. The appendix is normal. Bowel loops are nondilated. No acute inflammatory changes are seen involving the bowel. No other acute process is seen within the abdomen or pelvis. Electronically signed by: Efrem Ragland MD 02/12/25 20:56 PM Diagnostic Findings Cardiac Enzymes 02/12/25 02/12/25 02/13/25 Range/Units 20:11 22:23 09:14 Troponin I High Sens 4265.1 H* 4622.2 H* 3927.1 H* (0-20) pg/ml 02/13/25 Range/Units 11:12 Troponin I High Sens 3604.4 H* (0-20) pg/ml CBC 02/13/25 Range/Units 05:28 WBC 7.61 (4.8-10.8) K/ul RBC 3.08 L (4.70-6.10) M/uL Hgb 9.2 L (14.0-18.0) g/dL Hct 27.5 L (42.0-52.0) % Plt Count 153 (130-400) K/uL Comprehensive Metabolic Panel 02/13/25 02/13/25 Range/Units 05:28 11:12 Sodium 127 L 128 L (136-145) mmol/L Potassium 4.9 D 4.6 (3.5-5.1) mmol/L Chloride 101 100 (98-107) mmol/L Carbon Dioxide 11 L 14 L (21-32) mmol/L BUN 36 H 38 H (6-23) mg/dl Creatinine 2.18 H D 2.56 H D (0.6-1.4) mg/dl Glucose 307 H* 270 H (70-99(Fasting)) mg/dl Calcium 8.7 8.5 L (8.6-10.3) mg/dl Intake and Output 02/13/25 02/13/25 02/13/25 06:59 14:59 22:59 Intake Total 635 / 2115.000 987.867 / 987.867 Balance 635 / 1765.000 987.867 / 987.867 Intake: IV 635 / 1865.000 687.867 / 687.867 Heparin 78693 Unit/500 ml D5w 304.667 / 304.667 25,000 units In 500 ml @ 1,000 UNITS/HR 20 mls/hr IV .Q24H [facility] Rx#:[id number] Insulin Regular 250 units In 8.2 / 8.2 Sodium Chloride 0.9% 247.5 ml @ 4 UNITS/HR 4 mls/hr IV .Q24H [facility] Rx#:[id number] Piperacillin/Tazobactam 4.5 gm 100 / 100 100 / 100 In 100 ml @ 25 mls/hr IV Q8H [facility] Rx#:[id number] Vancomycin HCl 1,250 mg In 275 / 275 Sodium Chloride 0.9% 250 ml @ 200 mls/hr IV Q24H [facility] Rx#: [id number] Vancomycin HCl 1,750 mg In 535 / 535 Sodium Chloride 0.9% 500 ml @ 200 mls/hr IV NOW ONE Rx#: [id number] Oral 300 / 300 Other: Other Intake Source NPO # Unmeasured Voids 1 Medications Administered Home Medications Medication Instructions Recorded Confirmed Last Taken aspirin 81 mg tablet,delayed 81 mg PO BID 11/29/18 04/06/23 03/08/21 release colestipol 1 gram tablet 2 g PO QAM 11/29/18 04/06/23 03/08/21 ezetimibe 10 mg tablet (Zetia) 10 mg PO QAM 11/29/18 04/06/23 03/08/21 ferrous sulfate 325 mg (65 mg 325 mg PO BID 11/29/18 04/06/23 03/08/21 iron) tablet (iron) gemfibrozil 600 mg tablet 600 mg PO BID 11/29/18 04/06/23 03/08/21 levothyroxine 25 mcg tablet 25 mcg PO QAM 11/29/18 04/06/23 03/09/21 nitroglycerin 0.4 mg sublingual 0.4 mg sublingual UD PRN Chest Pain 11/29/18 04/06/23 Unknown tablet omeprazole 20 mg tablet,delayed 20 mg PO BID 02/17/19 04/06/23 03/09/21 release colestipol 1 gram tablet 1 g PO 06/09/19 04/06/23 03/08/21 cyanocobalamin (vitamin B-12) 500 1,000 mcg PO BID 06/09/19 04/06/23 03/08/21 mcg tablet (Vitamin B-12) fluticasone propionate 50 2 spray intranasal DAILY PRN 06/09/19 04/06/23 Unknown mcg/actuation nasal Allergy Symptoms spray,suspension metformin 850 mg tablet 850 mg PO BID 06/09/19 04/06/23 03/08/21 alogliptin 12.5 mg tablet (Nesina) 12.5 mg PO QAM 12/16/19 04/06/23 03/08/21 cholecalciferol (vitamin D3) 25 25 mcg PO QAM 12/18/19 04/06/23 03/08/21 mcg (1,000 unit) capsule empagliflozin 25 mg tablet 12.5 mg PO QAM 12/30/19 04/06/23 03/08/21 ticagrelor 90 mg tablet (Brilinta) 90 mg PO BID #60 tabs 08/25/20 04/06/23 03/07/21 alirocumab 75 mg/mL subcutaneous 75 mg subcut Q14D 03/02/21 04/06/23 02/18/21 pen injector tramadol 50 mg tablet 50 mg PO BID PRN pain #11 tabs 10/28/21 04/06/23 Unknown furosemide 20 mg tablet 10 mg (1/2 x 20 mg) PO UD #10 tabs 04/10/23 Unknown metoprolol succinate 50 mg 50 mg PO BID #60 tabs 04/10/23 Unknown tablet,extended release 24 hr Active Medications Generic Name Dose Route Start Last Admin Trade Name Freq PRN Reason Stop Dose Admin Acetaminophen 650 mg 02/12/25 10:40 02/13/25 12:52 Acetaminophen 325 Mg Tab PO 03/14/25 10:39 650 mg Q4H PRN Administration pain/fever Aspirin 81 mg 02/12/25 21:00 02/13/25 07:45 Aspirin 81 Mg Ectab PO 03/14/25 20:59 81 mg BID AYAAN Administration Colestipol HCl 2 gm 02/13/25 09:00 02/13/25 12:07 Colestipol Hcl 1 Gm Tab PO 03/15/25 08:59 2 gm QAM AYAAN Administration Colestipol HCl 1 gm 02/12/25 21:00 02/12/25 21:45 Colestipol Hcl 1 Gm Tab PO 03/14/25 20:59 1 gm HS AYAAN Administration Cyanocobalamin 1,000 mcg 02/12/25 21:00 02/13/25 07:44 Cyanocobalamin (B-12) 500 Mcg Tablet PO 03/14/25 20:59 1,000 mcg BID AYAAN Administration Ezetimibe 10 mg 02/13/25 09:00 02/13/25 07:44 Ezetimibe 10 Mg Tab PO 03/15/25 08:59 10 mg QAM AYAAN Administration Gemfibrozil 600 mg 02/12/25 21:00 02/13/25 07:47 Gemfibrozil 600 Mg Tab PO 03/14/25 20:59 600 mg BID AYAAN Administration Insulin Human Regular 250 250 mls @ 3.2 mls/hr 02/13/25 11:45 02/13/25 14:11 units/ Sodium Chloride IV 03/15/25 11:44 3.2 units/hr .Q24H AYAAN 3.2 mls/hr Titration Protocol 3.2 UNITS/HR Potassium Chloride/Dextrose/Sod Cl 20 meq in 1,000 mls @ 80 mls/hr 02/13/25 12:00 02/13/25 14:13 D5w And 1/2nss + 20meq Kcl IV 02/16/25 11:59 80 mls/hr .[id number] AYAAN Administration Insulin Aspart 0 units 02/13/25 11:30 02/13/25 12:08 Insulin Aspart Per Unit Charge SC 03/15/25 11:29 Not Given ACHS AYAAN Levothyroxine Sodium 25 mcg 02/13/25 06:30 02/13/25 05:57 Levothyroxine Sodium 25 Mcg Tablet PO 03/15/25 06:29 25 mcg DAILYBB AYAAN Administration Metoprolol Succinate 50 mg 02/12/25 21:00 02/13/25 07:45 Metoprolol Succ 50mg Ext Rel Tab PO 03/14/25 20:59 50 mg BID AYAAN Administration Pantoprazole Sodium 40 mg 02/12/25 21:00 02/13/25 07:45 Pantoprazole 40 Mg Tab PO 03/14/25 20:59 40 mg BID AYAAN Administration Ticagrelor 90 mg 02/12/25 21:00 02/13/25 07:43 Ticagrelor 90 Mg Tab PO 03/14/25 20:59 90 mg BID AYAAN Administration Vitamin D 25 mcg 02/13/25 09:00 02/13/25 07:44 Cholecalciferol 25 Mcg (1000 Units) Tab PO 03/15/25 08:59 25 mcg QAM AYAAN Administration PG Care Time/CCT Total # of Minutes Spent Total Time Spent with Patient: Total time spent is greater than 50% in coordination of care (as documented) at patient's floor/unit and/or counseling patient: Coding Level of Care Code 61149 SUB INP/OBS CARE 3/50MIN Diagnoses Elevated troponin I level R79.89 V-tach I47.20 Ischemic cardiomyopathy I25.5
[2025-02-13 16:25] LABS: Anion Gap 14.0 (3-11); Blood Urea Nitrogen 42.0 mg/dl (6-23); Calcium 8.4 mg/dl (8.6-10.3); Carbon Dioxide 12.0 mmol/L (21-32); Chloride 103.0 mmol/L (98-107); Creatinine Clr Calc Pharmacy 25.1 ml/min; Glucose 131.0 mg/dl (70-99(Fasting)); Magnesium 1.8 mg/dl (1.7-2.4); Potassium 4.2 mmol/L (3.5-5.1); Sodium 129.0 mmol/L (136-145)
[2025-02-13 17:32] LABS: Appearance Urine Cloudy (Clear); Bacteria Urine Automated 4+ (None Seen); Cast Urine Automated 0-2 /lpf (0-2); Glucose Urine UA 1+ (Negative); RBC Urine Automated 0-2 /hpf (0-2); WBC Urine Automated 0-5 /hpf (0-5)
[2025-02-13] MEDS: SODIUM CHLORIDE 0.9% 1,000 ML IV SCH (19:52)
[2025-02-13 20:17] LABS: Anion Gap 14.0 (3-11); Calcium 7.9 mg/dl (8.6-10.3); Carbon Dioxide 11.0 mmol/L (21-32); Chloride 102.0 mmol/L (98-107); Magnesium 1.8 mg/dl (1.7-2.4); Potassium 4.2 mmol/L (3.5-5.1); Sodium 127.0 mmol/L (136-145)
[2025-02-13 20:23] LABS: Blood Urea Nitrogen 43.0 mg/dl (6-23); Creatinine Clr Calc Pharmacy 23.4 ml/min; Glucose 299.0 mg/dl (70-99(Fasting))
[2025-02-13] MEDS: HEPARIN SOD 5,000 UNIT/0.5 ML VIAL SQ SCH (20:55)
[2025-02-13 22:45] LABS: A calco-baum cmplx NotReported Not Detected (NotDetected); Bact fragilis Not Reported Not Detected (NotDetected); Blood Culture Id Panel See PCR Comment (NotDetected); C auris Not Reported Not Detected (NotDetected); CTX-M Resistant Gene Not Detected (NotDetected); Calbicans Not Reported Not Detected (NotDetected); Candida glabrata Not Reported Not Detected (NotDetected); Candida krusei Not Reported Not Detected (NotDetected); Cneoformans/gatti Not Reported Not Detected (NotDetected); Cparapsilosis Not Reported Not Detected (NotDetected); Ctropicalis Not Reported Not Detected (NotDetected); E cloacae compx Not Reported Not Detected (NotDetected); Efaecalis Not Reported Not Detected (NotDetected); Efaecium Not Reported Not Detected (NotDetected); Enterobacterales DETECTED (NotDetected); Enterobacterales Not Reported DETECTED (NotDetected); Escherichia coli Not Reported DETECTED (NotDetected); H influenzae Not Reported Not Detected (NotDetected); IMP Resistant Gene Not Detected (NotDetected); K aerogenes Not Reported Not Detected (NotDetected); KPC Resistant Gene Not Detected (NotDetected); Koxytoca Not Reported Not Detected (NotDetected); Kpneumoniae grp Not Reported Not Detected (NotDetected); Lmonocyt Not Reported Not Detected (NotDetected); N meningitidis Not Reported Not Detected (NotDetected); NDM Resistant Gene Not Detected (NotDetected); OXA 48 Like Resistant Gene Not Detected (NotDetected); P aeruginosa Not Reported Not Detected (NotDetected); Proteus spp Not Reported Not Detected (NotDetected); Salmonella spp Not Reported Not Detected (NotDetected); Staph lugdunensis Not Reported Not Detected (NotDetected); Staph spp. Not Reported Not Detected (NotDetected); Staphaureus Not Reported Not Detected (NotDetected); Staphepi Not Reported Not Detected (NotDetected); Stenmaltophilia Not Reported Not Detected (NotDetected); Strep agal(GrpB) Not Reported Not Detected (NotDetected); Strep pneum Not Reported Not Detected (NotDetected); Strep pyog (GrpA) Not Reported Not Detected (NotDetected); Strep spp Not Reported Not Detected (NotDetected); VIM Resistant Gene Not Detected (NotDetected); mcr-1 Colistin Resistant Gene Not Detected (NotDetected)
[2025-02-14 00:27] LABS: Anion Gap 14.0 (3-11); Blood Urea Nitrogen 49.0 mg/dl (6-23); Calcium 8.2 mg/dl (8.6-10.3); Carbon Dioxide 12.0 mmol/L (21-32); Chloride 102.0 mmol/L (98-107); Creatinine Clr Calc Pharmacy 20.9 ml/min; Glucose 214.0 mg/dl (70-99(Fasting)); Magnesium 1.8 mg/dl (1.7-2.4); Potassium 4.0 mmol/L (3.5-5.1); Sodium 128.0 mmol/L (136-145)
[2025-02-14 04:49] LABS: Anion Gap 14.0 (3-11); Blood Urea Nitrogen 51.0 mg/dl (6-23); Calcium 8.2 mg/dl (8.6-10.3); Carbon Dioxide 12.0 mmol/L (21-32); Chloride 102.0 mmol/L (98-107); Creatinine Clr Calc Pharmacy 18.9 ml/min; Glucose 198.0 mg/dl (70-99(Fasting)); Magnesium 1.8 mg/dl (1.7-2.4); Potassium 4.2 mmol/L (3.5-5.1); Sodium 128.0 mmol/L (136-145)
[2025-02-14] MEDS: ASPIRIN 81 MG ECTAB PO SCH (07:59)
[2025-02-14 08:02] LABS: Anion Gap 13.0 (3-11); Blood Urea Nitrogen 52.0 mg/dl (6-23); Calcium 8.2 mg/dl (8.6-10.3); Carbon Dioxide 13.0 mmol/L (21-32); Chloride 102.0 mmol/L (98-107); Creatinine Clr Calc Pharmacy 18.4 ml/min; Glucose 220.0 mg/dl (70-99(Fasting)); Magnesium 1.8 mg/dl (1.7-2.4); Potassium 4.3 mmol/L (3.5-5.1); Sodium 128.0 mmol/L (136-145)
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
[2025-02-14] MEDS ORDERED: GLUCOSE 40% GEL 15 GM TUBE PO PRN (08:52)
[2025-02-14] MEDS ORDERED: CARBOHYDRATES FOR HYPOGLYCEMIA PO PRN (08:52)
[2025-02-14] MEDS ORDERED: GLUCAGON FOR INJ 1 MG VIAL SQ PRN (08:52)
[2025-02-14] MEDS ORDERED: DEXTROSE 50% 50 ML SYRINGE IV PRN (08:52)
[2025-02-14] MEDS ORDERED: GLUCOSE 10 TAB/TUBE PO PRN (08:52)
[2025-02-14] MEDS: LANTUS PER UNIT CHARGE SC SCH ×2 (09:39→17:23)
[2025-02-14] MEDS: INSULIN ASPART PER UNIT CHARGE SC ONE (09:40)
--- NOTE | 2025-02-14 10:28 | Ultrasound Report ---
Clinical history: Worsening renal failure Technique: Renal sonography was performed Findings: The kidneys are of normal size and echogenicity. The right kidney measures 12.1 cm in length and the left kidney measures 10.9 cm in length. There is no hydronephrosis or visualized hydroureter. No definite renal calculus or mass is seen. There are multiple bilateral renal cysts, measuring up to 2.1 cm The urinary bladder is decompressed Impression: Bilateral renal cysts Electronically signed by Aidan Monahan 02-14-2025 10:28 AM
[2025-02-14 10:54] LABS: iSTAT Art Bld Gas Base Excess -16.0 mmol/L (-9-1.8); iSTAT Art Bld Gas pCO2 Correct 20 mmHg (35-46); iSTAT Art Bld Gas pH Corrected 7.313 (7.35-7.45); iSTAT Arterial Blood Gas pO2 C 88
[2025-02-14 11:41] LABS: Protein Creatinine Ratio Urine 0.8 (0-0.2); Total Protein Urine Random 125.0 mg/dl (0-11.9)
[2025-02-14 11:42] LABS: Appearance Urine Turbid (Clear); Bacteria Urine Automated None Seen (None Seen); Cast Urine Automated 0-2 /lpf (0-2); Glucose Urine UA Trace (Negative); RBC Urine Automated 0-2 /hpf (0-2)
[2025-02-14] MEDS: INSULIN ASPART PER UNIT CHARGE SC SCH (12:22)
--- NOTE | 2025-02-14 12:25 | XRay Report ---
Exam: Chest 2 view PA/lateral. Reason for exam: Pulmonary edema. Previous studies: CT thorax 02/12/2025. FINDINGS: Left-sided pacemaker again seen. Heart remains mildly enlarged with pulmonary venous hypertension and small pleural effusions. Previous interstitial edema has resolved. IMPRESSION: Persistent cardiomegaly with pulmonary venous hypertension and small pleural effusions. Lungs now appear clear of edema. Electronically signed by Michael Trujillo 02-14-2025 12:24 PM
--- NOTE | 2025-02-14 12:34 | Hospitalist Progress Note ---
Date of Service February 14, 2025 Assessment & Plan (1) Sustained ventricular tachycardia: (2) Diabetes mellitus, type 2: (3) CAD (coronary artery disease): (4) Hepatocellular carcinoma: (5) Non-ST elevation NE (NSTEMI): (6) Hypothyroidism: (7) Hyperlipidemia: Plan 79 yo male with pmhx HFrEF (EF 25%), CAD s/p stent, sustained vtach s/p pacemaker, hypothyroidism, carcinoid tumor of duodenum, hepatocellular carcinoma (s/p radiation, not surgical candidate), Sjogrens, DM type 2, CKD stage 3a who presents for cold and chills, now found to have NSTEMI in setting of prolonged vtach. #Sustained Ventricular Tachycardia s/p Medrtonic Pacemaker w/ ICD #CAD s/p Stent (hx of stent thrombosis) #NSTEMI #Compensated HFrEF (EF 15%) -patient with worsening of EF and elevated troponin to 3700 -ICD detected 7 minute vtach episode on pacemaker interrogation -patient without chest pain -echo with EF 15% Plan: -cardiology consult, appreciate recs -continue aspirin, brelinta, metoprolol succinate -hold empagliflozin given concern for euglycemic DKA -given potassium to keep goal K of 4, check Mg #Euglycemic DKA, resolved #AGMA on NAGMA #BILLY on CKD -as evidenced by AGMA with secondary NAGMA, low bicarb, ketones on UA -while pH improved, gap remains open, noted chronicitiy of NAGMA suggestive of secondary diagnosis -consideration of RTA -creatinine worsening, poor urine output, concern for ATN Plan: -hold empagliflozin -stop DKA protocol given worsening renal function -US bladder, albumin/creatinine ratio, xr chest ordered, repeat urine studies -bladder scan had 45cc of urine -discussed case personally with pharmacy -nephrology consult, appreciate recs #Liver Abscess/Necrosis #E. coli Bacteremia #Hepatocellular Carcinoma #Hx of Carcinoid Tumor -patient not surgical candidate -s/p radiotherapy treatment -discussed case personally with [facility], recommend abx management, no drainable abscess -E. coli source likely liver given UA unremarkable for infection, CT chest not revealing of infection Plan: -infectious disease consult, appreciate recs -continue zosyn, stop vancomycin, awaiting sensitivities before further deescalation -f/u with radiation oncology and med onc outpatient (Dr. Victoria) #Hypothyroidism -continue levothyroxine #DM Type 2 -SSI -a1c 7.2 #GERD -continue omeprazole I spent a total of 60 minutes in direct patient care, including [id number] time with the patient and/or family, reviewing medical records, ordering and reviewing diagnostic tests, and coordinating care with other healthcare providers. This time includes: history taking, physical examination, medical decision making, counseling, ECG interpretation, imaging interpretation, lab interpretation, orders, and education, excluding time spent in the performance of separately billed services. Admission and Anticipated Discharge Date Admission Date: February 12, 2025 Subjective Patient seen and examined at bedside. and daughter present as well. Patient feels the same as yesterday. Discussed nephrology consult, difficult acid base status, slightly improved acidosis, worsening renal function. They were appreciative of the update. Review of Systems Review of Systems: -negative unless listed above Physical Exam Physical Exam: Gen: A&O 3 NAD HEENT: NCAT, EOMI, not icteric. External ears normal. No rhinorrhea. Moist mucous membranes. Neck: Supple, full range of motion, no observable masses, No meningeal sign. Lungs: No Respiratory distress. CV: RRR, no edema. Abdomen: Soft, nondistended, No rebound tenderness. MSK: No joint swelling, no redness. No pitting edema Skin: No rashes, petechiae, lesions. Normal color per patient. Neuro: Normal Gait, Grossly intact. Psych: Appropriate for situation. Results & Data Results & Data Vital Signs (Past 12 Hours) Vital Signs Temp Pulse Resp BP Pulse Ox O2 Del Method 02/14/25 03:40 36.6 C 72 14 114/64 95 Room Air Laboratory Results -personally reviewed, improved pH, same bicarb, worsening creatinine, AGMA with NAGMA noted, normal LA Medications Administered Acetaminophen (Acetaminophen 325 Mg Tab) 650 mg PO Q4H PRN PRN Reason: pain/fever Stop: 03/14/25 10:39 Last Admin: 02/14/25 12:14 Dose: 650 mg Documented By: Admin: 02/14/25 07:57 Dose: 650 mg Documented By: Admin: 02/13/25 20:54 Dose: 650 mg Documented By: Admin: 02/13/25 12:52 Dose: 650 mg Documented By: Admin: 02/13/25 07:50 Dose: 650 mg Documented By: Admin: 02/12/25 17:26 Dose: 650 mg Documented By: JOSIAH Aspirin (Aspirin 81 Mg Ectab) 81 mg PO DAILY AYAAN Stop: 03/16/25 08:59 Last Admin: 02/14/25 07:59 Dose: 81 mg Documented By: JOSIAH Colestipol HCl (Colestipol Hcl 1 Gm Tab) 2 gm PO QAM AYAAN Stop: 03/15/25 08:59 Last Admin: 02/14/25 12:18 Dose: 2 gm Documented By: Admin: 02/13/25 12:07 Dose: 2 gm Documented By: CAM Colestipol HCl (Colestipol Hcl 1 Gm Tab) 1 gm PO HS AYAAN Stop: 03/14/25 20:59 Last Admin: 02/13/25 20:55 Dose: 1 gm Documented By: GT Admin: 02/12/25 21:45 Dose: 1 gm Documented By: GTMichelle Cyanocobalamin (Cyanocobalamin (B-12) 500 Mcg Tablet) 1,000 mcg PO BID AYAAN Stop: 03/14/25 20:59 Last Admin: 02/14/25 08:00 Dose: 1,000 mcg Documented By: Admin: 02/13/25 20:55 Dose: 1,000 mcg Documented By: [facility] Admin: 02/13/25 07:44 Dose: 1,000 mcg Documented By: Admin: 02/12/25 21:44 Dose: 1,000 mcg Documented By: GT Ezetimibe (Ezetimibe 10 Mg Tab) 10 mg PO QAM AYAAN Stop: 03/15/25 08:59 Last Admin: 02/14/25 07:59 Dose: 10 mg Documented By: Admin: 02/13/25 07:44 Dose: 10 mg Documented By: JOSIAH Gemfibrozil (Gemfibrozil 600 Mg Tab) 600 mg PO BID AYAAN Stop: 03/14/25 20:59 Last Admin: 02/14/25 07:58 Dose: 600 mg Documented By: Admin: 02/13/25 20:57 Dose: 600 mg Documented By: GT Admin: 02/13/25 07:47 Dose: 600 mg Documented By: Admin: 02/12/25 21:46 Dose: 600 mg Documented By: GT Heparin Sodium (Porcine) (Heparin Sod 5,000 Unit/0.5 Ml Vial) 5,000 units SQ Q12 AYAAN Stop: 03/15/25 20:59 Last Admin: 02/14/25 08:05 Dose: 5,000 units Documented By: Admin: 02/13/25 20:55 Dose: 5,000 units Documented By: PATRICE Piperacillin Sod/Tazobactam Sod (Zosyn) 4.5 gm in 100 mls @ 25 mls/hr IV Q12H AYAAN; Protocol Stop: 02/23/25 17:59 Last Infusion: 02/14/25 10:08 Dose: Infused Documented By: Admin: 02/14/25 06:05 Dose: 25 mls/hr Documented By: Infusion: 02/13/25 22:17 Dose: Infused Documented By: Admin: 02/13/25 18:01 Dose: 25 mls/hr Documented By: JOSIAH Insulin Aspart (Insulin Aspart Per Unit Charge) 0 units SC ACHS AYAAN Stop: 03/16/25 08:59 Last Admin: 02/14/25 12:22 Dose: 5 units Documented By: JOSIAH Co-signed By: JANE Levothyroxine Sodium (Levothyroxine Sodium 25 Mcg Tablet) [address] [facility] Stop: 03/15/25 06:29 Last Admin: 02/14/25 06:05 Dose: 25 mcg Documented By: [facility] Admin: 02/13/25 05:57 Dose: 25 mcg Documented By: PATRICE Metoprolol Succinate (Metoprolol Succ 50mg Ext Rel Tab) [address] [facility] Stop: 03/14/25 20:59 Last Admin: 02/14/25 07:59 Dose: 50 mg Documented By: Admin: 02/13/25 20:57 Dose: 50 mg Documented By: GT Admin: 02/13/25 07:45 Dose: 50 mg Documented By: Admin: 02/12/25 21:46 Dose: 50 mg Documented By: PATRICE Pantoprazole Sodium (Pantoprazole 40 Mg Tab) [address] [facility] Stop: 03/14/25 20:59 Last Admin: 02/14/25 07:59 Dose: 40 mg Documented By: Admin: 02/13/25 20:56 Dose: 40 mg Documented By: GT Admin: 02/13/25 07:45 Dose: 40 mg Documented By: Admin: 02/12/25 21:46 Dose: 40 mg Documented By: [facility] Ticagrelor (Ticagrelor 90 Mg Tab) [address] [facility] Stop: 03/14/25 20:59 Last Admin: 02/14/25 07:56 Dose: 90 mg Documented By: Admin: 02/13/25 20:56 Dose: 90 mg Documented By: GT Admin: 02/13/25 07:43 Dose: 90 mg Documented By: Admin: 02/12/25 22:33 Dose: 90 mg Documented By: [facility] Vitamin D (Cholecalciferol 25 Mcg (1000 Units) Tab) 25 mcg PO QAM AYAAN Stop: 03/15/25 08:59 Last Admin: 02/14/25 07:58 Dose: 25 mcg Documented By: Admin: 02/13/25 07:44 Dose: 25 mcg Documented By: JOSIAH
--- NOTE | 2025-02-14 16:41 | Cardiology Progress Note ---
Date of Service February 14, 2025 Assessment & Plan (1) Elevated troponin I level: (2) V-tach: (3) Ischemic cardiomyopathy: Plan Assessment: 72 year old male with history of CAD, prior NH s/p PCI, ICM with AICD presented to the ER with chills, generalized malaise. Resp. Bio-fire negative. s/p Viral Syndrome Severe ICM with LVEF of about 15-20% Abnormal Troponin - likely due to demand ischemia due to viral syndrome as well as high rate events with severe underlying ICM although obstructive CAD cannot be definitively ruled out HFrEF Hepatocellular CA s/p recent RT; not a surgical candidate Liver abscess/necrosis S/P ICD CAD s/p PCI with ARUN Hypothyroidism DM CKD ABX as indicated Patient states that he had symptoms of chills, loose stools and malaise with subsequent symptoms of weakness and worsening BARRAZA over the about 4 to 5 days PTP Patient apparently also had multiple episodes of high rate events on Sunday between 5 and 6 am the longest being about 6-7 min - asymptomatic with no ICD discharge. Patient has h/o SVT. Device interrogation not conclusive with po ssibility of SVT vs VT. Device parameters adjusted to better detect arrhythmias. in view of absence of CP, multiple co-morbidities including HCC (non-operable) and severe unchanged LV systolic dysfunction, no new ischemic EKG changes, recommend maximizing medical management and risk factor modification with unclear/questionable benefit of invasive cardiac work up. ECHO - similar LVEF and WMA as prior ECHO. Avoid IVF boluses due to severe LV systolic dysfunction - unless hemodynamically unstable and indicated May use gentle IVF if indicated DC IV Heparin DVT prophylaxis - defer to hospitalist continue DAPT continue lipid lowering agents continue / uptitrate metoprolol as tolerated keeping systolic BP between 100-160 mmHg and HR below 80 BPM correct and f/u electrolytes f/u renal function GDMT for HFrEF as tolerated keeping systolic BP between 100-140 mmHg-> limited due to renal insufficiency and low BP avoid hypovolemia keep patient euvolemic strict I&Os medical management from cardiac standpoint please recall if needed will sign off f/u with cardiology post discharge Admission and Anticipated Discharge Date Admission Date: February 12, 2025 Subjective Patient on exam is sitting up in bed in NAD; no c/o cp, sob, palpitations, dizziness, LOC, cough, fever, nausea, vomiting; abdominal pain is better Review of Systems Review of Systems: as per hpi Physical Exam Constitutional: well developed and + frail appearing Neck: normal visual inspection and trachea midline Respiratory: normal respiratory effort, lungs clear to auscultation Cardiovascular: Rate/Rhythm: regular rate and regular rhythm Heart Sounds: normal S1 and normal S2 Vessels: dorsalis pedis pulses present; no JVD Extremities: no edema Skin: no rashes, warm and dry Results & Data Vital Signs (Past 12 Hours) Vital Signs Vital Signs Temp 36.6 C 02/14/25 15:36 Pulse 76 02/14/25 15:36 Resp 18 02/14/25 15:36 BP 119/71 02/14/25 15:36 Pulse Ox 96 02/14/25 15:36 O2 Del Method Room Air 02/14/25 15:36 Intake & Output 02/13/25 02/14/25 02/14/25 18:59 06:59 18:59 Intake Total 993.564 / 2293.424 1299.860 / 2293.424 104.167 / 104.167 Output Total 150 / 150 Balance 993.564 / 2293.424 1299.860 / 2293.424 -45.833 / -45.833 Weight 81.335 kg Intake: IV 693.564 / 9594.617 3678.860 / 1893.424 104.167 / 104.167 D5w and 1/2Nss + 20Meq KCl 20 988 / 988 meq In 1,000 ml @ 80 mls/hr IV .[id number] [facility] Rx#:[id number] Heparin 02818 Unit/500 ml D5w 304.667 / 304.667 25,000 units In 500 ml @ 1,000 UNITS/HR 20 mls/hr IV .Q24H [facility] Rx#:[id number] Insulin Regular 250 units In 13.897 / 25.757 11.860 / 25.757 4.167 / 4.167 Sodium Chloride 0.9% 247.5 ml @ 1 UNITS/HR 1 mls/hr IV .Q24H [facility] Rx#:[id number] Piperacillin/Tazobactam 4.5 gm 100 / 300 200 / 300 100 / 100 In 100 ml @ 25 mls/hr IV Q12H [facility] Rx#:[id number] Vancomycin HCl 1,250 mg In 275 / 275 Sodium Chloride 0.9% 250 ml @ 200 mls/hr IV Q24H [facility] Rx#: [id number] Oral 300 / 400 100 / 400 Output: Urine 150 / 150 Other: # Unmeasured Voids 2 3 Weight Measurement Method Built in [facility] Temp Pulse Resp BP Pulse Ox O2 Del Method 02/14/25 15:36 36.6 C 76 18 119/71 96 Room Air Laboratory Results Laboratory Results WBC 7.61 K/ul (4.8-10.8) 02/13/25 05:28 RBC 3.08 M/uL (4.70-6.10) L 02/13/25 05:28 Hgb 9.2 g/dL (14.0-18.0) L 02/13/25 05:28 POC Hgb 9.5 g/dl (14.0-18.0) L 02/14/25 10:40 Hct 27.5 % (42.0-52.0) L 02/13/25 05:28 POC Hct 28 % (42-52) L 02/14/25 10:40 MCV 89.3 fL (80.0-100.0) 02/13/25 05:28 MCH 29.9 pg (25.0-34.0) 02/13/25 05:28 MCHC 33.5 g/dL (32.0-36.0) 02/13/25 05:28 RDW Std Deviation 47.5 fL (36.4-46.3) H 02/13/25 05:28 RDW Coeff of Leila 14.5 % (11.5-14.5) 02/13/25 05:28 Plt Count 153 K/uL (130-400) 02/13/25 05:28 MPV 11.1 fL (9.4-12.4) 02/13/25 05:28 Immature Gran % (Auto) 0.7 % 02/12/25 05:31 Neut % (Auto) 87.0 % 02/12/25 05:31 Lymph % (Auto) 3.8 % 02/12/25 05:31 [place] % (Auto) 8.2 % 02/12/25 05:31 Eos % (Auto) 0.3 % 02/12/25 05:31 Baso % (Auto) 0.0 % 02/12/25 05:31 Neut # (Auto) 2.54 K/uL (1.40-6.50) 02/12/25 05:31 Lymph # (Auto) 0.11 K/uL (1.20-3.40) L 02/12/25 05:31 [place] # (Auto) 0.24 K/uL (0.11-0.59) 02/12/25 05:31 Eos # (Auto) 0.01 K/uL (0.00-0.50) 02/12/25 05:31 Baso # (Auto) 0.00 K/uL (0.00-0.20) 02/12/25 05:31 Immature Gran # (Auto) 0.02 K/uL (0.01-0.20) 02/12/25 05:31 ESR 84 mm/hr (0-20) H 02/12/25 12:25 PT 11.3 Seconds (9.0-12.0) 02/12/25 05:31 INR 1.1 (0.9-1.1) 02/12/25 05:31 APTT 25 Seconds (21-31) 02/12/25 05:31 PTT Ratio 0.9 02/12/25 05:31 D-Dimer 3000 ug/L FEU (0-500) H* 02/12/25 05:31 Heparin Anti-Xa, Unfract 0.56 IU/ml (0.3-0.7) 02/13/25 05:28 Heparin Anti-Xa, Unfract 0.56 IU/ml (0.3-0.7) 02/13/25 05:28 Specimen Type Arterial 02/14/25 10:40 Sample Site R Radial 02/14/25 10:40 POC pH 7.31 (7.35-7.45) L 02/14/25 10:40 POC pCO2 20 mmHg (35-46) L 02/14/25 10:40 POC pO2 88 mmHg (80-95) 02/14/25 10:40 POC HCO3 10 mmol/L (19-24) L 02/14/25 10:40 POC Total CO2 11 mmol/L (24-31) L 02/14/25 10:40 POC Base Excess -16.0 mmol/L (-9-1.8) L 02/14/25 10:40 ABG pH (Temp Correct) 7.313 (7.35-7.45) L 02/14/25 10:40 ABG pCO2 (Temp Corrct 20 mmHg (35-46) L 02/14/25 10:40 POC ABG pO2 at Pt Temp 88 02/14/25 10:40 POC ABG O2 Sat 96.0 % (90-95) H 02/14/25 10:40 Darrell Test Pass 02/14/25 10:40 VBG pH 7.33 (7.36-7.41) L 02/14/25 07:14 VBG pCO2 25 mmHg (38-50) L 02/13/25 09:14 VBG pO2 47 mmHg 02/13/25 09:14 VBG HCO3 12 mmol/L 02/13/25 09:14 VBG O2 Saturation 72.7 % 02/13/25 09:14 VBG Base Excess -13.6 mEq/L 02/13/25 09:14 O2 Delivery Device Room Air 02/14/25 10:40 POC Sodium 129 mmol/L (135-144) L 02/14/25 10:40 Sodium 128 mmol/L (136-145) L 02/14/25 07:14 POC Potassium 4.2 mmol/L (3.3-5.0) 02/14/25 10:40 Potassium 4.3 mmol/L (3.5-5.1) 02/14/25 07:14 Chloride 102 mmol/L (98-107) 02/14/25 07:14 Carbon Dioxide 13 mmol/L (21-32) L 02/14/25 07:14 Anion Gap 13 (3-11) H 02/14/25 07:14 BUN 52 mg/dl (6-23) H 02/14/25 07:14 Creatinine 3.80 mg/dl (0.6-1.4) H 02/14/25 07:14 Est Cr Clr Drug Dosing 18.4 ml/min 02/14/25 07:14 eGFR 15.52 02/14/25 07:14 BUN/Creatinine Ratio 13.7 (10-20) 02/14/25 07:14 Glucose 220 mg/dl (70-99(Fasting)) H 02/14/25 07:14 POC Glucose 199 mg/dl (70-99) H 02/14/25 16:21 Estimat Average Glucose 160 mg/dl 02/12/25 09:58 Hemoglobin A1c 7.2 % (4.5-5.6) H 02/12/25 09:58 Osmolality 292 mOsm/kg (280-300) 02/13/25 09:14 Lactate 1.1 mmol/L (0.4-2.0) 02/14/25 08:00 Calcium 8.2 mg/dl (8.6-10.3) L 02/14/25 07:14 Phosphorus 3.5 mg/dl (2.5-4.9) 02/14/25 07:14 Magnesium 1.8 mg/dl (1.7-2.4) 02/14/25 07:14 Iron 13 mcg/dl (35-175) L 02/13/25 11:12 TIBC 311 mcg/dl (250-450) 02/13/25 11:12 Transferrin 222 mg/dl (200-360) 02/13/25 11:12 Transferrin % Sat 4 % (20-50) L 02/13/25 11:12 Ferritin 1438.8 ng/ml (8-388) H 02/13/25 11:12 Total Bilirubin 1.3 mg/dl (0.2-1.0) H 02/12/25 05:31 AST 34 U/L (13-39) 02/12/25 05:31 ALT 42 U/L (7-52) 02/12/25 05:31 Alkaline Phosphatase 99 U/L (34-104) 02/12/25 05:31 Total Creatine Kinase 77 U/L (30-223) 02/13/25 11:12 Troponin I High Sens 3604.4 pg/ml (0-20) H* 02/13/25 11:12 C-Reactive Protein 29.79 mg/dl (0-0.5) H 02/12/25 12:14 B-Natriuretic Peptide 855 pg/ml (0-100) H 02/12/25 05:31 Total Protein 6.9 gm/dl (6.0-8.3) 02/12/25 05:31 Albumin 3.8 gm/dl (3.4-5.0) 02/12/25 05:31 Globulin 3.1 gm/dl (2.5-4.0) 02/12/25 05:31 Albumin/Globulin Ratio 1.2 (0.9-2) 02/12/25 05:31 Triglycerides 173 mg/dl (0-150) H 02/12/25 09:58 Cholesterol 121 mg/dl (0-200) 02/12/25 09:58 LDL Cholesterol, Calc 50 mg/dl 02/12/25 09:58 VLDL Cholesterol, Calc 35 mg/dl (0-30) H 02/12/25 09:58 HDL Cholesterol 36 mg/dl 02/12/25 09:58 Cholesterol/HDL Ratio 3.4 (0-5) 02/12/25 09:58 Procalcitonin 16.50 ng/ml (0-0.5) H 02/12/25 09:58 TSH 0.893 uIu/ml (0.300-4.500) 02/12/25 09:58 Urine Color Dark Yellow 02/14/25 10:54 Urine Appearance Turbid (Clear) A 02/14/25 10:54 Urine pH 5.0 (4.5-7.5) 02/14/25 10:54 Ur Specific [place] 1.043 (1.000-1.030) H 02/14/25 10:54 Urine Protein 2+ (Negative) H 02/14/25 10:54 Urine Glucose (UA) Trace (Negative) H 02/14/25 10:54 Urine Ketones Trace (Negative) H 02/14/25 10:54 Urine Blood Trace (Negative) H 02/14/25 10:54 Urine Nitrite Negative (Negative) 02/14/25 10:54 Urine Bilirubin Negative (Negative) 02/14/25 10:54 Urine Urobilinogen Negative (Negative) 02/14/25 10:54 Ur Leukocyte Esterase Negative (Negative) 02/14/25 10:54 Urine WBC (Auto) 6-10 /hpf (0-5) H 02/14/25 10:54 Urine RBC (Auto) 0-2 /hpf (0-2) 02/14/25 10:54 U Hyaline Cast (Auto) 0-2 /lpf (0-2) 02/14/25 10:54 U Epithel Cells (Auto) 6-10 /hpf (0-2) H 02/14/25 10:54 Urine Bacteria (Auto) None Seen (None Seen) 02/14/25 10:54 Amorphous Sediment Present (None Prsent) A 02/14/25 10:54 Urine Osmolality 424 mOsm/kg (500-800) L 02/13/25 16:40 Ur Random Creatinine 150.6 mg/dl 02/14/25 10:54 U Random Total Protein 125.0 mg/dl (0-11.9) H 02/14/25 10:54 Ur Random Sodium 15 mmol/L 02/13/25 16:40 Protein/Creatinin Ratio 0.8 (0-0.2) H 02/14/25 10:54 Urine Comment 02/13/25 16:40 Random Vancomycin 21.4 mcg/ml (10-20) H 02/14/25 03:37 Salicylates < 3.0 mg/dl (3.0-30) L 02/13/25 12:23 SARS-CoV-2 (PCR) NEGATIVE (Negative) 02/12/25 05:32 Enterobacterales (PCR) DETECTED (NotDetected) A 02/13/25 09:14 E. coli (PCR) DETECTED (NotDetected) A 02/13/25 09:14 Influenza Type A (PCR) Negative (Neg) 02/12/25 05:32 Influenza Type B (PCR) Negative (Neg) 02/12/25 05:32 RSV (RT-PCR) Negative (Neg) 02/12/25 05:32 mcr-1 Colistin Res Gene PCR Not Detected (NotDetected) 02/13/25 09:14 blaIMP Car res Gene PCR Not Detected (NotDetected) 02/13/25 09:14 KPC-Carbap Res Gene PCR Not Detected (NotDetected) 02/13/25 09:14 blaNDM Car Res Gene PCR Not Detected (NotDetected) 02/13/25 09:14 OXA-48 Carbapenem Resis Gene (PCR) Not Detected (NotDetected) 02/13/25 09:14 blaVIM Car Res Gene PCR Not Detected (NotDetected) 02/13/25 09:14 CTX-M Gene Resistance (PCR) Not Detected (NotDetected) 02/13/25 09:14 Bld Cult ID Panel PCR See PCR Comment (NotDetected) 02/13/25 09:14 Impressions Chest CTA 02/12/25 07:16 EXAM: CT angio chest PE protocol CLINICAL HISTORY: PE TECHNIQUE: Contiguous 3.[address] angiographic images of the chest were acquired with the administration of intravenous contrast. Coronal and sagittal reconstructions were obtained. 112ml optiray 320 was administered for post-contrast images. One of these 3D techniques was utilized: Maximum Intensity Pixel (MIP), 3D Reconstructed Images, Volume Rendered Images, Surface Shaded Rendering. One of the following dose reduction techniques were utilized for this exam: Automated exposure control, adjustment of the mA and/or kV according to patient size, and use of iterative reconstruction. COMPARISON: CT 12-13-2020, CTA 08-23-2020 and CR 04/06/2023. FINDINGS: Aorta: The thoracic aorta is normal in caliber. No evidence of aneurysm, dissection, or significant atherosclerotic changes. Aortic arch and descending thoracic aorta are unremarkable. Pulmonary Arteries: Prominent diameter of the main pulmonary artery (30 mm). No evidence of pulmonary embolism. No stenosis or filling defects. Superior Vena Cava (SVC) and Inferior Vena Cava (IVC): Normal opacification and caliber. No evidence of thrombus or obstruction. Coronary Arteries: Coronary arteries are well-opacified. No significant stenosis or atherosclerotic changes. Mediastinum: No mediastinal mass or lymphadenopathy. Normal appearance of the thymus. Heart: Cardiomegaly. No pericardial effusion. Still seen applied pacemaker. Lungs: Progression of the previously noted basal aelectasis now seen as interstitial thickening, involving both lower lobes Newly seen right minimal pleural effusion/thickening No left pleural effusion or thickening. Bones: No fractures or lytic/sclerotic lesions of the visualized bony structures. Normal alignment and bone density. Soft Tissues: Normal appearance of the visualized soft tissues. No abnormal masses or fluid collections. Upper abdominal cuts show newly developed right hepatic lobe segment VIII hypodense focal lesions 2.6 x 2.7 cm IMPRESSION: 1. No evidence of pulmonary embolism. 2. Progression of the previously noted interstitial thickening, involving both lower lobes, can be related to interstitial pulmonary edema versus interstitial lung disease, clinical correlation and follow up. 3. Cardiomegaly (stable). 4. A prominent main pulmonary artery, could be due to pulmonary hypertension. 5. Newly seen right minimal pleural effusion/thickening. 6. Upper abdominal cuts show newly developed right hepatic lobe segment VIII hypodense focal lesions 2.6 x 2.7 cm, a dedicated study is recommended. Electronically signed by Arik Hale 02-12-2025 08:59 AM Abdomen/Pelvis CT 02/12/25 15:50 Exam(s): CT ABDOMEN + PELVIS With Contrast IV Amt: 90 ml optiray 320 EXAM: CT Abdomen and Pelvis With Intravenous Contrast CLINICAL HISTORY: Reason for exam: radiation therapy. TECHNIQUE: Axial computed tomography images of the abdomen and pelvis with intravenous contrast. CTDI is 22 mGy and DLP is 1074 mGy-cm. Automated exposure control was utilized for the study. A dose lowering technique was utilized adhering to the principles of ALARA. CONTRAST: Patient received 90 ml optiray 320 of IV contrast COMPARISON: 10/28/2021 mixed field fibrotic changes in both lung bases, slightly worse than previous. FINDINGS: Lung bases: Unremarkable. No mass. No consolidation. ABDOMEN: Liver: Complex 4.5 cm gas collection in the right liver lobe. Gallbladder and bile ducts: Trace amount of gas within an otherwise unremarkable gallbladder. No gallstones or surrounding inflammation. No biliary duct dilation or choledocholithiasis. Pancreas: Unremarkable. No mass. No ductal dilation. Spleen: Unremarkable. No splenomegaly. Adrenals: Unremarkable. No mass. Kidneys and ureters: Mild left renal atrophy. There are numerous small cysts throughout both kidneys. No follow-up is required. No hydronephrosis. Stomach and bowel: Unremarkable. No obstruction. No mucosal thickening. PELVIS: Appendix: The appendix is normal. Bowel loops are nondilated. No acute inflammatory changes are seen involving the bowel. Bladder: The urinary bladder is partially distended with contrast but unremarkable. Reproductive: Unremarkable as visualized. ABDOMEN and PELVIS: Intraperitoneal space: Unremarkable. No free air. No significant fluid collection. Bones/joints: Metal artifact from left hip arthroplasty. No hip or pelvic fracture is seen. Mild degenerative changes in the spine. No acute fracture or subluxation. Soft tissues: Unremarkable. Vasculature: The abdominal aorta is severely calcified. No aneurysm or dissection. There is moderate stenosis of the origin of both common iliac arteries. Lymph nodes: Unremarkable. No enlarged lymph nodes. IMPRESSION: 1. Complex 4.5 cm gas collection in the right liver lobe. Consider abscess and/or necrosis. Correlate with prior local regional tumor treatment. The other previously seen faint liver lesions are no longer visible. 2. The appendix is normal. Bowel loops are nondilated. No acute inflammatory changes are seen involving the bowel. No other acute process is seen within the abdomen or pelvis. Electronically signed by: Efrem Ragland MD 02/12/25 20:56 PM Renal Ultrasound 02/14/25 07:29 Clinical history: Worsening renal failure Technique: Renal sonography was performed Findings: The kidneys are of normal size and echogenicity. The right kidney measures 12.1 cm in length and the left kidney measures 10.9 cm in length. There is no hydronephrosis or visualized hydroureter. No definite renal calculus or mass is seen. There are multiple bilateral renal cysts, measuring up to 2.1 cm The urinary bladder is decompressed Impression: Bilateral renal cysts Electronically signed by Aidan Monahan 02-14-2025 10:28 AM Chest X-Ray 02/14/25 10:59 Exam: Chest 2 view PA/lateral. Reason for exam: Pulmonary edema. Previous studies: CT thorax 02/12/2025. FINDINGS: Left-sided pacemaker again seen. Heart remains mildly enlarged with pulmonary venous hypertension and small pleural effusions. Previous interstitial edema has resolved. IMPRESSION: Persistent cardiomegaly with pulmonary venous hypertension and small pleural effusions. Lungs now appear clear of edema. Electronically signed by Michael Trujlilo 02-14-2025 12:24 PM Diagnostic Findings Comprehensive Metabolic Panel 02/13/25 02/13/25 02/14/25 Range/Units 19:12 23:45 03:37 Sodium 127 L 128 L 128 L (136-145) mmol/L Potassium 4.2 4.0 4.2 (3.5-5.1) mmol/L Chloride 102 102 102 (98-107) mmol/L Carbon Dioxide 11 L 12 L 12 L (21-32) mmol/L BUN 43 H 49 H 51 H (6-23) mg/dl Creatinine 3.00 H 3.37 H D 3.72 H D (0.6-1.4) mg/dl Glucose 299 H 214 H 198 H (70-99(Fasting)) mg/dl Calcium 7.9 L 8.2 L 8.2 L (8.6-10.3) mg/dl 02/14/25 Range/Units 07:14 Sodium 128 L (136-145) mmol/L Potassium 4.3 (3.5-5.1) mmol/L Chloride 102 (98-107) mmol/L Carbon Dioxide 13 L (21-32) mmol/L BUN 52 H (6-23) mg/dl Creatinine 3.80 H (0.6-1.4) mg/dl Glucose 220 H (70-99(Fasting)) mg/dl Calcium 8.2 L (8.6-10.3) mg/dl Intake and Output 02/14/25 02/14/25 02/14/25 06:59 14:59 22:59 Intake Total 1094.677 / 2293.424 104.167 / 104.167 Output Total 150 / 150 Balance 1094.677 / 2293.424 -45.833 / -45.833 Intake: IV 994.677 / 1893.424 104.167 / 104.167 D5w and 1/2Nss + 20Meq KCl 20 988 / 988 meq In 1,000 ml @ 80 mls/hr IV .[id number] [facility] Rx#:[id number] Insulin Regular 250 units In 6.677 / 25.757 4.167 / 4.167 Sodium Chloride 0.9% 247.5 ml @ 1 UNITS/HR 1 mls/hr IV .Q24H [facility] Rx#:[id number] Piperacillin/Tazobactam 4.5 gm 100 / 100 In 100 ml @ 25 mls/hr IV Q12H [facility] Rx#:[id number] Oral 100 / 400 Output: Urine 150 / 150 Other: Weight 81.335 kg Weight Measurement Method Built in [facility] Medications Administered Home Medications Medication Instructions Recorded Confirmed Last Taken aspirin 81 mg tablet,delayed 81 mg PO BID 11/29/18 04/06/23 03/08/21 release colestipol 1 gram tablet 2 g PO QAM 11/29/18 04/06/23 03/08/21 ezetimibe 10 mg tablet (Zetia) 10 mg PO QAM 11/29/18 04/06/23 03/08/21 ferrous sulfate 325 mg (65 mg 325 mg PO BID 11/29/18 04/06/23 03/08/21 iron) tablet (iron) gemfibrozil 600 mg tablet 600 mg PO BID 11/29/18 04/06/23 03/08/21 levothyroxine 25 mcg tablet 25 mcg PO QAM 11/29/18 04/06/23 03/09/21 nitroglycerin 0.4 mg sublingual 0.4 mg sublingual UD PRN Chest Pain 11/29/18 04/06/23 Unknown tablet omeprazole 20 mg tablet,delayed 20 mg PO BID 02/17/19 04/06/23 03/09/21 release colestipol 1 gram tablet 1 g PO HS 06/09/19 04/06/23 03/08/21 cyanocobalamin (vitamin B-12) 500 1,000 mcg PO BID 06/09/19 04/06/23 03/08/21 mcg tablet (Vitamin B-12) fluticasone propionate 50 2 spray intranasal DAILY PRN 06/09/19 04/06/23 Unknown mcg/actuation nasal Allergy Symptoms spray,suspension metformin 850 mg tablet 850 mg PO BID 06/09/19 04/06/23 03/08/21 alogliptin 12.5 mg tablet (Nesina) 12.5 mg PO QAM 12/16/19 04/06/23 03/08/21 cholecalciferol (vitamin D3) 25 25 mcg PO QAM 12/18/19 04/06/23 03/08/21 mcg (1,000 unit) capsule empagliflozin 25 mg tablet 12.5 mg PO QAM 12/30/19 04/06/23 03/08/21 ticagrelor 90 mg tablet (Brilinta) 90 mg PO BID #60 tabs 08/25/20 04/06/23 03/07/21 alirocumab 75 mg/mL subcutaneous 75 mg subcut Q14D 03/02/21 04/06/23 02/18/21 pen injector tramadol 50 mg tablet 50 mg PO BID PRN pain #11 tabs 10/28/21 04/06/23 Unknown furosemide 20 mg tablet 10 mg (1/2 x 20 mg) PO UD #10 tabs 04/10/23 Unknown metoprolol succinate 50 mg 50 mg PO BID #60 tabs 04/10/23 Unknown tablet,extended release 24 hr Active Medications Generic Name Dose Route Start Last Admin Trade Name Freq PRN Reason Stop Dose Admin Acetaminophen 650 mg 02/12/25 10:40 02/14/25 12:14 Acetaminophen 325 Mg Tab PO 03/14/25 10:39 650 mg Q4H PRN Administration pain/fever Aspirin 81 mg 02/14/25 09:00 02/14/25 07:59 Aspirin 81 Mg Ectab PO 03/16/25 08:59 81 mg DAILY [facility] Administration Colestipol HCl 2 gm 02/13/25 09:00 02/14/25 12:18 Colestipol Hcl 1 Gm Tab PO 03/15/25 08:59 2 gm QAM [facility] Administration Colestipol HCl 1 gm 02/12/25 21:00 02/13/25 20:55 Colestipol Hcl 1 Gm Tab PO 03/14/25 20:59 1 gm HS [facility] Administration Cyanocobalamin 1,000 mcg 02/12/25 21:00 02/14/25 08:00 Cyanocobalamin (B-12) 500 Mcg Tablet PO 03/14/25 20:59 1,000 mcg BID [facility] Administration Ezetimibe 10 mg 02/13/25 09:00 02/14/25 07:59 Ezetimibe 10 Mg Tab PO 03/15/25 08:59 10 mg QAM [facility] Administration Gemfibrozil 600 mg 02/12/25 21:00 02/14/25 07:58 Gemfibrozil 600 Mg Tab PO 03/14/25 20:59 600 mg BID [facility] Administration Heparin Sodium (Porcine) 5,000 units 02/13/25 21:00 02/14/25 08:05 Heparin Sod 5,000 Unit/0.5 Ml Vial SQ 03/15/25 20:59 5,000 units Q12 [facility] Administration Piperacillin Sod/Tazobactam Sod 4.5 gm in 100 mls @ 25 mls/hr 02/13/25 18:00 02/14/25 10:08 Zosyn IV 02/23/25 17:59 Infused Q12H [facility] Infusion Protocol Insulin Aspart 0 units 02/14/25 09:00 02/14/25 12:22 Insulin Aspart Per Unit Charge SC 03/16/25 08:59 5 units ACHS [facility] Administration Levothyroxine Sodium 25 mcg 02/13/25 06:30 02/14/25 06:05 Levothyroxine Sodium 25 Mcg Tablet PO 03/15/25 06:29 25 mcg DAILYBB [facility] Administration Metoprolol Succinate 50 mg 02/12/25 21:00 02/14/25 07:59 Metoprolol Succ 50mg Ext Rel Tab PO 03/14/25 20:59 50 mg BID [facility] Administration Oxycodone HCl 5 mg 02/14/25 15:34 02/14/25 15:52 Oxycodone Hcl Ir 5 Mg Tab (Immediate Release) PO 02/28/25 15:33 5 mg Q6 PRN Administration Severe Pain (Scale 7, 8, 9,10) Pantoprazole Sodium 40 mg 02/12/25 21:00 02/14/25 07:59 Pantoprazole 40 Mg Tab PO 03/14/25 20:59 40 mg BID [facility] Administration Ticagrelor 90 mg 02/12/25 21:00 02/14/25 07:56 Ticagrelor 90 Mg Tab PO 03/14/25 20:59 90 mg BID [facility] Administration Vitamin D 25 mcg 02/13/25 09:00 02/14/25 07:58 Cholecalciferol 25 Mcg (1000 Units) Tab PO 03/15/25 08:59 25 mcg QAM [facility] Administration PG Care Time/CCT Total # of Minutes Spent Total Time Spent with Patient: Total time spent is greater than 50% in coordination of care (as documented) at patient's floor/unit and/or counseling patient: Coding Level of Care Code 33180 SUB INP/OBS CARE 3/50MIN Diagnoses Elevated troponin I level R79.89 V-tach I47.20 Ischemic cardiomyopathy I25.5
[2025-02-15] MEDS: INSULIN ASPART PER UNIT CHARGE SC SCH (00:08)
[2025-02-15] MEDS: HYDROmorphone INJ 0.5 MG/0.5 ML SYR IV STA ×2 (05:24→06:31)
[2025-02-15 06:08] LABS: Hematocrit (blood only) 28.0 % (42.0-52.0); Hemoglobin 9.3 g/dL (14.0-18.0); Mean Corpuscular Hemoglobin 29.4 pg (25.0-34.0); Mean Corpuscular Volume 88.6 fL (80.0-100.0); Platelet Count 197 K/uL (130-400); RDW Standard Deviation 49.2 fL (36.4-46.3); Red Blood Count 3.16 M/uL (4.70-6.10); White Blood Count 9.93 K/ul (4.8-10.8)
[2025-02-15 06:41] LABS: Anion Gap 14.0 (3-11); Blood Urea Nitrogen 63.0 mg/dl (6-23); Calcium 8.2 mg/dl (8.6-10.3); Carbon Dioxide 11.0 mmol/L (21-32); Chloride 103.0 mmol/L (98-107); Creatinine Clr Calc Pharmacy 14.7 ml/min; Glucose 117.0 mg/dl (70-99(Fasting)); Magnesium 2.0 mg/dl (1.7-2.4); Potassium 4.3 mmol/L (3.5-5.1); Sodium 128.0 mmol/L (136-145)
--- NOTE | 2025-02-15 07:47 | Nephrology Progress Note ---
Date of Service February 15, 2025 Assessment & Plan (1) BILLY (acute kidney injury): Plan: further worsening Stage 3 still nonoliguric BILLY on baseline non albuminuric CKD 3A with baseline creatinine 1.2-1.3 >> ? d/t ongoing sepsis contributing factors include viral prodrome, VT prior to admission, IV contrast studies x 2 on admission, severe dehydration on presentation, cardiac meds (jardiance, entresto) now on hold chronic/ [employer] metabolic acidosis present after emerging several months ago >>AGMA now likely in part d/t renal failure as well follow up renal u/s shows no acute process; -continue efforts to correct VT -continue to hold gemfibrozil, jardiance, entresto >if any further vanco, dose by level (believe this is d/c'd) -strict I/O >> this is very important -see below re IVF -check PVR >>f/u planned RUQ u/s -cannot rule out need for dialysis; unclear why creatinine further worsened so significantly after rate of worsening had been slowing >> based on this will cautiously resume gentle IV fluids; pt and open to dialysis trial if need arises on preliminary discussion Care coordinated on TText w/ Dr Diaz regarding worsening BILLY causes, work up studies, prx; we are in agreement. (2) Acute on chronic heart failure with reduced ejection fraction and diastolic dysfunction: Plan: severely diminished EF 15-20%. CXR 02/14 >> no plm edema, small Bl pl effusions -suspect hyponatremia reflects mild vol OL -cont to hold entresto, jardiance (3) Increased anion gap metabolic acidosis: Plan: preexisting acid base perturbation w/ "baseline" bicarbonate mid-to-high teens as an outpatient since September And with anion gap present since November. now confounded by severe BILLY. while this needs inpatient/ongoing workup, not the clinical priority at this time at least for treatment. lactic acid wnl. 02/14 ABG >> 7.31/ / / 10 >> not severe; continue to monitor >trial gentle bicarb rich fluids (4) Gram-negative bacteremia: Plan: E coli bacteremia; source unclear >> large hepatic gas collection a possible abscess/ possible source; bowels ok on admission CT -f/u pending cultures ; WBC have normalized now >plan ceftriaxone x 10-14 days >>defer to primary on plan for source control best we are able >> ? [facility] IR collecting specimen versus repeat blood cultures (5) Hepatocellular carcinoma: Plan: possible that liver lesion represents area of radioembolization from this fall but defer to primary service -f/u infectious diseases recommendations (6) Sustained ventricular tachycardia: Plan: as per primary service and cardiology; disrupts renal perfusion Admission and Anticipated Discharge Date Admission Date: February 12, 2025 Subjective tells me he had a bad night b/c got behind on pain meds; still w/ RUQ pain. no dyspnea, no edema Review of Systems 2 Review of Systems: All systems reviewed & are unremarkable except as noted in Subjective Physical Exam 2 Constitutional: well developed (lying flat in bed on RA) and well nourished; no acute distress Eyes: + eyelid abnormality (L eyelid droop) an d EOM intact bilaterally ENMT: Mouth: + dry oral mucous membranes Respiratory: normal respiratory effort (except slight increase work of breathing w/ exam maneuvers) Auscultation: + diminished lung sounds and + crackles (fine bibasilar) Cardiovascular: Rate/Rhythm: regular rate and regular rhythm (occasional skipped beat) Extremities: no edema Gastrointestinal (Abdomen): Inspection/Auscultation: normal bowel sounds P ercussion/Palpation: abdomen soft; abdomen nontender Musculoskeletal: Extremities: strength 5/5 throughout Skin: no rashes, warm and dry Results & Data Vital Signs (Past 12 Hours) Vital Signs Temp Pulse Pulse Resp BP Pulse Ox O2 Del Method 02/15/25 07:19 36.4 C L 68 18 100/62 93 Room Air 02/15/25 03:34 36.6 C 76 18 100/64 96 Room Air 02/15/25 01:15 70 02/14/25 22:39 36.7 C 67 16 94/58 L 95 Room Air 02/14/25 21:00 Room Air Laboratory Results 02/15/25 05:51 02/15/25 05:51
--- NOTE | 2025-02-15 14:12 | Pharmacy Report ---
Pharmacy Glycemic Short Note 2 - Date of Service February 15, 2025 - Glycemic Short BSG Results (Last 24 hours): 02/14/25 02/14/25 02/15/25 16:21 20:35 00:03 Glucose POC Glucose 199 H 220 H 183 H 02/15/25 02/15/25 02/15/25 03:42 05:51 07:18 Glucose 117 H POC Glucose 138 H 125 H 02/15/25 11:01 Glucose POC Glucose 174 H OUTPATIENT ANTIDIABETIC REGIMEN: * jardiance 12.5 mg QAM, alogliptan 12.5 mg QAM, metformin 850 mg bid A1c = 7.2% ASSESSMENT: 02/15: * Insulin infusion discontinued on 02/14 AM. Per discussion with Hospitalist; pH improved, continued abnormality in anion gap/bicarb thought to be due to another cause as patient has chronic NAGMA. Desire to stop IV fluids due to worsening renal function/nephro consultation. SC basal + bolus insulin initiated on 02/14. * Fasting BSG of 125 mg/dL. Will continue Lantus dosed per BSG scale. 02/13: * 79 year old admitted with chills over last 2 weeks/nausea. CT of abdomen/pelvis with potential necrosis and/or abscess of the liver. PMHx significant for hepatocellular carcinoma. Pharmacy consulted for glycemic management due to concerns for DKA developing. Discussed with provider and opted for lower initial starting rate for IV insulin infusion d/t lower initial blood sugars/BILLY and wanting to minimize fluids rate d/t poor EF. Would recommend continuation of insulin infusion until DKA labs resolve. PLAN FOR INPATIENT GLYCEMIC CONTROL: * Hold outpatient oral diabetes medications * Basal insulin * Lantus 0-8-14 units SC BID (see eMAR for details) * Bolus insulin * Novolog ACHS * Goal range: 120 - 160 mg/dL * CF 30 mg/dL/unit, Carb ratio 1 unit per 10 grams CHO
--- NOTE | 2025-02-15 14:54 | Hospitalist Progress Note ---
Date of Service February 15, 2025 Assessment & Plan (1) Sustained ventricular tachycardia: (2) Diabetes mellitus, type 2: (3) CAD (coronary artery disease): (4) Hepatocellular carcinoma: (5) Non-ST elevation SC (NSTEMI): (6) Hypothyroidism: (7) Hyperlipidemia: Plan 79 yo male with pmhx HFrEF (EF 25%), CAD s/p stent, sustained vtach s/p pacemaker, hypothyroidism, carcinoid tumor of duodenum, hepatocellular carcinoma (s/p radiation, not surgical candidate), Sjogrens, DM type 2, CKD stage 3a who presents for cold and chills, now found to have NSTEMI in setting of prolonged vtach. #Sustained Ventricular Tachycardia s/p Medrtonic Pacemaker w/ ICD #CAD s/p Stent (hx of stent thrombosis) #NSTEMI #Compensated HFrEF (EF 15%) -patient with worsening of EF and elevated troponin to 3700 -ICD detected 7 minute vtach episode on pacemaker interrogation -patient without chest pain -echo with EF 15% Plan: -cardiology consult, appreciate recs -continue aspirin, brelinta, metoprolol succinate -hold empagliflozin given concern for euglycemic DKA -given potassium to keep goal K of 4, check Mg #Euglycemic DKA, resolved #AGMA on NAGMA #BILLY on CKD -as evidenced by AGMA with secondary NAGMA, low bicarb, ketones on UA -while pH improved, gap remains open, noted chronicitiy of NAGMA suggestive of secondary diagnosis -consideration of RTA -creatinine worsening, poor urine output, concern for ATN Plan: -hold empagliflozin -nephrology consult, appreciate recs -resume IV fluids with bicarb per nephrology #Liver Abscess/Necrosis #E. coli Bacteremia #Hepatocellular Carcinoma #Hx of Carcinoid Tumor -patient not surgical candidate -s/p radiotherapy treatment -discussed case personally with [facility], recommend abx management, no drainable abscess -E. coli source likely liver given UA unremarkable for infection, CT chest not revealing of infection -other considerations would be endocarditis (unlikely) vs. biliary tract Plan: -infectious disease consult, appreciate recs -repeat cultures -stop zosyn, rotate to ceftriaxone based on sensitivities -check RUQ US to r/o biliary pathology -f/u with radiation oncology and med onc outpatient (Dr. Victoria) #Hypothyroidism -continue levothyroxine #DM Type 2 -SSI -a1c 7.2 #GERD -continue omeprazole I spent a total of 50 minutes in direct patient care, including [id number] time with the patient and/or family, reviewing medical records, ordering and reviewing diagnostic tests, and coordinating care with other healthcare providers. This time includes: history taking, physical examination, medical decision making, counseling, ECG interpretation, imaging interpretation, lab interpretation, orders, and education, excluding time spent in the performance of separately billed services. Admission and Anticipated Discharge Date Admission Date: February 12, 2025 Subjective Patient seen and examined at bedside. Discussed case with daughter and as well. Patient feels about the same today. Discussed his current condition, including worsening renal failure, and concern he may require dialysis in future if this continues on at this rate. He was disappointed but appreciative of the update. Review of Systems Review of Systems: -negative unless listed above Physical Exam Physical Exam: Gen: A&O 3 NAD HEENT: NCAT, EOMI, not icteric. External ears normal. No rhinorrhea. Moist mucous membranes. Neck: Supple, full range of motion, no observable masses, No meningeal sign. Lungs: No Respiratory distress. CV: RRR, no edema. Abdomen: Soft, nondistended, No rebound tenderness. MSK: No joint swelling, no redness. No pitting edema Skin: No rashes, petechiae, lesions. Normal color per patient. Neuro: Normal Gait, Grossly intact. Psych: Appropriate for situation. Results & Data Results & Data Vital Signs (Past 12 Hours) Vital Signs Temp Pulse Pulse Resp BP BP Pulse Ox 02/15/25 11:02 36.4 C L 65 18 103/60 94 02/15/25 08:00 66 02/15/25 07:19 36.4 C L 68 18 100/62 93 02/15/25 03:34 36.6 C 76 18 100/64 96 O2 Del Method 02/15/25 11:02 Room Air 02/15/25 08:00 02/15/25 07:19 Room Air 02/15/25 03:34 Room Air Laboratory Results -personally reviewed, uptrending creatinine, Na unchanged from prior Medications Administered Acetaminophen (Acetaminophen 325 Mg Tab) 650 mg PO Q4H PRN PRN Reason: pain/fever Stop: 03/14/25 10:39 Last Admin: 02/14/25 12:14 Dose: 650 mg Documented By: Admin: 02/14/25 07:57 Dose: 650 mg Documented By: Admin: 02/13/25 20:54 Dose: 650 mg Documented By: Admin: 02/13/25 12:52 Dose: 650 mg Documented By: Admin: 02/13/25 07:50 Dose: 650 mg Documented By: Admin: 02/12/25 17:26 Dose: 650 mg Documented By: JOSIAH Aspirin (Aspirin 81 Mg Ectab) 81 mg PO DAILY AYAAN Stop: 03/16/25 08:59 Last Admin: 02/15/25 08:48 Dose: 81 mg Documented By: Admin: 02/14/25 07:59 Dose: 81 mg Documented By: JOSIAH Colestipol HCl (Colestipol Hcl 1 Gm Tab) 2 gm PO QAM AYAAN Stop: 03/15/25 08:59 Last Admin: 02/15/25 12:39 Dose: Not Given Documented By: Admin: 02/14/25 12:18 Dose: 2 gm Documented By: Admin: 02/13/25 12:07 Dose: 2 gm Documented By: JOSIAH Colestipol HCl (Colestipol Hcl 1 Gm Tab) 1 gm PO HS AYAAN Stop: 03/14/25 20:59 Last Admin: 02/14/25 20:59 Dose: 1 gm Documented By: alt Admin: 02/13/25 20:55 Dose: 1 gm Documented By: Admin: 02/12/25 21:45 Dose: 1 gm Documented By: GTH Cyanocobalamin (Cyanocobalamin (B-12) 500 Mcg Tablet) 1,000 mcg PO BID AYAAN Stop: 03/14/25 20:59 Last Admin: 02/15/25 08:47 Dose: 1,000 mcg Documented By: Admin: 02/14/25 20:58 Dose: 1,000 mcg Documented By: alt Admin: 02/14/25 08:00 Dose: 1,000 mcg Documented By: Admin: 02/13/25 20:55 Dose: 1,000 mcg Documented By: Admin: 02/13/25 07:44 Dose: 1,000 mcg Documented By: Admin: 02/12/25 21:44 Dose: 1,000 mcg Documented By: GTMichelle Ezetimibe (Ezetimibe 10 Mg Tab) 10 mg PO QAM AYAAN Stop: 03/15/25 08:59 Last Admin: 02/15/25 08:46 Dose: 10 mg Documented By: Admin: 02/14/25 07:59 Dose: 10 mg Documented By: Admin: 02/13/25 07:44 Dose: 10 mg Documented By: JOSIAH Gemfibrozil (Gemfibrozil 600 Mg Tab) 600 mg PO BID AYAAN Stop: 03/14/25 20:59 Last Admin: 02/14/25 07:58 Dose: 600 mg Documented By: Admin: 02/13/25 20:57 Dose: 600 mg Documented By: Admin: 02/13/25 07:47 Dose: 600 mg Documented By: Admin: 02/12/25 21:46 Dose: 600 mg Documented By: PATRICE Heparin Sodium (Porcine) (Heparin Sod 5,000 Unit/0.5 Ml Vial) 5,000 units SQ Q12 AYAAN Stop: 03/15/25 20:59 Last Admin: 02/15/25 12:39 Dose: Not Given Documented By: Admin: 02/14/25 20:55 Dose: 5,000 units Documented By: peter Admin: 02/14/25 08:05 Dose: 5,000 units Documented By: Admin: 02/13/25 20:55 Dose: 5,000 units Documented By: PATRICE Insulin Aspart (Insulin Aspart Per Unit Charge) 0 units SC ACHS AYAAN Stop: 03/16/25 08:59 Last Admin: 02/15/25 12:39 Dose: Not Given Documented By: Admin: 02/15/25 08:44 Dose: 2 units Documented By: MAK Co-signed By: RIVKA Admin: 02/14/25 20:57 Dose: 2 units Documented By: peter Co-signed By: KAYLA Admin: 02/14/25 17:22 Dose: 5 units Documented By: JOSIAH Co-signed By: ANTOLIN Admin: 02/14/25 12:22 Dose: 5 units Documented By: JOSIAH Co-signed By: JANE Insulin Glargine (Lantus Per Unit Charge) 0 units SC BID AYAAN; Protocol Stop: 03/16/25 16:29 Last Admin: 02/15/25 08:48 Dose: Not Given Documented By: Admin: 02/14/25 17:23 Dose: 8 units Documented By: CAM Co-signed By: ANTOLIN Levothyroxine Sodium (Levothyroxine Sodium 25 Mcg Tablet) 25 mcg PO DAILYBB [facility] Stop: 03/15/25 06:29 Last Admin: 02/15/25 05:29 Dose: 25 mcg Documented By: alt Admin: 02/14/25 06:05 Dose: 25 mcg Documented By: Admin: 02/13/25 05:57 Dose: 25 mcg Documented By: GTH Metoprolol Succinate (Metoprolol Succ 50mg Ext Rel Tab) 50 mg PO BID [facility] Stop: 03/14/25 20:59 Last Admin: 02/15/25 08:47 Dose: 50 mg Documented By: Admin: 02/14/25 20:59 Dose: 50 mg Documented By: alt Admin: 02/14/25 07:59 Dose: 50 mg Documented By: Admin: 02/13/25 20:57 Dose: 50 mg Documented By: Admin: 02/13/25 07:45 Dose: 50 mg Documented By: Admin: 02/12/25 21:46 Dose: 50 mg Documented By: GTH Oxycodone HCl (Oxycodone Hcl Ir 5 Mg Tab (Immediate Release)) 5 mg PO Q6 PRN PRN Reason: Severe Pain (Scale 7, 8, 9,10) Stop: 02/28/25 15:33 Last Admin: 02/15/25 03:42 Dose: 5 mg Documented By: alt Admin: 02/14/25 21:00 Dose: 5 mg Documented By: alt Admin: 02/14/25 15:52 Dose: 5 mg Documented By: CAM Pantoprazole Sodium (Pantoprazole 40 Mg Tab) 40 mg PO BID AYAAN Stop: 03/14/25 20:59 Last Admin: 02/15/25 08:48 Dose: 40 mg Documented By: Admin: 02/14/25 20:59 Dose: 40 mg Documented By: alt Admin: 02/14/25 07:59 Dose: 40 mg Documented By: Admin: 02/13/25 20:56 Dose: 40 mg Documented By: Admin: 02/13/25 07:45 Dose: 40 mg Documented By: Admin: 02/12/25 21:46 Dose: 40 mg Documented By: GTH Ticagrelor (Ticagrelor 90 Mg Tab) 90 mg PO BID AYAAN Stop: 03/14/25 20:59 Last Admin: 02/15/25 08:47 Dose: 90 mg Documented By: Admin: 02/14/25 20:57 Dose: 90 mg Documented By: alt Admin: 02/14/25 07:56 Dose: 90 mg Documented By: Admin: 02/13/25 20:56 Dose: 90 mg Documented By: Admin: 02/13/25 07:43 Dose: 90 mg Documented By: Admin: 02/12/25 22:33 Dose: 90 mg Documented By: GT Vitamin D (Cholecalciferol 25 Mcg (1000 Units) Tab) 25 mcg PO QAM AYAAN Stop: 03/15/25 08:59 Last Admin: 02/15/25 08:46 Dose: 25 mcg Documented By: Admin: 02/14/25 07:58 Dose: 25 mcg Documented By: Admin: 02/13/25 07:44 Dose: 25 mcg Documented By: CAM
--- NOTE | 2025-02-15 17:16 | Ultrasound Report ---
EXAM: Ultrasound liver CLINICAL HISTORY: Right upper quadrant pain TECHNIQUE: Ultrasound interrogation of the abdomen was performed with grayscale and color Doppler imaging. PRIORS: FINDINGS: The liver is enlarged measuring 19 cm. And configuration. Normal liver parenchyma demonstrated. No intrahepatic ductal dilatation. No hepatic mass. Hepatopetal flow in the main portal vein is normal. Possible pneumobilia or extraluminal gas adjacent to the liver, within the [id number]. Gallbladder sludge is noted. No cholelithiasis, gallbladder wall thickening or sonographic Sapp sign. The common bile duct measures 4 mm. A right renal cyst is present measuring 2.1 cm. No hydronephrosis. Visualized pancreas is normal. Pancreatic tail not visualized due to shadowing bowel gas. IMPRESSION: 1. Pneumobilia versus extraluminal gas adjacent to the gallbladder noted as above. If this is an unknown finding, CT scan of the abdomen is suggested. 2. Hepatomegaly. 3. Gallbladder sludge with no discrete gallstones or gallbladder wall thickening. ACT 112: Positive. There are findings on this examination that require communication between the performing entity and the patient following Patient Test Result Information Act ([place] ACT 112) guidelines. Electronically signed by Angeles Eckert 02-15-2025 5:16 PM
[2025-02-15] MEDS: cefTRIAXone SODIUM 2,000 MG/50 ML BAG IV SCH (17:20)
[2025-02-15] MEDS: SODIUM BICARBONATE 8.4% 150 MEQ in DEXTROSE 5% 1,000 ML IV SCH (21:36)
[2025-02-16 06:48] LABS: Hematocrit (blood only) 30.8 % (42.0-52.0); Hemoglobin 10.2 g/dL (14.0-18.0); Mean Corpuscular Hemoglobin 29.2 pg (25.0-34.0); Mean Corpuscular Volume 88.3 fL (80.0-100.0); Platelet Count 250 K/uL (130-400); RDW Standard Deviation 50.9 fL (36.4-46.3); Red Blood Count 3.49 M/uL (4.70-6.10); White Blood Count 10.11 K/ul (4.8-10.8)
[2025-02-16 07:06] LABS: Anion Gap 12.0 (3-11); Blood Urea Nitrogen 61.0 mg/dl (6-23); Calcium 8.9 mg/dl (8.6-10.3); Carbon Dioxide 15.0 mmol/L (21-32); Chloride 104.0 mmol/L (98-107); Creatinine Clr Calc Pharmacy 16.8 ml/min; Glucose 154.0 mg/dl (70-99(Fasting)); Magnesium 2.2 mg/dl (1.7-2.4); Potassium 4.2 mmol/L (3.5-5.1); Sodium 131.0 mmol/L (136-145)
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
--- NOTE | 2025-02-16 14:31 | Hospitalist Progress Note ---
Date of Service February 16, 2025 Assessment & Plan (1) Sustained ventricular tachycardia: (2) Diabetes mellitus, type 2: (3) CAD (coronary artery disease): (4) Hepatocellular carcinoma: (5) Non-ST elevation CO (NSTEMI): (6) Hypothyroidism: (7) Hyperlipidemia: Plan 79 yo male with pmhx HFrEF (EF 25%), CAD s/p stent, sustained vtach s/p pacemaker, hypothyroidism, carcinoid tumor of duodenum, hepatocellular carcinoma (s/p radiation, not surgical candidate), Sjogrens, DM type 2, CKD stage 3a who presents for cold and chills, now found to have NSTEMI in setting of prolonged vtach. #Sustained Ventricular Tachycardia s/p Med[employer] Pacemaker w/ ICD #CAD s/p Stent (hx of stent thrombosis) #NSTEMI #Compensated HFrEF (EF 15%) -patient with worsening of EF and elevated troponin to 3700 -ICD detected 7 minute vtach episode on pacemaker interrogation -patient without chest pain -echo with EF 15% Plan: -cardiology consult, appreciate recs -continue aspirin, brelinta, metoprolol succinate -given potassium to keep goal K of 4, check Mg #Euglycemic DKA, resolved #AGMA on NAGMA #BILLY on CKD -as evidenced by AGMA with secondary NAGMA, low bicarb, ketones on UA -while pH improved, gap remains open, noted chronicitiy of NAGMA suggestive of secondary diagnosis -consideration of RTA -creatinine downtrending, urine output increasing Plan: -hold empagliflozin -nephrology consult, appreciate recs -resume IV fluids with bicarb per nephrology, seems to be showing improvement #Liver Abscess/Necrosis #E. coli Bacteremia #Hepatocellular Carcinoma #Hx of Carcinoid Tumor -patient not surgical candidate -s/p radiotherapy treatment -discussed case personally with [employer] IR, recommend abx management, no drainable abscess -E. coli source likely liver given UA unremarkable for infection, CT chest not revealing of infection -other considerations would be endocarditis (unlikely) vs. biliary tract -per general surgery RUQ US consistent with abdominal imaging Plan: -infectious disease consult, appreciate recs -repeat cultures -continue ceftriaxone based on sensitivities -f/u with radiation oncology and med onc outpatient (Dr. Victoria) #Hypothyroidism -continue levothyroxine #DM Type 2 -SSI -a1c 7.2 #GERD -continue omeprazole I spent a total of 50 minutes in direct patient care, including [id number] ti me with the patient and/or family, reviewing medical records, ordering and reviewing diagnostic tests, and coordinating care with other healthcare providers. This time includes: history taking, physical examination, medical decision making, counseling, ECG interpretation, imaging interpretation, lab interpretation, orders, and education, excluding time spent in the performance of separately billed services. Admission and Anticipated Discharge Date Admission Date: February 12, 2025 Subjective Patient seen and examined at bedside. Patient feels a bit better today. Encouraged by increase in urine output. Review of Systems Review of Systems: -negative unless listed above Physical Exam Physical Exam: Gen: A&O 3 NAD HEENT: NCAT, EOMI, not icteric. External ears normal. No rhinorrhea. Moist mucous membranes. Neck: Supple, full range of motion, no observable masses, No meningeal sign. Lungs: No Respiratory distress. CV: RRR, no edema. Abdomen: Soft, nondistended, No rebound tenderness. MSK: No joint swelling, no redness. No pitting edema Skin: No rashes, petechiae, lesions. Normal color per patient. Neuro: Normal Gait, Grossly intact. Psych: Appropriate for situation. Results & Data Results & Data Vital Signs (Past 12 Hours) Vital Signs Temp Pulse Pulse Resp BP Pulse Ox O2 Del Method 02/16/25 11:10 36.2 C L 67 18 128/74 97 Room Air 02/16/25 10:50 Room Air 02/16/25 10:34 88 02/16/25 07:13 36.6 C 68 18 117/71 96 Room Air 02/16/25 03:18 36.4 C L 64 18 138/79 95 Room Air Laboratory Results -personally reviewed, downtrending creatinine, NA improved to 131 Medications Administered Acetaminophen (Acetaminophen 325 Mg Tab) 650 mg PO Q4H PRN PRN Reason: pain/fever Stop: 03/14/25 10:39 Last Admin: 02/14/25 12:14 Dose: 650 mg Documented By: Admin: 02/14/25 07:57 Dose: 650 mg Documented By: Admin: 02/13/25 20:54 Dose: 650 mg Documented By: Admin: 02/13/25 12:52 Dose: 650 mg Documented By: Admin: 02/13/25 07:50 Dose: 650 mg Documented By: Admin: 02/12/25 17:26 Dose: 650 mg Documented By: JOSIAH Aspirin (Aspirin 81 Mg Ectab) 81 mg PO DAILY AYAAN Stop: 03/16/25 08:59 Last Admin: 02/16/25 08:36 Dose: 81 mg Documented By: Admin: 02/15/25 08:48 Dose: 81 mg Documented By: Admin: 02/14/25 07:59 Dose: 81 mg Documented By: JOSIAH Colestipol HCl (Colestipol Hcl 1 Gm Tab) 2 gm PO QAM AYAAN Stop: 03/15/25 08:59 Last Admin: 02/16/25 08:35 Dose: 2 gm Documented By: Admin: 02/15/25 12:39 Dose: Not Given Documented By: Admin: 02/14/25 12:18 Dose: 2 gm Documented By: Admin: 02/13/25 12:07 Dose: 2 gm Documented By: JOSIAH Colestipol HCl (Colestipol Hcl 1 Gm Tab) 1 gm PO HS AYAAN Stop: 03/14/25 20:59 Last Admin: 02/15/25 21:38 Dose: 1 gm Documented By: alt Admin: 02/14/25 20:59 Dose: 1 gm Documented By: alt Admin: 02/13/25 20:55 Dose: 1 gm Documented By: Admin: 02/12/25 21:45 Dose: 1 gm Documented By: PATRICE Cyanocobalamin (Cyanocobalamin (B-12) 500 Mcg Tablet) 1,000 mcg PO BID AYAAN Stop: 03/14/25 20:59 Last Admin: 02/16/25 08:35 Dose: 1,000 mcg Documented By: Admin: 02/15/25 21:37 Dose: 1,000 mcg Documented By: alt Admin: 02/15/25 08:47 Dose: 1,000 mcg Documented By: Admin: 02/14/25 20:58 Dose: 1,000 mcg Documented By: alt Admin: 02/14/25 08:00 Dose: 1,000 mcg Documented By: Admin: 02/13/25 20:55 Dose: 1,000 mcg Documented By: Admin: 02/13/25 07:44 Dose: 1,000 mcg Documented By: Admin: 02/12/25 21:44 Dose: 1,000 mcg Documented By: GTH Ezetimibe (Ezetimibe 10 Mg Tab) 10 mg PO QAM AYAAN Stop: 03/15/25 08:59 Last Admin: 02/16/25 08:35 Dose: 10 mg Documented By: Admin: 02/15/25 08:46 Dose: 10 mg Documented By: Admin: 02/14/25 07:59 Dose: 10 mg Documented By: Admin: 02/13/25 07:44 Dose: 10 mg Documented By: CAM Gemfibrozil (Gemfibrozil 600 Mg Tab) 600 mg PO BID AYAAN Stop: 03/14/25 20:59 Last Admin: 02/14/25 07:58 Dose: 600 mg Documented By: Admin: 02/13/25 20:57 Dose: 600 mg Documented By: Admin: 02/13/25 07:47 Dose: 600 mg Documented By: Admin: 02/12/25 21:46 Dose: 600 mg Documented By: GTH Heparin Sodium (Porcine) (Heparin Sod 5,000 Unit/0.5 Ml Vial) 5,000 units SQ Q12 AYAAN Stop: 03/15/25 20:59 Last Admin: 02/16/25 08:40 Dose: 5,000 units Documented By: Admin: 02/15/25 21:39 Dose: 5,000 units Documented By: alt Admin: 02/15/25 12:39 Dose: Not Given Documented By: Admin: 02/14/25 20:55 Dose: 5,000 units Documented By: alt Admin: 02/14/25 08:05 Dose: 5,000 units Documented By: Admin: 02/13/25 20:55 Dose: 5,000 units Documented By: GTH Hydromorphone HCl (Hydromorphone Hcl 2 Mg Tab) 2 mg PO Q6 PRN PRN Reason: Severe Pain (Scale 7, 8, 9,10) Stop: 03/01/25 15:52 Last Admin: 02/16/25 08:33 Dose: 2 mg Documented By: Admin: 02/15/25 21:40 Dose: 2 mg Documented By: alt Admin: 02/15/25 16:11 Dose: 2 mg Documented By: MAK Ceftriaxone Sodium (Rocephin) 2,000 mg in 50 mls @ 100 mls/hr IV Q24H AYAAN Stop: 02/25/25 17:59 Last Infusion: 02/15/25 18:00 Dose: Infused Documented By: Admin: 02/15/25 17:20 Dose: 100 mls/hr Documented By: MAK Sodium Bicarbonate 150 meq/ (Dextrose) 1,150 mls @ 50 mls/hr IV .Q23H AYAAN Stop: 02/18/25 18:14 Last Admin: 02/15/25 21:36 Dose: 50 mls/hr Documented By: peter Insulin Aspart (Insulin Aspart Per Unit Charge) 0 units SC ACHS AYAAN Stop: 03/16/25 08:59 Last Admin: 02/16/25 12:01 Dose: 11 units Documented By: KRISSY Co-signed By: juanita Admin: 02/16/25 08:32 Dose: 5 units Documented By: KRISSY Co-signed By: juanita Admin: 02/15/25 21:40 Dose: 4 units Documented By: alt Co-signed By: SHANNEN Admin: 02/15/25 17:15 Dose: 6 units Documented By: ARV Co-signed By: juanita Admin: 02/15/25 12:39 Dose: Not Given Documented By: Admin: 02/15/25 08:44 Dose: 2 units Documented By: MAK Co-signed By: RIVKA Admin: 02/14/25 20:57 Dose: 2 units Documented By: alt Co-signed By: KAYLA Admin: 02/14/25 17:22 Dose: 5 units Documented By: JOSIAH Co-signed By: ANTOLIN Admin: 02/14/25 12:22 Dose: 5 units Documented By: JOSIAH Co-signed By: JANE Insulin Glargine (Lantus Per Unit Charge) 0 units SC BID AYAAN; Protocol Stop: 03/16/25 16:29 Last Admin: 02/16/25 08:32 Dose: 8 units Documented By: KRISSY Co-signed By: juanita Admin: 02/15/25 21:39 Dose: 14 units Documented By: alt Co-signed By: SHANNEN Admin: 02/15/25 08:48 Dose: Not Given Documented By: Admin: 02/14/25 17:23 Dose: 8 units Documented By: JOSIAH Co-signed By: SHIRA Levothyroxine Sodium (Levothyroxine Sodium 25 Mcg Tablet) 25 mcg PO DAILYBB AYAAN Stop: 03/15/25 06:29 Last Admin: 02/16/25 05:59 Dose: 25 mcg Documented By: alt Admin: 02/15/25 05:29 Dose: 25 mcg Documented By: alt Admin: 02/14/25 06:05 Dose: 25 mcg Documented By: Admin: 02/13/25 05:57 Dose: 25 mcg Documented By: GT Metoprolol Succinate (Metoprolol Succ 50mg Ext Rel Tab) 50 mg PO BID AYAAN Stop: 03/14/25 20:59 Last Admin: 02/16/25 10:05 Dose: 50 mg Documented By: Admin: 02/15/25 21:37 Dose: 50 mg Documented By: alt Admin: 02/15/25 08:47 Dose: 50 mg Documented By: Admin: 02/14/25 20:59 Dose: 50 mg Documented By: alt Admin: 02/14/25 07:59 Dose: 50 mg Documented By: Admin: 02/13/25 20:57 Dose: 50 mg Documented By: Admin: 02/13/25 07:45 Dose: 50 mg Documented By: Admin: 02/12/25 21:46 Dose: 50 mg Documented By: GT Pantoprazole Sodium (Pantoprazole 40 Mg Tab) 40 mg PO BID AYAAN Stop: 03/14/25 20:59 Last Admin: 02/16/25 08:35 Dose: 40 mg Documented By: Admin: 02/15/25 21:37 Dose: 40 mg Documented By: alt Admin: 02/15/25 08:48 Dose: 40 mg Documented By: Admin: 02/14/25 20:59 Dose: 40 mg Documented By: alt Admin: 02/14/25 07:59 Dose: 40 mg Documented By: Admin: 02/13/25 20:56 Dose: 40 mg Documented By: Admin: 02/13/25 07:45 Dose: 40 mg Documented By: Admin: 02/12/25 21:46 Dose: 40 mg Documented By: GT Ticagrelor (Ticagrelor 90 Mg Tab) 90 mg PO BID AYAAN Stop: 03/14/25 20:59 Last Admin: 02/16/25 08:35 Dose: 90 mg Documented By: Admin: 02/15/25 21:36 Dose: 90 mg Documented By: alt Admin: 02/15/25 08:47 Dose: 90 mg Documented By: Admin: 02/14/25 20:57 Dose: 90 mg Documented By: alt Admin: 02/14/25 07:56 Dose: 90 mg Documented By: Admin: 02/13/25 20:56 Dose: 90 mg Documented By: Admin: 02/13/25 07:43 Dose: 90 mg Documented By: Admin: 02/12/25 22:33 Dose: 90 mg Documented By: GT Vitamin D (Cholecalciferol 25 Mcg (1000 Units) Tab) 25 mcg PO QAM AYAAN Stop: 03/15/25 08:59 Last Admin: 02/16/25 08:34 Dose: 25 mcg Documented By: Admin: 02/15/25 08:46 Dose: 25 mcg Documented By: Admin: 02/14/25 07:58 Dose: 25 mcg Documented By: Admin: 02/13/25 07:44 Dose: 25 mcg Documented By: CAM
--- NOTE | 2025-02-16 15:29 | Nephrology Progress Note ---
Date of Service February 16, 2025 Assessment & Plan Admission and Anticipated Discharge Date Admission Date: February 12, 2025 Subjective Assessment & Plan (1) BILLY (acute kidney injury): Plan: Stage 3 still nonoliguric BILLY on baseline non albuminuric CKD 3A with baseline creatinine 1.2-1.3 BILLY from ATN with Bacteremia. Other contributing factors include viral prodrome, VT prior to admission, IV contrast studies x 2 on admission, severe dehydration on presentation, cardiac meds (jardiance, entresto) now on hold follow up renal u/s shows no acute process; -continue efforts to correct VT -continue to hold gemfibrozil, jardiance, entresto -strict I/O -see below re IVF -check PVR Creat did come down a bit so this is encouraging. No e/o fluid overload. so can continue the bicarb drip for now at low rate of 50 ml/hr (2) Acute on chronic heart failure with reduced ejection fraction and diastolic dysfunction: Plan: severely diminished EF 15-20%. CXR 02/14 >> no pulm edema, small Bl pl effusions Suspect hyponatremia reflects mild vol OL Cont to hold entresto, jardiance (3) Increased anion gap metabolic acidosis: Plan: preexisting acid base perturbation w/ "baseline" bicarbonate mid-to-high teens as an outpatient since September And with anion gap present since November. now confounded by severe BILLY. while this needs inpatient/ongoing workup, not the clinical priority at this time at least for treatment. lactic acid wnl. Continue current Bicarb drip at low rate (4) Gram-negative bacteremia: Plan: E coli bacteremia; source unclear >> large hepatic gas collection a possible abscess/ possible source; bowels ok on admission CT ID note reviewed about iv unasyn and then Augmentin till 03/09. (5) Hepatocellular carcinoma: Plan: possible that liver lesion represents area of radioembolization from this fall but defer to primary service F/u infectious diseases recommendations (6) Sustained ventricular tachycardia: Plan: As per primary service and cardiology; disrupts renal perfusion Subjective Still has diarrhea but better. making urine. renal labs slightly better Review of Systems Review of Systems: All systems reviewed & are unremarkable except as noted in Subjective Physical Exam Constitutional: well developed (lying flat in bed on RA) and well nourished; no acute distress Eyes: + eyelid abnormality (L eyelid droop) an d EOM intact bilaterally ENMT: Mouth: + dry oral mucous membranes Respiratory: normal respiratory effort (except slight increase work of breathing w/ exam maneuvers) Auscultation: + diminished lung sounds and + crackles (fine bibasilar) Cardiovascular: Rate/Rhythm: regular rate and regular rhythm (occasional skipped beat) Extremities: no edema Gastrointestinal (Abdomen): Inspection/Auscultation: normal bowel sounds Percussion/Palpation: abdomen soft; abdomen nontender Musculoskeletal: Extremities: strength 5/5 throughout Skin: no rashes, warm and dry Results & Data Vital Signs (Past 12 Hours) Vital Signs Temp Pulse Pulse Resp BP Pulse Ox O2 Del Method 02/16/25 15:21 36.7 C 67 18 126/71 96 Room Air 02/16/25 14:31 65 02/16/25 11:10 36.2 C L 67 18 128/74 97 Room Air 02/16/25 10:50 Room Air 02/16/25 10:34 88 02/16/25 07:13 36.6 C 68 18 117/71 96 Room Air
[2025-02-16] MEDS: AMPICILLIN/SULBACTAM SOD 3,000 MG/100 ML BAG IV SCH (17:19)
[2025-02-17 06:19] LABS: Hematocrit (blood only) 27.2 % (42.0-52.0); Hemoglobin 9.4 g/dL (14.0-18.0); Mean Corpuscular Hemoglobin 29.6 pg (25.0-34.0); Mean Corpuscular Volume 85.5 fL (80.0-100.0); Platelet Count 237 K/uL (130-400); RDW Standard Deviation 47.6 fL (36.4-46.3); Red Blood Count 3.18 M/uL (4.70-6.10); White Blood Count 7.57 K/ul (4.8-10.8)
[2025-02-17 06:57] LABS: Anion Gap 11.0 (3-11); Blood Urea Nitrogen 37.0 mg/dl (6-23); Calcium 8.4 mg/dl (8.6-10.3); Carbon Dioxide 18.0 mmol/L (21-32); Chloride 108.0 mmol/L (98-107); Creatinine Clr Calc Pharmacy 32.6 ml/min; Glucose 128.0 mg/dl (70-99(Fasting)); Magnesium 2.0 mg/dl (1.7-2.4); Potassium 3.4 mmol/L (3.5-5.1); Sodium 137.0 mmol/L (136-145)
[2025-02-17] MEDS: POTASSIUM CHLORIDE 20 MEQ/15 ML UDC PO STA (08:38)
[2025-02-17 11:34] VITALS: RESP 20
--- NOTE | 2025-02-17 13:25 | Pharmacy Report ---
Pharmacy Glycemic Short Note 2 - Date of Service February 17, 2025 - Glycemic Short BSG Results (Last 24 hours): 02/16/25 02/16/25 02/17/25 16:11 20:23 05:42 Glucose 128 H POC Glucose 163 H 210 H 02/17/25 02/17/25 07:05 11:40 Glucose POC Glucose 128 H 180 H OUTPATIENT ANTIDIABETIC REGIMEN: * jardiance 12.5 mg QAM, alogliptan 12.5 mg QAM, metformin 850 mg bid A1c = 7.2% ASSESSMENT: 02/17: * [place] received a total of 47 unit of insulin yesterday (22 units were basal and 25 units were bolus). BSGs were [id number]/dL. * Fasting BSG was in the goal range. Will continue the Lantus scale BID and will tighten the CR as his blood glucose has consistently been above the goal range 02/15: * Insulin infusion discontinued on 02/14 AM. Per discussion with Hospitalist; pH improved, continued abnormality in anion gap/bicarb thought to be due to another cause as patient has chronic NAGMA. Desire to stop IV fluids due to worsening renal function/nephro consultation. SC basal + bolus insulin initiated on 02/14. * Fasting BSG of 125 mg/dL. Will continue Lantus dosed per BSG scale. 02/13: * 79 year old admitted with chills over last 2 weeks/nausea. CT of abdomen/pelvis with potential necrosis and/or abscess of the liver. PMHx significant for hepatocellular carcinoma. Pharmacy consulted for glycemic ma nagement due to concerns for DKA developing. Discussed with provider and opted for lower initial starting rate for IV insulin infusion d/t lower initial blood sugars/BILLY and wanting to minimize fluids rate d/t poor EF. Would recommend continuation of insulin infusion until DKA labs resolve. PLAN FOR INPATIENT GLYCEMIC CONTROL: * Hold outpatient oral diabetes medications * Basal insulin * Lantus 0-8-14 units SC BID (see eMAR for details) * Bolus insulin * Novolog ACHS * Goal range: 120 - 160 mg/dL * CF 25 mg/dL/unit, Carb ratio 1 unit per 7 grams CHO
--- NOTE | 2025-02-17 14:04 | Discharge Summary ---
Discharge Summary Date of Service February 17, 2025 Principal Dx & Hospital Course #1 = Principal Diagnosis (1) Sustained ventricular tachycardia: (2) Diabetes mellitus, type 2: (3) CAD (coronary artery disease): (4) Hepatocellular carcinoma: (5) Non-ST elevation ID (NSTEMI): (6) Hypothyroidism: (7) Hyperlipidemia: Plan 79 yo male with pmhx HFrEF (EF 25%), CAD s/p stent, sustained vtach s/p pacemaker, hypothyroidism, carcinoid tumor of duodenum, hepatocellular carcinoma (s/p radiation, not surgical candidate), Sjogrens, DM type 2, CKD stage 3a who presents for cold and chills, now found to have NSTEMI in setting of prolonged vtach. #Sustained Ventricular Tachycardia s/p Medrtonic Pacemaker w/ ICD #CAD s/p Stent (hx of stent thrombosis) #NSTEMI #Compensated HFrEF (EF 15%) -patient with worsening of EF and elevated troponin to 3700 -ICD detected 7 minute vtach episode on pacemaker interrogation -patient without chest pain -echo with EF 15% Plan: -cardiology consult, appreciate recs -continue aspirin, brelinta, metoprolol succinate -given potassium to keep goal K of 4, check Mg #Euglycemic DKA, resolved #AGMA on NAGMA #BILLY on CKD -as evidenced by AGMA with secondary NAGMA, low bicarb, ketones on UA -while pH improved, gap remains open, noted chronicitiy of NAGMA suggestive of secondary diagnosis -consideration of RTA -creatinine downtrending, urine output increasing Plan: -hold empagliflozin -nephrology consult, appreciate recs -resume IV fluids with bicarb per nephrology, seems to be showing improvement #Liver Abscess/Necrosis #E. coli Bacteremia #Hepatocellular Carcinoma #Hx of Carcinoid Tumor -patient not surgical candidate -s/p radiotherapy treatment -discussed case personally with [facility], recommend abx management, no drainable abscess -E. coli source likely liver given UA unremarkable for infection, CT chest not revealing of infection -other considerations would be endocarditis (unlikely) vs. biliary tract -per general surgery RUQ US consistent with abdominal imaging Plan: -infectious disease consult, appreciate recs -repeat cultures -continue ceftriaxone based on sensitivities -f/u with radiation oncology and med onc outpatient (Dr. Victoria) #Hypothyroidism -continue levothyroxine #DM Type 2 -SSI -a1c 7.2 #GERD -continue omeprazole Notes For Next Care Provider 79 yo male with pmhx HFrEF (EF 25%), CAD s/p stent, sustained vtach s/p pacemaker, hypothyroidism, carcinoid tumor of duodenum, hepatocellular carcinoma (s/p radiation, not surgical candidate), Sjogrens DM type 2, CKD stage 3a who presents for cold and chills. Found to have 7 minute run of vtach, admitted to medicine. On medicine, cardiology consulted, made adjustments to pacemaker settings. Creatinine lelo dramatically. Concern for euglycemic DKA, improved. Nephrology consulted given rapidly worsening BILLY, patient improved with sodium bicarb fluids. E. coli bacteremia noted from liver abscess/necrosis. ID consulted, recommend PO abx and repeat imaging in 3 weeks. PT/OT worked with patient, ok for discharge home. on 02/17/2025 patient medically stable for discharge home. To do: [ ] f/u with ID, pulmonary (given possible ILD), cardiology, nephrology [ ] f/u repeat labs in 5 days -Incidental Findings: gallbladder sludge, cardiomegaly, pulm HTN, bilateral renal cysts, likely ILD Medication Changes From Visit -see below Admission HPI Per Admitting Provider 79 yo male with pmhx HFrEF (EF 25%), CAD s/p stent, sustained vtach s/p pacemaker, hypothyroidism, carcinoid tumor of duodenum, hepatocellular carcinoma (s/p radiation, not surgical candidate), Sjogrens DM type 2, CKD stage 3a who presents for cold and chills. Had admission in 03/2024 for chest pain. In the ED, noted to have troponin in 600s, elevated BNP, given 500 cc fluids, admitted to medicine for further workup. Patient seen and examined at bedside. present and assists with history. For past 2 weeks has not been feeling well. States he has been having chills and "feeling cold". Denies chest pain, SOB, headache. Had mild nausea this morning, and not feeling well overall brought him in. Denies leg swelling, trace cough only. Has been having right sided back pain for past few days. States the last time he had a heart attack he did not have much chest pain and it felt somewhat similar to this. Able to do all activities of daily living without difficulty. 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 Discharge Exam Gen: A&O 3 NAD HEENT: NCAT, EOMI, not icteric. External ears normal. No rhinorrhea. Moist mucous membranes. Neck: Supple, full range of motion, no observable masses, No meningeal sign. Lungs: No Respiratory distress. CV: RRR, no edema. Abdomen: Soft, nondistended, No rebound tenderness. MSK: No joint swelling, no redness. No pitting edema Skin: No rashes, petechiae, lesions. Normal color per patient. Neuro: Normal Gait, Grossly intact. Psych: Appropriate for situation. Updated Medication List Medication Instructions Recorded Confirmed Type aspirin 81 mg tablet,delayed 81 mg PO BID 11/29/18 04/06/23 History release colestipol 1 gram tablet 2 g PO QAM 11/29/18 04/06/23 History ezetimibe 10 mg tablet (Zetia) 10 mg PO QAM 11/29/18 04/06/23 History ferrous sulfate 325 mg (65 mg 325 mg PO BID 11/29/18 04/06/23 History iron) tablet (iron) gemfibrozil 600 mg tablet 600 mg PO BID 11/29/18 04/06/23 History levothyroxine 25 mcg tablet 25 mcg PO QAM 11/29/18 04/06/23 History nitroglycerin 0.4 mg sublingual 0.4 mg sublingual UD PRN Chest Pain 11/29/18 04/06/23 History tablet omeprazole 20 mg tablet,delayed 20 mg PO BID 02/17/19 04/06/23 History release colestipol 1 gram tablet 1 g PO HS 06/09/19 04/06/23 History cyanocobalamin (vitamin B-12) 500 1,000 mcg PO BID 06/09/19 04/06/23 History mcg tablet (Vitamin B-12) fluticasone propionate 50 2 spray intranasal DAILY PRN 06/09/19 04/06/23 History mcg/actuation nasal Allergy Symptoms spray,suspension metformin 850 mg tablet 850 mg PO BID 06/09/19 04/06/23 History alogliptin 12.5 mg tablet (Nesina) 12.5 mg PO QAM 12/16/19 04/06/23 History cholecalciferol (vitamin D3) 25 25 mcg PO QAM 12/18/19 04/06/23 History mcg (1,000 unit) capsule empagliflozin 25 mg tablet 12.5 mg PO QAM 12/30/19 04/06/23 History ticagrelor 90 mg tablet (Brilinta) 90 mg PO BID #60 tabs 08/25/20 04/06/23 Rx alirocumab 75 mg/mL subcutaneous 75 mg subcut Q14D 03/02/21 04/06/23 History pen injector tramadol 50 mg tablet 50 mg PO BID PRN pain #11 tabs 10/28/21 04/06/23 Rx furosemide 20 mg tablet 10 mg (1/2 x 20 mg) PO UD #10 tabs 04/10/23 Rx metoprolol succinate 50 mg 50 mg PO BID #60 tabs 04/10/23 Rx tablet,extended release 24 hr amoxicillin 875 mg-potassium 1 tab PO Q8H 4 weeks #84 tabs 02/17/25 Rx clavulanate 125 mg tablet hydromorphone 2 mg tablet 2 mg PO Q6 PRN pain 5 days #20 tabs 02/17/25 Rx (Dilaudid) ondansetron 4 mg disintegrating 4 mg PO Q8H PRN nausea and 02/17/25 Rx tablet vomiting 5 days #14 tabs sodium bicarbonate 650 mg tablet 650 mg PO TID 14 days #42 tabs 02/17/25 Rx Hospital Stay Data Consultations 02/12/25 08:00 ED Decision to Admit Stat 02/12/25 09:16 Consult Cardiology Routine 02/13/25 08:00 Consult General Surgery Routine 02/13/25 14:42 Consult Infectious Diseases Routine 02/14/25 07:20 Consult Nephrology Routine Diagnostic Imagining Performed 02/12/25 07:16 CT angio chest PE protocol Stat 02/12/25 15:50 CT abd pelvis IV con only Urgent 02/14/25 07:29 US Renal Bladder [US renal/blad retro comp] Urgent 02/15/25 08:56 US RUQ [US liver] Urgent Pending Results Patient Have Any Pending Studies at Discharge: Yes Discharge Instructions Given to Patient (Per Discharging Provider) Diagnosis: E. coli Bacteremia 2/2 Liver Abscess/Necrosis, BILLY on CKD 2/2 ATN, Euglycemic DKA, resolved, Sustained Ventricular Tachycardia Incidental Findings: gallbladder sludge, cardiomegaly, pulm HTN, bilateral renal cysts, likely ILD Follow Ups: PCP, cardiology, ID, pulmonology, nephrology 1. Please follow up with PCP, cardiology, ID, pulmonology, nephrology. 2. Please get repeat BMP/Mg in 5 days. 3. Please get CT abdomen/pelvis in [place] in 3 weeks. 4. Please finish course of abx. 5. Please stay hydrated! Total Time Total Time Spent Total Time Spent (In Minutes): I spent a total of 35 minutes in direct patient care, including [id number] time with the patient and/or family, reviewing medical records, ordering and reviewing diagnostic tests, and coordinating care with other healthcare providers. This time includes: history taking, physical examination, medical decision making, counseling, ECG interpretation, imaging interpretation, lab interpretation, orders, and education, excluding time spent in the performance of separately billed services.
[2025-02-17 15:06] VITALS: BP 103/57; PULSE 84; TEMP 97.5; O2SAT 96
== END 2025-02-17 15:19 | disposition home or self-care (01) | DRG 280 ==
LOC: ED 05:13 → 2S 08:24